=== PATIENT | male | born 1960 | race Caucasian/White ===

== ENCOUNTER 2019-11-16 12:39 | Inpatient (IN) | payer BC, SELFPAY ==
[2019-11-16] VITALS (14 sets, daily range): BP systolic 168–217; BP diastolic 108–160; PULSE 94–110; RESP 16–23; TEMP 36.4–36.6; O2SAT 93–98; BMI 21.8
--- NOTE | ~2019-11-16 | US_ITS ---
EXAMINATION: US renal BI, US retroperitoneal duplex ltd DATE: 11/17/2019 10:55 INDICATION: Renal insufficiency. Hypertension TECHNIQUE: 1. Multiple grayscale and color Doppler images of the kidneys were obtained. 2. Multiple grayscale and pulsed Doppler images of the aorta and renal arteries were obtained. COMPARISON: None. FINDINGS: Kidneys: The right kidney measures 9.2 x 4.4 x 5.4 cm. The left kidney measures 10.5 x 5.0 x 5.6 cm. Bilateral increased renal cortical echogenicity consistent with medical renal disease. There are couple anecho ic cysts in the right kidney measuring 10 mm and 5 mm in maximal diameters. Additional 11 mm anechoic cyst at the lower pole of the left kidney. There is no hydronephrosis in either kidney. No stones i dentified. The bladder is normal. Renal arteries/vascular: The aorta peak systolic velocity is 69 cm/s. The right renal artery peak systolic velocity is 37 cm/s in the proximal segment, 42 cm/s in the mid segment, and 40 cm/s in the distal segment. The left jack al artery peak systolic velocity is 48 cm/s in the proximal segment, 34 cm/s in the mid segment, and 27 cm/s in the distal segment. IMPRESSION: 1. Bilateral increased renal cortical echogenicity consistent with medical renal disease. No hydronep hrosis. 2. No Doppler evidence of renal artery stenosis. Reviewed, dictated and finalized at location A. IMPRESSION: 1. Bilateral increased renal cortical echogenicity consistent with medical rohini l disease. No hydronephrosis. 2. No Doppler evidence of renal artery stenosis.
--- NOTE | ~2019-11-16 | XR_ITS ---
XR chest 2V DATE: 11/16/2019 13:25 INDICATION: Dyspnea TECHNIQUE: PA and lateral views. COMPARISON: None FINDINGS: There is mild right pleural effusion. There is right basilar lower lobe infiltrate and/atel ectasis. The lungs otherwise appear clear. Cardiomegaly. Aortic calcification. Moderate diffuse osteopenia. IMPRESSION: Mild right pleural effusion and right basilar infiltrate and/atelectasis Cardiomegaly, aortic atherosclerosis Reviewed, dictated and finalized at location A. IMPRESSION: Mild right pleural effusion and right basilar infiltrate and/atelec tasis Cardiomegaly, aortic atherosclerosis
--- NOTE | ~2019-11-16 | US_ITS ---
EXAMINATION: US right upper quadrant DATE: 11/17/2019 10:50 INDICATION: Abnormal liver function tests. TECHNIQUE: Multiple grayscale and Doppler ultrasound images of the abdomen were obtained. COMPARISON: None FINDINGS: The visualized portions of the head and body of the pancreas are normal. There is a 1.2 cm hyperechoic mass in the liver. No liver surface nodularity. There is normal flow in main portal vein. The gallbladder is normal size. No gallstones or gallbladder wall thickening. There was no sonograph ic Nguyễn sign. The common duct is normal and measures 4 mm. IMPRESSION: 1. 1.2 cm hyperechoic liver mass. In the absence of chronic liver disease or known malignancy, this f inding is likely a benign mass such as a hemangioma. Reviewed, dictated and finalized at location E. IMPRESSION: 1. 1.2 cm hyperechoic liver mass. In the absence of chronic liver disease or kn own malignancy, this finding is likely a benign mass such as a hemangioma.
--- NOTE | ~2019-11-16 | US_ITS ---
EXAMINATION: US carotid duplex BI DATE: 11/17/2019 10:47 INDICATION: Bilateral carotid bruits TECHNIQUE: Grayscale, color Doppler, and pulsed Doppler images of the cervical carotid arteries were obtained. The degree of vessel stenosis is placed in one of the following categories: normal, <50%, 5 0-69%, >=70% but less than near-occlusion, near-occlusion, or total occlusion. Note that percent sten osis relative to normal distal artery lumen diameter is indirectly measured from velocity measurement s as described by Gerard, et al. Radiology 2003; 229:340-346. COMPARISON: None. FINDINGS: RIGHT: The right common carotid artery (CCA) peak systolic velocity (PSV) is 53 cm/s. The right internal car otid artery (ICA) PSV is 44 cm/s. The right ICA end-diastolic velocity (EDV) is 9 cm/s. The right ICA /CCA PSV ratio is 0.8. Grayscale and color Doppler images yield an estimate of <50% diameter reductio n from plaque in the ICA. The external carotid artery (ECA) PSV is 75 cm/s. There is antegrade flow i n the right vertebral artery. LEFT: The left CCA PSV is 74 cm/s. The left ICA PSV is 55 cm/s. The left ICA EDV is 24 cm/s. The left ICA/C CA PSV ratio is 0.7. Grayscale and color Doppler images yield an estimate of <50% diameter reduction from plaque in the ICA. The ECA PSV is 142 cm/s. There is antegrade flow in the left vertebral artery . IMPRESSION: 1. <50% stenosis in the right internal carotid artery. 2. <50% stenosis in the left internal carotid artery. Reviewed, dictated and finalized at location A.
--- NOTE | 2019-11-16 12:46 | ED.GENADULT ---
HPI - General Adult General Chief complaint: Shortness of Breath/Dyspnea Stated complaint: htn Time Seen by Provider: 11/16/19 12:42 Source: patient Mode of arrival: ambulatory Limitations: no limitations History of Present Illness HPI narrative: Patient is a 59-year-old male with a history of hypertension who presents for evaluation of high blood pressure and shortness of breath. Patient states that he went to a walk-in clinic with [facility] as he has been out of his blood pressure medications over the past year and a half, and was found to have elevated blood pressure readings and was sent to this facility for management of that. Patient currently has no headache, no chest pain. He reports some shortness of breath that has chronic for him over the past several weeks, worsening. He reports dry cough without fever. Patient is a daily 1 to 2 pack/day smoker. He denies leg swelling, calf pain, no pain with breathing. No hemoptysis. No recent sick contacts. Related Data Home Medications Medication Instructions Recorded Confirmed No Home Medications 11/16/19 11/16/19 Allergies Allergy/AdvReac Type Severity Reaction Status Date / Time No Known Allergies Allergy Verified 11/16/19 15:01 Review of Systems Review of Systems: Narrative: CONSTITUTIONAL: Denies fever, chills, or sweats. EYES: Denies visual changes, redness, or discharge. ENT: Denies rhinorrhea, congestion, sore throat, or otalgia. CARDIOVASCULAR: Denies chest pain, palpitations, or edema. RESPIRATORY: Reports dry cough and dyspnea GASTROINTESTINAL: Denies abdominal pain, nausea, vomiting, or diarrhea. GENITOURINARY: Denies dysuria or hematuria. SKIN: Denies rash or itching. MUSCULOSKELETAL: Denies back pain, joint pain, or myalgia. NEUROLOGIC: Denies headache, numbness, or weakness. [facility] Past Medical History Medical History (Updated 11/16/19 @ 14:42 by Lorena Gudino MD) Broken toes COPD (chronic obstructive pulmonary disease) History of broken leg Hypertension Surgical History Surgical History (Updated 11/16/19 @ 12:58 by Lorena Gudino MD) H/O toe surgery Social History Social History (Updated 11/16/19 @ 12:59 by Lorena Gudino MD) Smoking status: Heavy tobacco smoker Alcohol intake: never Substance use: never Gender identity (if verbalized by the patient): Male Exam Narrative: Exam Narrative: GENERAL: Awake, alert, conversant HEAD: Normocephalic, atraumatic. EYES: PERRLA and EOMI. ENT: Nares clear, no rhinorrhea or epistaxis. Mucous membranes moist. NECK: Supple. CHEST: No respiratory distress, faint expiratory wheezing bilaterally, crackles bilaterally, breathing even, no tachypnea, no rhonchi HEART: Tachycardic rate, sinus rhythm ABDOMEN:Non distended, non tender EXTREMITIES: Normal range of motion. No edema. SKIN: Warm, dry, no rash. NEURO:No focal deficits. Alert and oriented x3 Course Vital Signs Vital signs: Vital Signs Temperature 36.4 C L 11/16/19 13:05 Pulse Rate 110 H 11/16/19 13:05 Respiratory Rate 20 11/16/19 13:05 Blood Pressure 206/158 H 11/16/19 13:05 Pulse Oximetry 93 11/16/19 13:05 Temperature 36.4 C L 11/16/19 13:05 Pulse Rate 101 H 11/16/19 15:00 Respiratory Rate 20 11/16/19 15:00 Blood Pressure 199/160 H 11/16/19 15:00 Pulse Oximetry 97 11/16/19 15:00 Medical Decision Making MDM Narrative Medical decision making narrative: Patient presented to the emergency department for evaluation of shortness of breath, elevated blood pressure readings. At the time of initial assessment, ABCs are intact, vital signs notable for sinus tachycardia. Patient with faint wheezing, crackles bilaterally on exam. No lower extremity edema. EKG without acute ischemic changes. Did try a DuoNeb which did have some improvement for the patient. He obviously has some component of COPD given his chronic cigarette/tobacco use. Patient with significantl
--- NOTE | 2019-11-16 12:55 | ECG_ITS ---
Measurements Intervals [place] Rate: 110 P: 64 MT: 127 QRS: -32 QRSD: 114 T: -32 QT: 434 QTc: 588 Interpretive Statements SINUS TACHYCARDIA LEFT ATRIAL ENLARGEMENT LEFT AXIS DEVIATION INTRAVENTRICULAR CONDUCTION DELAY POSSIBLE LEFT VENTRICULAR HYPERTROPHY CANNOT RULE OUT SEPTAL INFARCT, AGE INDETERMINATE BORDERLINE T WAVE ABNORMALITY- INFERIOR LEADS ABNORMAL ECG Electronically Signed On 11-16-2019 13:22:50 CDT by Kemal Hogan D.O.
[2019-11-16] MEDS: ALBUTEROL SULFATE NEB 2.5 MG/0.5 ML INH 5 MG INHALATION (13:08)
[2019-11-16] MEDS: IPRATROPIUM BR 0.02% INH SOLN 0.5 MG/2.5 ML VIAL 1 MG INHALATION (13:10)
[2019-11-16 13:19] LABS: Basophils Absolute Auto 0.1 K/mm3 (0.0-0.1); Basophils Percent Auto 0.4 % (0.2-1.2); Eosinophils Absolute Auto 0.1 K/mm3 (0-0.3); Eosinophils Percent Auto 0.5 % (0-4.4); Hematocrit 43.3 % (42.0-52.0); Hemoglobin 15.1 g/dL (14.0-18.0); Immature Granulocyte Absolute 0.07 K/mm3 (0.00-0.031); Immature Granulocyte Percent A 0.4 % (0-0.5); Lymphocytes Absolute Auto 2.37 K/mm3 (0.9-3.2); Lymphocytes Percent Auto 14.8 % (18.3-44.2); Mean Corpuscular HGB Conc 34.9 g/dl (32-36); Mean Corpuscular Hemoglobin 32.2 pg (26-34); Mean Corpuscular Volume 92.3 fl (80-100); Monocytes Absolute Auto 1.5 K/mm3 (0.1-0.6); Monocytes Percent Auto 9.4 % (2.6-8.5); Neutrophils Percent Auto 74.5 % (45.5-73.1); Platelet Count Result 286 k/mm3 (150-375); Red Blood Count 4.69 M/mm3 (4.6-6.20); Red Cell Distribution Width 14.8 % (11.5-14.5)
[2019-11-16 13:29] LABS: INR 1.3; Prothrombin Time 15.4 Seconds (11.1-14.7)
[2019-11-16 13:30] LABS: Partial Thromboplastin Time 33.1 SECONDS (22.3-36.8)
[2019-11-16 13:32] LABS: Alanine Aminotransferase 124 U/L (4-50); Albumin Level 3.9 g/dL (3.5-5.1); Alkaline Phosphatase 227 U/L (38-126); Aspartate Amino Transferase 117 U/L (17-59); Bilirubin,Total 2.1 mg/dL (0.2-1.3); Blood Urea Nitrogen 31 mg/dL (9-20); Calcium 9.1 mg/dL (8.4-10.2); Carbon Dioxide 20 mmol/L (22-30); Chloride 106 mmol/L (98-107); Estimated CRCL calculation 50 ml/min; Estimated Glomerular Filt Rate 52; Glucose 122 mg/dL (75-110); Sodium 135 mmol/L (137-145)
[2019-11-16 13:47] LABS: NT Pro B Type Natriuretic Pept 17100 PG/ML (5-100); Troponin I 0.059 ng/mL (0.000-0.034)
[2019-11-16] MEDS: FUROSEMIDE INJ 40 MG/4 ML VIAL IV PUSH ×2 (14:04→21:08)
[2019-11-16] MEDS: NITROGLYCERIN SL 0.4 MG TABLET SUBLINGUAL (14:26)
[2019-11-16] MEDS: NITROGLYCERIN/D5W 200 MCG/ML 50 MG/250 ML BTL IV CONT ×2 (14:27→16:40)
[2019-11-16 15:18] LABS: Add Urine Microscopic? YES; Appearance Urine Clear (Clear); Bacteria Urine Trace /hpf; Bilirubin Urine Negative (Negative); Blood Urine Negative (Negative); Color Urine Straw (Yellow); Glucose Urine UA Negative (Negative); Ketones Urine Negative (Negative); Leukocyte Esterase Ur Negative LEU/UL (Negative); Mucus Urine Rare /lpf; Nitrate Urine Negative (Negative); Protein Urine 2+ mg/dL (Negative); RBC Urine 0-2 /hpf (0-2); Urobilinogen Urine Negative mg/dL (<2.0); WBC Urine 0-3 /hpf
[2019-11-16] MEDS: NITROGLYCERIN OINTMENT 1 INCH DOSE TRANSDERM (15:34)
[2019-11-16] MEDS: hydrALAZINE HCL 20 MG/ML VIAL IV PUSH (15:35)
[2019-11-16 17:47] LABS: Troponin I 0.057 ng/mL (0.000-0.034)
--- NOTE | 2019-11-16 18:17 | ADMGEN ---
This patient, Osvaldo Marshall, was admitted to Intensive Care Unit-9. Patient/family oriented to hospital policies and general routines including ID bracelet, bed and alarms, visiting hours, pain management, procedures, bathroom and other care routines, personal items, smoking policy, room service/diet, and visiting hours. Valuables list has been completed. Information on how to activate the Rapid Response Team has been discussed. Patient/Family are encouraged to report perceived risks to care and to ask questions if they do not understand what they are told or what they should do.
--- NOTE | 2019-11-16 20:00 | PM.IMHP ---
H&P: HPI History of Present Illness Chief complaint: High blood pressure and shortness of breath. Narrative: Osvaldo Marshall is a 59-year-old male smoker with untreated hypertension who presented to the emergency department earlier this afternoon for evaluation of high blood pressure and shortness of breath. He is not the best historian and he takes quite some time to answer questions, it appears that he is concentrating to, but the answers any frequently answers my questions with ?I cannot remember.? As such, the following history is somewhat limited. He took antihypertensives for approximately 6 months however he stopped taking them for unclear reasons and has been off of them for maybe a year and a half. He does not recall what medications he was on nor the doctor that prescribed them to him. In any event, over the past 3 weeks or so he reports progressive dyspnea on lesser and lesser exertion, orthopnea, and pedal edema. His shortness of breath has been so bad that he has not been eating well because of it, apparently feeling more short of breath while eating. He has also not worked for the past 2 weeks and has not consumed alcohol in 3 weeks due to such (he did drink heavily previously as below). He apparently went to a walk-in clinic at [facility], where he was found to have significantly elevated blood pressure reading and he was directed to the emergency department. He has since been started on a nitroglycerin drip with improvement. He denies headache, vertigo, visual changes, focal weakness, paresthesias, memory loss, chest pain, pleuritic pain, resting shortness of breath, palpitations, nausea, vomiting, sweats, change in urine output, and hematuria. Review of Systems Review of Systems: Narrative: Twelve systems were reviewed with pertinent positives and negatives as per HPI. He denies fever, chills, and sweats. No recent cold or flu symptoms. He denies travel and sick contacts. He has an occasional smoker's cough which is nonproductive. No history of venous thromboembolism. He denies dizziness and vertigo and has not had any falls. He did have some mild alcohol withdrawal symptoms when he quit drinking 3 weeks ago, but has no history of DTs or seizure. No history of seizure. He denies GERD and history of peptic ulcers. He has occasional dysphagia with breads and meats. He denies concerns for aspiration and choking episodes. Except as documented, all other systems were reviewed and are negative. [facility] Past Medical History Medical History (Updated 11/16/19 @ 23:22 by Abril Allison PA-C) Alcohol abuse Chronic obstructive pulmonary disease History of fracture Including lower extremity and multiple toes. Hypertension Tobacco dependence Surgical History Surgical History (Updated 11/16/19 @ 15:46 by Abril Allison PA-C) History of toe surgery Family History Family History (Updated 11/16/19 @ 23:05 by Abril Allison PA-C) Father Hypertension Father Throat cancer of throat cancer in her early 60s. He was a heavy smoker. Mother Acute myocardial infarction of MA in early 60s. Social History Social History (Updated 11/16/19 @ 23:07 by Abril Allison PA-C) Social History: The patient lives alone in [place]. He is single. He smoked between 1 and 2 packs of cigarettes per day and has since the age of 17. He drinks heavily, several times per week, consuming up to 1/2 of a 5th in addition to 6 beers. No drug use. He has 1 daughter, Andi, and he nominates her to be his surrogate decision maker. He wishes to be a full code. Spiritual care concerns: No Meds Home Medications and Allergies Home Medications Medication Instructions Recorded Confirmed Type amlodipine 5 mg PO DAILY 11/16/19 11/16/19 History Allergies Allergy/AdvReac Type Severity Reaction Status Date / Time No Known Allergies Allergy Verified 11/16/19 15:01
[2019-11-16] MEDS: NICOTINE (*PBKC) 21 MG PATCH 1 PATCH TRANSDERM (21:08)
[2019-11-16 21:34] LABS: Troponin I 0.065 ng/mL (0.000-0.034)
[2019-11-16 23:58] LABS: Ammonia < 9 umol/L (9-30); Blood Urea Nitrogen 30 mg/dL (9-20); Carbon Dioxide 29 mmol/L (22-30); Chloride 101 mmol/L (98-107); Estimated CRCL calculation 48 ml/min; Estimated Glomerular Filt Rate 52; Glucose 113 mg/dL (75-110); Potassium 3.5 mmol/L (3.4-5.0); Sodium 137 mmol/L (137-145)
[2019-11-16 23:59] LABS: Magnesium 1.8 mg/dL (1.6-2.3); Phosphorus 5.1 mg/dL (2.5-4.5)
[2019-11-17] VITALS (16 sets, daily range): BP systolic 121–192; BP diastolic 78–145; PULSE 86–108; RESP 16–23; TEMP 36.2–37.1; O2SAT 94–98
--- NOTE | 2019-11-17 | ECHO_ITS ---
Patient Info Name: Osvaldo Marshall Age: 59 years : 1960 Gender: Male Ht: 69 in Wt: 155 lbs BSA: 1.85 m2 HR: 90 bpm BP: 156 / 113 mmHg Heart Rhythm: Sinus Rhythm Technical Quality: Excellent Exam Date: 11/17/2019 11:37 AM Exam Location: [facility] Patient Status: Inpatient Admit Date: 11/16/2019 Staff Ordering Physician: Lorena Gudino MD Client Hr Manager: Ayo Muñoz RDCS Attending Provider: Yury Parekh MD Referring Physician: Shahab VASQUES; Exam Type: CA echo doppler color flow Study Info Indications I50.9 - Heart failure, unspecified Complete two-dimensional, color flow and Doppler transthoracic echocardiogram is performed. Strain analysis performed. History/Risk Factors Acute CHF w/ uncontrolled HTN; BNP 17.1k, COPD, SOB, cardiomegaly, Murmur III/, elevated trops. Summary 1. Left ventricular chamber dimension is normal. 2. Left ventricular systolic function is normal, estimated at 60-65%. 3. There is severely increased left ventricular wall thickness. 4. Left ventricular septal wall motion is normal. 5. The left ventricular diastolic function is normal. 6. Global longitudinal strain is normal at -17 %. 7. Left atrial chamber dimension is severely enlarged. 8. Partially flail posterior leaflet. 9. There is severe mitral valve regurgitation. 10. There is mild tricuspid valve regurgitation. 11. Mild pulmonary hypertension, estimated pulmonary arterial systolic pressure is 42 mmHg. 12. There is mild pulmonic regurgitation. 13. There is small pericardial effusion. 14. ERO 0.7 cm2. Left Ventricle Left ventricular chamber dimension is normal. Left ventricular systolic function is normal, estimated at 60-65%. There is severely increased left ventricular wall thickness. Left ventricular septal wall motion is normal. The left ventricular diastolic function is normal. Global longitudinal strain is normal at -17 %. Right Ventricle Right ventricular chamber dimension is normal. Right ventricular systolic function is normal. Left Atria Left atrial chamber dimension is severely enlarged. Right Atria Right atrial chamber dimension is normal. Aortic Valve The aortic valve is trileaflet. There is no aortic valve stenosis. There is trace aortic valve regurgitation. There is moderate aortic valve calcification. Pulmonic Valve The pulmonic valve is normal. There is no pulmonic valve stenosis. There is mild pulmonic regurgitation. Mitral Valve The mitral valve has posterior prolapse. There is no mitral valve stenosis. There is severe mitral valve regurgitation. Partially flail posterior leaflet. ERO 0.7 cm2. Tricuspid Valve The tricuspid valve leaflets are normal. There is no significant tricuspid valve stenosis. There is mild tricuspid valve regurgitation. Mild pulmonary hypertension, estimated pulmonary arterial systolic pressure is 42 mmHg. Pericardium/Pleural The pericardium appears normal. There is small pericardial effusion. Inferior Vena Cava Dilated inferior vena cava with >50% collapse upon inspiration consistent with elevated right atrial pressure, 10 mmHg. Aorta The aortic root size at the sinus of Valsalva is normal. The prox ascending aorta size is normal. Left Ventricular Outflow Tract Name Value Normal
[2019-11-17 01:08] LABS: Folic Acid > 20.0 ng/mL (2.76->20); Vitamin B12 > 1000.0 pg/mL (239-931)
[2019-11-17 01:26] LABS: Free T4 Free Thyroxine Reflex 1.41 ng/dL (0.78-2.19)
[2019-11-17] MEDS: THIAMINE HCL 200 MG/2 ML VIAL 100 MG IV PUSH (01:30)
[2019-11-17 01:58] LABS: Hepatitis B Surface Antigen Negative (Negative)
[2019-11-17 02:04] LABS: HAV RESULT Negative (Negative); Hepatitis B Core IgM Result Negative (Negative)
[2019-11-17 02:16] LABS: Hepatitis C Virus Antibody Negative (Negative)
[2019-11-17 04:57] LABS: Basophils Absolute Auto 0.1 K/mm3 (0.0-0.1); Basophils Percent Auto 0.3 % (0.2-1.2); Eosinophils Absolute Auto 0.1 K/mm3 (0-0.3); Eosinophils Percent Auto 0.6 % (0-4.4); Hematocrit 40.9 % (42.0-52.0); Hemoglobin 14.6 g/dL (14.0-18.0); Immature Granulocyte Absolute 0.11 K/mm3 (0.00-0.031); Immature Granulocyte Percent A 0.6 % (0-0.5); Lymphocytes Absolute Auto 2.25 K/mm3 (0.9-3.2); Mean Corpuscular HGB Conc 35.7 g/dl (32-36); Mean Corpuscular Hemoglobin 32.3 pg (26-34); Mean Corpuscular Volume 90.5 fl (80-100); Mean Platelet Volume 9.6 fl (7.4-10.4); Monocytes Absolute Auto 1.7 K/mm3 (0.1-0.6); Monocytes Percent Auto 9.9 % (2.6-8.5); Neutrophils Absolute Auto 13.1 K/mm3 (1.3-6.7); Neutrophils Percent Auto 75.6 % (45.5-73.1); Platelet Count Result 268 k/mm3 (150-375); Red Blood Count 4.52 M/mm3 (4.6-6.20); Red Cell Distribution Width 14.4 % (11.5-14.5); White Blood Count 17.3 K/mm3 (4.5-10.0)
[2019-11-17 05:10] LABS: Alanine Aminotransferase 98 U/L (4-50); Albumin Level 3.6 g/dL (3.5-5.1); Alkaline Phosphatase 187 U/L (38-126); Aspartate Amino Transferase 54 U/L (17-59); Bilirubin,Total 1.8 mg/dL (0.2-1.3); Blood Urea Nitrogen 34 mg/dL (9-20); Calcium 8.8 mg/dL (8.4-10.2); Carbon Dioxide 30 mmol/L (22-30); Chloride 102 mmol/L (98-107); Cholesterol 163 mg/dL (0-200); Estimated CRCL calculation 40 ml/min; Estimated Glomerular Filt Rate 41; Glucose 107 mg/dL (75-110); HDL Direct 53 mg/dL; INR 1.2; Magnesium 1.8 mg/dL (1.6-2.3); Phosphorus 5.2 mg/dL (2.5-4.5); Potassium 3.2 mmol/L (3.4-5.0); Prothrombin Time 14.9 Seconds (11.1-14.7); Sodium 136 mmol/L (137-145); Triglycerides 98 mg/dL (<150)
[2019-11-17 05:11] LABS: Partial Thromboplastin Time 34.3 SECONDS (22.3-36.8)
[2019-11-17 05:21] LABS: LDL Cholesterol Direct 94 mg/dL
[2019-11-17] MEDS: MORPHINE SULFATE 2 MG/ML INJ IV PUSH (05:27)
[2019-11-17] MEDS: POTASSIUM CHLORIDE 20 MEQ TABLET 40 MEQ PO (05:27)
--- NOTE | 2019-11-17 08:07 | WPDCNINT ---
Assessment and Plan Assessment and plan (1) Hypertensive emergency: Code(s): I16.1 - Hypertensive emergency Status: Acute Assessment and Plan: patient was started on nitroglycerin infusion on admission start p.o. Norvasc and metoprolol IV p.r.n. metoprolol and hydralazine try to wean off nitroglycerin infusion (2) Acute exacerbation of CHF (congestive heart failure): Qualifiers: Heart failure type: unspecified Qualified Code(s): I50.9 - Heart failure, unspecified Code(s): I50.9 - Heart failure, unspecified Status: Acute Assessment and Plan: patient is now on IV Lasix echocardiogram is ordered and pending SARS-CoV-2 PCR was done on 10/25 and was negative (3) Murmur, cardiac: Code(s): R01.1 - Cardiac murmur, unspecified Status: Acute Assessment and Plan: echo ordered (4) Elevated troponin: Code(s): R79.89 - Other specified abnormal findings of blood chemistry Status: Acute Assessment and Plan: small elevation in troponin on presentation with no significant rise over the hospital course but he did report episode of chest tightness 1-2 weeks ago which resolved by itself EKG does not show any ST elevation but did show LVH and T-wave abnormalities cardiology consult. further testing as per cardiology echocardiogram pending patient is on aspirin statin not started at this time because of elevated liver enzymes (5) Renal insufficiency: Code(s): N28.9 - Disorder of kidney and ureter, unspecified Status: Acute Assessment and Plan: patient's creatinine is elevated which could be chronic from uncontrolled hypertension monitor and manage electrolytes renal ultrasound and Doppler is ordered and pending (6) Elevated liver function tests: Code(s): R79.89 - Other specified abnormal findings of blood chemistry Status: Acute Assessment and Plan: from alcohol abuse versus congestion from heart failur Llevels are improving. monitor right upper quadrant ultrasound is ordered and pending acute hepatitis screen was negative (7) Tobacco dependence: Code(s): F17.200 - Nicotine dependence, unspecified, uncomplicated Status: Acute Assessment and Plan: encouraged to quit patient has nicotine patch on him at this time which was started on admission. will discontinue if patient reports any chest pain (8) Leukocytosis: Code(s): D72.829 - Elevated white blood cell count, unspecified Status: Acute Assessment and Plan: UA is negative patient is afebrile signs and symptoms not suggestive of pneumonia or any other infection at this moment monitor at this time Additional Plan DVT prophylaxis - Lovenox Nutrition - NPO at this time Code Status - Full Code [employer] Consult Note Consult date: 11/17/19 Time Seen: 07:30 HPI: Osvaldo Marshall is a 59 year old male who presented yesterday to ER with chief complaint of shortness of breath that started approximately 2 weeks ago. Patient reported symptoms 1 week prior to that but told me that they resolve by itself and hence he did not seek any treatment at that time but a week later the symptoms return. He reported shortness of breath mostly on exertion and lying flat, shortness of breath when he woke up in the morning. he was unable to sleep flat on bed and also notice swelling of his legs. he also had dry cough and had 1 episode of chest tightness which resolved by itself. and that time patient thought he had COVID-19 and went to get tested. SARS-CoV-2 PCR was done as an outpatient on 10/25 and was negative. patient is unable to provide any further details about other testing done at that time. As symptoms continued and did not resolve patient reported to ER yesterday. in ED he was found to be hypertensive, elevated creatinine level and pulmonary edema on his chest XR. he was given Lasix and started on nitr
[2019-11-17] MEDS: FUROSEMIDE INJ 40 MG/4 ML VIAL IV PUSH ×2 (08:48→19:54)
[2019-11-17] MEDS: ENOXAPARIN 40 MG/0.4 ML SYRINGE SUB-Q (09:04)
[2019-11-17] MEDS: METOPROLOL TARTRATE 25 MG TABLET PO (09:04)
[2019-11-17] MEDS: AMLODIPINE BESYLATE 5 MG TABLET PO ×2 (09:04→19:52)
[2019-11-17] MEDS: ASPIRIN 81 MG ENTERIC TABLET PO (09:05)
--- NOTE | 2019-11-17 09:44 | PM.CNCAR ---
Assessment and Plan Additional Plan 59-year-old patient with: Longstanding hypertension not treated at all for a number of years patient is significantly short of breath and presented for evaluation. Evidence of left-sided heart failure on admission is minimal if at all. Not clear to me why intravenous nitroglycerin was chosen as the initial drug to treat this. Agree with the hospitalist that beta-tammy and calcium channel tammy therapy should be instituted and IV nitroglycerin weaned. For now I would avoid JUDY-inhibitor or ARB given his renal insufficiency. His physical exam is very concerning for valvular heart disease with his loud holosystolic murmur. This is most consistent with mitral valve regurgitation. In addition to initiating antihypertensive therapy as mentioned above echocardiogram should be done this morning to assess his left ventricular systolic diastolic function and valvular disease. Further recommendations be forthcoming response to treatment and evaluating of the echocardiographic findings Kin Regan MD [facility] History of Present Illness History of Present Illness Consult date/time: Date of service: 11/17/19 09:44 Consult reason: hypertension and shortness of breath Reason For Visit: High blood pressure and shortness of breath. Narrative: This is a 59-year-old man of seeing at the request of the hospitalist for assistance with management of hypertension and dyspnea. The patient is unknown to me prior to this encounter. He says he is known to have hypertension for many years since he was a very young man and he has not been on any medication for this at all for a number of years because of medical noncompliance. The patient can't remember the last time he saw physician for evaluating this. He has been noticing progressively getting more short of breath with modest activity and in the last 4 5 days short of breath with minimal activity as well as some positional dyspnea. He went to an urgent care center yet last evening and apparently was sent to the emergency department because his blood pressure was exceedingly high in the emergency department he was evaluated for reasons that are not entirely clear he was placed on intravenous nitroglycerin and admitted to the ICU. His laboratory data does demonstrate an element of renal insufficiency with a creatinine of 1.7 he states he is not known to have any previous cardiac problems that he can recall. He had some previous surgery on his lower extremity but no other major illnesses or hospitalizations. He has a history of chronic cigarette smoking and a previous history of heavy ethanol consumption which he indicates he has moderated recently. He used to smoke heavily and now smokes about a half a pack per day. The hospitalist's also obtain a history of some illicit use of cocaine. Apparently this was in the past and not recently. No history of intravenous drug use. He is on no medication at all coming into the hospital. His blood pressure is still high in the 180-190 range systolic and diastolic pressures of 100-120. The hospitalists have ordered some metoprolol and amlodipine this morning I do not think he has received any of that at this time. He has no other complaints or concerns. Review of Systems Constitutional: Constitutional: Reports lethargy Eyes: Eyes: Reports no additional eye complaints ENT: Reports system reviewed and no additional complaints, except as documented Cardiovascular: Cardiovascular: Reports as per HPI Respiratory: Respiratory: Reports dyspnea Gastrointestinal: Gastrointestinal: Reports no additional gastrointestinal complaints Musculoskeletal: Musculoskeletal: Reports arthralgias Neurologic: Reports system reviewed and no additional complaints, except as documented Psychiatric: Psychiatric: Reports no additional psychiatric complaints Endocrine: Endocrine: Reports no additional endocrine complaints Hematologic/Lymphatic: Hematol
[2019-11-17] MEDS: THIAMINE HCL 100 MG TABLET PO (10:38)
[2019-11-17] MEDS: METOPROLOL TARTRATE INJ 5 MG/5 ML VIAL IV PUSH ×3 (10:38→23:16)
[2019-11-17] MEDS: FOLIC ACID 1 MG TABLET PO (10:38)
[2019-11-17] MEDS: hydrALAZINE HCL 20 MG/ML VIAL IV PUSH (12:10)
--- NOTE | 2019-11-17 17:46 | P.PNIM_ITS ---
Progress Note: A&P Assessment and Plan (1) Hypertensive urgency: Code(s): I16.0 - Hypertensive urgency Status: Acute Assessment and Plan: * Currently on a nitroglycerin drip with goal to transition to oral medications, amlodipine and metoprolol have been started * No renal artery stenosis seen on Doppler (2) Elevated troponin: Code(s): R79.89 - Other specified abnormal findings of blood chemistry Status: Acute Assessment and Plan: * He is not having any chest pain and likely these are elevated in the setting of uncontrolled hypertension. Troponins are flat and no wall motion abnormality with echo (3) Renal insufficiency: Code(s): N28.9 - Disorder of kidney and ureter, unspecified Status: Acute Assessment and Plan: * Evidence of chronic renal disease on sonogram with no obstruction * Continue to monitor and hold on treatment with Moises or ARB (4) Elevated liver function tests: Code(s): R79.89 - Other specified abnormal findings of blood chemistry Status: Acute Assessment and Plan: * Patient reports being a heavy drinker however he has not consumed alcohol for the past 3 weeks. * Right upper quadrant ultrasound to evaluate the liver revealed small lesion probably hemangioma. But will check alpha fetoprotein * Hepatitis panel negative * May very well have some underlying congestive heart failure due to uncontrolled hypertension, and thus could have passive congestion. * But most likely secondary to ETOH (5) Tobacco dependence: Code(s): F17.200 - Nicotine dependence, unspecified, uncomplicated Status: Acute Assessment and Plan: * Nicotine patches available if needed. (6) Alcohol abuse: Code(s): F10.10 - Alcohol abuse, uncomplicated Status: Acute Assessment and Plan: * He has not had alcohol for 3 weeks time as detailed above. By history but suspect his strength since then * initiated CIWA protocol, however and initiate thiamine and folic acid supplementation. (7) Leukocytosis: Code(s): D72.829 - Elevated white blood cell count, unspecified Status: Acute Assessment and Plan: * He gives no history to suggest underlying infection, and chest x-ray and urinalysis are unremarkable. * Will just continue to monitor for now. (8) Dysphagia: Code(s): R13.10 - Dysphagia, unspecified Status: Acute Assessment and Plan: * Occasionally with breads and meats. * Will likely need EGD as an outpatient. (9) Mitral insufficiency: Code(s): I34.0 - Nonrheumatic mitral (valve) insufficiency Status: Acute Assessment and Plan: Echo today revealed severe mitral insufficiency as per physical exam. Could be contributing to congestive failure as well as passive liver congestion Subjective Date/time seen: 11/17/19 17:46 Interval history: Date of visit 11/16. 59-year-old hypertensive alcoholic admitted with increasing shortness of breath and hypertensive urgency. Initially placed on nitroglycerin drip and given IV Lasix. Feels better this
--- NOTE | 2019-11-17 17:46 | PM.IMPN ---
Progress Note: A&P Assessment and Plan (1) Hypertensive urgency: Code(s): I16.0 - Hypertensive urgency Status: Acute Assessment and Plan: Currently on a nitroglycerin drip with goal to transition to oral medications, amlodipine and metoprolol have been started No renal artery stenosis seen on Doppler (2) Elevated troponin: Code(s): R79.89 - Other specified abnormal findings of blood chemistry Status: Acute Assessment and Plan: He is not having any chest pain and likely these are elevated in the setting of uncontrolled hypertension. Troponins are flat and no wall motion abnormality with echo (3) Renal insufficiency: Code(s): N28.9 - Disorder of kidney and ureter, unspecified Status: Acute Assessment and Plan: Evidence of chronic renal disease on sonogram with no obstruction Continue to monitor and hold on treatment with Moises or ARB (4) Elevated liver function tests: Code(s): R79.89 - Other specified abnormal findings of blood chemistry Status: Acute Assessment and Plan: Patient reports being a heavy drinker however he has not consumed alcohol for the past 3 weeks. Right upper quadrant ultrasound to evaluate the liver revealed small lesion probably hemangioma. But will check alpha fetoprotein Hepatitis panel negative May very well have some underlying congestive heart failure due to uncontrolled hypertension, and thus could have passive congestion. But most likely secondary to ETOH (5) Tobacco dependence: Code(s): F17.200 - Nicotine dependence, unspecified, uncomplicated Status: Acute Assessment and Plan: Nicotine patches available if needed. (6) Alcohol abuse: Code(s): F10.10 - Alcohol abuse, uncomplicated Status: Acute Assessment and Plan: He has not had alcohol for 3 weeks time as detailed above. By history but suspect his strength since then initiated CIWA protocol, however and initiate thiamine and folic acid supplementation. (7) Leukocytosis: Code(s): D72.829 - Elevated white blood cell count, unspecified Status: Acute Assessment and Plan: He gives no history to suggest underlying infection, and chest x-ray and urinalysis are unremarkable. Will just continue to monitor for now. (8) Dysphagia: Code(s): R13.10 - Dysphagia, unspecified Status: Acute Assessment and Plan: Occasionally with breads and meats. Will likely need EGD as an outpatient. (9) Mitral insufficiency: Code(s): I34.0 - Nonrheumatic mitral (valve) insufficiency Status: Acute Assessment and Plan: Echo today revealed severe mitral insufficiency as per physical exam. Could be contributing to congestive failure as well as passive liver congestion Subjective Date/time seen: 11/17/19 17:46 Interval history: Date of visit 11/16. 59-year-old hypertensive alcoholic admitted with increasing shortness of breath and hypertensive urgency. Initially placed on nitroglycerin drip and given IV Lasix. Feels better this a.m. in pressure has slowly fallen and now instituting oral antihypertensive Exam Narrative: Exam Narrative: General: Well-developed male sitting up in bed in no distress. In good spirits. HEENT: . PERRL, . Sclerae anicteric. Neck: Supple. Bilateral bruits verses radiation of murmur. Respiratory: Lung sounds are diminished throughout . . Cardiovascular: Regular rate and rhythm with S1-S2. Occasional ectopy. 3/6 systolic murmur heard
[2019-11-18] VITALS (13 sets, daily range): BP systolic 140–163; BP diastolic 95–116; PULSE 81–110; RESP 13–21; TEMP 36.2–36.8; O2SAT 93–100
[2019-11-18] MEDS: hydrALAZINE HCL 20 MG/ML VIAL IV PUSH ×3 (02:34→22:06)
[2019-11-18] MEDS: METOPROLOL TARTRATE INJ 5 MG/5 ML VIAL IV PUSH (06:14)
[2019-11-18 06:34] LABS: Basophils Percent Auto 0.3 % (0.2-1.2); Eosinophils Absolute Auto 0.2 K/mm3 (0-0.3); Eosinophils Percent Auto 1.7 % (0-4.4); Hematocrit 42.4 % (42.0-52.0); Hemoglobin 14.6 g/dL (14.0-18.0); Immature Granulocyte Absolute 0.07 K/mm3 (0.00-0.031); Immature Granulocyte Percent A 0.5 % (0-0.5); Lymphocytes Absolute Auto 2.38 K/mm3 (0.9-3.2); Lymphocytes Percent Auto 17.2 % (18.3-44.2); Mean Corpuscular HGB Conc 34.4 g/dl (32-36); Mean Corpuscular Hemoglobin 32.1 pg (26-34); Mean Corpuscular Volume 93.2 fl (80-100); Mean Platelet Volume 9.7 fl (7.4-10.4); Monocytes Absolute Auto 1.4 K/mm3 (0.1-0.6); Neutrophils Absolute Auto 9.7 K/mm3 (1.3-6.7); Neutrophils Percent Auto 70.3 % (45.5-73.1); Platelet Count Result 246 k/mm3 (150-375); Red Blood Count 4.55 M/mm3 (4.6-6.20); Red Cell Distribution Width 14.9 % (11.5-14.5); White Blood Count 13.8 K/mm3 (4.5-10.0)
[2019-11-18 06:53] LABS: Alanine Aminotransferase 95 U/L (4-50); Albumin Level 3.5 g/dL (3.5-5.1); Alkaline Phosphatase 153 U/L (38-126); Aspartate Amino Transferase 44 U/L (17-59); Bilirubin Indirect 1.7 mg/dL (0-1.1); Bilirubin,Total 1.5 mg/dL (0.2-1.3); Blood Urea Nitrogen 33 mg/dL (9-20); Calcium 8.6 mg/dL (8.4-10.2); Carbon Dioxide 30 mmol/L (22-30); Chloride 101 mmol/L (98-107); Estimated CRCL calculation 51 ml/min; Estimated Glomerular Filt Rate 56; Glucose 106 mg/dL (75-110); Magnesium 1.9 mg/dL (1.6-2.3); Phosphorus 3.8 mg/dL (2.5-4.5); Potassium 3.2 mmol/L (3.4-5.0); Sodium 136 mmol/L (137-145)
--- NOTE | 2019-11-18 07:30 | WPDINTPN ---
Progress Note: A&P Assessment and Plan (1) Hypertensive emergency: Code(s): I16.1 - Hypertensive emergency Status: Acute Assessment and Plan: improved and patient has been weaned off nitroglycerin infusion that was started on admission patient is on p.o. Norvasc and metoprolol IV p.r.n. metoprolol and hydralazine (2) Acute exacerbation of CHF (congestive heart failure): Qualifiers: Heart failure type: unspecified Qualified Code(s): I50.9 - Heart failure, unspecified Code(s): I50.9 - Heart failure, unspecified Status: Acute Assessment and Plan: diastolic congestive heart failure on echo with severe MR likely explains the pulmonary edema continue IV Lasix SARS-CoV-2 PCR was done on 10/25 and was negative (3) Murmur, cardiac: Code(s): R01.1 - Cardiac murmur, unspecified Status: Acute Assessment and Plan: echocardiogram done and shows severe MR. patient was notified of the results and further management as per Cardiology ECHO Summary 1. Left ventricular chamber dimension is normal. 2. Left ventricular systolic function is normal, estimated at 60-65%. 3. There is severely increased left ventricular wall thickness. 4. Left ventricular septal wall motion is normal. 5. The left ventricular diastolic function is normal. 6. Global longitudinal strain is normal at -17 %. 7. Left atrial chamber dimension is severely enlarged. 8. Partially flail posterior leaflet. 9. There is severe mitral valve regurgitation. 10. There is mild tricuspid valve regurgitation. 11. Mild pulmonary hypertension, estimated pulmonary arterial systolic pressure is 42 mmHg. 12. There is mild pulmonic regurgitation. 13. There is small pericardial effusion. 14. ERO 0.7 cm2 (4) Elevated troponin: Code(s): R79.89 - Other specified abnormal findings of blood chemistry Status: Acute Assessment and Plan: small elevation in troponin on presentation with no significant rise over the hospital course but he did report episode of chest tightness 1-2 weeks ago which resolved by itself EKG does not show any ST elevation but did show LVH and T-wave abnormalities cardiology following further testing as per cardiology echocardiogram review patient is on aspirin statin not started at this time because of elevated liver enzymes (5) Renal insufficiency: Code(s): N28.9 - Disorder of kidney and ureter, unspecified Status: Acute Assessment and Plan: patient's creatinine is elevated which could be chronic from uncontrolled hypertension creatinine is improving at this time monitor and manage electrolytes renal ultrasound and Doppler i shows medical renal disease with no renal artery stenosis (6) Elevated liver function tests: Code(s): R79.89 - Other specified abnormal findings of blood chemistry Status: Acute Assessment and Plan: from alcohol abuse versus congestion from heart failure Levels are improving. monitor right upper quadrant ultrasound is ordered and and reviewed. patient was notified of results of small liver mass which will need further workup in future. further management deferred to Primary Internal Medicine physician acute hepatitis screen was negative (7) Tobacco dependence: Code(s): F17.200 - Nicotine dependence, unspecified, uncomplicated Status: Acute Assessment and Plan: encouraged to quit patient has nicotine patch on him at this time which was started on admission. will discontinue if patient reports any chest pain (8) Leukocytosis: Code(s): D72.829 - Elevated white blood cell count, unspecified Status: Acute Assessment and Plan: UA is negative patient is afebrile signs and symptoms not suggestive of pneumonia or any other infection at this moment WBCs decreasing monitor at this time (9) Hypokalemia: Code(s): E87.6 - Hypo
[2019-11-18] MEDS: FUROSEMIDE INJ 40 MG/4 ML VIAL IV PUSH (08:56)
[2019-11-18] MEDS: ASPIRIN 81 MG ENTERIC TABLET PO (08:57)
[2019-11-18] MEDS: AMLODIPINE BESYLATE 5 MG TABLET PO ×2 (08:57→22:06)
[2019-11-18] MEDS: POTASSIUM CHLORIDE 20 MEQ TABLET 40 MEQ PO ×3 (08:57→19:43)
[2019-11-18] MEDS: FOLIC ACID 1 MG TABLET PO (08:57)
[2019-11-18] MEDS: THIAMINE HCL 100 MG TABLET PO (08:57)
[2019-11-18] MEDS: NICOTINE (*PBKC) 21 MG PATCH 1 PATCH TRANSDERM (08:58)
[2019-11-18] MEDS: ENOXAPARIN 40 MG/0.4 ML SYRINGE SUB-Q (08:58)
--- NOTE | 2019-11-18 11:56 | PM.PNCARD ---
Progress Note: A&P Assessment and Plan (1) Hypertensive emergency: Code(s): I16.1 - Hypertensive emergency Status: Acute Assessment and Plan: he is now off IV nitroglycerin. continue amlodipine, beta-tammy. add hydralazine 10 mg t.i.d. (2) Acute exacerbation of CHF (congestive heart failure): Qualifiers: Heart failure type: unspecified Qualified Code(s): I50.9 - Heart failure, unspecified Code(s): I50.9 - Heart failure, unspecified Status: Acute Assessment and Plan: continue IV Lasix today and monitor renal function (3) Mitral insufficiency: Code(s): I34.0 - Nonrheumatic mitral (valve) insufficiency Status: Acute Assessment and Plan: note pansystolic murmur suggestive of severe mitral regurgitation. order echocardiogram (4) Hypokalemia: Code(s): E87.6 - Hypokalemia Status: Acute Assessment and Plan: replace potassium Subjective Date/time seen: date of service:11/18/19 11:56 [place] chief complaint: shortness of breath today he feels well. Denies chest pain, shortness of breath. Blood pressure is controlled today. Review of Systems Constitutional: Constitutional: Denies chills, Denies fever(s) and Denies poor appetite Eyes: Eyes: Denies eye discharge, Denies loss of vision, Denies eye pain and Denies photophobia ENT: Denies dizziness, Denies epistaxis, Denies nasal congestion and Denies sore throat Cardiovascular: Cardiovascular: Denies chest pain, Denies syncope, Denies pedal edema, Denies leg edema, Denies palpitations, Denies dyspnea, Denies dyspnea on exertion and Denies orthopnea Respiratory: Respiratory: Denies cough, Denies dyspnea, Denies dyspnea on exertion and Denies wheezing Gastrointestinal: Gastrointestinal: Denies abdominal pain, Denies diarrhea, Denies nausea and Denies vomiting Genitourinary: Genitourinary: Denies hematuria, Denies genital lesions and Denies dysuria Musculoskeletal: Musculoskeletal: Denies arthralgias, Denies joint swelling and Denies numbness Integumentary/Breasts: Skin/Breast: Denies pruritus and Denies rash Neurologic: Denies dizziness, Denies syncope, Denies loss of vision and Denies numbness Psychiatric: Psychiatric: Denies anxiety and Denies depression Endocrine: Endocrine: Denies cold intolerance, Denies heat intolerance and Denies palpitations Hematologic/Lymphatic: Hematologic/Lymphatic: Denies easy bleeding and Denies easy bruising Allergic/Immunologic: Allergic/Immunologic: Denies urticaria and Denies wheezing Exam Const: General: cooperative, comfortable, no acute distress, alert and awake Nutritional Appearance: well nourished Orientation/consciousness: patient oriented x3 HENMT: Head: normal to inspection, normocephalic and atraumatic Ears: hearing grossly normal bilaterally General nose exam: Normal external nose present, Normal nares present and no nasal discharge noted Face and sinus: normal facial exam and no erythema Mouth: No drooling and No restricted motion Throat: uvula midline Eyes: General: appearance normal, both eyes and all related structures Alignment and Position: position normal Conjunctivae: conjunctivae normal Sclera: sclerae normal Direct Ophthalmoscopy: No photophobia Neck: Neck: normal visual inspection and no JVD Thyroid: thyroid normal Carotids: no bruits Lymphatic: lymphedema not noted Chest: Chest palpation & inspection: normal inspection of the chest and no tenderness Resp: Effort & Inspection: normal respiratory effort and no nasal flaring Auscultation: clear to auscultation bilaterally, no crackles, no rales and no wheezes Cardio: Jugular venous distension: no JVD Rate: regular rate Rhythm: regular rhythm Heart sounds: S1 normal heart sound present, S2 normal heart sound present, no gallops, Murmur heart sound present ( Pansystolic murmur at the apex) and no rubs GI: Inspection: non-distended GI Palp: No abdomi
--- NOTE | 2019-11-18 13:24 | PC.NURSE ---
This patient, Osvaldo Marshall, was transferred to [facility] on 11/18/19 at 1315. Personal belongings sent with patient. Report given to Monik ORR. Appropriate documentation sent with patient.
[2019-11-18] MEDS: hydrALAZINE 10 MG TABLET PO ×2 (14:26→16:55)
--- NOTE | 2019-11-18 17:48 | PM.IMPN ---
Progress Note: A&P Assessment and Plan (1) Hypertensive urgency: Code(s): I16.0 - Hypertensive urgency Status: Acute Assessment and Plan: Currently off nitroglycerin drip with transitioning to oral medications, amlodipine and metoprolol and hydralazine added for afterload reduction with the mitral insufficiency No renal artery stenosis seen on Doppler (2) Elevated troponin: Code(s): R79.89 - Other specified abnormal findings of blood chemistry Status: Acute Assessment and Plan: He is not having any chest pain and likely these are elevated in the setting of uncontrolled hypertension. Troponins are flat and no wall motion abnormality with echo (3) Renal insufficiency: Code(s): N28.9 - Disorder of kidney and ureter, unspecified Status: Acute Assessment and Plan: Evidence of chronic renal disease on sonogram with no obstruction Continue to monitor and hold on treatment with Moises or ARB Creatinine decreased to 1.3 today, replace potassium (4) Elevated liver function tests: Code(s): R79.89 - Other specified abnormal findings of blood chemistry Status: Acute Assessment and Plan: Patient reports being a heavy drinker however he has not consumed alcohol for the past 3 weeks. Right upper quadrant ultrasound to evaluate the liver revealed small lesion probably hemangioma. But will check alpha fetoprotein Hepatitis panel negative May very well have some underlying congestive heart failure due to uncontrolled hypertension, and thus could have passive congestion. But most likely secondary to ETOH, continue to follow (5) Tobacco dependence: Code(s): F17.200 - Nicotine dependence, unspecified, uncomplicated Status: Acute Assessment and Plan: Nicotine patches available if needed. (6) Alcohol abuse: Code(s): F10.10 - Alcohol abuse, uncomplicated Status: Acute Assessment and Plan: He has not had alcohol for 3 weeks time as detailed above. By history but suspect his strength since then initiated CIWA protocol, however and thiamine and folic acid supplementation. (7) Leukocytosis: Code(s): D72.829 - Elevated white blood cell count, unspecified Status: Acute Assessment and Plan: He gives no history to suggest underlying infection, and chest x-ray and urinalysis are unremarkable. Will just continue to monitor for now. And continues to fall (8) Dysphagia: Code(s): R13.10 - Dysphagia, unspecified Status: Acute Assessment and Plan: Occasionally with breads and meats. Will likely need EGD as an outpatient. (9) Mitral insufficiency: Code(s): I34.0 - Nonrheumatic mitral (valve) insufficiency Status: Acute Assessment and Plan: Echo 11/16 revealed severe mitral insufficiency as per physical exam. Could be contributing to congestive failure as well as passive liver congestion Hydralazine added for afterload reduction and control of blood pressure Subjective Date/time seen: 11/18/19 17:48 Interval history: Date of visit 11/17. 59-year-old hypertensive alcoholic admitted with increasing shortness of breath and hypertensive urgency. Initially placed on nitroglycerin drip and given IV Lasix. Feels better this a.m. in pressure has slowly fallen and now instituting oral antihypertensive. slept better except for apnea link Exam Narrative: Exam Narrative: Blood pressure 140/94 pulse is 86 and regular afebrile General: Well-developed male sitting
--- NOTE | 2019-11-18 17:48 | P.PNIM_ITS ---
Progress Note: A&P Assessment and Plan (1) Hypertensive urgency: Code(s): I16.0 - Hypertensive urgency Status: Acute Assessment and Plan: * Currently off nitroglycerin drip with transitioning to oral medications, amlodipine and metoprolol and hydralazine added for afterload reduction with the mitral insufficiency * No renal artery stenosis seen on Doppler (2) Elevated troponin: Code(s): R79.89 - Other specified abnormal findings of blood chemistry Status: Acute Assessment and Plan: * He is not having any chest pain and likely these are elevated in the setting of uncontrolled hypertension. Troponins are flat and no wall motion abnormality with echo (3) Renal insufficiency: Code(s): N28.9 - Disorder of kidney and ureter, unspecified Status: Acute Assessment and Plan: * Evidence of chronic renal disease on sonogram with no obstruction * Continue to monitor and hold on treatment with Moises or ARB * Creatinine decreased to 1.3 today, replace potassium (4) Elevated liver function tests: Code(s): R79.89 - Other specified abnormal findings of blood chemistry Status: Acute Assessment and Plan: * Patient reports being a heavy drinker however he has not consumed alcohol for the past 3 weeks. * Right upper quadrant ultrasound to evaluate the liver revealed small lesion probably hemangioma. But will check alpha fetoprotein * Hepatitis panel negative * May very well have some underlying congestive heart failure due to uncontrolled hypertension, and thus could have passive congestion. * But most likely secondary to ETOH, continue to follow (5) Tobacco dependence: Code(s): F17.200 - Nicotine dependence, unspecified, uncomplicated Status: Acute Assessment and Plan: * Nicotine patches available if needed. (6) Alcohol abuse: Code(s): F10.10 - Alcohol abuse, uncomplicated Status: Acute Assessment and Plan: * He has not had alcohol for 3 weeks time as detailed above. By history but suspect his strength since then * initiated CIWA protocol, however and thiamine and folic acid supplementation. (7) Leukocytosis: Code(s): D72.829 - Elevated white blood cell count, unspecified Status: Acute Assessment and Plan: * He gives no history to suggest underlying infection, and chest x-ray and urinalysis are unremarkable. * Will just continue to monitor for now. And continues to fall (8) Dysphagia: Code(s): R13.10 - Dysphagia, unspecified Status: Acute Assessment and Plan: * Occasionally with breads and meats. * Will likely need EGD as an outpatient. (9) Mitral insufficiency: Code(s): I34.0 - Nonrheumatic mitral (valve) insufficiency Status: Acute Assessment and Plan: Echo 11/16 revealed severe mitral insufficiency as per physical exam. Could be contributing to congestive failure as well as passive liver congestion Hydralazine added for afterload reduction and control of blood pressure Subjective Date/time seen: 11/18/19 17:48 Interval
[2019-11-18 22:00] LABS: Potassium 4.1 mmol/L (3.4-5.0)
[2019-11-18] MEDS: METOPROLOL TARTRATE 50 MG TAB PO (22:04)
[2019-11-19 02:00] VITALS: BP 138/94; PULSE 79; RESP 16; TEMP 35.9; O2SAT 98
[2019-11-19 05:38] LABS: Hemoglobin 13.7 g/dL (14.0-18.0); Mean Corpuscular HGB Conc 33.4 g/dl (32-36); Mean Corpuscular Hemoglobin 32.2 pg (26-34); Mean Corpuscular Volume 96.5 fl (80-100); Mean Platelet Volume 9.9 fl (7.4-10.4); Platelet Count Result 266 k/mm3 (150-375); Red Blood Count 4.25 M/mm3 (4.6-6.20); Red Cell Distribution Width 15.2 % (11.5-14.5); White Blood Count 13.3 K/mm3 (4.5-10.0)
[2019-11-19 05:53] LABS: Alanine Aminotransferase 72 U/L (4-50); Albumin Level 3.3 g/dL (3.5-5.1); Alkaline Phosphatase 121 U/L (38-126); Aspartate Amino Transferase 28 U/L (17-59); Blood Urea Nitrogen 34 mg/dL (9-20); Calcium 8.5 mg/dL (8.4-10.2); Carbon Dioxide 27 mmol/L (22-30); Chloride 107 mmol/L (98-107); Estimated CRCL calculation 47 ml/min; Estimated Glomerular Filt Rate 52; Glucose 88 mg/dL (75-110); Magnesium 2.1 mg/dL (1.6-2.3); Potassium 4.2 mmol/L (3.4-5.0); Sodium 138 mmol/L (137-145)
[2019-11-19 06:00] VITALS: BP 141/99; PULSE 85; RESP 18; TEMP 36.4; O2SAT 96
--- NOTE | 2019-11-19 08:32 | PM.IMPN ---
Progress Note: A&P Assessment and Plan (1) Hypertensive urgency: Code(s): I16.0 - Hypertensive urgency Status: Acute Assessment and Plan: He presented with hypertensive urgency with initial BP 206/158. He was on nitroglycerin infusion initially which was weaned. He was transitioned to a PO regimen of norvasc and metoprolol. Hydralazine was added 11/17. Renal US was negative for renal artery stenosis. He required IV hydralazine yesterday PM and earlier today. Await further recommendations from cardiology (2) Mitral insufficiency: Qualifiers: Cardiac valve disease etiology: etiology unspecified Qualified Code(s): I34.0 - Nonrheumatic mitral (valve) insufficiency Code(s): I34.0 - Nonrheumatic mitral (valve) insufficiency Status: Acute Assessment and Plan: BNP was [address]. Echo 11/16 revealed severe mitral insufficiency as per physical exam which is likely contributing to congestive failure as well as passive liver congestion. Hydralazine was added 11/16 for afterload reduction and control of blood pressure The patient will need to follow-up with cardiology for further management (3) Renal insufficiency: Code(s): N28.9 - Disorder of kidney and ureter, unspecified Status: Acute Assessment and Plan: Cr was elevated at 1.4, BUN 31, and GFR 52 at admission. He likely has a component of hypertensive nephropathy. Renal US revealed chronic renal disease without obstruction. Cr is 1.4 and BUN 34 today. Continue to monitor and hold on treatment with Moises or ARB Await recommendations from cardiology regarding lasix. He is currently on IV lasix 40mg QD and appears euvolemic (4) Elevated troponin: Code(s): R79.89 - Other specified abnormal findings of blood chemistry Status: Acute Assessment and Plan: Troponin was elevated initially at admission with flat trend. Echo revealed no wall motion abnormalities. Cardiology is on board. He has no complaints of chest pain. His troponiuns were likely elevated in the setting of severe uncontrolled HTN and CHF. Cardiology recommendations are greatly appreciated (5) Elevated liver function tests: Code(s): R79.89 - Other specified abnormal findings of blood chemistry Status: Acute Assessment and Plan: LFTs were elevated at admission with AST 117, ALT 124, and ALP 227. He reports a hx of alcohol dependence. RUQ US revealed a 1.2cm hyperechoic liver mass suggesting hematoma. AFP is pending. Hepatitis panel was negative. His LFT elevation may be due to passive congestion from underlying CHF with severe mitral insufficiency and ETOH use. LFTs continue to improve. AST is 28, ALT 72, and ALP 121. Await AFP Continue to monitor Plan for outpatient follow-up of liver mass (6) Tobacco dependence: Code(s): F17.200 - Nicotine dependence, unspecified, uncomplicated Status: Acute Assessment and Plan: He reported a hx of smoking 1-2 PPD since age 17. He reports he recently decreased his smoking to <0.5PPD in the past 3 weeks since he was not feeling well. He is motivated to quit smoking and would like to continue nicotine patches at discharge. Continue transdermal nicotine patch. Will continue this at discharge. I spent 10 minutes discussing the importance of smoking cessation today. I discussed potential adverse reactions including poor CV outcome. (7) Alcohol abuse: Code(s): F10.10 - Alcohol abuse, uncomplicated Status: Acute Assessment and Plan: He reports a hx of drinking 1/2 of a fifth of hard liquor and 6 beers 5-6x per week. He reports that he has not been drinking int he past 3 weeks since he was not feeling well. [facility] protocol Thiamine and folic acid supplementation I discussed the importance of cutting down/quitting alcohol use with the patient at length (8) Leukocytosis: Qualifiers: Leukocytosis type: uns
[2019-11-19] MEDS: ASPIRIN 81 MG ENTERIC TABLET PO (09:34)
[2019-11-19] MEDS: FOLIC ACID 1 MG TABLET PO (09:34)
[2019-11-19] MEDS: AMLODIPINE BESYLATE 5 MG TABLET PO (09:34)
[2019-11-19 09:35] VITALS: PULSE 96
[2019-11-19] MEDS: NICOTINE (*PBKC) 21 MG PATCH 1 PATCH TRANSDERM (09:35)
[2019-11-19] MEDS: hydrALAZINE 10 MG TABLET PO ×3 (09:35→15:59)
[2019-11-19] MEDS: FUROSEMIDE INJ 40 MG/4 ML VIAL IV PUSH (09:35)
[2019-11-19] MEDS: METOPROLOL TARTRATE 50 MG TAB PO (09:35)
[2019-11-19] MEDS: THIAMINE HCL 100 MG TABLET PO (09:36)
--- NOTE | 2019-11-19 10:36 | PCNFU ---
Nutrition Follow-Up Complete: Inadequate oral intake R/T inability to consume larger portions of foods at one time due to restricted airway as evidence by wt loss of 24lbs goal: PO intake of 75% of meals and supplements to halt further wt loss Patient has met goal. No new goal. Pt current nutrition is Heart Healthy. Nutrition recommendation: Agree Last recorded weight is 66.5 kg. Bowel Motility:+BM reported 11/17 Labs Reviewed:GFR 52,BUN 34,Cr 1.4,Alb 3.3 Meds Noted:Folic Acid,Thiamine,Norvasc,Lasix Additional Notes: Spoke with nursing and patient over the telephone today due to COVID 19 precautions. Patient states to tolerating diet well. Oral intake reported at 100% of trays. Patient prefers the Vanilla Ensure Enlive BID. Diet office aware of flavor preference. No diet questions or concerns. Monitoring: po intake, wt, labs every 7 days
--- NOTE | 2019-11-19 10:48 | PM.PNCARD ---
Progress Note: A&P Assessment and Plan (1) Hypertensive emergency: Code(s): I16.1 - Hypertensive emergency Status: Acute Assessment and Plan: Continue current drug regimen without change. His blood pressures are reasonably controlled. Obviously not ideal but will need up titration as an outpatient. (2) Acute exacerbation of CHF (congestive heart failure): Qualifiers: Heart failure type: unspecified Qualified Code(s): I50.9 - Heart failure, unspecified Code(s): I50.9 - Heart failure, unspecified Status: Acute Assessment and Plan: DC IV Lasix. Start him on furosemide 40 mg p.o. daily (3) Mitral insufficiency: Qualifiers: Cardiac valve disease etiology: etiology unspecified Qualified Code(s): I34.0 - Nonrheumatic mitral (valve) insufficiency Code(s): I34.0 - Nonrheumatic mitral (valve) insufficiency Status: Acute Assessment and Plan: Partially flail posterior mitral leaflet. Will need an outpatient MARCUS and eventual workup for valve repair/replacement (4) Hypokalemia: Code(s): E87.6 - Hypokalemia Status: Acute Assessment and Plan: Normalized Okay for discharge later today or tomorrow morning at the latest given medication changes today Subjective Date/time seen: 11/19/19 10:48 Interval history: Chief complaint: Hypertensive crisis Date of service 11/19/2019: Anxious to go home. Feels good. No chest pain or shortness of breath. Review of Systems Constitutional: Constitutional: Denies chills, Denies fever(s), Reports lethargy and Denies poor appetite Eyes: Eyes: Reports no additional eye complaints, Denies eye discharge, Denies loss of vision, Denies eye pain and Denies photophobia ENT: Reports system reviewed and no additional complaints, except as documented, Denies dizziness, Denies epistaxis, Denies nasal congestion and Denies sore throat Cardiovascular: Cardiovascular: Reports as per HPI, Denies chest pain, Denies syncope, Denies pedal edema, Denies leg edema, Denies palpitations, Denies dyspnea, Denies dyspnea on exertion and Denies orthopnea Respiratory: Respiratory: Denies cough, Denies dyspnea, Denies dyspnea on exertion and Denies wheezing Gastrointestinal: Gastrointestinal: Reports no additional gastrointestinal complaints, Denies abdominal pain, Denies diarrhea, Denies nausea and Denies vomiting Genitourinary: Genitourinary: Denies hematuria, Denies genital lesions and Denies dysuria Musculoskeletal: Musculoskeletal: Denies arthralgias, Denies joint swelling and Denies numbness Integumentary/Breasts: Skin/Breast: Denies pruritus and Denies rash Neurologic: Reports system reviewed and no additional complaints, except as documented, Denies dizziness, Denies syncope, Denies loss of vision and Denies numbness Psychiatric: Psychiatric: Reports no additional psychiatric complaints, Denies anxiety and Denies depression Endocrine: Endocrine: Reports no additional endocrine complaints, Denies cold intolerance, Denies heat intolerance and Denies palpitations Hematologic/Lymphatic: Hematologic/Lymphatic: Reports no additional hematologic/lymphatic complaints, Denies easy bleeding and Denies easy bruising Allergic/Immunologic: Allergic/Immunologic: Reports no additional allergic/immunologic complaints, Denies urticaria and Denies wheezing Exam Const: General: cooperative, comfortable, no acute distress, alert and awake Nutritional Appearance: well nourished Orientation/consciousness: patient oriented x3 Other: Well-developed well-nourished somewhat disheveled white male in no distress appears to be comfortable and offers no complaints currently HENMT: Head: normal to inspection, normocephalic and atraumatic Ears: hearing grossly normal bilaterally General nose exam: Normal external nose present, Normal nares present and no nasal discharge noted Face and sinus: normal facial exam and no erythema Mouth: Yes
[2019-11-19 13:57] VITALS: BP 117/75; PULSE 90; RESP 18; TEMP 36.3; O2SAT 99
--- NOTE | 2019-11-19 15:18 | PM.DS ---
DS: Admitting Diagnosis Admitting Diagnosis Admitting Diagnosis: Hypertensive urgency DS: Discharge Diagnosis Discharge Diagnosis (1) Hypertensive urgency: Code(s): I16.0 - Hypertensive urgency Status: Resolved (2) Mitral insufficiency: Qualifiers: Cardiac valve disease etiology: etiology unspecified Qualified Code(s): I34.0 - Nonrheumatic mitral (valve) insufficiency Code(s): I34.0 - Nonrheumatic mitral (valve) insufficiency Status: Acute (3) Renal insufficiency: Code(s): N28.9 - Disorder of kidney and ureter, unspecified Status: Acute (4) Elevated troponin: Code(s): R79.89 - Other specified abnormal findings of blood chemistry Status: Acute (5) Elevated liver function tests: Code(s): R79.89 - Other specified abnormal findings of blood chemistry Status: Acute (6) Tobacco dependence: Code(s): F17.200 - Nicotine dependence, unspecified, uncomplicated Status: Chronic (7) Alcohol abuse: Code(s): F10.10 - Alcohol abuse, uncomplicated Status: Chronic (8) Leukocytosis: Qualifiers: Leukocytosis type: unspecified Qualified Code(s): D72.829 - Elevated white blood cell count, unspecified Code(s): D72.829 - Elevated white blood cell count, unspecified Status: Acute (9) Dysphagia: Qualifiers: Dysphagia type: unspecified Qualified Code(s): R13.10 - Dysphagia, unspecified Code(s): R13.10 - Dysphagia, unspecified Status: Acute Assessment and Plan: The patient reported occasional dysphagia with breads and meats. He will likely need EGD outpatient. He will need to follow-up with his PCP for further evaluation. (10) Suspected sleep apnea: Code(s): R29.818 - Other symptoms and signs involving the nervous system Status: Acute Assessment and Plan: Apnea link revealed high probability of a pathological breathing disorder. He will need a formal outpatient sleep study for further evaluation and was advised to follow-up with Dr. Lloyd (11) Liver mass: Code(s): R16.0 - Hepatomegaly, not elsewhere classified Status: Acute Assessment and Plan: Plan for outpatient follow-up of the 1.2cm hyperechoic liver mass on RUQ US which may represent a hemangioma Alpha fetoprotein is pending DS: Summary Hospital Course Reason for hospitalization: Hypertensive Urgency Hospital Course: Mr. Marshall is a 59 y.o. male with PMH significant for untreated hypertension who presented to the emergency department 11/16/19 for the evaluation of hypertension, progressive dyspnea, orthopnea, and pedal edema. He presented to a walk-in clinic for the aforementioned complaints and was advised to proceed to the ED due to severe BP elevation. BP was 206/158 at presentation to the ED. Initial workup revealed WBC 16,000, Hb 15.1, Hct 43.3, sodium 135, CO2 20, BUN 31, Cr 1.4, AST 117, ALT 124, ALP 227, total bilirubin 2.1, BNP 14107, troponin elevated initially with flat trend, EKG with sinus tachycardia, prolonged QTc, and borderline T wave abnormality in the inferior leads, and CXR with cardiomegaly and mild right pleural effusion. Cardiology was consulted. He was admitted to the ICU for hypertensive urgency and treated with a nitroglycerin infusion initially which was weaned. He was transitioned to a PO regimen of norvasc and metoprolol. Hydralazine was also added to achieve adequate BP control. Renal US was negative for renal artery stenosis. 3/6 holosystolic murmur was present at the LSB/apex. Echo 11/17/19 revealed severe mitral insufficiency. He was diuresed with IV lasix. LFT elevation was thought to be due to passive congestion from his underlying CHF with severe mitral infufficiency and ETOH use. RUQ US revealed a 1.2cm hyperechoic liver mass suggesting hematoma which he will need to follow-up on outpatient. AFP is pending. Hepatitis panel was negative. LFTs continue
[2019-11-23 17:12] LABS: Alpha Fetoprotein Tumor Marker 4.3 ng/mL (<6.1)
== END 2019-11-19 16:00 | disposition home or self-care (01) | DRG 304 ==
LOC: ANHED 14:23 → ANHICU 23:03 → ANH2MED 11-18 13:50 → ANHICU 11-24 12:57 → ANHIMU 11-24 12:57
PROVIDERS: Family Medicine; Internal Medicine; Physician Assistant; Admitting Provider Internal Medicine; Emergency Provider Emergency Medicine; Visit Provider Internal Medicine
DX: I16.0 Hypertensive urgency (principal); I50.33 Acute on chronic diastolic (congestive) heart failure; I34.0 Nonrheumatic mitral (valve) insufficiency; R79.89 Other specified abnormal findings of blood chemistry; F17.210 Nicotine dependence, cigarettes, uncomplicated; F10.10 Alcohol abuse, uncomplicated; R13.10 Dysphagia, unspecified; D72.829 Elevated white blood cell count, unspecified; G47.30 Sleep apnea, unspecified; E87.6 Hypokalemia; I11.0 Hypertensive heart disease with heart failure; N28.9 Disorder of kidney and ureter, unspecified
CPT/HCPCS: 36415; 71046; 76705; 76775; 80048; 80053; 80061; 80074; 80076; 81001; 82105; 82140; 82248; 82607; 82746; 83735; 83880; 84100; 84132; 84439; 84443; 84480; 84484; 85025; 85027; 85610; 85730; 93005; 93306; 93880; 93976; 94640; 94762; 96365; 96366; 96375; 99285; A9270; J0360; J1650; J1940; J2270; J3411

== ENCOUNTER 2019-12-31 00:19 | Outpatient (CLI) | payer BC, SELFPAY ==
[2020-01-01 00:18] LABS: SARS-CoV-2 RNA PCR Negative
== END 2019-12-31 00:20 | disposition home or self-care (01) ==
LOC: ANHCOVIDDT 00:19
PROVIDERS: PCP Internal Medicine; Visit Provider Specialist
DX: Z01.818 Encounter for other preprocedural examination (principal); Z11.59 Encounter for screening for other viral diseases
CPT/HCPCS: 87635; C9803; U0003

== ENCOUNTER 2020-01-03 05:28 | Day surgery (SDC) | payer BC, MEDICAID, SELFPAY ==
[2019-12-30 16:34] VITALS: BMI 22.1
[2020-01-03] VITALS (10 sets, daily range): BP systolic 120–165; BP diastolic 87–111; PULSE 66–77; RESP 11–18; O2SAT 94–99
--- NOTE | 2020-01-03 | ECHO_ITS ---
Patient Info Name: Osvaldo Marshall Age: 59 years : 1960 Gender: Male Ht: 69 in Wt: 149 lbs BSA: 1.81 m2 HR: 72 bpm BP: 132 / 98 mmHg Heart Rhythm: Sinus Rhythm Exam Date: 01/03/2020 8:41 AM Exam Location: [facility] Patient Status: Outpatient Admit Date: 01/03/2020 Staff Ordering Physician: Kin Regan MD Electrical High Tension Tester: Sylvain Nguyễn RDCS, RT Attending Provider: Kin Regan MD Referring Physician: Shereen CASTELLANOS; Exam Type: CA echo transesophageal Study Info Indications I34.0 - Nonrheumatic mitral (valve) insufficiency Complete two-dimensional, color flow and Doppler transesophageal study is performed. Summary 1. Left ventricular systolic function is normal with an ejection fraction by Biplane Method of Discs of 60 %. 2. Left atrial chamber dimension is moderately enlarged. 3. The mitral valve has posterior prolapse. 4. There is severe mitral valve regurgitation. 5. Posterior MVP with disrupted chordae. Left Ventricle Left ventricular systolic function is normal with an ejection fraction by Biplane Method of Discs of 60 %. There is mild concentric increased left ventricular wall thickness. Right Ventricle Right ventricular chamber dimension is normal. Left Atria Left atrial chamber dimension is moderately enlarged. Right Atria Right atrial chamber dimension is normal. Atrial Septum Intact interatrial septum visualized by agitated saline imaging. Aortic Valve The aortic valve is normal. Pulmonic Valve The pulmonic valve is normal. Mitral Valve The mitral valve has posterior prolapse. There is severe mitral valve regurgitation. Posterior MVP with disrupted chordae. Tricuspid Valve The tricuspid valve leaflets are normal. Pericardium/Pleural The pericardium appears normal. Inferior Vena Cava Not well visualized inferior vena cava with Empty collapse upon inspiration consistent with Empty right atrial pressure, Empty. Aorta The aortic root size at the sinus of Valsalva is normal. Ventricles Name Value Normal LV Fractional Shortening/Ejection Fraction 2D/MM LV EF (BP MOD) 60 % 52-72 Report Signatures
--- NOTE | 2020-01-03 08:37 | WPDMODSED ---
Moderate Sedation Note-Pt Data Patient Data Diagnosis: Severe mitral valve regurgitation. Present Complaint: 59-year-old patient recently hospitalized with congestive heart failure treated medically. He was found to have severe mitral valve regurgitation by physical exam and by transthoracic echo. He appears to have posterior leaflet prolapse. For further evaluation of this a MARCUS was scheduled for this morning Procedure to be performed/Plan: Transesophageal echocardiogram Allergies Allergy/AdvReac Type Severity Reaction Status Date / Time No Known Allergies Allergy Unverified 12/30/19 16:30 Home Medications Medication Instructions Recorded Confirmed Type aspirin 81 mg PO QAM #30 tablet 11/19/19 12/30/19 Rx furosemide [Lasix] 40 mg PO DAILY #30 tablet 11/19/19 12/30/19 Rx hydralazine 10 mg PO TID #90 tablet 11/19/19 12/30/19 Rx metoprolol tartrate [Lopressor] 50 mg PO Q12H #60 tablet 11/19/19 12/30/19 Rx nicotine [Nicoderm CQ] 1 patch TRANSDERMAL QAM 21 Days 11/19/19 12/30/19 Rx #21 each amlodipine [Norvasc] 10 mg PO DAILY 12/30/19 12/30/19 History Sedation/Anesthesia: No previous sedation/anesthesia problems (including family history). [facility] Past Medical History Medical History (Updated 11/23/19 @ 16:46 by Bharati Briseno) Alcohol abuse Chronic obstructive pulmonary disease History of fracture Including lower extremity and multiple toes. Hypertension Tobacco dependence Surgical History Surgical History (Updated 11/23/19 @ 16:46 by Bharati Briseno) History of toe surgery Social History Social History Social History: The patient lives alone in [place]. He is single. He smoked between 1 and 2 packs of cigarettes per day and has since the age of 17. He drinks heavily, several times per week, consuming up to 1/2 of a 5th in addition to 6 beers. No drug use. He has 1 daughter, Andi, and he nominates her to be his surrogate decision maker. He wishes to be a full code. does uses marijuana sometimes used cocaine when he was young in high school Smoking status: Current every day smoker Tobacco type: cigarettes Additional smoking assessment comments: pt states hes been smoking since he was 14 years old Substance use: never Living arrangements: alone Spiritual care concerns: No Mod Sed Physical Exam Physical Exam Pre Procedural Exam: Normal: Appearance, Neck, Throat, Airway, Lungs, Heart Size, Heart Rhythm, Neuro Exam and Extremities and Variation: Heart Rate (Sinus tachycardia with grade 3/6 MR murmur) Hours since solid foods: 12 Hours since liquid intake: 12 Internal Medicine - PN: Obj Da Vital Signs Vital Signs: Vital Signs - 24 hr 01/03/20 07:53 Pulse Rate 71 Respiratory Rate 14 Blood Pressure 138/104 H Pulse Oximetry 99 ASA Classification/Sedation ASA Classification/Sedation ASA Class: II Emergent: No Risks: Risks, benefits and alternatives explained and patient/family accepted plan for sedation. Patient re-evaluated immediately prior to sedation.
--- NOTE | 2020-01-03 08:59 | WPDCARDPROC ---
Cardiac Cath Procedure Note Date of procedure:: 01/03/20 Performing physician:: Kin Regan MD Indication:: Mitral valve regurgitation with mitral valve prolapse Brief clinical history:: 59-year-old man recently admitted with congestive heart failure found to have severe MR apparently due to mitral valve prolapse of the posterior leaflet noted on transthoracic echocardiogram and on physical exam Procedure Procedure performed:: Transesophageal echocardiogram Sedation/Medication given:: Fentanyl 50 mg Versed 6 mg Case start time 8:43 a.m. Case end time 8:57 a.m. Sedation provided by Demarco Padgett RN, trained observer Estimated blood loss:: No blood loss Procedure note:: Patient was brought to the cardiac catheterization lab in the postabsorptive state. Or pharyngeal benzocaine was used for topical anesthesia. He was then sedated using fentanyl and Versed. A total of 50 mg of fentanyl and 6 mg of Versed was used as detailed above. This provided excellent procedural sedation. The esophagus was intubated using the MARCUS probe after a bite block was placed in jaw. Esophageal echocardiographic images were carried out in multiple projections. Agitated saline contrast was also injected. Following this as the probe was withdrawn the descending thoracic aorta and aortic arch were visualized. Findings:: Left atrium is moderately dilated. The anterior mitral valve leaflet looks essentially normal. The posterior leaflet is thin and is disrupted. There was severe prolapse of the P2 segment of the posterior mitral valve leaflet with evidence of flail chordal elements as well. This results in a severe highly eccentric jet of MR directed anteriorly. The left ventricle exhibits mild concentric hypertrophy and contracts well the global ejection fraction appears to be in the vicinity of 65%. The aortic valve is a normal trileaflet structure which is thin and pliable. There is no discernible aortic regurgitation. The ascending aorta arch and descending thoracic aorta are unremarkable. The tricuspid and pulmonic valves look normal. The interatrial septum is intact. Agitated saline contrast demonstrates no evidence of intracardiac shunting. Conclusion:: Posterior mitral valve leaflet prolapse with disrupted chordal elements and highly eccentric jet of severe MR Preserved left ventricular systolic function Normal aortic valve Kin Regan MD [facility]
== END 2020-01-03 10:15 | disposition home or self-care (01) ==
PROVIDERS: PCP Internal Medicine; Visit Provider Specialist
PROC: (CPT 93312; principal; 2020-01-03 08:30)
DX: I34.0 Nonrheumatic mitral (valve) insufficiency (principal); I34.1 Nonrheumatic mitral (valve) prolapse; J44.9 Chronic obstructive pulmonary disease, unspecified; I10 Essential (primary) hypertension; Z79.82 Long term (current) use of aspirin; F17.210 Nicotine dependence, cigarettes, uncomplicated; F10.10 Alcohol abuse, uncomplicated
CPT/HCPCS: 87635; 93312; 93320; 93325; C9803; J2250; J3010; J7040; U0003

== ENCOUNTER 2020-01-17 01:40 | Outpatient (CLI) | payer BC, MEDICAID, SELFPAY ==
[2020-01-17 19:20] LABS: SARS-CoV-2 RNA PCR Negative
== END 2020-01-17 01:41 | disposition home or self-care (01) ==
LOC: ANHCOVIDDT 01:40
PROVIDERS: PCP Internal Medicine; Visit Provider Specialist
DX: Z01.812 Encounter for preprocedural laboratory examination (principal); Z11.59 Encounter for screening for other viral diseases
CPT/HCPCS: 87635; C9803; U0003

== ENCOUNTER 2020-01-19 05:28 | Day surgery (SDC) | payer BC, MEDICAID, SELFPAY ==
[2020-01-18 10:36] VITALS: BMI 21.9
[2020-01-19] VITALS (13 sets, daily range): BP systolic 130–167; BP diastolic 88–107; PULSE 68–79; RESP 12–21; TEMP 36.9; O2SAT 92–98; BMI 22.3
[2020-01-19 07:29] LABS: Basophils Absolute Auto 0.1 K/mm3 (0.0-0.1); Basophils Percent Auto 0.4 % (0.2-1.2); Eosinophils Absolute Auto 0.5 K/mm3 (0-0.3); Eosinophils Percent Auto 3.8 % (0-4.4); Hematocrit 41.6 % (42.0-52.0); Hemoglobin 14.2 g/dL (14.0-18.0); Immature Granulocyte Absolute 0.06 K/mm3 (0.00-0.031); Immature Granulocyte Percent A 0.5 % (0-0.5); Lymphocytes Absolute Auto 2.58 K/mm3 (0.9-3.2); Lymphocytes Percent Auto 21.8 % (18.3-44.2); Mean Corpuscular HGB Conc 34.1 g/dl (32-36); Mean Corpuscular Hemoglobin 30.7 pg (26-34); Mean Corpuscular Volume 89.8 fl (80-100); Mean Platelet Volume 8.9 fl (7.4-10.4); Monocytes Absolute Auto 1.2 K/mm3 (0.1-0.6); Monocytes Percent Auto 9.9 % (2.6-8.5); Neutrophils Absolute Auto 7.5 K/mm3 (1.3-6.7); Neutrophils Percent Auto 63.6 % (45.5-73.1); Platelet Count Result 295 k/mm3 (150-375); Red Blood Count 4.63 M/mm3 (4.6-6.20); White Blood Count 11.8 K/mm3 (4.5-10.0)
[2020-01-19 07:38] LABS: INR 0.9; Prothrombin Time 12.3 Seconds (11.1-14.7)
[2020-01-19 07:43] LABS: Blood Urea Nitrogen 30 mg/dL (9-20); Calcium 9.5 mg/dL (8.4-10.2); Carbon Dioxide 24 mmol/L (22-30); Chloride 107 mmol/L (98-107); Estimated CRCL calculation 56 ml/min; Estimated Glomerular Filt Rate > 60; Glucose 101 mg/dL (75-110); Potassium 4.1 mmol/L (3.4-5.0); Sodium 138 mmol/L (137-145)
--- NOTE | 2020-01-19 08:40 | WPDMODSED ---
Moderate Sedation Note-Pt Data Patient Data Diagnosis: Mitral valve regurgitation Present Complaint: no complaints this morning Procedure to be performed/Plan: right left heart catheterization Allergies Allergy/AdvReac Type Severity Reaction Status Date / Time No Known Allergies Allergy Verified 01/18/20 10:33 Home Medications Medication Instructions Recorded Confirmed Type aspirin 81 mg PO QAM #30 tablet 11/19/19 01/19/20 Rx furosemide [Lasix] 40 mg PO DAILY #30 tablet 11/19/19 01/18/20 Rx hydralazine 10 mg PO TID #90 tablet 11/19/19 01/19/20 Rx metoprolol tartrate [Lopressor] 50 mg PO Q12H #60 tablet 11/19/19 01/19/20 Rx nicotine [Nicoderm CQ] 1 patch TRANSDERMAL QAM 21 Days 11/19/19 01/19/20 Rx #21 each amlodipine [Norvasc] 10 mg PO DAILY 12/30/19 01/19/20 History Current Medications: Active Medications Sodium Chloride (Normal Saline Iv) 500 mls @ 100 mls/hr IV CONT .Q5H HUGH Sedation/Anesthesia: No previous sedation/anesthesia problems (including family history). [facility] Past Medical History Medical History (Updated 11/23/19 @ 16:46 by Bharati Briseno) Alcohol abuse Chronic obstructive pulmonary disease History of fracture Including lower extremity and multiple toes. Hypertension Tobacco dependence Surgical History Surgical History (Updated 11/23/19 @ 16:46 by Bharati Briseno) History of toe surgery Social History Social History Social History: The patient lives alone in [place]. He is single. He smoked between 1 and 2 packs of cigarettes per day and has since the age of 17. He drinks heavily, several times per week, consuming up to 1/2 of a 5th in addition to 6 beers. No drug use. He has 1 daughter, Andi, and he nominates her to be his surrogate decision maker. He wishes to be a full code. does uses marijuana sometimes used cocaine when he was young in high school Smoking packs per day: 0.5 Smoking cigarettes per day: 10.0 Years smoked: 45 Smoking pack-years: 22.50 Smoking status: Current every day smoker Tobacco type: cigarettes Second hand tobacco smoke exposure: Yes Additional smoking assessment comments: pt states hes been smoking since he was 14 years old Substance use: never Living arrangements: alone Gender identity (if verbalized by the patient): Male Spiritual care concerns: No Mod Sed Physical Exam Physical Exam Pre Procedural Exam: Normal: Appearance, Airway, Lungs, Heart Size, Heart Rate ( grade 3 holosystolic murmur of mitral regurgitation audible), Heart Rhythm, Neuro Exam and Extremities Hours since solid foods: 12 Hours since liquid intake: 12 Internal Medicine - PN: Obj Da Vital Signs Vital Signs: Vital Signs - 24 hr 01/19/20 07:44 Temperature 36.9 C Pulse Rate 74 Respiratory Rate 14 Blood Pressure 167/102 H Pulse Oximetry 97 Meds/Results Medications: Active Medications Generic Name Dose Route Start Last Admin Trade Name Freq PRN Reason Stop Dose Admin Sodium Chloride 500 mls @ 100 mls/hr 01/19/20 06:15 Normal Saline Iv IV CONT .Q5H HUGH Labs CBC & Chem 7: 01/19/20 07:23 01/19/20 07:23 Labs: Laboratory Results - last 24 hr 01/19/20 01/19/20 01/19/20 07:23 07:23 07:23 WBC 11.8 H RBC 4.63 Hgb 14.2 Hct 41.6 L MCV 89.8 MCH 30.7 MCHC 34.1 RDW 14.0 Plt Count 295 MPV 8.9 Immature Gran % (Auto) 0.5 Neut % (Auto) 63.6 Lymph % (Auto) 21.8 [place] % (Auto) 9.9 H Eos % (Auto) 3.8 Baso % (Auto) 0.4 Lymph # (Auto) 2.58 [place] # (Auto) 1.2 H Eos # (Auto) 0.5 H Baso # (Auto) 0.1 Abs Immat Gran (auto) 0.06 H Absolute Neuts (auto) 7.5 H Absolute Nucleated RBC 0.0 Nucleated RBC % 0.0 PT 12.3 INR 0.9 Sodium 138 Potassium 4.1 Chloride 107 Carbon Dioxide 24 BUN 30 H Creatinine 1.20 Estim Creat Clear Calc 56 Estimated GFR > 60 Glucose 101 Calci
--- NOTE | 2020-01-19 09:34 | WPDCARDPROC ---
Cardiac Cath Procedure Note Date of procedure:: 01/19/20 Performing physician:: Kin Regan MD Indication:: Mitral valve regurgitation Brief clinical history:: 59-year-old patient with history of recent admission with congestive heart failure which was found to be due to mitral valve regurgitation. Echocardiogram and transesophageal echocardiogram appear to demonstrate posterior mitral valve leaflet prolapse with some disrupted chordal elements. He has been stabilized with medical treatment and is now being evaluated with right and left heart catheterization in anticipation of cardiothoracic surgery consultation Procedure Procedure performed:: right and left heart catheterization Sedation/Medication given:: fentanyl 50 mg Versed 2 mg case start time 8:51 a.m. case end time 9:31 a.m. sedation provided by Bao Miranda RN, trained observer Access site:: right femoral artery and vein Estimated blood loss:: 15-20 cc Procedure note:: patient was brought to the cardiac the postabsorptive state the right femoral triangle was prepared and draped in usual fashion. Anesthesia was provided with 20 cc of lidocaine injected locally. Using modified Seldinger technique 5 sheath was placed into the femoral artery and a 7 Scottish sheath into the femoral vein. Using a balloon tipped S shaped Schuyler-Ruby catheter right heart catheterization was carried out and thermodilution cardiac outputs were measured. Following this a Schuyler-Ruby catheter was removed. Left heart catheterization was then carried out. I used a 5 Scottish angled pigtail catheter to perform left-sided hemodynamics and inject the left ventriculogram in the are AO projection. The coronary arteries were injected selectively using standard 5 Scottish FL4 and JR4 diagnostic catheters. Following review of the cineangiograms a angiogram was done in the femoral artery through the sheath after which it was determined the sheath will be removed with direct manual compression. Was taken to the holding area for sheath removal there were no signs of any procedural complications and no evidence of a groin hematoma upon leaving the industrial laborer. Findings:: Hemodynamics: right atrium 4 mm Hg, right ventricle 52/0 end-diastolic 3, pulmonary artery 52/18, pulmonary capillary wedge pressure 14 V-wave to 33. Central aorta 142/86, left ventricle 140/4 end-diastolic pressure 13. thermodilution cardiac output is 5.13 liters/minute giving an index of 2.89. Left ventricle: The left ventricle is mildly enlarged. All segments contract well global ejection fraction appears to be 60% by visual estimation. No are no regional wall motion abnormalities. Angiographically there is severe mitral regurgitation and a significantly dilated left atrium. Coronary arteries: The left main coronary is nicely patent. The LAD is a large caliber artery extending down to around the apex. The LAD its diagonal and septal branches are angiographically free of disease. The circumflex is large caliber and codominant. There is minimal ostial narrowing of the circumflex angiographically this appears to be no more than 30-40%. The remainder of the circumflex appears to be normal. The right coronary is small and codominant and free of significant disease Conclusion:: 1. no significant coronary artery lesions 2. mild left ventricular enlargement with good systolic contractility 3. severe mitral valve regurgitation with posterior leaflet MVP noted on echo and esophageal echo 4. secondary pulmonary hypertension and significant V-wave on wedge tracing due to MR Kin Regan MD [facility]
--- NOTE | 2020-01-19 16:04 | SUR.PHASEII ---
1545-pt given D/C orders and instructions. Questions answered and verbalized understanding. AOx4. Groin soft and non-tender, no evidence of bleeding or hematoma noted. Strong right pedal pulse noted. Taken via wheelchair to waiting vehicle. No distress noted or verbalized at time of departure.
== END 2020-01-19 15:45 | disposition home or self-care (01) ==
PROVIDERS: PCP Internal Medicine; Visit Provider Specialist
PROC: 4A023N8 Measurement of Cardiac Sampling and Pressure, Bilateral, Percutaneous Approach (ICD-10-PCS; CPT 93453; principal; 2020-01-19 08:30)
DX: Z01.810 Encounter for preprocedural cardiovascular examination (principal); I34.0 Nonrheumatic mitral (valve) insufficiency; I27.20 Pulmonary hypertension, unspecified; J44.9 Chronic obstructive pulmonary disease, unspecified; I10 Essential (primary) hypertension; Z79.82 Long term (current) use of aspirin; F17.210 Nicotine dependence, cigarettes, uncomplicated
CPT/HCPCS: 36415; 80048; 85025; 85610; 87635; 93460; C1769; C1887; C1894; C9803; J1644; J2250; J3010; U0003

== ENCOUNTER 2020-02-24 12:12 | Outpatient (CLI) | payer BC, SELFPAY ==
--- NOTE | ~2020-02-24 | CT_ITS ---
EXAMINATION:CT lung screening DATE: 02/24/2020 12:27 INDICATION: Personal history of tobacco dependence. Current smoker with 40 pack year history. TECHNIQUE: Computed tomography (CT) of the chest was performed without intravenous contrast. Automate d exposure control and iterative reconstruction technique were employed. The dose-length product (DLP ) was 118.77 mGy-cm. COMPARISON: None. FINDINGS: There is moderate emphysema. There is mild atelectasis in the inferior lungs. Calcified breonna ateral lung nodules are consistent with old granulomatous disease. There is mild scarring at left sinan g apex. No pleural effusion. The heart size is normal. There are coronary artery calcifications. No p ericardial effusion. There is ectasia of ascending aorta measuring 4.2 cm. There is mild mediastinal lymphadenopathy, likely reactive. There is mild thoracic spondylosis. IMPRESSION: 1. Lung-RADS category 2: Benign appearance or behavior. Continue annual screening with noncontrast lo w-dose chest CT in 12 months. Reviewed, dictated and finalized at location B. IMPRESSION: 1. Lung-RADS category 2: Benign appearance or behavior. Continue annual screeni ng with noncontrast low-dose chest CT in 12 months.
== END 2020-02-24 12:13 | disposition home or self-care (01) ==
PROVIDERS: PCP Internal Medicine
DX: Z12.2 Encounter for screening for malignant neoplasm of respiratory organs (principal); Z87.891 Personal history of nicotine dependence
CPT/HCPCS: G0297

== ENCOUNTER 2022-07-02 18:22 | Inpatient (IN) | payer MEDICARE, MEDICAID, SELFPAY ==
--- NOTE | ~2022-07-02 | US_ITS ---
EXAMINATION: US abdomen limited DATE: 07/08/2022 16:17 INDICATION: Ascites with reaccumulation of fluid TECHNIQUE: Multiple grayscale and Doppler ultrasound images of limited portions of the abdomen were o btained. COMPARISON: None available. FINDINGS: 3 quadrant of the abdomen were scanned to evaluate for abdominal fluid. Only trace ascites was demonstrated. Left upper quadrant obscured by bandage material. IMPRESSION: Trace abdominal ascites. Reviewed, dictated and finalized at location K. LAR ALARM ASSEMBLER IMPRESSION: Trace abdominal ascites.
--- NOTE | ~2022-07-02 | US_ITS ---
Renal-Bladder ultrasound Clinical History: Acute kidney injury Technique: Real-time sonographic imaging of the kidneys and urinary bladder was performed. Findings: The right kidney measures 10.4 cm in length and the left kidney measures 10.8 cm. There is no hydronephrosis or renal calculus identified. Renal cortical echogenicity is within normal limits. No solid renal mass lesion is identified. The urinary bladder is collapsed around a Luna catheter. Small amount of ascites noted. Impression: Unremarkable ultrasound of the kidneys. Collapsed urinary bladder limits evaluation. Small amount of ascites. Reviewed, dictated and finalized at location M. SECURITY PROJECT MANAGER Impression: Unremarkable ultrasound of the kidneys. Collapsed urinary bladder limits evaluation. Small amount of ascites.
--- NOTE | ~2022-07-02 | XR_ITS ---
Portable chest x-ray Comparison: 11/16/2019 Clinical History: Shortness of breath Findings: Small left pleural effusion present with probable left basilar atelectasis. Right lung is essentially clear. Cardiomediastinal silhouette is stable, status post interval median sternotomy. B ones and soft tissues are unremarkable. Impression: Small left pleural effusion with probable left basilar atelectasis. Reviewed, dictated and finalized at location . DOCTOR Impression: Small left pleural effusion with probable left basilar atelectasis.
--- NOTE | ~2022-07-02 | CT_ITS ---
EXAMINATION: CT abdomen pelvis wo con DATE: 07/02/2022 21:21 INDICATION: abd distension TECHNIQUE: Computed tomography (CT) of the abdomen and pelvis was performed without intravenous contr ast. Automated exposure control and iterative reconstruction technique were employed. The dose-length product was 785.52 mGy-cm. COMPARISON: None. FINDINGS: Lower thorax: Cardiomegaly. Mitral valve replacement. Dependent atelectasis. Small bilateral pleural effusions. Liver: Nodular appearing border Biliary/Gallbladder: Gallbladder is normal. No bile duct dilation. Pancreas: No mass or duct dilation. Spleen: Normal. Adrenals:No mass. Kidneys: No suspicious mass, stone, or hydronephrosis. Right midpole simple cyst. Moderate bilateral perinephric stranding. GI tract: No small or large bowel dilation. Appendix not visualized Mesentery/Peritoneum: Large volume ascites. No mass or free air. Retroperitoneum: No mass. Atherosclerotic abdominal aortic and/or arterial calcifications. 4.2 cm fus iform infrarenal abdominal aortic aneurysm. Pelvis: Pelvic organs are within normal limits. Soft Tissues: Diffuse body wall edema. Small fat-containing left inguinal hernia. Scrotal edema. Bones: No acute osseous finding. IMPRESSION: Cardiomegaly. Small bilateral pleural effusions. Nodular liver border as can be seen with cirrhosis. 4.2 cm infrarenal abdominal aortic aneurysm. Large volume ascites. Reviewed, dictated and finalized at location K. SAW FILER
--- NOTE | ~2022-07-02 | US_ITS ---
EXAMINATION: US paracentesis abd w/image DATE: 07/03/2022 15:52 INDICATION: Ascites. TECHNIQUE: The procedure and its risks, benefits, and alternatives were discussed with the patient. P otential risks discussed included bleeding and infection. The skin was prepped and draped in sterile fashion. 1% lidocaine was used for local anesthesia. Under ultrasound guidance, a 5 Fr catheter with trochar was advanced into the ascites in the left lower quadrant. Fluid was aspirated. The catheter w as removed, and a dressing was applied. There were no immediate complications. FINDINGS: Ultrasound images demonstrate ascites and the catheter within the fluid. IMPRESSION: 1. Successful ultrasound-guided paracentesis yielding 3200 mL of opaque, mustard colored fluid. Reviewed, dictated and finalized at location A. ER TANK TENDER HELPER IMPRESSION: 1. Successful ultrasound-guided paracentesis yielding 3200 mL of opaque, musta rd colored fluid.
[2022-07-02 18:28] VITALS: BP 179/126; PULSE 117; RESP 18; TEMP 36.3; O2SAT 100
[2022-07-02 19:31] VITALS: BP 179/133; PULSE 113; RESP 20; O2SAT 96
[2022-07-02 19:37] LABS: Basophils Absolute Auto 0.1 K/mm3 (0.0-0.1); Basophils Percent Auto 0.4 % (0.2-1.2); Eosinophils Percent Auto 0.1 % (0-4.4); Hematocrit 36.8 % (42.0-52.0); Hemoglobin 11.1 g/dL (14.0-18.0); Immature Granulocyte Absolute 0.07 K/mm3 (0.00-0.031); Immature Granulocyte Percent A 0.5 % (0-0.5); Lymphocytes Absolute Auto 0.85 K/mm3 (0.9-3.2); Lymphocytes Percent Auto 5.7 % (18.3-44.2); Mean Corpuscular HGB Conc 30.2 g/dl (32-36); Mean Corpuscular Hemoglobin 26.7 pg (26-34); Mean Corpuscular Volume 88.7 fl (80-100); Mean Platelet Volume 10.9 fl (7.4-10.4); Monocytes Absolute Auto 1.4 K/mm3 (0.1-0.6); Monocytes Percent Auto 9.6 % (2.6-8.5); Neutrophils Absolute Auto 12.6 K/mm3 (1.3-6.7); Neutrophils Percent Auto 83.7 % (45.5-73.1); Platelet Count Result 430 k/mm3 (150-375); Red Blood Count 4.15 M/mm3 (4.6-6.20); Red Cell Distribution Width 21.8 % (11.5-14.5)
[2022-07-02 19:46] LABS: Alanine Aminotransferase 29 U/L (6-50); Albumin Level 3.9 g/dL (3.5-5.1); Alkaline Phosphatase 129 U/L (38-126); Anion Gap 10 mmol/L (8-16); Aspartate Amino Transferase 35 U/L (17-59); Bilirubin,Total 3.4 mg/dL (0.2-1.3); Blood Urea Nitrogen 38 mg/dL (9-20); Calcium 8.8 mg/dL (8.4-10.2); Carbon Dioxide 18 mmol/L (22-30); Chloride 103 mmol/L (98-107); Estimated CRCL calculation 31 ml/min; Estimated Glomerular Filt Rate 30; Glucose 105 mg/dL (65-110); Lipase 36 U/L (23-300); Potassium 5.4 mmol/L (3.4-5.0); Sodium 131 mmol/L (137-145)
[2022-07-02 22:02] VITALS: BP 179/126; PULSE 114; RESP 20; O2SAT 100
[2022-07-03] VITALS (8 sets, daily range): BP systolic 118–189; BP diastolic 76–126; PULSE 71–115; RESP 18–20; TEMP 35.9–36.5; O2SAT 98–100; BMI 27.6
[2022-07-03] LABS: Add Urine Microscopic? YES; Appearance Urine Clear (Clear); Bilirubin Urine 2+ (Negative); Blood Urine Trace-Intact (Negative); Glucose Urine UA Negative (Negative); Ketones Urine Trace mg/dL (Negative); Leukocyte Esterase Ur Negative LEU/UL (Negative); Nitrate Urine Negative (Negative); Protein Urine 2+ mg/dL (Negative); Specific Grav Ur >= 1.030 (1.001-1.035); Urobilinogen Urine 0.2 mg/dL (<2.0); pH Urine 5.5 (5.0-9.0)
--- NOTE | 2022-07-03 | ECG_ITS ---
Measurements Intervals [place] Rate: 117 P: 87 WV: 244 QRS: 42 QRSD: 115 T: -26 QT: 345 QTc: 482 Interpretive Statements SINUS TACHYCARDIA WITH FIRST DEGREE AV BLOCK LEFT ATRIAL ENLARGEMENT INTRAVENTRICULAR CONDUCTION DELAY DELAYED PRECORDIAL R/S TRANSITION VOLTAGE CRITERIA FOR LVH ST-T WAVE ABNORMALITY IN INF/LAT LEADS- CONSIDER ISCHEMIA BASELINE ARTIFACT- I, III, AVL ABNORMAL ECG NO PREVIOUS ECG AVAILABLE FOR COMPARISON Electronically Signed On 07-03-2022 6:57:57 HELP DESK CONSULTANT by Kemal Hogan D.O.
[2022-07-03 00:03] LABS: Color Urine Light Brown (Yellow)
--- NOTE | 2022-07-03 00:06 | ED.GENADULT ---
HPI - General Adult General Chief complaint: Abdominal Pain Stated complaint: abd bloating Time Seen by Provider: 07/02/22 22:33 Source: patient Mode of arrival: ambulatory Limitations: no limitations History of Present Illness HPI narrative: Patient is a 62-year-old male who presents to the ED with c/o abdominal pain and bloating. Patient reports having progressive bloating in his abdomen over the last 3 to 4 weeks. He also reports having intermittent pain in the lower part of his abdomen. He has not tried anything for pain. He states he decided to come tonight as he has had issues taking care of himself d/t the swelling. He also reports nausea, diarrhea, generalized weakness, shortness of breath, BLE swelling, and decreased urine output. He states he had not urinated much, if at all, over the last 2-3 days. He states he just does not feel the need to urinate. Denies rectal bleeding, fevers, vomiting, chest pain. Patient reports he was a heavy drinker up until about 1 month ago. He drank every other day. Related Data Home Medications Medication Instructions Recorded Confirmed amlodipine 5 mg tablet (Norvasc) 10 mg PO DAILY 12/30/19 07/03/22 hydralazine 10 mg tablet 50 mg PO TID 07/03/22 07/03/22 Allergies Allergy/AdvReac Type Severity Reaction Status Date / Time No Known Allergies Allergy Verified 07/03/22 03:26 Review of Systems Review of Systems: CONSTITUTIONAL: Denies fever, chills, or sweats. ENT: Denies rhinorrhea, congestion, sore throat. CARDIOVASCULAR: Reports BLE edema. Denies chest pain. RESPIRATORY: Reports dyspnea. GASTROINTESTINAL: See HPI. GENITOURINARY: See HPI. All systems reviewed & are unremarkable except as noted in HPI and below PMFSH Past Medical History Medical History Alcohol abuse Chronic obstructive pulmonary disease History of fracture Including lower extremity and multiple toes. Hypertension Tobacco dependence Surgical History Surgical History History of toe surgery Family History Family History (Updated 07/03/22 @ 03:39 by Pablo Jones RN) Father Hypertension Mother Hypertension Social History Social History (Updated 07/03/22 @ 02:48 by Beba Valencia PA-C) Social History: The patient lives alone in [place]. He is single. He smoked between 1 and 2 packs of cigarettes per day and has since the age of 17. He drinks heavily, several times per week, consuming up to 1/2 of a 5th in addition to 6 beers. No drug use. He has 1 daughter, Andi, and he nominates her to be his surrogate decision maker. He wishes to be a full code. does uses marijuana sometimes used cocaine when he was young in high school Smoking packs per day: 1.5 Smoking cigarettes per day: 30.0 Years smoked: 48 Smoking pack-years: 72.00 Smoking status: Former smoker Tobacco type: cigarettes Second hand tobacco smoke exposure: Yes Additional smoking assessment comments: pt states hes been smoking since he was 14 years old Alcohol intake: former Drinks per week: 20 Substance use: current Substance use type: marijuana Lack of Transportation: No Lack of Food: Never True Current Housing: I Have Housing Concerned About Future Housing: No Difficulty Paying Gas/Electric Bills: No Difficulty Paying for Meds: No Currently Unemployed: No Education: Trade/Vocational Certificate Difficulty w/ Childcare or Family Care: No Gender identity (if verbalized by the patient): Male Spiritual care concerns: No Exam Narrative: GENERAL: Chronically ill appearing, well-nourished, non-toxic, in no acute distress. HEAD: Normocephalic, atraumatic. EYES: PERRLA/EOMI, mild scleral icterus. NECK: Supple. No adenopathy, no masses. RESPIRATORY: Airway patent, respirations nonlabored. Decreased lung sounds in bases bilaterally. No distre
[2022-07-03 00:08] LABS: Lactic Acid Reflex 2.1 mmol/L (0.7-2.0)
[2022-07-03 00:10] LABS: Bacteria Urine Trace /hpf; Mucus Urine Rare /lpf; Squamous Epithelial Cell Urine Rare /hpf (Few); WBC Urine 0-3 /hpf
[2022-07-03 00:16] LABS: Influenza A QL RT-PCR Negative (Negative); Influenza B QL RT-PCR Negative (Negative); SARS-CoV-2 RNA PCR Negative
[2022-07-03] MEDS: SODIUM CHLORIDE 0.9% IV 1,000 ML 999 ML IV CONT (00:35)
[2022-07-03 01:35] LABS: Alanine Aminotransferase 30 U/L (6-50); Albumin Level 3.8 g/dL (3.5-5.1); Alkaline Phosphatase 134 U/L (38-126); Anion Gap 10 mmol/L (8-16); Aspartate Amino Transferase 32 U/L (17-59); Bilirubin,Total 3.5 mg/dL (0.2-1.3); Blood Urea Nitrogen 40 mg/dL (9-20); Calcium 8.8 mg/dL (8.4-10.2); Carbon Dioxide 19 mmol/L (22-30); Chloride 103 mmol/L (98-107); Estimated CRCL calculation 30 ml/min; Estimated Glomerular Filt Rate 29; Glucose 104 mg/dL (65-110); Potassium 5.1 mmol/L (3.4-5.0); Sodium 132 mmol/L (137-145)
[2022-07-03 01:45] LABS: NT Pro B Type Natriuretic Pept > 35000 pg/mL (5-100)
[2022-07-03 02:46] LABS: Hepatitis B Surface Antigen Negative (Negative)
[2022-07-03 02:51] LABS: HAV RESULT Negative (Negative); Hepatitis B Core IgM Result Negative (Negative)
[2022-07-03 02:57] LABS: Reflex Lactic Acid Yes or No Add Lactic
[2022-07-03 03:03] LABS: Hepatitis C Virus Antibody Negative (Negative)
[2022-07-03] MEDS: hydrALAZINE HCL 20 MG/ML VIAL 10 MG IV PUSH (03:20)
--- NOTE | 2022-07-03 03:20 | ADMGEN ---
This patient, Osvaldo Marshall, was admitted to Medical Room 244-. Patient/family oriented to hospital policies and general routines including ID bracelet, bed and alarms, visiting hours, pain management, procedures, bathroom and other care routines, personal items, smoking policy, room service/diet, and visiting hours. Information on how to activate the Rapid Response Team has been discussed. Patient/Family are encouraged to report perceived risks to care and to ask questions if they do not understand what they are told or what they should do.
[2022-07-03 03:31] LABS: Lactic Acid 2.2 mmol/L (0.7-2.0)
[2022-07-03 03:40] LABS: INR 1.5; Prothrombin Time 17.7 Seconds (11.1-14.7)
[2022-07-03 03:41] LABS: Partial Thromboplastin Time 35.4 SECONDS (22.3-36.8)
[2022-07-03] MEDS: ALBUMIN HUMAN 25% 25 GM/100 ML 200 ML IVPB ×3 (05:01→22:11)
[2022-07-03] MEDS: amLODIPine BESYLATE 5 MG TABLET 10 MG PO (06:54)
[2022-07-03] MEDS: METOPROLOL TARTRATE 50 MG TAB PO ×2 (06:55→20:41)
[2022-07-03] MEDS: ASPIRIN 81 MG ENTERIC TABLET PO (06:55)
[2022-07-03] MEDS: hydrALAZINE HCL 50 MG TABLET PO ×3 (06:55→19:55)
[2022-07-03 09:09] LABS: Basophils Absolute Auto 0.1 K/mm3 (0.0-0.1); Basophils Percent Auto 0.3 % (0.2-1.2); Eosinophils Percent Auto 0.1 % (0-4.4); Hematocrit 34.5 % (42.0-52.0); Hemoglobin 10.2 g/dL (14.0-18.0); Immature Granulocyte Absolute 0.11 K/mm3 (0.00-0.031); Immature Granulocyte Percent A 0.7 % (0-0.5); Lymphocytes Absolute Auto 1.07 K/mm3 (0.9-3.2); Lymphocytes Percent Auto 6.5 % (18.3-44.2); Mean Corpuscular HGB Conc 29.6 g/dl (32-36); Mean Corpuscular Hemoglobin 26.4 pg (26-34); Mean Corpuscular Volume 89.4 fl (80-100); Mean Platelet Volume 11.2 fl (7.4-10.4); Monocytes Absolute Auto 1.7 K/mm3 (0.1-0.6); Monocytes Percent Auto 10.3 % (2.6-8.5); Neutrophils Absolute Auto 13.5 K/mm3 (1.3-6.7); Neutrophils Percent Auto 82.1 % (45.5-73.1); Platelet Count Result 398 k/mm3 (150-375); Red Blood Count 3.86 M/mm3 (4.6-6.20); Red Cell Distribution Width 21.9 % (11.5-14.5); White Blood Count 16.4 K/mm3 (4.5-10.0)
[2022-07-03 10:08] LABS: Platelet Estimate Increased (Adequate)
[2022-07-03 10:09] LABS: Anisocytosis 1+ (NORMAL); Burr Cells 1+ (NORMAL); Poikilocytosis 2+ (NORMAL); Schistocytes None Seen (NORMAL)
--- NOTE | 2022-07-03 13:23 | PM.IMHP ---
H&P: HPI History of Present Illness Date/Time: 07/03/22 13:23 Chief Complaint: Abdominal distension Narrative: Date of service: 07/03/2022 Osvaldo Marshall is a 62-year-old male with a history of alcohol abuse, tobacco dependence, hypertension, COPD, and CAD who presented to the emergency department on 07/03/2022 with complaints of abdominal pain and bloating. The patient is an extremely poor historian and is very difficult to obtain HPI. He does me that for 1 month he has had decreased appetite, trouble breathing, and difficulty urinating. He is unsure if it has gotten better or worse and reports no change which prompted him to seek emergency care today. He did not mention any concerns of abdominal pain or bloating to me until I specifically brought them up at which time he indicated he has had bloating for 2.5 weeks. He denied shortness of breath, chest pain, cough, dizziness palpitations, syncope. He reports urine has been dark and cloudy with occasional dysuria though cannot provided timeline of these symptoms. The patient stated that he was very frustrated by my questions, S already to told somebody all of this and did not feel the need to repeat himself. The patient states he lives alone and is independent in his activities. He has not seen a primary care provider in 20 years admits to noncompliance with his medication regimen. He did report history of alcohol use, however became very agitated when discussing this. He states that he quit drinking 1 month ago when he started to feel sick because he ?lost the taste for it.? He states that prior to quitting 1 month ago he was drinking once every 2-3 days. Had difficulty quantifying the amount of alcohol intake, stating ?more than the next esthela.? When pressed for a more concrete amount, he reported drinking 7 beers every 2-3 days. He denies any history of alcohol withdrawal symptoms. Patient refused to answer any further questions following this discussion and again became quite aggressive therefore the interview was concluded. On presentation to the ED, patient was hypertensive, tachycardic, white blood cell count 15.0, hemoglobin 11.1, platelets 430, potassium 5.4, creatinine 2.2, lactic 2.1, urine light brown with no evidence of infection, CT of the abdomen/pelvis showed cardiomegaly with small bilateral pleural effusions and nodular liver border concerning for cirrhosis with large volume ascites and 4.2 cm infrarenal abdominal aortic aneurysm. The patient is being admitted to the hospitalist service and will be seen in consultation by Gastroenterology. Review of Systems Review of Systems: All systems reviewed & are unremarkable except as noted in HPI and below PMFSH Past Medical History Medical History (Updated 07/03/22 @ 13:57 by Whitney Hunt PA-C) Alcohol abuse CAD (coronary artery disease) Chronic obstructive pulmonary disease History of fracture Including lower extremity and multiple toes. Hypertension Tobacco dependence Surgical History Surgical History (Updated 07/03/22 @ 13:33 by Whitney Hunt PA-C) History of coronary artery bypass graft History of toe surgery Family History Family History Father Hypertension Mother Hypertension Social History Social History (Updated 07/03/22 @ 13:40 by Whitney Hunt PA-C) Social History: The patient lives alone in [place]. He is single. Reports he is disabled, though unsure of any chronic conditions resulting in disability. He has 1 daughter, Andi, and he nominates her to be his surrogate decision maker. He wishes to be a full code.l Smoking packs per day: 1.5 Smoking cigarettes per day: 30.0 Years smoked: 48 Smoking pack-years: 72.00 Smoking status: Former smoker Tobacco type: cigarettes Second hand tobacco smoke exposure: Yes Alcohol intake: former Drinks per week: 20 Last use: Patient denies any illicit drug use inclu
--- NOTE | 2022-07-03 14:41 | P.CONNP_ITS ---
Assessment and Plan Assessment and plan (1) BRANT (acute kidney injury): Code(s): N17.9 - Acute kidney failure, unspecified Status: Acute Assessment and Plan: * etiology?? * I suppose there could be an element of kidney disease progression * check renal ultrasound * check urine electrolytes and urine eosinophils * given the significant change in renal function (albeit over 3 years), will proceed with serological testing * given issues with liver cirrhosis, another possible concern would be hepatorenal syndrome * hold IVFs until paracentesis * follow I/Os * follow repeat labs (2) Stage 3a chronic kidney disease: Code(s): N18.31 - Chronic kidney disease, stage 3a Status: Chronic Assessment and Plan: * baseline creatinine runs ~ 1.2 - 1.4mg/dl (although last testing done was October 2019) * presumably due to hypertension and vascular disease (3) Cirrhosis: Qualifiers: Ascites presence: with ascites Hepatic cirrhosis type: unspecified he patic cirrhosis Qualified Code(s): K74.60 - Unspecified cirrhosis of liver; R18.8 - Other ascites Code(s): K74.60 - Unspecified cirrhosis of liver Status: Acute Assessment and Plan: * as noted by admission imaging * GI consultation * diagnostic/therapeutic paracentesis today * follow LFTs (4) Normocytic anemia: Code(s): D64.9 - Anemia, unspecified Status: Acute Assessment and Plan: * suspect related to liver disease and mild CKD * H/H relatively stable * follow trend (5) Hypertension: Code(s): I10 - Essential (primary) hypertension Status: Acute Assessment and Plan: * doing better with home medications * follow trend of hemodynamics (6) Alcohol abuse: Code(s): F10.10 - Alcohol abuse, uncomplicated Status: Chronic Assessment and Plan: * reportedly quit drinking ~ 1 month ago * denies any history of withdrawal * on thiamine and folate * [facility] protocol for now Will continue to follow. History of Present Illness Reason for Consult Consult date: 07/03/22 Reason for consult: acute renal failure (on chronic kidney disease) Chief Complaint Chief complaint: Cirrhosis w/large volume Ascites,Hyperbilirubinemi History of Present Illness Narrative: Most of the information I have obtained is from U electronic medical record as well as discussion with the physician/nurses involved with the patient's care as the patient is an extremely poor historian. The patient is a 62-year-old male with a past medical history as outlined below who presented to [facility] Emergency room with complaints of abdominal plain. Reportedly, the patient has had a multitude of complaints over last month which include poor appetite, difficulty breathing, difficulty urinating, abdominal pain, as well as abdominal bloating. Furthermore, it is difficult to say if the symptoms have been getting worse or have been just present for the last month but apparently for what ever reason, he presented to the ER for further assessment of these issues/complaints. He has not seen a physician almost 20 years as an has not been taking any medications for his chronic medical issues as noted below. Workup and evaluation the emergency room demonstrated a CBC with an elevated white blood cell count, anemia, and preserved platelet count. His chemistry was significant for a creatinine of 2.2 in association with a potassium of 5.4 and a mild lactic acidosis of 2.1. His urinalysis did not demonstrate any evidence of acut
--- NOTE | 2022-07-03 14:41 | PM.CNNEP ---
Assessment and Plan Assessment and plan (1) BRANT (acute kidney injury): Code(s): N17.9 - Acute kidney failure, unspecified Status: Acute Assessment and Plan: etiology?? I suppose there could be an element of kidney disease progression check renal ultrasound check urine electrolytes and urine eosinophils given the significant change in renal function (albeit over 3 years), will proceed with serological testing given issues with liver cirrhosis, another possible concern would be hepatorenal syndrome hold IVFs until paracentesis follow I/Os follow repeat labs (2) Stage 3a chronic kidney disease: Code(s): N18.31 - Chronic kidney disease, stage 3a Status: Chronic Assessment and Plan: baseline creatinine runs ~ 1.2 - 1.4mg/dl (although last testing done was October 2019) presumably due to hypertension and vascular disease (3) Cirrhosis: Qualifiers: Ascites presence: with ascites Hepatic cirrhosis type: unspecified hepatic cirrhosis Qualified Code(s): K74.60 - Unspecified cirrhosis of liver; R18.8 - Other ascites Code(s): K74.60 - Unspecified cirrhosis of liver Status: Acute Assessment and Plan: as noted by admission imaging GI consultation diagnostic/therapeutic paracentesis today follow LFTs (4) Normocytic anemia: Code(s): D64.9 - Anemia, unspecified Status: Acute Assessment and Plan: suspect related to liver disease and mild CKD H/H relatively stable follow trend (5) Hypertension: Code(s): I10 - Essential (primary) hypertension Status: Acute Assessment and Plan: doing better with home medications follow trend of hemodynamics (6) Alcohol abuse: Code(s): F10.10 - Alcohol abuse, uncomplicated Status: Chronic Assessment and Plan: reportedly quit drinking ~ 1 month ago denies any history of withdrawal on thiamine and folate [facility] protocol for now Will continue to follow. History of Present Illness Reason for Consult Consult date: 07/03/22 Reason for consult: acute renal failure (on chronic kidney disease) Chief Complaint Chief complaint: Cirrhosis w/large volume Ascites,Hyperbilirubinemi History of Present Illness Narrative: Most of the information I have obtained is from U electronic medical record as well as discussion with the physician/nurses involved with the patient's care as the patient is an extremely poor historian. The patient is a 62-year-old male with a past medical history as outlined below who presented to [facility] Emergency room with complaints of abdominal plain. Reportedly, the patient has had a multitude of complaints over last month which include poor appetite, difficulty breathing, difficulty urinating, abdominal pain, as well as abdominal bloating. Furthermore, it is difficult to say if the symptoms have been getting worse or have been just present for the last month but apparently for what ever reason, he presented to the ER for further assessment of these issues/complaints. He has not seen a physician almost 20 years as an has not been taking any medications for his chronic medical issues as noted below. Workup and evaluation the emergency room demonstrated a CBC with an elevated white blood cell count, anemia, and preserved platelet count. His chemistry was significant for a creatinine of 2.2 in association with a potassium of 5.4 and a mild lactic acidosis of 2.1. His urinalysis did not demonstrate any evidence of acute infection but given his abdominal complaints and mild distension, a CT scan of the abdomen pelvis was done which demonstrated cardiomegaly, small bilateral pleural effusions, nodule liver border concerning for cirrhosis, large volume of ascites, and a 4.2 infrarenal abdominal aortic aneurysm. Given these constellation of findings both by lab and imaging studies as well as his symptoms on presentation, he was admitte
[2022-07-03 15:59] LABS: Albumin Level 3.9 g/dL (3.5-5.1)
[2022-07-03 16:27] LABS: Procalcitonin 0.4 ng/mL
--- NOTE | 2022-07-03 16:31 | WPDGICN ---
Assessment and Plan Assessment and plan (1) Cirrhosis: Qualifiers: Ascites presence: with ascites Hepatic cirrhosis type: unspecified hepatic cirrhosis Qualified Code(s): K74.60 - Unspecified cirrhosis of liver; R18.8 - Other ascites Code(s): K74.60 - Unspecified cirrhosis of liver Status: Acute Assessment and Plan: he had never before been told that he had cirrhosis. His CT scan however shows: Cardiomegaly. Small bilateral pleural effusions. Nodular liver border as can be seen with cirrhosis. 4.2 cm infrarenal abdominal aortic aneurysm. Large volume ascites. (2) Hyperbilirubinemia: Code(s): E80.6 - Other disorders of bilirubin metabolism Status: Acute Assessment and Plan: 3.4 yesterday and 3.5 today. Transaminases however are normal except a slight elevation of alkaline phosphatase. (3) Alcohol abuse: Code(s): F10.10 - Alcohol abuse, uncomplicated Status: Chronic Assessment and Plan: He admits to drinking Reginald Villalba regularly but says he stopped 3 weeks ago when it suddenly tasted very bad. He states he is DONE (4) Ascites: Code(s): R18.8 - Other ascites Status: Acute Assessment and Plan: he feels much better since the paracentesis with removal of greater than 3000 cc of fluid Plan I discussed liver disease with him. I told that although he has cirrhosis that his odds of survival are improved by stopping alcohol completely. Told that with continued drinking the statistics show he has about a 50% 5 year survival. GI Consult Note Consult date/time: 07/03/22 16:31 HPI: Osvaldo Marshall is a 62 year old male who is admitted to the emergency room with complaints of abdominal pain and swelling. He states his belly began swelling about a month ago. He states that he was never told that he had liver disease in the past in fact he is not under any physicians care but he admits to drinking heavily. He mainly drinks Reginald Villalba. He has she stopped 3 weeks ago he states because all the sudden it did not taste right way drink it and made his belly uncomfortable. He has never been told that he had liver disease. He does not recall ever having had jaundice or hepatitis. He states that he has been feeling a little weaker lately and 2 beats that to the significant abdominal distention. He has just come back recently from Radiology where he had a paracentesis with removal of 3200 cc of fluid. He states that he is feeling much better after that. Review of Systems Review of Systems: All systems reviewed & are unremarkable except as noted in HPI and below PMFSH Past Medical History Medical History Alcohol abuse CAD (coronary artery disease) Chronic obstructive pulmonary disease History of fracture Including lower extremity and multiple toes. Hypertension Tobacco dependence Surgical History Surgical History History of coronary artery bypass graft History of toe surgery Family History Family History Father Hypertension Mother Hypertension Social History Social History Social History: The patient lives alone in [place]. He is single. Reports he is disabled, though unsure of any chronic conditions resulting in disability. He has 1 daughter, Andi, and he nominates her to be his surrogate decision maker. He wishes to be a full code.l Smoking packs per day: 1.5 Smoking cigarettes per day: 30.0 Years smoked: 48 Smoking pack-years: 72.00 Smoking status: Former smoker Tobacco type: cigarettes Second hand tobacco smoke exposure: Yes Alcohol intake: former Drinks per week: 20 Last use: Patient denies any illicit drug use including IV drugs Lack of Transportation: No Lack of Food: Never True
[2022-07-03 16:37] LABS: Add Urine Microscopic? YES; Appearance Urine Slightly Cloudy (Clear); Bilirubin Urine 1+ (Negative); Blood Urine 3+ (Negative); Color Urine Yellow (Yellow); Glucose Urine UA Negative (Negative); Ketones Urine Negative (Negative); Leukocyte Esterase Ur 1+ LEU/UL (NEGATIVE); Nitrate Urine Negative (Negative); Protein Urine 1+ mg/dL (Negative); Specific Grav Ur 1.025 (1.001-1.035); pH Urine 5.5 (5.0-9.0)
[2022-07-03 16:56] LABS: Bacteria Urine Trace /hpf; Calcium Oxalate Crystals Urine Present /hpf; Mucus Urine Rare /lpf; RBC Urine 51-75 /hpf (0-2); Squamous Epithelial Cell Urine Rare /hpf (Few); WBC Urine 51-75 /hpf (0-3)
[2022-07-03 17:14] LABS: Total Protein Urine Random 60 mg/dL; Urea Random Urine 968 MG/DL
[2022-07-03 17:16] LABS: Creatinine Urine 151.7 mg/dL
[2022-07-03 17:29] LABS: Sodium Urine Random < 5 meq/L
[2022-07-03 22:20] LABS: Source Peritoneal Fluid Peritoneal Fluid
[2022-07-03 22:21] LABS: Appearance Peritoneal Fluid Cloudy (Clear); Color Peritoneal Fluid Yellow (Colorless); Lymphocytes Peritoneal Fluid 57 %; Macrophages Peritoneal Fluid 13 %; Mesothelial Cells Peritoneal Fluid 3 %; Neutrophils Peritoneal Fluid 27 % (0-25); Nucleated Cells Peritoneal Flu 147 /uL (0-500); RBC Peritoneal Fluid 2348 /uL (0-100000)
[2022-07-03 22:29] LABS: Eosinophil Urine None Seen % (None Seen)
[2022-07-04] VITALS (7 sets, daily range): BP systolic 103–136; BP diastolic 70–80; PULSE 72–92; RESP 16–20; TEMP 36.3–36.8; O2SAT 97–98
[2022-07-04] MEDS: ALBUMIN HUMAN 25% 25 GM/100 ML 200 ML IVPB (05:28)
[2022-07-04 05:51] LABS: Basophils Percent Auto 0.2 % (0.2-1.2); Eosinophils Absolute Auto 0.1 K/mm3 (0-0.3); Hematocrit 33.4 % (42.0-52.0); Hemoglobin 10.1 g/dL (14.0-18.0); Immature Granulocyte Percent A 0.8 % (0-0.5); Lymphocytes Absolute Auto 1.07 K/mm3 (0.9-3.2); Lymphocytes Percent Auto 8.1 % (18.3-44.2); Mean Corpuscular HGB Conc 30.2 g/dl (32-36); Mean Corpuscular Hemoglobin 26.9 pg (26-34); Mean Corpuscular Volume 88.8 fl (80-100); Monocytes Absolute Auto 1.4 K/mm3 (0.1-0.6); Monocytes Percent Auto 10.8 % (2.6-8.5); Neutrophils Absolute Auto 10.5 K/mm3 (1.3-6.7); Neutrophils Percent Auto 79.1 % (45.5-73.1); Platelet Count Result 297 k/mm3 (150-375); Red Blood Count 3.76 M/mm3 (4.6-6.20); Red Cell Distribution Width 21.7 % (11.5-14.5); White Blood Count 13.3 K/mm3 (4.5-10.0)
[2022-07-04 06:00] LABS: Anion Gap 8 mmol/L (8-16); Blood Urea Nitrogen 44 mg/dL (9-20); Calcium 8.4 mg/dL (8.4-10.2); Carbon Dioxide 24 mmol/L (22-30); Chloride 106 mmol/L (98-107); Estimated CRCL calculation 31 ml/min; Estimated Glomerular Filt Rate 30; Glucose 90 mg/dL (65-110); Potassium 4.2 mmol/L (3.4-5.0); Sodium 138 mmol/L (137-145)
[2022-07-04 06:01] LABS: Alanine Aminotransferase 21 U/L (6-50); Albumin Level 4.2 g/dL (3.5-5.1); Alkaline Phosphatase 86 U/L (38-126); Aspartate Amino Transferase 20 U/L (17-59); Creatine Kinase 32 U/L (55-170)
[2022-07-04 06:01] LABS: Lactic Acid Reflex 1.8 mmol/L (0.7-2.0)
[2022-07-04 06:09] LABS: Complement C3 64 mg/dL (88-165)
[2022-07-04] MEDS: METOPROLOL TARTRATE 50 MG TAB PO ×2 (08:25→20:52)
[2022-07-04] MEDS: THIAMINE HCL 100 MG TABLET PO (08:26)
[2022-07-04] MEDS: amLODIPine BESYLATE 5 MG TABLET 10 MG PO (08:26)
[2022-07-04] MEDS: FOLIC ACID 1 MG TABLET PO (08:26)
[2022-07-04] MEDS: ASPIRIN 81 MG ENTERIC TABLET PO (08:26)
[2022-07-04] MEDS: hydrALAZINE HCL 50 MG TABLET PO ×3 (08:26→16:14)
--- NOTE | 2022-07-04 12:45 | P.PNNP_ITS ---
Progress Note: A&P Assessment and Plan (1) BRANT (acute kidney injury): Code(s): N17.9 - Acute kidney failure, unspecified Status: Acute Assessment and Plan: * etiology?? * I suppose there could be an element of kidney disease progression * evaluation to date: * renal ultrasound pending * urine electrolytes prerenal * urine eosinophils negative * CPK on the low side * serological testing pending (although complements are low - from liver disease?) * given issues with liver cirrhosis, another possible concern would be hepatorenal syndrome * may need to consider trial of IVFs (but I worry this may exacerbate his ascites) * follow I/Os * follow repeat labs (2) Stage 3a chronic kidney disease: Code(s): N18.31 - Chronic kidney disease, stage 3a Status: Chronic Assessment and Plan: * baseline creatinine runs ~ 1.2 - 1.4mg/dl (although last testing done was October 2019) * presumably due to hypertension and vascular disease (3) Cirrhosis: Qualifiers: Ascites presence: with ascites Hepatic cirrhosis type: unspecified hepatic cirrhosis Qualified Code(s): K74.60 - Unspecified cirrhosis of liver; R18.8 - Other ascites Code(s): K74.60 - Unspecified cirrhosis of liver Status: Acute Assessment and Plan: * as noted by admission imaging * GI following with recommendations noted * s/p diagnostic/therapeutic paracentesis (on 07/03/22) * follow LFTs (4) Normocytic anemia: Code(s): D64.9 - Anemia, unspecified Status: Acute Assessment and Plan: * suspect related to liver disease and mild CKD * H/H relatively stable * follow trend (5) Hypertension: Code(s): I10 - Essential (primary) hypertension Status: Acute Assessment and Plan: * doing better with home medications * given #1 and liver issues - would avoid overcontrol * follow trend of hemodynamics (6) Alcohol abuse: Code(s): F10.10 - Alcohol abuse, uncomplicated Status: Chronic Assessment and Plan: * reportedly quit drinking ~ 1 month ago * denies any history of withdrawal * on thiamine and folate * off CIWA protocol Will continue to follow. Subjective Date/time seen: 07/04/22 12:45 Renal function remains unchanged as noted by AM labs; tolerated paracentesis yesterday without any issue or problems and reports improvement in abdominal distension but still as bloating still. No apparent distress noted. Exam Narrative: General: chronically ill appearing male in NAD Heart: normal S1 and S2; no rub Lungs: clear to auscultation Abdomen: soft, mild distension, positive bowel sounds Extremities: no cyanosis or clubbing; 2+ pedal edema Skin: warm and dry Objective Data Vital Signs Vital Signs: Vital Signs Temp Pulse Resp BP Pulse Ox O2 Del Method 07/04/22 12:30 103/70 07/04/22 08:28 Room Air 07/04/22 08:25 76 07/04/22 06:00 97.4 F L 72 20 123/77 98 07/03/22 22:10 97.1 F L 82 20 123/79 98 07/03/22 20:41 72 Intake/Output Intake/Output: Intake & Output 07/01/22 07/02/22 07/03/22 07/04/22 23:59 23:59 23:59 23:59 Intake Total 1920 1080 Output Total 3675 400 Balance -17
--- NOTE | 2022-07-04 12:45 | PM.PNNEP ---
Progress Note: A&P Assessment and Plan (1) BRANT (acute kidney injury): Code(s): N17.9 - Acute kidney failure, unspecified Status: Acute Assessment and Plan: etiology?? I suppose there could be an element of kidney disease progression evaluation to date: renal ultrasound pending urine electrolytes prerenal urine eosinophils negative CPK on the low side serological testing pending (although complements are low - from liver disease?) given issues with liver cirrhosis, another possible concern would be hepatorenal syndrome may need to consider trial of IVFs (but I worry this may exacerbate his ascites) follow I/Os follow repeat labs (2) Stage 3a chronic kidney disease: Code(s): N18.31 - Chronic kidney disease, stage 3a Status: Chronic Assessment and Plan: baseline creatinine runs ~ 1.2 - 1.4mg/dl (although last testing done was October 2019) presumably due to hypertension and vascular disease (3) Cirrhosis: Qualifiers: Ascites presence: with ascites Hepatic cirrhosis type: unspecified hepatic cirrhosis Qualified Code(s): K74.60 - Unspecified cirrhosis of liver; R18.8 - Other ascites Code(s): K74.60 - Unspecified cirrhosis of liver Status: Acute Assessment and Plan: as noted by admission imaging GI following with recommendations noted s/p diagnostic/therapeutic paracentesis (on 07/03/22) follow LFTs (4) Normocytic anemia: Code(s): D64.9 - Anemia, unspecified Status: Acute Assessment and Plan: suspect related to liver disease and mild CKD H/H relatively stable follow trend (5) Hypertension: Code(s): I10 - Essential (primary) hypertension Status: Acute Assessment and Plan: doing better with home medications given #1 and liver issues - would avoid overcontrol follow trend of hemodynamics (6) Alcohol abuse: Code(s): F10.10 - Alcohol abuse, uncomplicated Status: Chronic Assessment and Plan: reportedly quit drinking ~ 1 month ago denies any history of withdrawal on thiamine and folate off CIWA protocol Will continue to follow. Subjective Date/time seen: 07/04/22 12:45 Renal function remains unchanged as noted by AM labs; tolerated paracentesis yesterday without any issue or problems and reports improvement in abdominal distension but still as bloating still. No apparent distress noted. Exam Narrative: General: chronically ill appearing male in NAD Heart: normal S1 and S2; no rub Lungs: clear to auscultation Abdomen: soft, mild distension, positive bowel sounds Extremities: no cyanosis or clubbing; 2+ pedal edema Skin: warm and dry Objective Data Vital Signs Vital Signs: Vital Signs Temp Pulse Resp BP Pulse Ox O2 Del Method 07/04/22 12:30 103/70 07/04/22 08:28 Room Air 07/04/22 08:25 76 07/04/22 06:00 97.4 F L 72 20 123/77 98 07/03/22 22:10 97.1 F L 82 20 123/79 98 07/03/22 20:41 72 Intake/Output Intake/Output: Intake & Output 07/01/22 07/02/22 07/03/22 07/04/22 23:59 23:59 23:59 23:59 Intake Total 1920 1080 Output Total 3675 400 Balance -1755 680 Meds/Results Medications: Active Medications Generic Name Dose Route Start Last Admin Trade Name Freq PRN Reason Stop Dose Admin Amlodipine Besylate 10 mg 07/03/22 09:00 07/04/22 08:26 Amlodipine Besylate 5 Mg Tablet PO 10 mg DAILY HUGH Administration Aspirin 81 mg 07/03/22 09:00 07/04/22 08:26 Aspirin 81 Mg Enteric Tablet PO 81 mg QAM [facility] Administration Folic Acid 1 mg 07/04/22 09:00 07/04/22 08:26 Folic Acid 1 Mg Tablet PO 1 mg DAILY HUGH Administration Hydralazine HCl 50 mg 07/03/22 09:00 07/04/22 12:36 Hydralazine Hcl 50 Mg Tablet PO 50 mg TID HUGH Administration Metoprolol Tartrate 50 mg 07/03/22 09:00 07/04/22 08:25 Metoprolol Tartrate 50 Mg Tab PO
--- NOTE | 2022-07-04 16:37 | PM.IMPN ---
Progress Note: A&P Assessment and Plan (1) Cirrhosis: Qualifiers: Ascites presence: with ascites Hepatic cirrhosis type: unspecified hepatic cirrhosis Qualified Code(s): K74.60 - Unspecified cirrhosis of liver; R18.8 - Other ascites Code(s): K74.60 - Unspecified cirrhosis of liver Status: Acute Assessment and Plan: CT of the abdomen/pelvis showed nodular liver border concerning for cirrhosis with large volume ascites. Appreciate GI consultation. underwent paracentesis yesterday which yielded 3200 mL opaque, mustard like fluid. Neutrophil count mildly elevated, additional studies pending. Preliminary Gram stain with no organisms seen. blood cultures no growth to date. Hepatitis panel negative. Appreciate GI recommendations regarding medication regimen (2) Acute renal failure with oliguria: Code(s): N17.9 - Acute kidney failure, unspecified; R34 - Anuria and oliguria Status: Acute Assessment and Plan: Creatinine elevated up to 2.3. Baseline 1.2-1.4. Patient reported oliguria prior to presentation. Continue Luna catheter to monitor urine output. no change in renal function today. Appreciate Nephrology recommendations. Concern for hepatorenal syndrome in the setting of new onset cirrhosis. Will obtain renal ultrasound (3) Leukocytosis: Qualifiers: Leukocytosis type: unspecified Qualified Code(s): D72.829 - Elevated white blood cell count, unspecified Code(s): D72.829 - Elevated white blood cell count, unspecified Status: Acute Assessment and Plan: improved. WBC up to 16.4, etiology unclear. no signs/ symptoms of underlying infection. Procalcitonin 0.4. WBC with downward trend to 13.3 today. Continue to monitor CBC with differential (4) Lactic acidosis: Code(s): E87.20 - Acidosis, unspecified Status: Acute Assessment and Plan: Resolved. Possibly due to cirrhosis and alcohol abuse. (5) Normocytic anemia: Code(s): D64.9 - Anemia, unspecified Status: Acute Assessment and Plan: H&H remaining stable. No evidence of active bleeding. Continue to monitor (6) Hypertension: Code(s): I10 - Essential (primary) hypertension Status: Acute Assessment and Plan: Blood pressure markedly elevated on presentation improved with resuming the patient's home p.o. antihypertensive. Patient reports noncompliance to medications. Continue home p.o. antihypertensives (7) Alcohol abuse: Code(s): F10.10 - Alcohol abuse, uncomplicated Status: Chronic Assessment and Plan: Patient reports drinking 7 beers every 2-3 days, however suspect significantly higher intake than reported. Patient reports he quit drinking 1 month ago when he ?lost the taste for it.? CIWA scores 0 for 24 hours, therefore will discontinue CIWA protocol. Continue thiamine and folic acid (8) AAA (abdominal aortic aneurysm): Code(s): I71.40 - Abdominal aortic aneurysm, without rupture, unspecified Status: Acute Assessment and Plan: CT of abdomen/pelvis showed 4.2 cm infrarenal abdominal aortic aneurysm. Will need outpatient follow-up for annual ultrasound. Subjective Date/time seen: 07/04/22 16:37 Interval history: Date of service: 07/04/2022 Osvaldo Marshall is a 62-year-old male with a history of alcohol abuse, tobacco dependence, hypertension, COPD, and CAD who is seen in follow-up for new onset cirrhosis with ascites. Patient reports significant improvement in his abdominal pressure following paracentesis yesterday. He continues to endorse bloating of his abdomen. Complains of swelling in his bilateral lower extremities. Denies shortness of breath or cough. Denies nausea, vomiting, fever, or chills. He is tolerating his diet but does endorse early satiety secondary to abdominal bloating. Review of Systems Review of Systems: All systems reviewed & are
[2022-07-05] VITALS (10 sets, daily range): BP systolic 85–132; BP diastolic 46–90; PULSE 67–87; RESP 16–25; TEMP 36.6–37.1; O2SAT 91–100
[2022-07-05 05:51] LABS: Basophils Percent Auto 0.2 % (0.2-1.2); Eosinophils Absolute Auto 0.2 K/mm3 (0-0.3); Eosinophils Percent Auto 1.4 % (0-4.4); Hematocrit 29.7 % (42.0-52.0); Hemoglobin 8.9 g/dL (14.0-18.0); Immature Granulocyte Absolute 0.07 K/mm3 (0.00-0.031); Immature Granulocyte Percent A 0.6 % (0-0.5); Lymphocytes Absolute Auto 0.95 K/mm3 (0.9-3.2); Lymphocytes Percent Auto 7.8 % (18.3-44.2); Mean Corpuscular Hemoglobin 26.3 pg (26-34); Mean Corpuscular Volume 87.6 fl (80-100); Mean Platelet Volume 9.2 fl (7.4-10.4); Monocytes Absolute Auto 1.5 K/mm3 (0.1-0.6); Monocytes Percent Auto 12.4 % (2.6-8.5); Neutrophils Absolute Auto 9.5 K/mm3 (1.3-6.7); Neutrophils Percent Auto 77.6 % (45.5-73.1); Platelet Count Result 269 k/mm3 (150-375); Red Blood Count 3.39 M/mm3 (4.6-6.20); Red Cell Distribution Width 21.6 % (11.5-14.5); White Blood Count 12.2 K/mm3 (4.5-10.0)
[2022-07-05 06:11] LABS: Alanine Aminotransferase 19 U/L (6-50); Albumin Level 3.4 g/dL (3.5-5.1); Alkaline Phosphatase 74 U/L (38-126); Anion Gap 7 mmol/L (8-16); Aspartate Amino Transferase 19 U/L (17-59); Bilirubin,Total 1.5 mg/dL (0.2-1.3); Blood Urea Nitrogen 44 mg/dL (9-20); Calcium 7.8 mg/dL (8.4-10.2); Carbon Dioxide 23 mmol/L (22-30); Chloride 108 mmol/L (98-107); Estimated CRCL calculation 34 ml/min; Estimated Glomerular Filt Rate 34; Glucose 85 mg/dL (65-110); Potassium 3.8 mmol/L (3.4-5.0); Sodium 138 mmol/L (137-145)
--- NOTE | 2022-07-05 06:49 | WPDGIPROGNO ---
Progress Note: A&P Assessment and Plan (1) Cirrhosis: Qualifiers: Ascites presence: with ascites Hepatic cirrhosis type: unspecified hepatic cirrhosis Qualified Code(s): K74.60 - Unspecified cirrhosis of liver; R18.8 - Other ascites Code(s): K74.60 - Unspecified cirrhosis of liver Status: Acute Assessment and Plan: he had never before been told that he had cirrhosis. His CT scan however shows: Cardiomegaly. Small bilateral pleural effusions. Nodular liver border as can be seen with cirrhosis. 4.2 cm infrarenal abdominal aortic aneurysm. Large volume ascites. (2) Hyperbilirubinemia: Code(s): E80.6 - Other disorders of bilirubin metabolism Status: Acute Assessment and Plan: 3.4 yesterday and 3.5 today. Transaminases however are normal except a slight elevation of alkaline phosphatase. 07/05/2022 bilirubin is down to 1.5 today which is encouraging. (3) Alcohol abuse: Code(s): F10.10 - Alcohol abuse, uncomplicated Status: Chronic Assessment and Plan: He admits to drinking Reginald Villalba regularly but says he stopped 3 weeks ago when it suddenly tasted very bad. He states he is DONE (4) Ascites: Code(s): R18.8 - Other ascites Status: Acute Assessment and Plan: he feels much better since the paracentesis with removal of greater than 3000 cc of fluid (5) Acute renal failure with oliguria: Code(s): N17.9 - Acute kidney failure, unspecified; R34 - Anuria and oliguria Status: Acute Assessment and Plan: creatinine remains at 2.2. Bilirubin also unchanged. (6) Normocytic anemia: Code(s): D64.9 - Anemia, unspecified Status: Acute Assessment and Plan: Hemoglobin is 8.9 today but there is no evidence of gastrointestinal bleeding. I will schedule him for an EGD to rule out varices and determine whether he needs a nonselective beta tammy for his portal hypertension. Plan I discussed liver disease with him. I told that although he has cirrhosis that his odds of survival are improved by stopping alcohol completely. Told that with continued drinking the statistics show he has about a 50% 5 year survival. He states he is determined to stay away from alcohol because he does not want to . I told that he we will have him referred to a food and nutrition supervisor after discharge. Subjective Date/time seen: 07/05/22 06:49 he feels good today. He is not having any abdominal pain. He expressed concern about whether he will make it . Explain that he does have advanced liver disease. I told that he ought to be referred to a food and nutrition supervisor for further care. I told that at this point it appears that his ascites was not infected although cultures are still pending. I think that actually he could be discharged unless of course we need to further investigate his renal status. His creatinine has not changed Review of Systems Review of Systems: All systems reviewed & are unremarkable except as noted in HPI and below Exam Const: General: alert Orientation/consciousness: patient oriented x3 Resp: Auscultation: clear to auscultation bilaterally Cardio: Rhythm: regular rhythm GI: Inspection: distended GI Palp: Yes Soft to palpation, No Guarding due to palpation present (GI), Yes Hepatomegaly present ( Liver several cm below costal margin) and Yes Ascites present Auscultation: normal bowel sounds Skin: General skin exam: normal color, no jaundice and no purpura Neuro: General: patient oriented x3 Objective Data Vital Signs Vital Signs: Vital Signs - 24 hr 07/04/22 08:25 07/04/22 08:28 07/04/22 12:30 Temperature Pulse Rate 76 Respiratory Rate Blood Pressure 103/70 Pulse Oximetry Oxygen Delivery Room Air 07/04/22 14:00 07/04/22 15:11 07/04/22 16:13 Temperature 36.6 C Pulse Rate 73 Respiratory Rate 18 Blood Pressure 107/76 118/74 Pulse Oximetry 97 Oxygen Delivery Room Air
[2022-07-05] MEDS: amLODIPine BESYLATE 5 MG TABLET 10 MG PO (08:49)
[2022-07-05] MEDS: hydrALAZINE HCL 50 MG TABLET PO ×2 (08:49→16:20)
[2022-07-05] MEDS: FOLIC ACID 1 MG TABLET PO (08:49)
[2022-07-05] MEDS: THIAMINE HCL 100 MG TABLET PO (08:49)
[2022-07-05] MEDS: METOPROLOL TARTRATE 50 MG TAB PO ×2 (08:49→20:45)
[2022-07-05] MEDS: SODIUM CHLORIDE 0.9% IV 1,000 ML 75 ML IV CONT (08:56)
--- NOTE | 2022-07-05 10:33 | PC.NURSE ---
Patient to GI lab per stretcher at 1033 07/05/22.
[2022-07-05] MEDS: LACTATED RINGERS 1,000 ML 150 ML IV CONT (10:50)
--- NOTE | 2022-07-05 11:08 | WPDANESEPPF ---
Anes - Initial Pre Proc Eval Procedure: Operation Date: 07/05/22 14:45 Proposed Procedures p Esophagogastroduodenoscopy - Etienne Lopez MD Date/Time: 07/05/22 11:08 Surgeon: Whitney Hunt PA-C Pre Op Diagnosis: Cirrhosis w/large volume Ascites,Hyperbilirubinemi Patient Data Age: 62 Gender: M Height: 1.75 m Weight: 87.9 kg Last Vital Signs Temp 97.8 F 07/05/22 10:52 Pulse 75 07/05/22 10:52 Resp 17 07/05/22 10:52 BP 131/90 07/05/22 10:52 Pulse Ox 95 07/05/22 10:52 O2 Del Method Room Air 07/05/22 10:52 Allergies Allergy/AdvReac Type Severity Reaction Status Date / Time No Known Allergies Allergy Verified 07/05/22 10:47 Home Medications Medication Instructions Recorded Confirmed Type aspirin 81 mg tablet,delayed 81 mg PO QAM #30 tabs 11/19/19 07/03/22 Rx release metoprolol tartrate 50 mg tablet 50 mg PO Q12H #60 tabs 11/19/19 07/03/22 Rx (Lopressor) amlodipine 5 mg tablet (Norvasc) 10 mg PO DAILY 12/30/19 07/03/22 History hydralazine 10 mg tablet 50 mg PO TID 07/03/22 07/03/22 History Laboratory Tests 07/05/22 07/05/22 05:23 05:23 WBC 12.2 K/mm3 H K/mm3 (4.5-10.0) RBC 3.39 M/mm3 L M/mm3 (4.6-6.20) Hgb 8.9 g/dL L g/dL (14.0-18.0) Hct 29.7 % L % (42.0-52.0) MCV 87.6 fl fl (80-100) MCH 26.3 pg pg (26-34) MCHC 30.0 g/dl L g/dl (32-36) RDW 21.6 % H % (11.5-14.5) Plt Count 269 k/mm3 k/mm3 (150-375) MPV 9.2 fl fl (7.4-10.4) Immature Gran % (Auto) 0.6 % H % (0-0.5) Neut % (Auto) 77.6 % H % (45.5-73.1) Lymph % (Auto) 7.8 % L % (18.3-44.2) Dewitt % (Auto) 12.4 % H % (2.6-8.5) Eos % (Auto) 1.4 % % (0-4.4) Baso % (Auto) 0.2 % % (0.2-1.2) Lymph # (Auto) 0.95 K/mm3 K/mm3 (0.9-3.2) Dewitt # (Auto) 1.5 K/mm3 H K/mm3 (0.1-0.6) Eos # (Auto) 0.2 K/mm3 K/mm3 (0-0.3) Baso # (Auto) 0.0 K/mm3 K/mm3 (0.0-0.1) Abs Immat Gran (auto) 0.07 K/mm3 H K/mm3 (0.00-0.031) Absolute Neuts (auto) 9.5 K/mm3 H K/mm3 (1.3-6.7) Absolute Nucleated RBC 0.0 K/mm3 K/mm3 (0.0-0.012) Nucleated RBC % 0.0 % % (0.0-0.2) Sodium 138 mmol/L mmol/L (137-145) Potassium 3.8 mmol/L mmol/L (3.4-5.0) Chloride 108 mmol/L H mmol/L (98-107) Carbon Dioxide 23 mmol/L mmol/L (22-30) Anion Gap 7 mmol/L L mmol/L (8-16) BUN 44 mg/dL H mg/dL (9-20) Creatinine 2.00 mg/dL H mg/dL (0.7-1.3) Estim Creat Clear Calc 34 ml/min ml/min Estimated GFR 34 L (59 - ) Glucose 85 mg/dL mg/dL (65-110) Calcium 7.8 mg/dL L mg/dL (8.4-10.2) Total Bilirubin 1.5 mg/dL H mg/dL (0.2-1.3) Direct Bilirubin 0.0 mg/dL mg/dL (0-0.3) AST 19 U/L U/L (17-59) ALT 19 U/L U/L (6-50) Alkaline Phosphatase 74 U/L U/L (38-126) Total Protein 5.0 g/dL L g/dL (6.3-8.2) Albumin 3.4 g/dL L g/dL (3.5-5.1) Patient hx anesthesia problems: none Family hx anesthesia problems: none Results Review: All pre-operative results and documents have been reviewed as part of the pre-operative evaluation. [facility] Past Medical History Medical History Alcohol abuse CAD (coronary artery disease) Chronic obstructive pulmonary disease History of fracture Including lower extremity and multiple toes. Hypertension Tobacco dependence Surgical History Surgical History History of coronary artery bypass graft History of toe surgery Family History Family History Father Hypertension Mother Hypertension Social History Social History Social History: The patient lives alone in [place]. He is
[2022-07-05] MEDS: BENZOCAINE (*SP) 60 ML SPRAY CAN (HURRICAINE) 1 SPRAY MUCOUS MEM (11:39)
--- NOTE | 2022-07-05 12:20 | SUR.PHASEII ---
1154: DR YOUNG AT BEDSIDE, AWARE OF VITAL SIGNS, NO NEW ORDERS. 1220: DR YOUNG UPDATED ON PT'S VITAL SIGNS, 92/62, 69, 95% ON 4L/NC, 24, DR YOUNG SPEAKING WITH PT, PT AWAKE AND ALERT, PT ALSO SPEAKING WITH DR ARROYO.
[2022-07-05] MEDS: ASPIRIN 81 MG ENTERIC TABLET PO (12:44)
--- NOTE | 2022-07-05 13:47 | P.PNNP_ITS ---
Progress Note: A&P Assessment and Plan (1) BRANT (acute kidney injury): Code(s): N17.9 - Acute kidney failure, unspecified Status: Acute Assessment and Plan: * etiology?? * I suppose there could be an element of kidney disease progression * evaluation to date: * renal ultrasound unremarkable * urine electrolytes prerenal * urine eosinophils negative * CPK on the low side * serological testing pending (although complements are low - from liver disease?) * given issues with liver cirrhosis, another possible concern would be hepatorenal syndrome * however, I would have expected his kidney disease to progressive deteriorate if this was the case * trial of IVFs today * follow I/Os * follow repeat labs (2) Stage 3a chronic kidney disease: Code(s): N18.31 - Chronic kidney disease, stage 3a Status: Chronic Assessment and Plan: * baseline creatinine runs ~ 1.2 - 1.4mg/dl (although last testing done was October 2019) * presumably due to hypertension and vascular disease (3) Cirrhosis: Qualifiers: Ascites presence: with ascites Hepatic cirrhosis type: unspecified hepatic cirrhosis Qualified Code(s): K74.60 - Unspecified cirrhosis of liver; R18.8 - Other ascites Code(s): K74.60 - Unspecified cirrhosis of liver Status: Acute Assessment and Plan: * as noted by admission imaging * GI following with recommendations noted * s/p diagnostic/therapeutic paracentesis (on 07/03/22) * ascites culture negative to date * EGD with no varices but did reveal gastritis and duodenal ulcer (but no active bleeding) * follow LFTs (4) Normocytic anemia: Code(s): D64.9 - Anemia, unspecified Status: Acute Assessment and Plan: * suspect related to liver disease and mild CKD * EGD results noted but no active bleeding * H/H holding relatively stable * follow trend (5) Hypertension: Code(s): I10 - Essential (primary) hypertension Status: Acute Assessment and Plan: * doing better with home medications * given #1 and liver issues - would avoid overcontrol * follow trend of hemodynamics (6) Gastritis: Code(s): K29.70 - Gastritis, unspecified, without bleeding Status: Acute Assessment and Plan: * as noted by EGD * on PPI (7) Alcohol abuse: Code(s): F10.10 - Alcohol abuse, uncomplicated Status: Chronic Assessment and Plan: * reportedly quit drinking ~ 1 month ago * denies any history of withdrawal * on thiamine and folate * off CIWA protocol Will continue to follow. Subjective Date/time seen: 07/05/22 13:47 Still with no significant change in renal function (relatively stable and not any worse); s/p EGD earlier today with findings noted; no apparent distress on my visit; abdominal pain and bloating seems better in general. Exam Narrative: General: chronically ill appearing male in NAD Heart: normal S1 and S2; no rub Lungs: clear to auscultation Abdomen: soft, mild distension, positive bowel sounds Extremities: no cyanosis or clubbing; 2+ pedal edema Skin: warm and intact Objective Data Vital Signs Vital Signs: Vital Signs Temp Pulse Resp BP Pulse Ox O2 Del Method O2 Flow Rate 07/05/22 12:14 68 24 H 93/62 L 92 Nasal Cannula 4 07/05/22 12:04 67 25 H 85/59 L
--- NOTE | 2022-07-05 13:47 | PM.PNNEP ---
Progress Note: A&P Assessment and Plan (1) BRANT (acute kidney injury): Code(s): N17.9 - Acute kidney failure, unspecified Status: Acute Assessment and Plan: etiology?? I suppose there could be an element of kidney disease progression evaluation to date: renal ultrasound unremarkable urine electrolytes prerenal urine eosinophils negative CPK on the low side serological testing pending (although complements are low - from liver disease?) given issues with liver cirrhosis, another possible concern would be hepatorenal syndrome however, I would have expected his kidney disease to progressive deteriorate if this was the case trial of IVFs today follow I/Os follow repeat labs (2) Stage 3a chronic kidney disease: Code(s): N18.31 - Chronic kidney disease, stage 3a Status: Chronic Assessment and Plan: baseline creatinine runs ~ 1.2 - 1.4mg/dl (although last testing done was October 2019) presumably due to hypertension and vascular disease (3) Cirrhosis: Qualifiers: Ascites presence: with ascites Hepatic cirrhosis type: unspecified hepatic cirrhosis Qualified Code(s): K74.60 - Unspecified cirrhosis of liver; R18.8 - Other ascites Code(s): K74.60 - Unspecified cirrhosis of liver Status: Acute Assessment and Plan: as noted by admission imaging GI following with recommendations noted s/p diagnostic/therapeutic paracentesis (on 07/03/22) ascites culture negative to date EGD with no varices but did reveal gastritis and duodenal ulcer (but no active bleeding) follow LFTs (4) Normocytic anemia: Code(s): D64.9 - Anemia, unspecified Status: Acute Assessment and Plan: suspect related to liver disease and mild CKD EGD results noted but no active bleeding H/H holding relatively stable follow trend (5) Hypertension: Code(s): I10 - Essential (primary) hypertension Status: Acute Assessment and Plan: doing better with home medications given #1 and liver issues - would avoid overcontrol follow trend of hemodynamics (6) Gastritis: Code(s): K29.70 - Gastritis, unspecified, without bleeding Status: Acute Assessment and Plan: as noted by EGD on PPI (7) Alcohol abuse: Code(s): F10.10 - Alcohol abuse, uncomplicated Status: Chronic Assessment and Plan: reportedly quit drinking ~ 1 month ago denies any history of withdrawal on thiamine and folate off CIWA protocol Will continue to follow. Subjective Date/time seen: 07/05/22 13:47 Still with no significant change in renal function (relatively stable and not any worse); s/p EGD earlier today with findings noted; no apparent distress on my visit; abdominal pain and bloating seems better in general. Exam Narrative: General: chronically ill appearing male in NAD Heart: normal S1 and S2; no rub Lungs: clear to auscultation Abdomen: soft, mild distension, positive bowel sounds Extremities: no cyanosis or clubbing; 2+ pedal edema Skin: warm and intact Objective Data Vital Signs Vital Signs: Vital Signs Temp Pulse Resp BP Pulse Ox O2 Del Method O2 Flow Rate 07/05/22 12:14 68 24 H 93/62 L 92 Nasal Cannula 4 07/05/22 12:04 67 25 H 85/59 L 91 Nasal Cannula 4 07/05/22 11:54 69 24 H 91/46 L 95 Nasal Cannula 4 07/05/22 08:19 Room Air 07/05/22 10:52 97.8 F 75 17 131/90 95 Room Air 07/05/22 08:49 82 07/05/22 05:13 98.7 F 73 16 122/80 100 07/04/22 22:42 98.2 F 92 16 136/80 98 07/04/22 20:52 76 07/04/22 16:13 118/74 Intake/Output Intake/Output: Intake & Output 07/02/22 07/03/22 07/04/22 07/05/22 23:59 23:59 23:59 23:59 Intake Total 1920 1670 950 Output Total 3675 650 500 Balance -1755 1020 450 Meds/Results Medications: Active Medications Generic Name Dose Route Start Last Admin
[2022-07-05] MEDS: PANTOPRAZOLE 40 MG TABLET PO ×2 (14:06→20:45)
[2022-07-05] MEDS: BENZOCAINE/MENTHOL (*BKC) 18 EA LOZENGE 1 LOZENGE PO ×2 (14:41→16:18)
--- NOTE | 2022-07-05 17:32 | PM.IMPN ---
Progress Note: A&P Assessment and Plan (1) Cirrhosis: Qualifiers: Ascites presence: with ascites Hepatic cirrhosis type: unspecified hepatic cirrhosis Qualified Code(s): K74.60 - Unspecified cirrhosis of liver; R18.8 - Other ascites Code(s): K74.60 - Unspecified cirrhosis of liver Status: Acute Assessment and Plan: CT of the abdomen/pelvis showed nodular liver border concerning for cirrhosis with large volume ascites. Appreciate GI consultation. underwent paracentesis on 07/03 which yielded 3200 mL opaque, mustard like fluid. Neutrophil count mildly elevated, additional studies pending. Preliminary Gram stain with no organisms seen and peritoneal fluid cultures negative today. blood cultures no growth to date. Hepatitis panel negative. patient will be referred to hepatology as an outpatient. Underwent EGD today for assessment of varices, none visualized (2) Ascites: Code(s): R18.8 - Other ascites Status: Acute Assessment and Plan: see plan above (3) Acute renal failure with oliguria: Code(s): N17.9 - Acute kidney failure, unspecified; R34 - Anuria and oliguria Status: Acute Assessment and Plan: Creatinine elevated up to 2.3. Baseline 1.2-1.4. Patient reported oliguria prior to presentation. Continue Luna catheter to monitor urine output. no significant change in renal function today. Appreciate Nephrology recommendations. Concern for hepatorenal syndrome in the setting of new onset cirrhosis vs ATN. Renal ultrasound unremarkable. Will trial IV fluids and repeat BMP tomorrow (4) Leukocytosis: Qualifiers: Leukocytosis type: unspecified Qualified Code(s): D72.829 - Elevated white blood cell count, unspecified Code(s): D72.829 - Elevated white blood cell count, unspecified Status: Acute Assessment and Plan: improved. WBC up to 16.4, etiology unclear. no signs/ symptoms of underlying infection. Procalcitonin 0.4. WBC with downward trend to 12.2today. Continue to monitor CBC with differential (5) Lactic acidosis: Code(s): E87.20 - Acidosis, unspecified Status: Resolved Assessment and Plan: Resolved. Possibly due to cirrhosis and alcohol abuse. (6) Normocytic anemia: Code(s): D64.9 - Anemia, unspecified Status: Acute Assessment and Plan: slight decline in hemoglobin to 8.9 today.. No evidence of active bleeding. EGD with no varices, did reveal gastritis and duodenal ulcer however no active bleeding. Continue to monitor (7) Gastritis: Code(s): K29.70 - Gastritis, unspecified, without bleeding Status: Acute Assessment and Plan: noted on EGD today. Begin pantoprazole 40 mg b.i.d.. Appreciate GI recommendations (8) Hypertension: Code(s): I10 - Essential (primary) hypertension Status: Acute Assessment and Plan: Blood pressure markedly elevated on presentation improved with resuming the patient's home p.o. antihypertensive. Patient reports noncompliance to medications. Continue home p.o. antihypertensives (9) Alcohol abuse: Code(s): F10.10 - Alcohol abuse, uncomplicated Status: Chronic Assessment and Plan: Patient reports drinking 7 beers every 2-3 days, however suspect significantly higher intake than reported. Patient reports he quit drinking 1 month ago when he ?lost the taste for it.? CIWA scores 0 for 24 hours, therefore CIWA protocol discontinued on 07/04. Continue thiamine and folic acid (10) AAA (abdominal aortic aneurysm): Code(s): I71.40 - Abdominal aortic aneurysm, without rupture, unspecified Status: Acute Assessment and Plan: CT of abdomen/pelvis showed 4.2 cm infrarenal abdominal aortic aneurysm. Will need outpatient follow-up for annual ultrasound. Subjective Date/time seen: 07/05/22 17:32 Interval history: Date of service: 07/04/2022
[2022-07-06] MEDS: SODIUM CHLORIDE 0.9% IV 1,000 ML 75 ML IV CONT ×2 (03:26→19:35)
[2022-07-06 05:52] VITALS: BP 116/70; PULSE 77; RESP 16; TEMP 37.1; O2SAT 98
[2022-07-06 09:37] LABS: Alanine Aminotransferase 19 U/L (6-50); Albumin Level 3.3 g/dL (3.5-5.1); Alkaline Phosphatase 77 U/L (38-126); Anion Gap 4 mmol/L (8-16); Aspartate Amino Transferase 20 U/L (17-59); Bilirubin,Total 1.5 mg/dL (0.2-1.3); Blood Urea Nitrogen 36 mg/dL (9-20); Calcium 7.5 mg/dL (8.4-10.2); Carbon Dioxide 23 mmol/L (22-30); Chloride 110 mmol/L (98-107); Estimated CRCL calculation 40 ml/min; Estimated Glomerular Filt Rate 41; Glucose 115 mg/dL (65-110); Sodium 137 mmol/L (137-145)
[2022-07-06 09:43] VITALS: PULSE 72
[2022-07-06] MEDS: METOPROLOL TARTRATE 50 MG TAB PO ×2 (09:43→19:35)
[2022-07-06] MEDS: THIAMINE HCL 100 MG TABLET PO (09:43)
[2022-07-06] MEDS: hydrALAZINE HCL 50 MG TABLET PO ×3 (09:43→17:27)
[2022-07-06] MEDS: FOLIC ACID 1 MG TABLET PO (09:44)
[2022-07-06] MEDS: ASPIRIN 81 MG ENTERIC TABLET PO (09:44)
[2022-07-06] MEDS: amLODIPine BESYLATE 5 MG TABLET 10 MG PO (09:44)
[2022-07-06] MEDS: PANTOPRAZOLE 40 MG TABLET PO ×2 (09:44→19:36)
--- NOTE | 2022-07-06 10:22 | WPDGIPROGNO ---
Progress Note: A&P Assessment and Plan (1) Cirrhosis: Qualifiers: Ascites presence: with ascites Hepatic cirrhosis type: unspecified hepatic cirrhosis Qualified Code(s): K74.60 - Unspecified cirrhosis of liver; R18.8 - Other ascites Code(s): K74.60 - Unspecified cirrhosis of liver Status: Acute Assessment and Plan: he had never before been told that he had cirrhosis. His CT scan however shows: Cardiomegaly. Small bilateral pleural effusions. Nodular liver border as can be seen with cirrhosis. 4.2 cm infrarenal abdominal aortic aneurysm. Large volume ascites. (2) Hyperbilirubinemia: Code(s): E80.6 - Other disorders of bilirubin metabolism Status: Acute Assessment and Plan: 3.4 yesterday and 3.5 today. Transaminases however are normal except a slight elevation of alkaline phosphatase. 07/05/2022 bilirubin is down to 1.5 today which is encouraging. (3) Alcohol abuse: Code(s): F10.10 - Alcohol abuse, uncomplicated Status: Chronic Assessment and Plan: He admits to drinking Reginald Villalba regularly but says he stopped 3 weeks ago when it suddenly tasted very bad. He states he is DONE (4) Ascites: Code(s): R18.8 - Other ascites Status: Acute Assessment and Plan: he feels much better since the paracentesis with removal of greater than 3000 cc of fluid On exam he does have some ascites but is not tense and is not tender. (5) Acute renal failure with oliguria: Code(s): N17.9 - Acute kidney failure, unspecified; R34 - Anuria and oliguria Status: Acute Assessment and Plan: After staying at 2.2 for several days, the creatinine has come down to 1.7 which is encouraging. (6) Normocytic anemia: Code(s): D64.9 - Anemia, unspecified Status: Acute Assessment and Plan: Hemoglobin is 8.9 today but there is no evidence of gastrointestinal bleeding. I will schedule him for an EGD to rule out varices and determine whether he needs a nonselective beta tammy for his portal hypertension. Plan I discussed liver disease with him. I told that although he has cirrhosis that his odds of survival are improved by stopping alcohol completely. Told that with continued drinking the statistics show he has about a 50% 5 year survival. He states he is determined to stay away from alcohol because he does not want to . I told that he we will have him referred to a air and water tester after discharge. from my perspective he can be discharged. I will have him follow-up with me in the office and I will have him repeat EGD in 8 weeks to confirm healing of his ulcer. Will also arrange for him to be set up with hepatology at [facility]. Subjective Date/time seen: 07/06/22 10:22 He is sitting up in a chair. We discussed the findings of his EGD yesterday. He states that afterwards he had a sore throat. I recall that he needed suction by Anesthesia for oropharyngeal phlegm. I explained him that he had gastritis but also a deep duodenal ulcer and duodenitis. He stated that when he had been drinking over the last couple months he would notice sometimes a great deal of burning in the upper abdomen when he would drink his Reginald Villalba. I told that H pylori was negative. I explained we will have him come back for repeat EGD in 2 months to ensure follow-up but fortunately he did not have any esophageal varices which was our main concern Exam Const: General: alert Orientation/consciousness: patient oriented x3 Resp: Auscultation: clear to auscultation bilaterally Cardio: Rhythm: regular rhythm GI: Inspection: distended Auscultation: normal bowel sounds Skin: General skin exam: normal color, no jaundice and no purpura Neuro: General: patient oriented x3 Objective Data Vital Signs Vital Signs: Vital Signs - 24 hr 07/05/22 10:52 07/05/22 11:54 07/05/22 12:04 Temperature 36.6 C Pulse Rate 75 69 67 Respira
--- NOTE | 2022-07-06 12:40 | PCPTNOTE ---
Patient refused therapy at this time. Patient was educated on the benefits of therapy however continued to decline. Patient reports he just wants to eat his food in bed.
--- NOTE | 2022-07-06 13:45 | P.PNNP_ITS ---
Progress Note: A&P Assessment and Plan (1) BRANT (acute kidney injury): Code(s): N17.9 - Acute kidney failure, unspecified Status: Acute Assessment and Plan: * improvement noted * etiology?? * I suppose there could be an element of kidney disease progression * evaluation to date: * renal ultrasound unremarkable * urine electrolytes prerenal * urine eosinophils negative * CPK on the low side * serological testing pending (although complements are low - from liver disease?) * given issues with liver cirrhosis, another possible concern would be hepatorenal syndrome * however, I would have expected his kidney disease to progressive deteriorate if this was the case * follow I/Os * follow repeat labs (2) Stage 3a chronic kidney disease: Code(s): N18.31 - Chronic kidney disease, stage 3a Status: Chronic Assessment and Plan: * baseline creatinine runs ~ 1.2 - 1.4mg/dl (although last testing done was October 2019) * presumably due to hypertension and vascular disease (3) Cirrhosis: Qualifiers: Ascites presence: with ascites Hepatic cirrhosis type: unspecified hepatic cirrhosis Qualified Code(s): K74.60 - Unspecified cirrhosis of liver; R18.8 - Other ascites Code(s): K74.60 - Unspecified cirrhosis of liver Status: Acute Assessment and Plan: * as noted by admission imaging * GI following with recommendations noted * s/p diagnostic/therapeutic paracentesis (on 07/03/22) * ascites culture negative to date * EGD with no varices but did reveal gastritis and duodenal ulcer (but no active bleeding) * follow LFTs (4) Normocytic anemia: Code(s): D64.9 - Anemia, unspecified Status: Acute Assessment and Plan: * suspect related to liver disease and mild CKD * EGD results noted but no active bleeding * H/H holding relatively stable * follow trend (5) Hypertension: Code(s): I10 - Essential (primary) hypertension Status: Acute Assessment and Plan: * doing better with home medications * given #1 and liver issues - would avoid overcontrol * follow trend of hemodynamics (6) Gastritis: Code(s): K29.70 - Gastritis, unspecified, without bleeding Status: Acute Assessment and Plan: * as noted by EGD * on PPI (7) Alcohol abuse: Code(s): F10.10 - Alcohol abuse, uncomplicated Status: Chronic Assessment and Plan: * reportedly quit drinking ~ 1 month ago * denies any history of withdrawal * on thiamine and folate * off CIWA protocol Will continue to follow. Subjective Date/time seen: 07/06/22 13:45 Some improvement in renal function/creatinine with trial augustus IVFs in the last 24 hours; overall, he states he is feeling significantly better -- no significant abdominal discomfort/bloating and seems to think his foot sweling/edema is better following better ambulation and walking around. Exam Narrative: General: chronically ill appearing male in NAD Heart: normal S1 and S2; no rub Lungs: clear to auscultation Abdomen: soft, mild distension, positive bowel sounds Extremities: no cyanosis or clubbing; 1+ pedal edema Skin: no rast Objective Data Vital Signs Vital Signs: Vital Signs Temp Pulse Resp BP Pulse Ox O2 Del Method 07/06/22 13:39 97.6 F 75 16 127/87 99
--- NOTE | 2022-07-06 13:45 | PM.PNNEP ---
Progress Note: A&P Assessment and Plan (1) BRANT (acute kidney injury): Code(s): N17.9 - Acute kidney failure, unspecified Status: Acute Assessment and Plan: improvement noted etiology?? I suppose there could be an element of kidney disease progression evaluation to date: renal ultrasound unremarkable urine electrolytes prerenal urine eosinophils negative CPK on the low side serological testing pending (although complements are low - from liver disease?) given issues with liver cirrhosis, another possible concern would be hepatorenal syndrome however, I would have expected his kidney disease to progressive deteriorate if this was the case follow I/Os follow repeat labs (2) Stage 3a chronic kidney disease: Code(s): N18.31 - Chronic kidney disease, stage 3a Status: Chronic Assessment and Plan: baseline creatinine runs ~ 1.2 - 1.4mg/dl (although last testing done was October 2019) presumably due to hypertension and vascular disease (3) Cirrhosis: Qualifiers: Ascites presence: with ascites Hepatic cirrhosis type: unspecified hepatic cirrhosis Qualified Code(s): K74.60 - Unspecified cirrhosis of liver; R18.8 - Other ascites Code(s): K74.60 - Unspecified cirrhosis of liver Status: Acute Assessment and Plan: as noted by admission imaging GI following with recommendations noted s/p diagnostic/therapeutic paracentesis (on 07/03/22) ascites culture negative to date EGD with no varices but did reveal gastritis and duodenal ulcer (but no active bleeding) follow LFTs (4) Normocytic anemia: Code(s): D64.9 - Anemia, unspecified Status: Acute Assessment and Plan: suspect related to liver disease and mild CKD EGD results noted but no active bleeding H/H holding relatively stable follow trend (5) Hypertension: Code(s): I10 - Essential (primary) hypertension Status: Acute Assessment and Plan: doing better with home medications given #1 and liver issues - would avoid overcontrol follow trend of hemodynamics (6) Gastritis: Code(s): K29.70 - Gastritis, unspecified, without bleeding Status: Acute Assessment and Plan: as noted by EGD on PPI (7) Alcohol abuse: Code(s): F10.10 - Alcohol abuse, uncomplicated Status: Chronic Assessment and Plan: reportedly quit drinking ~ 1 month ago denies any history of withdrawal on thiamine and folate off CIWA protocol Will continue to follow. Subjective Date/time seen: 07/06/22 13:45 Some improvement in renal function/creatinine with trial augustus IVFs in the last 24 hours; overall, he states he is feeling significantly better -- no significant abdominal discomfort/bloating and seems to think his foot sweling/edema is better following better ambulation and walking around. Exam Narrative: General: chronically ill appearing male in NAD Heart: normal S1 and S2; no rub Lungs: clear to auscultation Abdomen: soft, mild distension, positive bowel sounds Extremities: no cyanosis or clubbing; 1+ pedal edema Skin: no rast Objective Data Vital Signs Vital Signs: Vital Signs Temp Pulse Resp BP Pulse Ox O2 Del Method 07/06/22 13:39 97.6 F 75 16 127/87 99 07/06/22 09:46 Room Air 07/06/22 09:43 72 07/06/22 05:52 98.8 F 77 16 116/70 98 07/05/22 20:00 Room Air 07/05/22 20:51 98.5 F 87 16 117/83 97 07/05/22 20:45 80 Intake/Output Intake/Output: Intake & Output 07/03/22 07/04/22 07/05/22 07/06/22 23:59 23:59 23:59 23:59 Intake Total 1920 1670 1730 2300 Output Total 3675 650 950 500 Balance -1755 9427 452 0090 Meds/Results Medications: Active Medications Generic Name Dose Route Start Last Admin Trade Name Freq PRN Reason Stop Dose Admin Amlodipine Besylate 10 mg 07/03/22 09:00 07/06/22 09:44 Amlodipine Besylate 5 Mg
[2022-07-06 13:59] VITALS: BP 127/87; PULSE 75; RESP 16; TEMP 36.4; O2SAT 99
--- NOTE | 2022-07-06 15:42 | PM.IMPN ---
Progress Note: A&P Assessment and Plan (1) Cirrhosis: Qualifiers: Ascites presence: with ascites Hepatic cirrhosis type: unspecified hepatic cirrhosis Qualified Code(s): K74.60 - Unspecified cirrhosis of liver; R18.8 - Other ascites Code(s): K74.60 - Unspecified cirrhosis of liver Status: Acute Assessment and Plan: CT of the abdomen/pelvis showed nodular liver border concerning for cirrhosis with large volume ascites. Appreciate GI consultation. underwent paracentesis on 07/03 which yielded 3200 mL opaque, mustard like fluid. Neutrophil count mildly elevated, additional studies pending. Preliminary Gram stain with no organisms seen and peritoneal fluid cultures negative to date. blood cultures no growth to date. Hepatitis panel negative. patient will be referred to hepatology as an outpatient. Underwent EGD 07/05 for assessment of varices, none visualized (2) Ascites: Code(s): R18.8 - Other ascites Status: Acute Assessment and Plan: see plan above (3) Acute renal failure with oliguria: Code(s): N17.9 - Acute kidney failure, unspecified; R34 - Anuria and oliguria Status: Acute Assessment and Plan: Creatinine elevated up to 2.3. Baseline 1.2-1.4. Patient reported oliguria prior to presentation. Continue Luna catheter to monitor urine output. Slight improvement in creatinine at 1.7 today following trial of IV fluids. Appreciate Nephrology recommendations. Concern for hepatorenal syndrome in the setting of new onset cirrhosis vs ATN. Renal ultrasound unremarkable. Monitor BMP (4) Leukocytosis: Qualifiers: Leukocytosis type: unspecified Qualified Code(s): D72.829 - Elevated white blood cell count, unspecified Code(s): D72.829 - Elevated white blood cell count, unspecified Status: Acute Assessment and Plan: improved. WBC up to 16.4, etiology unclear. no signs/ symptoms of underlying infection. Procalcitonin 0.4. WBC with downward trend. Continue to monitor CBC with differential (5) Lactic acidosis: Code(s): E87.20 - Acidosis, unspecified Status: Resolved Assessment and Plan: Resolved. Possibly due to cirrhosis and alcohol abuse. (6) Normocytic anemia: Code(s): D64.9 - Anemia, unspecified Status: Acute Assessment and Plan: No evidence of active bleeding. EGD with no varices, did reveal gastritis and duodenal ulcer however no active bleeding. Continue to monitor. H&H stable and pt is hemodynamically stable. (7) Gastritis: Code(s): K29.70 - Gastritis, unspecified, without bleeding Status: Acute Assessment and Plan: Gastritis, duodenitis, and duodenal ulcer noted on EGD performed on 07/05. Continue pantoprazole 40 mg b.i.d.. Appreciate GI recommendations. Will need repeat EGD in 8 weeks to assess for healing of duodenal ulcer (8) Hypertension: Code(s): I10 - Essential (primary) hypertension Status: Acute Assessment and Plan: Blood pressure markedly elevated on presentation improved with resuming the patient's home p.o. antihypertensive. Patient reports noncompliance to medications. Continue home p.o. antihypertensives (9) Alcohol abuse: Code(s): F10.10 - Alcohol abuse, uncomplicated Status: Chronic Assessment and Plan: Patient reports drinking 7 beers every 2-3 days, however suspect significantly higher intake than reported. Patient reports he quit drinking 1 month ago when he ?lost the taste for it.? CIWA scores 0 for 24 hours, therefore CIWA protocol discontinued on 07/04. Continue thiamine and folic acid (10) AAA (abdominal aortic aneurysm): Code(s): I71.40 - Abdominal aortic aneurysm, without rupture, unspecified Status: Acute Assessment and Plan: CT of abdomen/pelvis showed 4.2 cm infrarenal abdominal aortic aneurysm. Will need outpatient follow-up for annual ultrasound
[2022-07-06 19:32] VITALS: BP 135/78; PULSE 81; RESP 18; TEMP 36.3; O2SAT 98
[2022-07-06 19:35] VITALS: PULSE 82
[2022-07-07 04:03] VITALS: BP 136/74; PULSE 74; RESP 18; TEMP 36.9; O2SAT 100
[2022-07-07 05:33] LABS: Basophils Percent Auto 0.3 % (0.2-1.2); Eosinophils Absolute Auto 0.3 K/mm3 (0-0.3); Eosinophils Percent Auto 2.2 % (0-4.4); Hematocrit 31.8 % (42.0-52.0); Hemoglobin 9.3 g/dL (14.0-18.0); Immature Granulocyte Absolute 0.08 K/mm3 (0.00-0.031); Immature Granulocyte Percent A 0.5 % (0-0.5); Lymphocytes Absolute Auto 1.02 K/mm3 (0.9-3.2); Lymphocytes Percent Auto 6.9 % (18.3-44.2); Mean Corpuscular HGB Conc 29.2 g/dl (32-36); Mean Corpuscular Hemoglobin 26.2 pg (26-34); Mean Corpuscular Volume 89.6 fl (80-100); Mean Platelet Volume 8.7 fl (7.4-10.4); Monocytes Absolute Auto 1.9 K/mm3 (0.1-0.6); Monocytes Percent Auto 12.7 % (2.6-8.5); Neutrophils Absolute Auto 11.4 K/mm3 (1.3-6.7); Neutrophils Percent Auto 77.4 % (45.5-73.1); Platelet Count Result 252 k/mm3 (150-375); Red Blood Count 3.55 M/mm3 (4.6-6.20); Red Cell Distribution Width 21.3 % (11.5-14.5); White Blood Count 14.7 K/mm3 (4.5-10.0)
[2022-07-07 05:48] LABS: Alanine Aminotransferase 22 U/L (6-50); Albumin Level 3.5 g/dL (3.5-5.1); Alkaline Phosphatase 88 U/L (38-126); Anion Gap 6 mmol/L (8-16); Aspartate Amino Transferase 23 U/L (17-59); Bilirubin,Total 1.2 mg/dL (0.2-1.3); Blood Urea Nitrogen 33 mg/dL (9-20); Calcium 7.5 mg/dL (8.4-10.2); Carbon Dioxide 24 mmol/L (22-30); Chloride 108 mmol/L (98-107); Estimated CRCL calculation 48 ml/min; Estimated Glomerular Filt Rate 44; Glucose 84 mg/dL (65-110); Potassium 3.8 mmol/L (3.4-5.0); Sodium 138 mmol/L (137-145)
[2022-07-07 06:39] LABS: Anisocytosis 1+ (NORMAL); Platelet Estimate Adequate (Adequate); Schistocytes 1+ (NORMAL)
[2022-07-07 06:40] LABS: Acanthocytes 1+ (NORMAL)
[2022-07-07 07:49] LABS: Albumin 4.2 g/dL (3.8-4.8); Alpha 1 Globulin 0.4 g/dL (0.2-0.3); Alpha 2 Globulin 0.4 g/dL (0.5-0.9); Beta 1 Globulin 0.2 g/dL (0.4-0.6); Gamma Globulin 0.5 g/dL (0.8-1.7); Protein, Total 5.9 g/dL (6.1-8.1)
--- NOTE | 2022-07-07 09:49 | P.PNNP_ITS ---
Progress Note: A&P Assessment and Plan (1) BRANT (acute kidney injury): Code(s): N17.9 - Acute kidney failure, unspecified Status: Acute Assessment and Plan: * improvement noted * etiology?? * I suppose there could be an element of kidney disease progression * evaluation to date: * renal ultrasound unremarkable * urine electrolytes prerenal * urine eosinophils negative * CPK on the low side * serological testing pending (although complements are low - likely from liver disease) * hepatorenal syndrome is a possibility but seems less likely now * follow I/Os * follow repeat labs (2) Stage 3a chronic kidney disease: Code(s): N18.31 - Chronic kidney disease, stage 3a Status: Chronic Assessment and Plan: * baseline creatinine runs ~ 1.2 - 1.4mg/dl (although last testing done was October 2019) * presumably due to hypertension and vascular disease (3) Cirrhosis: Qualifiers: Ascites presence: with ascites Hepatic cirrhosis type: unspecified hepatic cirrhosis Qualified Code(s): K74.60 - Unspecified cirrhosis of liver; R18.8 - Other ascites Code(s): K74.60 - Unspecified cirrhosis of liver Status: Acute Assessment and Plan: * as noted by admission imaging * GI following with recommendations noted * s/p diagnostic/therapeutic paracentesis (on 07/03/22) * ascites culture negative to date * EGD with no varices but did reveal gastritis and duodenal ulcer (but no active bleeding) * follow LFTs (4) Normocytic anemia: Code(s): D64.9 - Anemia, unspecified Status: Acute Assessment and Plan: * suspect related to liver disease and mild CKD * EGD results noted but no active bleeding * H/H holding relatively stable * follow trend (5) Hypertension: Code(s): I10 - Essential (primary) hypertension Status: Acute Assessment and Plan: * doing better with home medications * given #1 and liver issues - would avoid overcontrol * follow trend of hemodynamics (6) Gastritis: Code(s): K29.70 - Gastritis, unspecified, without bleeding Status: Acute Assessment and Plan: * as noted by EGD * on PPI (7) Alcohol abuse: Code(s): F10.10 - Alcohol abuse, uncomplicated Status: Chronic Assessment and Plan: * reportedly quit drinking ~ 1 month ago * denies any history of withdrawal * on thiamine and folate * off CIWA protocol Will continue to follow. Subjective Date/time seen: 07/07/22 09:49 Continues to make slow and steady improvement; renal function improving with gentle IVF hydration; able to eat and drink reasonably well; has been ambulatory as well; abdominal pain/bloating appear to have resolved following paracentesis; no other issues/events overnight or earlier this AM. Exam Narrative: General: chronically ill appearing male in NAD Heart: normal S1 and S2; no rub Lungs: clear to auscultation Abdomen: soft, mild distension, positive bowel sounds Extremities: no cyanosis or clubbing; 1+ pedal edema Skin: no nodules Objective Data Vital Signs Vital Signs: Vital Signs Temp Pulse Resp BP Pulse Ox O2 Del Method 07/07/22 04:03 98.4 F 74 18 136/74 100 07/06/22 20:00 Room Air 07/06/22 19:35 82 07/06/22 19:32 97.4 F L 81 18 135/78 98
--- NOTE | 2022-07-07 09:49 | PM.PNNEP ---
Progress Note: A&P Assessment and Plan (1) BRANT (acute kidney injury): Code(s): N17.9 - Acute kidney failure, unspecified Status: Acute Assessment and Plan: improvement noted etiology?? I suppose there could be an element of kidney disease progression evaluation to date: renal ultrasound unremarkable urine electrolytes prerenal urine eosinophils negative CPK on the low side serological testing pending (although complements are low - likely from liver disease) hepatorenal syndrome is a possibility but seems less likely now follow I/Os follow repeat labs (2) Stage 3a chronic kidney disease: Code(s): N18.31 - Chronic kidney disease, stage 3a Status: Chronic Assessment and Plan: baseline creatinine runs ~ 1.2 - 1.4mg/dl (although last testing done was October 2019) presumably due to hypertension and vascular disease (3) Cirrhosis: Qualifiers: Ascites presence: with ascites Hepatic cirrhosis type: unspecified hepatic cirrhosis Qualified Code(s): K74.60 - Unspecified cirrhosis of liver; R18.8 - Other ascites Code(s): K74.60 - Unspecified cirrhosis of liver Status: Acute Assessment and Plan: as noted by admission imaging GI following with recommendations noted s/p diagnostic/therapeutic paracentesis (on 07/03/22) ascites culture negative to date EGD with no varices but did reveal gastritis and duodenal ulcer (but no active bleeding) follow LFTs (4) Normocytic anemia: Code(s): D64.9 - Anemia, unspecified Status: Acute Assessment and Plan: suspect related to liver disease and mild CKD EGD results noted but no active bleeding H/H holding relatively stable follow trend (5) Hypertension: Code(s): I10 - Essential (primary) hypertension Status: Acute Assessment and Plan: doing better with home medications given #1 and liver issues - would avoid overcontrol follow trend of hemodynamics (6) Gastritis: Code(s): K29.70 - Gastritis, unspecified, without bleeding Status: Acute Assessment and Plan: as noted by EGD on PPI (7) Alcohol abuse: Code(s): F10.10 - Alcohol abuse, uncomplicated Status: Chronic Assessment and Plan: reportedly quit drinking ~ 1 month ago denies any history of withdrawal on thiamine and folate off CIWA protocol Will continue to follow. Subjective Date/time seen: 07/07/22 09:49 Continues to make slow and steady improvement; renal function improving with gentle IVF hydration; able to eat and drink reasonably well; has been ambulatory as well; abdominal pain/bloating appear to have resolved following paracentesis; no other issues/events overnight or earlier this AM. Exam Narrative: General: chronically ill appearing male in NAD Heart: normal S1 and S2; no rub Lungs: clear to auscultation Abdomen: soft, mild distension, positive bowel sounds Extremities: no cyanosis or clubbing; 1+ pedal edema Skin: no nodules Objective Data Vital Signs Vital Signs: Vital Signs Temp Pulse Resp BP Pulse Ox O2 Del Method 07/07/22 04:03 98.4 F 74 18 136/74 100 07/06/22 20:00 Room Air 07/06/22 19:35 82 07/06/22 19:32 97.4 F L 81 18 135/78 98 07/06/22 13:59 97.6 F 75 16 127/87 99 Intake/Output Intake/Output: Intake & Output 07/04/22 07/05/22 07/06/22 07/07/22 23:59 23:59 23:59 23:59 Intake Total 1670 1730 3540 1740 Output Total 650 950 500 550 Balance 8673 417 9461 1190 Meds/Results Medications: Active Medications Generic Name Dose Route Start Last Admin Trade Name Freq PRN Reason Stop Dose Admin Amlodipine Besylate 10 mg 07/03/22 09:00 07/06/22 09:44 Amlodipine Besylate 5 Mg Tablet PO 10 mg DAILY HUGH Administration Aspirin 81 mg 07/03/22 09:00 07/06/22 09:44 Aspirin 81 Mg Enteric Tablet PO 81 mg QAM HUGH Administration Be
[2022-07-07] MEDS: CALCIUM CARBONATE (OSCAL) 500 MG TABLET PO ×2 (09:55→18:02)
[2022-07-07] MEDS: amLODIPine BESYLATE 5 MG TABLET 10 MG PO (09:55)
[2022-07-07] MEDS: ASPIRIN 81 MG ENTERIC TABLET PO (09:55)
[2022-07-07 09:56] VITALS: PULSE 87
[2022-07-07] MEDS: THIAMINE HCL 100 MG TABLET PO (09:56)
[2022-07-07] MEDS: PANTOPRAZOLE 40 MG TABLET PO ×2 (09:56→21:21)
[2022-07-07] MEDS: FOLIC ACID 1 MG TABLET PO (09:56)
[2022-07-07] MEDS: METOPROLOL TARTRATE 50 MG TAB PO ×2 (09:56→21:21)
[2022-07-07] MEDS: hydrALAZINE HCL 50 MG TABLET PO ×3 (09:56→18:02)
--- NOTE | 2022-07-07 13:45 | PM.IMPN ---
Progress Note: A&P Assessment and Plan (1) Cirrhosis: Qualifiers: Ascites presence: with ascites Hepatic cirrhosis type: unspecified hepatic cirrhosis Qualified Code(s): K74.60 - Unspecified cirrhosis of liver; R18.8 - Other ascites Code(s): K74.60 - Unspecified cirrhosis of liver Status: Acute Assessment and Plan: CT of the abdomen/pelvis showed nodular liver border concerning for cirrhosis with large volume ascites. Appreciate GI consultation. underwent paracentesis on 07/03 which yielded 3200 mL opaque, mustard like fluid. Neutrophil count mildly elevated, additional studies pending. Preliminary Gram stain with no organisms seen and peritoneal fluid cultures negative to date. blood cultures no growth to date. Hepatitis panel negative. patient will be referred to hepatology as an outpatient. Underwent EGD 07/05 for assessment of varices, none visualized (2) Ascites: Code(s): R18.8 - Other ascites Status: Acute Assessment and Plan: see plan above (3) Acute renal failure with oliguria: Code(s): N17.9 - Acute kidney failure, unspecified; R34 - Anuria and oliguria Status: Acute Assessment and Plan: Creatinine elevated up to 2.3. Baseline 1.2-1.4. Patient reported oliguria prior to presentation. Slight improvement in creatinine at 1.6 today following trial of IV fluids. Appreciate Nephrology recommendations. Concern for hepatorenal syndrome in the setting of new onset cirrhosis vs ATN. Renal ultrasound unremarkable. Monitor BMP. Urine output is adequate. Remove Luna catheter today and proceed with voiding trial (4) Leukocytosis: Qualifiers: Leukocytosis type: unspecified Qualified Code(s): D72.829 - Elevated white blood cell count, unspecified Code(s): D72.829 - Elevated white blood cell count, unspecified Status: Acute Assessment and Plan: Mildly elevated. Etiology unclear, however no signs/symptoms to indicate underlying infection. Procalcitonin 0.4. UA without concerns for infection. Workup of ascites fluid negative thus far. WBC was trending down, however with slight increased to 14.7 today. Continue to monitor (5) Lactic acidosis: Code(s): E87.20 - Acidosis, unspecified Status: Resolved Assessment and Plan: Resolved. Possibly due to cirrhosis and alcohol abuse. (6) Normocytic anemia: Code(s): D64.9 - Anemia, unspecified Status: Acute Assessment and Plan: No evidence of active bleeding. EGD with no varices, did reveal gastritis and duodenal ulcer however no active bleeding. Continue to monitor. H&H remaining stable. Hemoglobin 9.3 today (7) Gastritis: Code(s): K29.70 - Gastritis, unspecified, without bleeding Status: Acute Assessment and Plan: Gastritis, duodenitis, and duodenal ulcer noted on EGD performed on 07/05. Continue pantoprazole 40 mg b.i.d.. Appreciate GI recommendations. Will need repeat EGD in 8 weeks to assess for healing of duodenal ulcer (8) Hypertension: Code(s): I10 - Essential (primary) hypertension Status: Acute Assessment and Plan: Blood pressure markedly elevated on presentation improved with resuming the patient's home p.o. antihypertensive. Patient reports noncompliance to medications. Continue home p.o. antihypertensives (9) Alcohol abuse: Code(s): F10.10 - Alcohol abuse, uncomplicated Status: Chronic Assessment and Plan: Patient reports drinking 7 beers every 2-3 days, however suspect significantly higher intake than reported. Patient reports he quit drinking 1 month ago when he ?lost the taste for it.? CIWA scores 0 for 24 hours, therefore CIWA protocol discontinued on 07/04. Continue thiamine and folic acid. Patient is motivated to continue to abstain from alcohol (10) AAA (abdominal aortic aneurysm): Code(s): I71.40 - Abdominal aortic aneurysm, wit
[2022-07-07 14:00] VITALS: BP 122/81; PULSE 78; RESP 18; TEMP 36.4; O2SAT 98
[2022-07-07] MEDS: BENZOCAINE/MENTHOL (*BKC) 18 EA LOZENGE 1 LOZENGE PO (14:34)
[2022-07-07 15:01] LABS: Kappa\\Lambda Light Chains 1.31 (0.26-1.65); Lambda Light Chain 35.7 mg/L (5.7-26.3)
[2022-07-07 20:45] LABS: Anti Glomerular Basement Memb <1.0 AI (<1.0)
[2022-07-07 20:57] VITALS: BP 155/83; PULSE 81; RESP 20; TEMP 36.9; O2SAT 99
[2022-07-07 21:21] VITALS: PULSE 80
[2022-07-08 05:46] LABS: Basophils Percent Auto 0.3 % (0.2-1.2); Eosinophils Absolute Auto 0.2 K/mm3 (0-0.3); Eosinophils Percent Auto 1.9 % (0-4.4); Hematocrit 29.8 % (42.0-52.0); Hemoglobin 8.6 g/dL (14.0-18.0); Immature Granulocyte Absolute 0.07 K/mm3 (0.00-0.031); Immature Granulocyte Percent A 0.6 % (0-0.5); Lymphocytes Absolute Auto 0.75 K/mm3 (0.9-3.2); Lymphocytes Percent Auto 6.4 % (18.3-44.2); Mean Corpuscular HGB Conc 28.9 g/dl (32-36); Mean Corpuscular Hemoglobin 26.5 pg (26-34); Mean Platelet Volume 9.8 fl (7.4-10.4); Monocytes Absolute Auto 1.4 K/mm3 (0.1-0.6); Monocytes Percent Auto 12.1 % (2.6-8.5); Neutrophils Absolute Auto 9.2 K/mm3 (1.3-6.7); Neutrophils Percent Auto 78.7 % (45.5-73.1); Platelet Count Result 262 k/mm3 (150-375); Red Blood Count 3.24 M/mm3 (4.6-6.20); Red Cell Distribution Width 20.8 % (11.5-14.5); White Blood Count 11.7 K/mm3 (4.5-10.0)
[2022-07-08 05:58] LABS: Alanine Aminotransferase 22 U/L (6-50); Albumin Level 3.3 g/dL (3.5-5.1); Alkaline Phosphatase 88 U/L (38-126); Anion Gap 4 mmol/L (8-16); Aspartate Amino Transferase 23 U/L (17-59); Bilirubin,Total 1.3 mg/dL (0.2-1.3); Blood Urea Nitrogen 27 mg/dL (9-20); Calcium 7.7 mg/dL (8.4-10.2); Carbon Dioxide 25 mmol/L (22-30); Chloride 110 mmol/L (98-107); Estimated CRCL calculation 52 ml/min; Estimated Glomerular Filt Rate 47; Glucose 123 mg/dL (65-110); Potassium 3.4 mmol/L (3.4-5.0); Sodium 139 mmol/L (137-145)
[2022-07-08 06:00] VITALS: BP 160/89; PULSE 83; RESP 20; TEMP 36.8; O2SAT 100
[2022-07-08 06:23] LABS: Platelet Estimate Adequate (Adequate); Poikilocytosis 1+ (NORMAL)
[2022-07-08 06:24] LABS: Anisocytosis 2+ (NORMAL); Schistocytes 2+ (NORMAL)
[2022-07-08] MEDS: amLODIPine BESYLATE 5 MG TABLET 10 MG PO (08:05)
[2022-07-08] MEDS: CALCIUM CARBONATE (OSCAL) 500 MG TABLET PO ×2 (08:05→17:53)
[2022-07-08] MEDS: FOLIC ACID 1 MG TABLET PO (08:05)
[2022-07-08] MEDS: ASPIRIN 81 MG ENTERIC TABLET PO (08:05)
[2022-07-08] MEDS: hydrALAZINE HCL 50 MG TABLET PO ×3 (08:05→17:53)
[2022-07-08] MEDS: METOPROLOL TARTRATE 50 MG TAB PO ×2 (08:05→20:18)
[2022-07-08] MEDS: PANTOPRAZOLE 40 MG TABLET PO ×2 (08:06→20:18)
[2022-07-08] MEDS: THIAMINE HCL 100 MG TABLET PO (08:06)
--- NOTE | 2022-07-08 10:28 | P.PNNP_ITS ---
Progress Note: A&P Assessment and Plan (1) BRANT (acute kidney injury): Code(s): N17.9 - Acute kidney failure, unspecified Status: Acute Assessment and Plan: * improvement noted * etiology?? * I suppose there could be an element of kidney disease progression * however, improvement with IVFs would suggest more of a prerenal component * evaluation to date: * renal ultrasound unremarkable * urine electrolytes prerenal * urine eosinophils negative * CPK on the low side * serological testing pending (although complements are low - likely from liver disease) * follow I/Os * follow repeat labs (2) Stage 3a chronic kidney disease: Code(s): N18.31 - Chronic kidney disease, stage 3a Status: Chronic Assessment and Plan: * baseline creatinine runs ~ 1.2 - 1.4mg/dl (although last testing done was October 2019) * presumably due to hypertension and vascular disease (3) Cirrhosis: Qualifiers: Ascites presence: with ascites Hepatic cirrhosis type: unspecified hepatic cirrhosis Qualified Code(s): K74.60 - Unspecified cirrhosis of liver; R18.8 - Other ascites Code(s): K74.60 - Unspecified cirrhosis of liver Status: Acute Assessment and Plan: * as noted by admission imaging * GI following with recommendations noted * s/p diagnostic/therapeutic paracentesis (on 07/03/22) * ascites culture negative to date * EGD with no varices but did reveal gastritis and duodenal ulcer (but no active bleeding) * follow LFTs (4) Normocytic anemia: Code(s): D64.9 - Anemia, unspecified Status: Acute Assessment and Plan: * suspect related to liver disease and mild CKD * EGD results noted but no active bleeding * H/H holding relatively stable * follow trend (5) Hypertension: Code(s): I10 - Essential (primary) hypertension Status: Acute Assessment and Plan: * doing better with home medications * given #1 and liver issues - would avoid overcontrol * follow trend of hemodynamics (6) Gastritis: Code(s): K29.70 - Gastritis, unspecified, without bleeding Status: Acute Assessment and Plan: * as noted by EGD * on PPI (7) Alcohol abuse: Code(s): F10.10 - Alcohol abuse, uncomplicated Status: Chronic Assessment and Plan: * reportedly quit drinking ~ 1 month ago * denies any history of withdrawal * on thiamine and folate * off CIWA protocol Will continue to follow. Subjective Date/time seen: 07/08/22 10:28 Slow and steady improvement in renal function noted with ongoing therapy; no apparent distress voiced at this time; no events overnight or earlier this AM; swelling in LEs/feet unchanged; some reported drainage from previous site of paracentesis noted. Exam Narrative: General: chronically ill appearing male in NAD Heart: normal S1 and S2; no rub Lungs: clear to auscultation Abdomen: soft, mild distension, positive bowel sounds Extremities: no cyanosis or clubbing; 1+ pedal edema Skin: warm and intact Objective Data Vital Signs Vital Signs: Vital Signs Temp Pulse Resp BP Pulse Ox O2 Del Method 07/08/22 06:00 98.3 F 83 20 160/89 H 100 07/07/22 20:00 Room Air 07/07/22 21:21 80 07/07/22 20:57 98.4 F 81 20 155/83 H 99 07/07/22 14:00 97
--- NOTE | 2022-07-08 10:28 | PM.PNNEP ---
Progress Note: A&P Assessment and Plan (1) BRANT (acute kidney injury): Code(s): N17.9 - Acute kidney failure, unspecified Status: Acute Assessment and Plan: improvement noted etiology?? I suppose there could be an element of kidney disease progression however, improvement with IVFs would suggest more of a prerenal component evaluation to date: renal ultrasound unremarkable urine electrolytes prerenal urine eosinophils negative CPK on the low side serological testing pending (although complements are low - likely from liver disease) follow I/Os follow repeat labs (2) Stage 3a chronic kidney disease: Code(s): N18.31 - Chronic kidney disease, stage 3a Status: Chronic Assessment and Plan: baseline creatinine runs ~ 1.2 - 1.4mg/dl (although last testing done was October 2019) presumably due to hypertension and vascular disease (3) Cirrhosis: Qualifiers: Ascites presence: with ascites Hepatic cirrhosis type: unspecified hepatic cirrhosis Qualified Code(s): K74.60 - Unspecified cirrhosis of liver; R18.8 - Other ascites Code(s): K74.60 - Unspecified cirrhosis of liver Status: Acute Assessment and Plan: as noted by admission imaging GI following with recommendations noted s/p diagnostic/therapeutic paracentesis (on 07/03/22) ascites culture negative to date EGD with no varices but did reveal gastritis and duodenal ulcer (but no active bleeding) follow LFTs (4) Normocytic anemia: Code(s): D64.9 - Anemia, unspecified Status: Acute Assessment and Plan: suspect related to liver disease and mild CKD EGD results noted but no active bleeding H/H holding relatively stable follow trend (5) Hypertension: Code(s): I10 - Essential (primary) hypertension Status: Acute Assessment and Plan: doing better with home medications given #1 and liver issues - would avoid overcontrol follow trend of hemodynamics (6) Gastritis: Code(s): K29.70 - Gastritis, unspecified, without bleeding Status: Acute Assessment and Plan: as noted by EGD on PPI (7) Alcohol abuse: Code(s): F10.10 - Alcohol abuse, uncomplicated Status: Chronic Assessment and Plan: reportedly quit drinking ~ 1 month ago denies any history of withdrawal on thiamine and folate off CIWA protocol Will continue to follow. Subjective Date/time seen: 07/08/22 10:28 Slow and steady improvement in renal function noted with ongoing therapy; no apparent distress voiced at this time; no events overnight or earlier this AM; swelling in LEs/feet unchanged; some reported drainage from previous site of paracentesis noted. Exam Narrative: General: chronically ill appearing male in NAD Heart: normal S1 and S2; no rub Lungs: clear to auscultation Abdomen: soft, mild distension, positive bowel sounds Extremities: no cyanosis or clubbing; 1+ pedal edema Skin: warm and intact Objective Data Vital Signs Vital Signs: Vital Signs Temp Pulse Resp BP Pulse Ox O2 Del Method 07/08/22 06:00 98.3 F 83 20 160/89 H 100 07/07/22 20:00 Room Air 07/07/22 21:21 80 07/07/22 20:57 98.4 F 81 20 155/83 H 99 07/07/22 14:00 97.5 F L 78 18 122/81 98 Intake/Output Intake/Output: Intake & Output 07/05/22 07/06/22 07/07/22 07/08/22 23:59 23:59 23:59 23:59 Intake Total 1730 3540 3000 940 Output Total 607 403 4403 600 Balance 780 3040 1975 340 Meds/Results Medications: Active Medications Generic Name Dose Route Start Last Admin Trade Name Freq PRN Reason Stop Dose Admin Amlodipine Besylate 10 mg 07/03/22 09:00 07/08/22 08:05 Amlodipine Besylate 5 Mg Tablet PO 10 mg DAILY HUGH Administration Aspirin 81 mg 07/03/22 09:00 07/08/22 08:05 Aspirin 81 Mg Enteric Tablet PO 81 mg QAM HUGH Administration Benzocaine 1 lozenge
--- NOTE | 2022-07-08 14:12 | WPDGIPROGNO ---
Progress Note: A&P Assessment and Plan (1) Cirrhosis: Qualifiers: Ascites presence: with ascites Hepatic cirrhosis type: unspecified hepatic cirrhosis Qualified Code(s): K74.60 - Unspecified cirrhosis of liver; R18.8 - Other ascites Code(s): K74.60 - Unspecified cirrhosis of liver Status: Acute Assessment and Plan: he had never before been told that he had cirrhosis. His CT scan however shows: Cardiomegaly. Small bilateral pleural effusions. Nodular liver border as can be seen with cirrhosis. 4.2 cm infrarenal abdominal aortic aneurysm. Large volume ascites. (2) Hyperbilirubinemia: Code(s): E80.6 - Other disorders of bilirubin metabolism Status: Acute Assessment and Plan: 3.4 yesterday and 3.5 today. Transaminases however are normal except a slight elevation of alkaline phosphatase. 07/05/2022 bilirubin is down to 1.5 today which is encouraging. (3) Alcohol abuse: Code(s): F10.10 - Alcohol abuse, uncomplicated Status: Chronic Assessment and Plan: He admits to drinking Reginald Villalba regularly but says he stopped 3 weeks ago when it suddenly tasted very bad. He states he is DONE (4) Ascites: Code(s): R18.8 - Other ascites Status: Acute Assessment and Plan: he felt much better since the paracentesis with removal of greater than 3000 cc of fluid few days ago. Now he has more distension. He did not complain about pain still I palpated his abdomen. He has had some leakage from his prior paracentesis site. Given the fact that his weight has increased by 5 kg, and he was given quite a bit of intravenous fluid to help with his renal problems, I suspect that he has a significant amount of ascites. Draining it should help reduce the pressure and help the puncture site close. If not we would need to consult surgery. (5) Acute renal failure with oliguria: Code(s): N17.9 - Acute kidney failure, unspecified; R34 - Anuria and oliguria Status: Acute Assessment and Plan: After staying at 2.2 for several days, the creatinine has come down to 1.7 which is encouraging. His renal status has improved with rehydration. Ultrasound was negative. Urinalysis was consistent with a prerenal process (6) Normocytic anemia: Code(s): D64.9 - Anemia, unspecified Status: Acute Assessment and Plan: Hemoglobin is 8.9 today but there is no evidence of gastrointestinal bleeding. I will schedule him for an EGD to rule out varices and determine whether he needs a nonselective beta tammy for his portal hypertension. (7) Encephalopathy: Code(s): G93.40 - Encephalopathy, unspecified Status: Acute Assessment and Plan: he has exhibited some mental confusion since admission but today seems even more lack of focus in orientation. For instance he did not know what they it was at when I talked to him about going down to the x-ray department he seemed to have forgotten that he was in the hospital. I will check an ammonia level Plan I discussed liver disease with him. I told that although he has cirrhosis that his odds of survival are improved by stopping alcohol completely. Told that with continued drinking the statistics show he has about a 50% 5 year survival. He states he is determined to stay away from alcohol because he does not want to . I told that he we will have him referred to a callisthenics instructor after discharge. from my perspective he can be discharged. I will have him follow-up with me in the office and I will have him repeat EGD in 8 weeks to confirm healing of his ulcer. Will also arrange for him to be set up with hepatology at [facility]. Subjective Date/time seen: 07/08/22 14:12 apparently he has had a very wet dressing on his abdomen from his paracentesis site. he believes that this has been going on for couple of days. The staff has noticed the dressing being wet with clear fl
[2022-07-08 14:39] VITALS: BP 124/74; PULSE 77; RESP 16; TEMP 36.2; O2SAT 98
[2022-07-08 14:43] LABS: Ammonia 15 umol/L (9-30)
--- NOTE | 2022-07-08 15:42 | PM.IMPN ---
Progress Note: A&P Assessment and Plan (1) Cirrhosis: Qualifiers: Ascites presence: with ascites Hepatic cirrhosis type: unspecified hepatic cirrhosis Qualified Code(s): K74.60 - Unspecified cirrhosis of liver; R18.8 - Other ascites Code(s): K74.60 - Unspecified cirrhosis of liver Status: Acute Assessment and Plan: CT of the abdomen/pelvis showed nodular liver border concerning for cirrhosis with large volume ascites. Appreciate GI consultation. underwent paracentesis on 07/03 which yielded 3200 mL opaque, mustard like fluid. Neutrophil count mildly elevated, additional studies pending. Preliminary Gram stain with no organisms seen and peritoneal fluid cultures negative to date. blood cultures no growth to date. Hepatitis panel negative. patient will be referred to hepatology as an outpatient. Underwent EGD 07/05 for assessment of varices, none visualized (2) Ascites: Code(s): R18.8 - Other ascites Status: Acute Assessment and Plan: As above. Patient with leakage of serous fluid from site of paracentesis. Noted significant weight gain since paracentesis. Will proceed with therapeutic paracentesis today. Discussed case with Dr. Lopez. consider initiating Lasix spironolactone, will await to see output from paracentesis (3) Acute renal failure with oliguria: Code(s): N17.9 - Acute kidney failure, unspecified; R34 - Anuria and oliguria Status: Acute Assessment and Plan: Creatinine elevated up to 2.3. Baseline 1.2-1.4. Patient reported oliguria prior to presentation. Appreciate Nephrology recommendations. Concern for hepatorenal syndrome in the setting of new onset cirrhosis vs ATN. Renal ultrasound unremarkable. Monitor BMP. Urine output is adequate. creatinine has improved. 1.5 today. (4) Leukocytosis: Qualifiers: Leukocytosis type: unspecified Qualified Code(s): D72.829 - Elevated white blood cell count, unspecified Code(s): D72.829 - Elevated white blood cell count, unspecified Status: Acute Assessment and Plan: Mildly elevated. Etiology unclear, however no signs/symptoms to indicate underlying infection. Procalcitonin 0.4. UA without concerns for infection. Workup of ascites fluid negative thus far. WBC Improving, 11.7 today Continue to monitor (5) Lactic acidosis: Code(s): E87.20 - Acidosis, unspecified Status: Resolved Assessment and Plan: Resolved. Possibly due to cirrhosis and alcohol abuse. (6) Normocytic anemia: Code(s): D64.9 - Anemia, unspecified Status: Acute Assessment and Plan: No evidence of active bleeding. EGD with no varices, did reveal gastritis and duodenal ulcer however no active bleeding. Continue to monitor. H&H remaining stable. Hemoglobin 8.6 today (7) Gastritis: Code(s): K29.70 - Gastritis, unspecified, without bleeding Status: Acute Assessment and Plan: Gastritis, duodenitis, and duodenal ulcer noted on EGD performed on 07/05. Continue pantoprazole 40 mg b.i.d. Appreciate GI recommendations. Will need repeat EGD in 8 weeks to assess for healing of duodenal ulcer (8) Hypertension: Code(s): I10 - Essential (primary) hypertension Status: Acute Assessment and Plan: Blood pressure markedly elevated on presentation improved with resuming the patient's home p.o. antihypertensives. Patient reports noncompliance to medications. Continue home p.o. antihypertensives (9) Alcohol abuse: Code(s): F10.10 - Alcohol abuse, uncomplicated Status: Chronic Assessment and Plan: Patient reports drinking 7 beers every 2-3 days, however suspect significantly higher intake than reported. Patient reports he quit drinking 1 month ago when he ?lost the taste for it.? CIWA scores 0 for 24 hours, therefore CIWA protocol discontinued on 07/04. Continue thiamine and folic acid. Patient is motivated t
[2022-07-08 20:00] VITALS: PULSE 72; RESP 16; O2SAT 99
[2022-07-08 20:13] LABS: Glucose Peritoneal Fluid 112 mg/dL; LDH Peritoneal Fluid 325 U/L (<63); Total Protein Peritoneal Fluid 3.6 g/dL
[2022-07-08 20:15] VITALS: BP 149/86; PULSE 87; RESP 16; TEMP 37.3; O2SAT 99
[2022-07-08 20:18] VITALS: PULSE 72
[2022-07-09 04:31] VITALS: BP 144/82; PULSE 82; RESP 16; TEMP 36.7; O2SAT 98
[2022-07-09 06:12] LABS: Hematocrit 28.5 % (42.0-52.0); Hemoglobin 8.3 g/dL (14.0-18.0); Mean Corpuscular HGB Conc 29.1 g/dl (32-36); Mean Corpuscular Hemoglobin 25.5 pg (26-34); Mean Corpuscular Volume 87.7 fl (80-100); Mean Platelet Volume 9.1 fl (7.4-10.4); Platelet Count Result 266 k/mm3 (150-375); Red Blood Count 3.25 M/mm3 (4.6-6.20); Red Cell Distribution Width 21.2 % (11.5-14.5); White Blood Count 10.5 K/mm3 (4.5-10.0)
[2022-07-09 06:26] LABS: Alanine Aminotransferase 23 U/L (6-50); Albumin Level 3.3 g/dL (3.5-5.1); Alkaline Phosphatase 95 U/L (38-126); Anion Gap 6 mmol/L (8-16); Aspartate Amino Transferase 23 U/L (17-59); Bilirubin,Total 1.2 mg/dL (0.2-1.3); Blood Urea Nitrogen 23 mg/dL (9-20); Calcium 7.8 mg/dL (8.4-10.2); Carbon Dioxide 23 mmol/L (22-30); Chloride 109 mmol/L (98-107); Estimated CRCL calculation 55 ml/min; Estimated Glomerular Filt Rate 51; Glucose 141 mg/dL (65-110); Potassium 3.4 mmol/L (3.4-5.0); Sodium 138 mmol/L (137-145)
[2022-07-09] MEDS: SPIRONOLACTONE 25 MG TABLET PO (08:06)
[2022-07-09] MEDS: CALCIUM CARBONATE (OSCAL) 500 MG TABLET PO (08:06)
[2022-07-09] MEDS: amLODIPine BESYLATE 5 MG TABLET 10 MG PO (08:06)
[2022-07-09] MEDS: THIAMINE HCL 100 MG TABLET PO (08:06)
[2022-07-09] MEDS: hydrALAZINE HCL 50 MG TABLET PO ×2 (08:06→12:29)
[2022-07-09] MEDS: ASPIRIN 81 MG ENTERIC TABLET PO (08:07)
[2022-07-09] MEDS: METOPROLOL TARTRATE 50 MG TAB PO (08:07)
[2022-07-09] MEDS: PANTOPRAZOLE 40 MG TABLET PO (08:07)
[2022-07-09] MEDS: FOLIC ACID 1 MG TABLET PO (08:07)
--- NOTE | 2022-07-09 09:54 | WPDGIPROGNO ---
Progress Note: A&P Assessment and Plan (1) Cirrhosis: Qualifiers: Ascites presence: with ascites Hepatic cirrhosis type: unspecified hepatic cirrhosis Qualified Code(s): K74.60 - Unspecified cirrhosis of liver; R18.8 - Other ascites Code(s): K74.60 - Unspecified cirrhosis of liver Status: Acute Assessment and Plan: he had never before been told that he had cirrhosis. His CT scan however shows: Cardiomegaly. Small bilateral pleural effusions. Nodular liver border as can be seen with cirrhosis. 4.2 cm infrarenal abdominal aortic aneurysm. Large volume ascites. 07/09/2022 given the fact that he has advanced cirrhosis with portal hypertension, we will try to get him established with hepatology center. (2) Hyperbilirubinemia: Code(s): E80.6 - Other disorders of bilirubin metabolism Status: Acute Assessment and Plan: 3.4 yesterday and 3.5 today. Transaminases however are normal except a slight elevation of alkaline phosphatase. 07/05/2022 bilirubin is down to 1.5 today which is encouraging. (3) Alcohol abuse: Code(s): F10.10 - Alcohol abuse, uncomplicated Status: Chronic Assessment and Plan: He admits to drinking Reginald Villalba regularly but says he stopped 3 weeks ago when it suddenly tasted very bad. He states he is DONE (4) Ascites: Code(s): R18.8 - Other ascites Status: Acute Assessment and Plan: he felt much better since the paracentesis with removal of greater than 3000 cc of fluid few days ago. Now he has more distension. He did not complain about pain still I palpated his abdomen. He has had some leakage from his prior paracentesis site. Given the fact that his weight has increased by 5 kg, and he was given quite a bit of intravenous fluid to help with his renal problems, I suspect that he has a significant amount of ascites. Draining it should help reduce the pressure and help the puncture site close. If not we would need to consult surgery. 07/09/2022 because of drainage from his previous paracentesis site we decide to the the see we could draw off more fluid reduce tension in his abdomen. Ultrasound done yesterday showed very little ascitic fluid, certainly not enough to safely tap. I discussed his case with Whitney Hunt, and we are going to start him on spironolactone 50 mg per day. If ascites recurs, he may need a larger dose and we may need to add a loop diuretic to that. He will follow-up with me in the office (5) Acute renal failure with oliguria: Code(s): N17.9 - Acute kidney failure, unspecified; R34 - Anuria and oliguria Status: Acute Assessment and Plan: After staying at 2.2 for several days, the creatinine has come down to 1.7 which is encouraging. His renal status has improved with rehydration. Ultrasound was negative. Urinalysis was consistent with a prerenal process 07/09/2022 creatinine is down to 1.4 which appears to be his baseline. (6) Normocytic anemia: Code(s): D64.9 - Anemia, unspecified Status: Acute Assessment and Plan: Hemoglobin is 8.9 today but there is no evidence of gastrointestinal bleeding. I will schedule him for an EGD to rule out varices and determine whether he needs a nonselective beta tammy for his portal hypertension. 07/09/2022 at this point is not appear that he will need a beta-tammy as he did not have any significant varices on endoscopy. (7) Encephalopathy: Code(s): G93.40 - Encephalopathy, unspecified Status: Acute Assessment and Plan: he has exhibited some mental confusion since admission but today seems even more lack of focus in orientation. For instance he did not know what they it was at when I talked to him about going down to the x-ray department he seemed to have forgotten that he was in the hospital. I will check an ammonia level Plan I discussed liver disease with him. I told that although he has cirrhosis th
--- NOTE | 2022-07-09 09:55 | P.PNNP_ITS ---
Progress Note: A&P Assessment and Plan (1) BRANT (acute kidney injury): Code(s): N17.9 - Acute kidney failure, unspecified Status: Acute Assessment and Plan: * improvement noted (if not back to baseline) * etiology?? * I suppose there could be an element of kidney disease progression * however, improvement with IVFs would suggest more of a prerenal component * evaluation to date: * renal ultrasound unremarkable * urine electrolytes prerenal * urine eosinophils negative * CPK on the low side * serological testing pending (although complements are low - likely from liver disease) * follow I/Os * follow repeat labs (2) Stage 3a chronic kidney disease: Code(s): N18.31 - Chronic kidney disease, stage 3a Status: Chronic Assessment and Plan: * baseline creatinine runs ~ 1.2 - 1.4mg/dl (although last testing done was October 2019) * presumably due to hypertension and vascular disease (3) Cirrhosis: Qualifiers: Ascites presence: with ascites Hepatic cirrhosis type: unspecified hepatic cirrhosis Qualified Code(s): K74.60 - Unspecified cirrhosis of liver; R18.8 - Other ascites Code(s): K74.60 - Unspecified cirrhosis of liver Status: Acute Assessment and Plan: * as noted by admission imaging * GI following with recommendations noted * s/p diagnostic/therapeutic paracentesis (on 07/03/22) * ascites culture negative to date * EGD with no varices but did reveal gastritis and duodenal ulcer (but no active bleeding) * follow LFTs (4) Normocytic anemia: Code(s): D64.9 - Anemia, unspecified Status: Acute Assessment and Plan: * suspect related to liver disease and mild CKD * EGD results noted but no active bleeding * H/H holding relatively stable * follow trend (5) Hypertension: Code(s): I10 - Essential (primary) hypertension Status: Acute Assessment and Plan: * doing better with home medications * given #1 and liver issues - would avoid overcontrol * follow trend of hemodynamics (6) Gastritis: Code(s): K29.70 - Gastritis, unspecified, without bleeding Status: Acute Assessment and Plan: * as noted by EGD * on PPI (7) Alcohol abuse: Code(s): F10.10 - Alcohol abuse, uncomplicated Status: Chronic Assessment and Plan: * reportedly quit drinking ~ 1 month ago * denies any history of withdrawal * on thiamine and folate * off CIWA protocol Will continue to follow - not opposed to discharge from renal perspective if otherwise medically stable. Subjective Date/time seen: 07/09/22 09:55 No reported issues or problems voiced at this time; no apparent distress noted; no other acute complaints to report; otherwise, feels reasonably well; no events overnight or earlier this morning. Exam Narrative: General: chronically ill appearing male in NAD Heart: normal S1 and S2; no rub Lungs: clear to auscultation Abdomen: soft, mild distension, positive bowel sounds Extremities: no cyanosis or clubbing; 1+ pedal edema Skin: no rash Objective Data Vital Signs Vital Signs: Vital Signs Temp Pulse Resp BP Pulse Ox O2 Del Method 07/09/22 04:31 98.1 F 82 16 144/82 H 98 07/08/22 20:00 72 16 99 Room Air 07/08/22 20:18 72 07/08/22 20:15 99.2 F 87 1
--- NOTE | 2022-07-09 09:55 | PM.PNNEP ---
Progress Note: A&P Assessment and Plan (1) BRANT (acute kidney injury): Code(s): N17.9 - Acute kidney failure, unspecified Status: Acute Assessment and Plan: improvement noted (if not back to baseline) etiology?? I suppose there could be an element of kidney disease progression however, improvement with IVFs would suggest more of a prerenal component evaluation to date: renal ultrasound unremarkable urine electrolytes prerenal urine eosinophils negative CPK on the low side serological testing pending (although complements are low - likely from liver disease) follow I/Os follow repeat labs (2) Stage 3a chronic kidney disease: Code(s): N18.31 - Chronic kidney disease, stage 3a Status: Chronic Assessment and Plan: baseline creatinine runs ~ 1.2 - 1.4mg/dl (although last testing done was October 2019) presumably due to hypertension and vascular disease (3) Cirrhosis: Qualifiers: Ascites presence: with ascites Hepatic cirrhosis type: unspecified hepatic cirrhosis Qualified Code(s): K74.60 - Unspecified cirrhosis of liver; R18.8 - Other ascites Code(s): K74.60 - Unspecified cirrhosis of liver Status: Acute Assessment and Plan: as noted by admission imaging GI following with recommendations noted s/p diagnostic/therapeutic paracentesis (on 07/03/22) ascites culture negative to date EGD with no varices but did reveal gastritis and duodenal ulcer (but no active bleeding) follow LFTs (4) Normocytic anemia: Code(s): D64.9 - Anemia, unspecified Status: Acute Assessment and Plan: suspect related to liver disease and mild CKD EGD results noted but no active bleeding H/H holding relatively stable follow trend (5) Hypertension: Code(s): I10 - Essential (primary) hypertension Status: Acute Assessment and Plan: doing better with home medications given #1 and liver issues - would avoid overcontrol follow trend of hemodynamics (6) Gastritis: Code(s): K29.70 - Gastritis, unspecified, without bleeding Status: Acute Assessment and Plan: as noted by EGD on PPI (7) Alcohol abuse: Code(s): F10.10 - Alcohol abuse, uncomplicated Status: Chronic Assessment and Plan: reportedly quit drinking ~ 1 month ago denies any history of withdrawal on thiamine and folate off CIWA protocol Will continue to follow - not opposed to discharge from renal perspective if otherwise medically stable. Subjective Date/time seen: 07/09/22 09:55 No reported issues or problems voiced at this time; no apparent distress noted; no other acute complaints to report; otherwise, feels reasonably well; no events overnight or earlier this morning. Exam Narrative: General: chronically ill appearing male in NAD Heart: normal S1 and S2; no rub Lungs: clear to auscultation Abdomen: soft, mild distension, positive bowel sounds Extremities: no cyanosis or clubbing; 1+ pedal edema Skin: no rash Objective Data Vital Signs Vital Signs: Vital Signs Temp Pulse Resp BP Pulse Ox O2 Del Method 07/09/22 04:31 98.1 F 82 16 144/82 H 98 07/08/22 20:00 72 16 99 Room Air 07/08/22 20:18 72 07/08/22 20:15 99.2 F 87 16 149/86 H 99 07/08/22 14:39 97.1 F L 77 16 124/74 98 Intake/Output Intake/Output: Intake & Output 07/06/22 07/07/22 07/08/22 07/09/22 23:59 23:59 23:59 23:59 Intake Total 3540 3000 1870 640 Output Total 500 1025 1150 700 Balance 3040 1975 720 -60 Meds/Results Medications: Active Medications Generic Name Dose Route Start Last Admin Trade Name Freq PRN Reason Stop Dose Admin Amlodipine Besylate 10 mg 07/03/22 09:00 07/09/22 08:06 Amlodipine Besylate 5 Mg Tablet PO 10 mg DAILY HUGH Administration Aspirin 81 mg 07/03/22 09:00 07/09/22 08:07 Aspirin 81 Mg Enteric Tablet PO 81 mg Q
--- NOTE | 2022-07-09 10:01 | PCOTNOTE ---
Attempted to see pt for Occupational Therapy treatment. Pt refused to participate stating I'm way too tired...I don't think a therapy session is going to make a difference whenever I go home. Pt was educated on the importance of continued mobility and strengthening to maintain/increase safety and independence at home. Pt verbally agrees, however, continues to refuse. RN was made aware of pt's refusal. Will continue per POC duration/frequency tomorrow.
[2022-07-09 10:27] LABS: ANCA Screen Negative (Negative)
--- NOTE | 2022-07-09 11:23 | PM.DS ---
DS: Admitting Diagnosis Discharge Date 07/09/2022 Admitting Diagnosis ascites DS: Discharge Diagnosis Discharge Diagnosis (1) Cirrhosis: Qualifiers: Ascites presence: with ascites Hepatic cirrhosis type: unspecified hepatic cirrhosis Qualified Code(s): K74.60 - Unspecified cirrhosis of liver; R18.8 - Other ascites Code(s): K74.60 - Unspecified cirrhosis of liver Status: Acute Assessment and Plan: CT of the abdomen/pelvis showed nodular liver border concerning for cirrhosis with large volume ascites.? Seen in consultation by GI. ? underwent paracentesis? on 07/03 which yielded 3200 mL opaque, mustard like fluid.? Neutrophil count and LDH elevated.? Gram stain with no organisms seen and peritoneal fluid cultures negative to date.?Blood cultures negative.? Hepatitis panel negative.? patient will follow up with GI for outpatient hepatology referral.? Underwent EGD 07/05 for assessment of varices, none visualized. (2) Ascites: Code(s): R18.8 - Other ascites Status: Acute Assessment and Plan: 07/09 patient with leakage of serous fluid from site of paracentesis and patient had weight gain, therefore repeat paracentesis ordered. Ultrasound showed trace ascites ad no fluid able to be tapped. Started on spironolactone daily (3) Acute renal failure with oliguria: Code(s): N17.9 - Acute kidney failure, unspecified; R34 - Anuria and oliguria Status: Acute Assessment and Plan: Creatinine elevated up to 2.3.? Baseline 1.2-1.4.? Patient reported oliguria prior to presentation. Seen by Nephrology. Concern for hepatorenal syndrome in the setting of new onset cirrhosis vs ATN. Creatinine improved with IV fluids back to baseline. Repeat BMP in 1 week. (4) Leukocytosis: Qualifiers: Leukocytosis type: unspecified Qualified Code(s): D72.829 - Elevated white blood cell count, unspecified Code(s): D72.829 - Elevated white blood cell count, unspecified Status: Acute Assessment and Plan: Mildly elevated.? Etiology unclear, however no signs/symptoms to indicate underlying infection.? Procalcitonin 0.4.? UA without concerns for infection.? Workup of ascites fluid negative. Overall improved. (5) Lactic acidosis: Code(s): E87.20 - Acidosis, unspecified Status: Resolved Assessment and Plan: Resolved. Possibly due to cirrhosis and alcohol abuse. (6) Normocytic anemia: Code(s): D64.9 - Anemia, unspecified Status: Acute Assessment and Plan: No evidence of active bleeding. ? EGD with no varices, did reveal gastritis and duodenal ulcer however no active bleeding. H&H remained stable.? (7) Gastritis: Code(s): K29.70 - Gastritis, unspecified, without bleeding Status: Acute Assessment and Plan: Gastritis, duodenitis, and duodenal ulcer noted on EGD performed on 07/05. Pantoprazole 40 mg b.i.d.?Avoid NSAIDs. Will need repeat EGD in 8 weeks to assess for healing of duodenal ulcer (8) Hypertension: Code(s): I10 - Essential (primary) hypertension Status: Acute Assessment and Plan: Blood pressure markedly elevated on presentation improved with resuming the patient's home p.o. antihypertensives.? Patient reports noncompliance to medications.?Educated on importance of taking medications consistently. Refills provided for home antihypertensives. (9) Alcohol abuse: Code(s): F10.10 - Alcohol abuse, uncomplicated Status: Chronic Assessment and Plan: Patient reports drinking 7 beers every 2-3 days, however suspect significantly higher intake than reported.? Patient reports he quit drinking 1 month ago when he ?lost the taste for it.? No signs of alcohol withdrawal. Continue thiamine and folic acid.? Patient is motivated to continue to abstain from alcohol (10) AAA (abdominal aortic aneurysm): Code(s): I71.40 - Abdominal aortic aneurysm, without ru
[2022-07-09 11:28] LABS: Chloride Rand Ur <20 mmol/L (32-290); Creatinine Random Urine 135 mg/dL (20-320)
[2022-07-09 13:36] LABS: Amylase Peritoneal Fluid 15 U/L
[2022-07-13 03:43] LABS: Cryoglobulin, QL Negative (Negative)
[2022-07-16 19:44] LABS: Creatinine, Random Urine 127 mg/dL (20-320); Total Protein/Creatinine Ratio 457 mg/g creat (25-148)
== END 2022-07-09 12:42 | disposition home health service (06) | DRG 433 ==
LOC: ANHED 23:25 → ANH2MED 07-03 02:02
PROVIDERS: Internal Medicine Gastroenterology; Internal Medicine Nephrology; Physician Assistant; Admitting Provider Internal Medicine; Emergency Provider Emergency Medicine; PCP Internal Medicine; Visit Provider Physician Assistant
PROC: 0DJ08ZZ Inspection of Upper Intestinal Tract, Via Natural or Artificial Opening Endoscopic (ICD-10-PCS; CPT 43235; principal; 2022-07-05 14:45)
DX: K74.60 Unspecified cirrhosis of liver (principal); E87.20 Acidosis, unspecified; N17.9 Acute kidney failure, unspecified; R18.8 Other ascites; G93.40 Encephalopathy, unspecified; I25.10 Atherosclerotic heart disease of native coronary artery without angina pectoris; I10 Essential (primary) hypertension; I71.40 Abdominal aortic aneurysm, without rupture, unspecified; D64.9 Anemia, unspecified; N18.31 Chronic kidney disease, stage 3a; K26.9 Duodenal ulcer, unspecified as acute or chronic, without hemorrhage or perforation; K29.80 Duodenitis without bleeding; K21.9 Gastro-esophageal reflux disease without esophagitis; K29.70 Gastritis, unspecified, without bleeding; J44.9 Chronic obstructive pulmonary disease, unspecified; R34 Anuria and oliguria; E80.6 Other disorders of bilirubin metabolism; F10.10 Alcohol abuse, uncomplicated; F17.210 Nicotine dependence, cigarettes, uncomplicated; Z20.822 Contact with and (suspected) exposure to COVID-19; Z79.82 Long term (current) use of aspirin; Z91.199 Patient's noncompliance with other medical treatment and regimen due to unspecified reason
CPT/HCPCS: 36415; 49083; 71045; 74176; 76705; 76775; 80053; 80074; 81001; 81050; 82040; 82042; 82140; 82150; 82248; 82436; 82550; 82570; 82595; 82945; 83520; 83605; 83615; 83690; 83874; 83880; 83883; 84145; 84155; 84156; 84157; 84165; 84166; 84300; 84540; 85025; 85027; 85610; 85730; 85999; 86036; 86038; 86160; 86225; 86334; 86335; 87040; 87070; 87075; 87081; 87205; 87636; 88108; 88305; 89051; 93005; 96361; 96365; 96375; 97110; 97161; 97165; 97530; 99285; A9270; G0378; J0360; J2704; J7030; J7120; P9047

== ENCOUNTER 2023-04-19 16:09 | Inpatient (IN) | payer MEDICARE, MEDICAID, SELFPAY ==
[2023-04-19] VITALS (32 sets, daily range): BP systolic 159–195; BP diastolic 105–129; PULSE 72–106; RESP 15–23; TEMP 36.3–37; O2SAT 93–100; BMI 25.5
--- NOTE | ~2023-04-19 | US_ITS ---
US renal BI 04/20/2023 10:52 Procedure: Realtime transabdominal ultrasound of the kidneys and bladder. Indication: Acute renal insufficiency Comparison: 04/20/2023 Findings: There is ascites. Renal echotexture is increased with decreased corticomedullary differenti ation, consistent with chronic renal disease. The right kidney measures 9.1 cm and left kidney measur es 10 cm. There is a right renal cyst measuring 1.8 cm. Luna catheter present in the bladder. Impression: 1: Increased renal cortical echotexture consistent with chronic renal disease. Right renal cyst measu res 1.8 cm. Reviewed, dictated and finalized at location A. Impression: 1: Increased renal cortical echotexture consistent with chronic renal disease. Right renal cyst measures 1.8 cm.
--- NOTE | ~2023-04-19 | XR_ITS ---
XR chest 1V portable 04/20/2023 05:15 Indication: Shortness of breath Procedure: AP portable chest Comparison: Comparison to multiple prior studies sequentially, with oldest reviewed study dated 11/15. Findings: Status post median sternotomy for CABG. Cardiomegaly. There is pulmonary edema. Small left pleural effusion. Left lower lobe airspace consolidation, most l ikely atelectasis. Impression: 1: Cardiomegaly with pulmonary edema. 2: Retrocardiac consolidation, most likely atelectasis. 2: Small left pleural effusion. Reviewed, dictated and finalized at location A. Impression: 1: Cardiomegaly with pulmonary edema. 2: Retrocardiac consolidation, most likely atelectasis. 2: Small left pleural effusion.
--- NOTE | ~2023-04-19 | CT_ITS ---
EXAMINATION: CT abdomen pelvis wo con DATE: 04/19/2023 17:57 INDICATION: abdominal distention TECHNIQUE: Computed tomography (CT) of the abdomen and pelvis was performed without intravenous contr ast. Automated exposure control and iterative reconstruction technique were employed. The dose-length product was 638.67 mGy-cm. COMPARISON: 07/02/2022. FINDINGS: Lower thorax: Sternotomy wires. Cardiomegaly. Cardiac valve replacement. Emphysematous change. Bibasi lar subsegmental atelectasis/consolidation. Moderate left and small right pleural fluid collections. Liver: Nodular border. Biliary/Gallbladder: Gallbladder is normal. No bile duct dilation. Pancreas: No mass or duct dilation. Spleen: Normal. Adrenals:No mass. Kidneys: No suspicious mass, obstructing stone, or hydronephrosis. Simple right midpole cyst. GI tract: No small or large bowel dilation. Normal appendix. Mesentery/Peritoneum: Large volume ascites. No mass or free air free air. Retroperitoneum: No mass. Atherosclerotic abdominal aortic and/or arterial calcifications. 4.2 cm fus iform abdominal aortic aneurysm Pelvis: Pelvic organs are within normal limits. Soft Tissues: Body wall edema. Small uncomplicated fat-containing left inguinal hernia. Bones: No acute osseous finding. Partially visualized right femoral ash. IMPRESSION: Cirrhosis, with large volume ascites, moderate left and mild right pleural effusions, and body wall e gregory. 4.2 cm infrarenal abdominal aortic aneurysm. Reviewed, dictated and finalized at location K. IMPRESSION: Cirrhosis, with large volume ascites, moderate left and mild right pleural effu sions, and body wall edema. 4.2 cm infrarenal abdominal aortic aneurysm.
--- NOTE | ~2023-04-19 | US_ITS ---
EXAMINATION: US paracentesis abd w/image DATE: 04/20/2023 10:47 CDT INDICATION: Therapeutic treatment of ascites TECHNIQUE: The procedure for an ultrasound-guided paracentesis was discussed with the patient. Risks and benefits were detailed, including risks of bleeding, infection, and pain. The patient verbalize d understanding and agreed to proceed following written consent. A time and out was performed to verify patient's name, date of , and type of procedure. The lef t lower quadrant of the abdomen was prepped and draped in usual manner. 1% lidocaine was used for lo isabel anesthesia. A catheter was inserted into the left lower quadrant under ultrasound guidance into the ascitic fluid. The fluid was removed with vacuum assistance. All needles were removed. The patient tolerated the procedure without immediate complication.] FINDINGS: Limited images of the abdomen demonstrates a large amount of ascites. Approximately 2300 c c of dark yellowish liquid was removed. IMPRESSION: 1. Successful ultrasound-guided paracentesis, with removal of approximately 2300 cc of fluid. Reviewed, dictated and finalized at location A. IMPRESSION: 1. Successful ultrasound-guided paracentesis, with removal of approximately 23 00 cc of fluid.
--- NOTE | 2023-04-19 16:27 | ED.GENADULT ---
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 Patient states that he was hospitalized at the beginning of this year and was discharged with several medications for his liver including spironolactone. He states he was unable to follow-up with his primary care doctor or any specialists and ran out of these medications about 6 months ago. Over the last 1 month he has had persistently worsening abdominal distention and lower extremity swelling. He states he has had difficulty lying flat due to the abdominal distention as well as some shortness of breath. He does note that he has had some dark stools, these have been present for the last month and a half. He has had persistent nausea, no vomiting. No bright red blood per rectum. He does note that he quit drinking alcohol about a year ago but was a very heavy drinker since he was a teenager. No fever or chills. Related Data Allergies Allergy/AdvReac Type Severity Reaction Status Date / Time No Known Allergies Allergy Verified 04/19/23 16:11 Review of Systems Review of Systems: All systems reviewed & are unremarkable except as noted in HPI and below PMFSH Past Medical History Medical History Alcohol abuse CAD (coronary artery disease) Chronic obstructive pulmonary disease History of fracture Including lower extremity and multiple toes. Hypertension Tobacco dependence Surgical History Surgical History History of coronary artery bypass graft History of toe surgery Family History Family History Father Hypertension Mother Hypertension Social History Social History Social History: The patient lives alone in [place]. He is single. Reports he is disabled, though unsure of any chronic conditions resulting in disability. He has 1 daughter, Andi, and he nominates her to be his surrogate decision maker. He wishes to be a full code.l Smoking packs per day: 1.5 Smoking cigarettes per day: 30.0 Years smoked: 48 Smoking pack-years: 72.00 Smoking status: Former smoker Tobacco type: cigarettes Second hand tobacco smoke exposure: Yes Alcohol intake: former Drinks per week: 20 Last use: Patient denies any illicit drug use including IV drugs Lack of Transportation: No Lack of Food: Never True Current Housing: I Have Housing Concerned About Future Housing: No Difficulty Paying Gas/Electric Bills: No Difficulty Paying for Meds: No Currently Unemployed: No Education: Trade/Vocational Certificate Difficulty w/ Childcare or Family Care: No Living arrangements: alone Gender identity (if verbalized by the patient): Male Spiritual care concerns: No Exam Narrative: GENERAL: Well-appearing, well-nourished, and in no acute distress. HEAD: Normocephalic, atraumatic. EYES: PERRLA and EOMI. Scleral icterus present ENT: Nares clear. Mucous membranes moist. NECK: Supple. CHEST: Clear to auscultation. No respiratory distress. HEART: Tachycardic. Normal peripheral pulses. ABDOMEN: Protuberant, positive fluid wave, nontender. EXTREMITIES: Normal range of motion. 4+ pitting edema extending to the thigh. SKIN: Warm, dry, no rash. Jaundice noticed over the face, pallor noticed over the bilateral lower extremities. NEURO: No focal deficits. Alert and oriented x3. PSYCH: Normal mood and affect. Course Course Emergency Course: Chart review performed. Patient is here for abdominal distention. Discharge summary on 07/03/22 states history of ascites, hepatic cirrhosis. Un
[2023-04-19 16:36] LABS: Basophils Absolute Auto 0.1 K/mm3 (0.0-0.1); Basophils Percent Auto 0.3 % (0.2-1.2); Eosinophils Absolute Auto 0.1 K/mm3 (0-0.3); Eosinophils Percent Auto 0.3 % (0-4.4); Hematocrit 31.1 % (42.0-52.0); Hemoglobin 8.4 g/dL (14.0-18.0); Immature Granulocyte Percent A 0.7 % (0-0.5); Immature Platelet Fraction Pct 1.9 % (0.9-11.2); Lymphocytes Absolute Auto 1.08 K/mm3 (0.9-3.2); Lymphocytes Percent Auto 7.1 % (18.3-44.2); Mean Corpuscular Volume 92.6 fl (80-100); Monocytes Absolute Auto 1.5 K/mm3 (0.1-0.6); Monocytes Percent Auto 9.7 % (2.6-8.5); Neutrophils Absolute Auto 12.4 K/mm3 (1.3-6.7); Neutrophils Percent Auto 81.9 % (45.5-73.1); Platelet Count Result 374 k/mm3 (150-375); Red Blood Count 3.36 M/mm3 (4.6-6.20); Red Cell Distribution Width 29.9 % (11.5-14.5); White Blood Count 15.2 K/mm3 (4.5-10.0)
[2023-04-19 16:43] LABS: Ammonia < 9 umol/L (9-30)
[2023-04-19 16:45] LABS: INR 1.4; Prothrombin Time 18.5 Seconds (11.1-14.7)
[2023-04-19 16:46] LABS: Alanine Aminotransferase 213 U/L (6-50); Albumin Level 4.3 g/dL (3.5-5.1); Alkaline Phosphatase 169 U/L (38-126); Anion Gap 13 mmol/L (8-16); Aspartate Amino Transferase 123 U/L (17-59); Bilirubin,Total 9.4 mg/dL (0.2-1.3); Blood Urea Nitrogen 39 mg/dL (9-20); Calcium 9.2 mg/dL (8.4-10.2); Carbon Dioxide 17 mmol/L (22-30); Chloride 108 mmol/L (98-107); Estimated CRCL calculation 33 ml/min; Estimated Glomerular Filt Rate 32; Glucose 107 mg/dL (65-110); Lipase 55 U/L (23-300); Partial Thromboplastin Time 26.3 SECONDS (22.3-36.8); Potassium 4.2 mmol/L (3.4-5.0); Sodium 138 mmol/L (137-145)
[2023-04-19 16:54] LABS: NT Pro B Type Natriuretic Pept > 30000 pg/mL (19.9-100)
[2023-04-19 17:05] LABS: Platelet Estimate Adequate (Adequate)
[2023-04-19 17:06] LABS: Anisocytosis 3+ (NORMAL); Basophilic Stippling 1+ (NORMAL); Hypochromasia 1+ (NORMAL); Poikilocytosis 2+ (NORMAL)
[2023-04-19 17:07] LABS: Schistocytes None Seen (NORMAL)
[2023-04-19 17:08] LABS: Helmet Cells 2+ (NORMAL)
[2023-04-19] MEDS: PANTOPRAZOLE SODIUM IV 40 MG VIAL 80 MG IV PUSH (17:25)
[2023-04-19 18:51] LABS: Appearance Urine Cloudy (Clear); Bacteria Urine None Seen /hpf; Bilirubin Urine Negative (Negative); Blood Urine 2+ (Negative); Color Urine Dark Yellow (Yellow); Glucose Urine UA Negative (Negative); Ketones Urine Negative (Negative); Leukocyte Esterase Ur Trace LEU/UL (Negative); Nitrate Urine Negative (Negative); Non Pathogenic Casts 0-2; Protein Urine 2+ mg/dL (Negative); Specific Grav Ur 1.014 (1.001-1.035); Squamous Epithelial Cell Urine None seen /hpf (Few); WBC Urine 0-5 /hpf; pH Urine 5.5 (5.0-9.0)
[2023-04-19 18:55] LABS: Need Manual Microscopic Reviewed
[2023-04-19 18:57] LABS: Add Urine Microscopic? YES
[2023-04-19] MEDS: amLODIPine BESYLATE 5 MG TABLET 10 MG PO (19:06)
[2023-04-19] MEDS: LABETALOL HCL INJ 100 MG/20 ML VIAL 10 MG IV PUSH (19:56)
--- NOTE | 2023-04-19 20:08 | PM.IMHP ---
H&P: HPI History of Present Illness Date/Time: 04/19/23 20:08 Chief Complaint: Abdominal distention. Narrative: This is a 62 yo male with PMHx significant for Hepatic Cirrhosis, ETOH dependence, Tobacco dependence, CAD, COPD, HTN. Patient presented to ED due to abdominal distention worsening now for several weeks, has not been able to leave the house much, has been laying in the couch most of the day, feels unsteady on his gait, poor per oral intake due to early satiety,due to worsening swelling, patient denies drinking alcohol lately states that has been sober for over a year, still smokes 2-3 cigarettes daily. Patient denies hematemesis, coffee ground emesis, melena, no n/v, no fevers, rigors or chills. Preliminary work up was significant for CBC showed a Hgb 0f 8 Htc 31, WBC 15,000, a CMP showed AST/ALT/ALK 123/213/169 phos Cl 108, Cr 2.1, BNP 30,000 EXAMINATION: CT abdomen pelvis wo con DATE: 04/19/2023 17:57 INDICATION: abdominal distention TECHNIQUE: Computed tomography (CT) of the abdomen and pelvis was performed without intravenous contrast. Automated exposure control and iterative reconstruction technique were employed. The dose-length product was 638.67 mGy-cm. COMPARISON: 07/02/2022. FINDINGS: Lower thorax: Sternotomy wires. Cardiomegaly. Cardiac valve replacement. Emphysematous change. Bibasilar subsegmental atelectasis/consolidation. Moderate left and small right pleural fluid collections. Liver: Nodular border.? Biliary/Gallbladder: Gallbladder is normal. No bile duct dilation. Pancreas: No mass or duct dilation. Spleen: Normal. Adrenals:No mass. Kidneys: No suspicious mass, obstructing stone, or hydronephrosis. Simple right midpole cyst. GI tract: No small or large bowel dilation. Normal appendix. Mesentery/Peritoneum: Large volume ascites. No mass or free air free air. Retroperitoneum: No mass. Atherosclerotic abdominal aortic and/or arterial calcifications. 4.2 cm fusiform abdominal aortic aneurysm Pelvis: Pelvic organs are within normal limits. Soft Tissues: Body wall edema. Small uncomplicated fat-containing left inguinal hernia. Bones:? No acute osseous finding. Partially visualized right femoral ash. IMPRESSION: Cirrhosis, with large volume ascites, moderate left and mild right pleural effusions, and body wall edema. 4.2 cm infrarenal abdominal aortic aneurysm. [facility] Past Medical History Medical History Alcohol abuse CAD (coronary artery disease) Chronic obstructive pulmonary disease History of fracture Including lower extremity and multiple toes. Hypertension Tobacco dependence Surgical History Surgical History History of coronary artery bypass graft History of toe surgery Family History Family History Father Hypertension Mother Hypertension Social History Social History Social History: The patient lives alone in [place]. He is single. Reports he is disabled, though unsure of any chronic conditions resulting in disability. He has 1 daughter, Andi, and he nominates her to be his surrogate decision maker. He wishes to be a full code.l Smoking packs per day: 1 Smoking cigarettes per day: 20.0 Years smoked: 20 Smoking pack-years: 20.00 Smoking status: Current every day smoker Tobacco type: cigarettes Second hand tobacco smoke exposure: No Alcohol intake: former Drinks per week: 20 Substance use: current Substance use type: marijuana Last use: Patient denies any illicit drug use including IV drugs Lack of Transportation: No Lack of Food: Never True Current Housing: I Have Housing Concerned About Future Housing: No Difficulty Paying Gas/Electric Bills: No Difficulty Paying for Meds: No Currently Unemployed: No Education: Hig
--- NOTE | 2023-04-19 21:42 | PC.NURSE ---
Discussed ongoing HTN issues with Dr. Bey. Dr. Bey decided this patient would best be served in IMU. Order changed in computer.
--- NOTE | 2023-04-19 22:34 | ADMGEN ---
This patient, Osvaldo Marshall, was admitted to IMU Room 213-01 @2230 Patient/family oriented to hospital policies and general routines including ID bracelet, bed and alarms, visiting hours, pain management, procedures, bathroom and other care routines, personal items, smoking policy, room service/diet, and visiting hours. Information on how to activate the Rapid Response Team has been discussed. Patient/Family are encouraged to report perceived risks to care and to ask questions if they do not understand what they are told or what they should do.
[2023-04-20] VITALS (12 sets, daily range): BP systolic 159–188; BP diastolic 87–100; PULSE 73–91; RESP 16–18; TEMP 36.4–36.6; O2SAT 96–100
[2023-04-20] MEDS: ALBUMIN HUMAN 25% 12.5 GM/50ML 50 ML IVPB ×5 (00:42→23:38)
[2023-04-20 00:53] LABS: Albumin Level 3.4 g/dL (3.5-5.1)
[2023-04-20] MEDS: FUROSEMIDE INJ 40 MG/4 ML VIAL IV PUSH ×2 (02:33→11:46)
[2023-04-20 02:54] LABS: Iron 26 ug/dL (49-181)
[2023-04-20 03:05] LABS: Transferrin 203 mg/dL (206-381)
[2023-04-20 03:38] LABS: Percent Iron Saturation 8 % (20-50)
--- NOTE | 2023-04-20 11:03 | WPDGICN ---
Assessment and Plan Assessment and plan (1) Abdominal ascites: Qualifiers: Ascites type: due to alcoholic cirrhosis Qualified Code(s): K70.31 - Alcoholic cirrhosis of liver with ascites Code(s): R18.8 - Other ascites Status: Acute Assessment and Plan: Patient with recurrent abdominal ascites. Patient was admitted with this in June of 2022. Now with recurrent ascites. He also has anasarca. Imaging studies reflect that he has cirrhosis. Most likely on the basis of his history of alcohol abuse. Considering he had rather severe congestive heart failure in 2020 requiring mitral valve repair and now has elevated BNP it may be prudent to evaluate get cardiac evaluation for status of his previous congestive heart failure. In the interim will continue diuretics. Aldactone and Lasix will be started. Sodium restriction is encouraged, and daily weights. Will monitor electrolytes. (2) Decompensated hepatic cirrhosis: Code(s): K72.90 - Hepatic failure, unspecified without coma; K74.60 - Unspecified cirrhosis of liver Status: Acute Assessment and Plan: Patient with cirrhosis of the liver that may be secondary to alcohol use. I cannot exclude congested liver such as cardiac cirrhosis given his initial history of congestive heart failure secondary to mitral regurgitation in 2019. Cardiology consultation will be obtained. (3) Elevated brain natriuretic peptide (BNP) level: Code(s): R79.89 - Other specified abnormal findings of blood chemistry Status: Acute (4) Anasarca: Code(s): R60.1 - Generalized edema Status: Acute (5) Mitral insufficiency: Qualifiers: Cardiac valve disease etiology: etiology unspecified Qualified Code(s): I34.0 - Nonrheumatic mitral (valve) insufficiency Code(s): I34.0 - Nonrheumatic mitral (valve) insufficiency Status: Acute Assessment and Plan: Patient has a history of mitral valve repair in 2020 for severe mitral insufficiency and congestive heart failure at that time. GI Consult Note Consult date/time: 04/20/23 11:03 Reason for consult: Ascites HPI: Osvaldo Marshall is a 62 year old male presents to the emergency room with elevated abdominal distention. Patient has a history of congestive heart failure in 2019. Workup at that time revealed severe mitral regurgitation. Patient ultimately underwent mitral valve repair. Patient was seen in the hospital with ascites in June of 2022. It was felt this was related to alcohol intake. Patient gives a history of alcohol intake since he was in his teens. Patient reports that he discontinued alcohol a year and a half prior to current time. Which was before his admission in June. Patient ultimately was placed on diuretics with Aldactone and continued this for several months until his medication . Patient began to notice increasing abdominal girth and for this reason presented to the emergency room last evening. Patient was noted to have markedly elevated LFTs. Patient also had significant abdominal distention consistent with ascites. Patient has not been drinking for more than a year. He does note associated pedal edema. Laboratory testing also showed the patient had elevated BNP. patient seen this morning after abdominal paracentesis. He feels much easier breathing at present. Patient apparently has not followed up with hepatology as was originally suggested and no indication for recent follow-up with cardiology. Review of Systems Review of Systems: Review of systems noncontributory. [facility] Past Medical History Medical History Alcohol abuse CAD (coronary artery disease) Chronic obstructive pulmonary disease History of fracture Including lower extremity and multiple toes. Hypertension Tobacco dependence Surgical History Surgical History (Reviewed 07/03/22 @ 16:31 by Krunal
--- NOTE | 2023-04-20 11:05 | PM.CNNEP ---
Assessment and Plan Assessment and plan (1) BRANT (acute kidney injury): Code(s): N17.9 - Acute kidney failure, unspecified Status: Acute Assessment and Plan: etiology? suspect due to decompensated liver failure HOWEVER, cannot deny the possibility of kidney disease progression... the possibility of hepatorenal syndrome exists...given favorable response to diuretic therapy, this seems less likely extensive evaluation done on last hospitalization (June 2022) and currently: renal ultrasound unremarkable urine eosinophils negative urine electrolytes prerenal - a manifestation of liver physiology given clear evidence of volume overload on admission CPK low negative serological testing low complements - though to be secondary to liver disease moderate proteinuria (~ 960mg) follow trend of repeat labs and UOP (2) Stage 3a chronic kidney disease: Code(s): N18.31 - Chronic kidney disease, stage 3a Status: Chronic Assessment and Plan: baseline creatinine runs ~ 1.2 - 1.4mg/dl creatinine down to 1.4mg/dl on June 2022 discharge presumably due to hypertension and vascular disease (3) Abdominal ascites: Qualifiers: Ascites type: due to alcoholic cirrhosis Qualified Code(s): K70.31 - Alcoholic cirrhosis of liver with ascites Code(s): R18.8 - Other ascites Status: Acute Assessment and Plan: presumably due to #4 and medication non-compliance resumed on diuretic therapy s/p paracentesis today (04/20/23) low salt diet, daily weights, follow I/Os (4) Cirrhosis: Qualifiers: Ascites presence: with ascites Hepatic cirrhosis type: unspecified hepatic cirrhosis Qualified Code(s): K74.60 - Unspecified cirrhosis of liver; R18.8 - Other ascites Code(s): K74.60 - Unspecified cirrhosis of liver Status: Acute Assessment and Plan: as noted by admission imaging/testing on last hospitalization (Jun 2022) GI recommendations noted diagnostic/therapeutic paracentesis earlier today not sure if any benefit to IV albumin currently (BP already elevated and serum albumin not terrible) continue IV diuretic therapy follow LFTs (5) Hypertension: Code(s): I10 - Essential (primary) hypertension Status: Acute Assessment and Plan: a bit high at this time resume home medications follow trend of hemodynamics I will continue to follow the patient with you while he remains hospitalized and make further recommendations as needed. Thank you for allowing me to participate in the care of this patient. History of Present Illness Reason for Consult Consult date: 04/20/23 Reason for consult: acute renal failure (on chronic kidney disease) Chief Complaint Chief complaint: Liver failure, ascites History of Present Illness Narrative: The patient is a 62-year-old male with a past medical history as outlined below who presented to [facility] Emergency room with complaints of worsening abdominal distention and increasing lower extremity swelling. The patient was recently hospitalized here earlier this year with the same issues which were felt to be related to his underlying liver cirrhosis thought to be secondary to alcohol abuse. During that hospital stay, he was instituted on medical therapy including diuretics with the use of Lasix and spironolactone and his overall clinical symptoms improved by the time of discharge. However, since that time, he has not followed up with his primary care physician or any specialists with regard to this issue. He apparently ran out of his medications about 6 months ago and over the last month, he has noticed worsening abdominal distention and lower extremity edema. He reports that he has difficulty laying flat due to the abdominal distension which causes/worsens his shortness of breath. He also reports on and off nausea but no vomiting and denies any black tarry stoo
--- NOTE | 2023-04-20 11:05 | P.CONNP_ITS ---
Assessment and Plan Assessment and plan (1) BRANT (acute kidney injury): Code(s): N17.9 - Acute kidney failure, unspecified Status: Acute Assessment and Plan: * etiology? * suspect due to decompensated liver failure * HOWEVER, cannot deny the possibility of kidney disease progression... * the possibility of hepatorenal syndrome exists...given favorable response to diuretic therapy, this seems less likely * extensive evaluation done on last hospitalization (June 2022) and currently: * renal ultrasound unremarkable * urine eosinophils negative * urine electrolytes prerenal - a manifestation of liver physiology given clear evidence of volume overload on admission * CPK low * negative serological testing * low complements - though to be secondary to liver disease * moderate proteinuria (~ 960mg) * follow trend of repeat labs and UOP (2) Stage 3a chronic kidney disease: Code(s): N18.31 - Chronic kidney disease, stage 3a Status: Chronic Assessment and Plan: * baseline creatinine runs ~ 1.2 - 1.4mg/dl * creatinine down to 1.4mg/dl on June 2022 discharge * presumably due to hypertension and vascular disease (3) Abdominal ascites: Qualifiers: Ascites type: due to alcoholic cirrhosis Qualified Code(s): K70.31 - Alcoholic cirrhosis of liver with ascites Code(s): R18.8 - Other ascites Status: Acute Assessment and Plan: * presumably due to #4 and medication non-compliance * resumed on diuretic therapy * s/p paracentesis today (04/20/23) * low salt diet, daily weights, follow I/Os (4) Cirrhosis: Qualifiers: Ascites presence: with ascites Hepatic cirrhosis type: unspecified hepatic cirrhosis Qualified Code(s): K74.60 - Unspecified cirrhosis of liver; R18.8 - Other ascites Code(s): K74.60 - Unspecified cirrhosis of liver Status: Acute Assessment and Plan: * as noted by admission imaging/testing on last hospitalization (Jun 2022) * GI recommendations noted * diagnostic/therapeutic paracentesis earlier today * not sure if any benefit to IV albumin currently (BP already elevated and serum albumin not terrible) * continue IV diuretic therapy * follow LFTs (5) Hypertension: Code(s): I10 - Essential (primary) hypertension Status: Acute Assessment and Plan: * a bit high at this time * resume home medications * follow trend of hemodynamics I will continue to follow the patient with you while he remains hospitalized and make further recommendations as needed. Thank you for allowing me to participate in the care of this patient. History of Present Illness Reason for Consult Consult date: 04/20/23 Reason for consult: acute renal failure (on chronic kidney disease) Chief Complaint Chief complaint: Liver failure, ascites History of Present Illness Narrative: The patient is a 62-year-old male with a past medical history as outlined below who presented to [facility] Emergency room with complaints of worsening abdominal distention and increasing lower extremity swelling. The patient was recently hospitalized here earlier this year with the same issues which were felt to be related to his underlying liver cirrhosis thought to be secondary to alcohol abuse. During that hospital stay, he was instituted on medical therapy including diuretics with the use of Lasix and spironolactone and his overall clinical symptoms improved by the time of discharge. However, since that time, he has not followed up with his primary ca
[2023-04-20 11:24] LABS: Alanine Aminotransferase 151 U/L (6-50); Albumin Level 3.7 g/dL (3.5-5.1); Alkaline Phosphatase 135 U/L (38-126); Anion Gap 9 mmol/L (8-16); Aspartate Amino Transferase 64 U/L (17-59); Bilirubin,Total 6.7 mg/dL (0.2-1.3); Blood Urea Nitrogen 35 mg/dL (9-20); Calcium 8.5 mg/dL (8.4-10.2); Carbon Dioxide 23 mmol/L (22-30); Chloride 105 mmol/L (98-107); Estimated CRCL calculation 34 ml/min; Estimated Glomerular Filt Rate 34; Glucose 88 mg/dL (65-110); Sodium 137 mmol/L (137-145)
--- NOTE | 2023-04-20 11:54 | PM.IMPN ---
Progress Note: A&P Assessment and Plan (1) Abdominal ascites: Qualifiers: Ascites type: due to alcoholic cirrhosis Qualified Code(s): K70.31 - Alcoholic cirrhosis of liver with ascites Code(s): R18.8 - Other ascites Status: Acute Assessment and Plan: Admit to IMU US guided paracentesis in am Peritoneal fluid for analysis Albumin infusion Diuresing Monitor I/O's (2) Elevated bilirubin: Code(s): R17 - Unspecified jaundice Status: Acute Assessment and Plan: Likely hepatocellular damage (3) BRANT (acute kidney injury): Code(s): N17.9 - Acute kidney failure, unspecified Status: Acute Assessment and Plan: Likely secondary to hepatorrenal syndrome Renal US in am (4) Decompensated hepatic cirrhosis: Code(s): K72.90 - Hepatic failure, unspecified without coma; K74.60 - Unspecified cirrhosis of liver Status: Acute Assessment and Plan: Needs to be re started on home meds (5) Anasarca: Code(s): R60.1 - Generalized edema Status: Acute Assessment and Plan: Placed on diuresis and fluid restriction. (6) Elevated brain natriuretic peptide (BNP) level: Code(s): R79.89 - Other specified abnormal findings of blood chemistry Status: Acute Assessment and Plan: ECHO in am (7) Alcohol abuse: Code(s): F10.10 - Alcohol abuse, uncomplicated Status: Chronic Assessment and Plan: sober for over a year (8) Tobacco dependence: Code(s): F17.200 - Nicotine dependence, unspecified, uncomplicated Status: Chronic Assessment and Plan: nicotine patch as needed down to 2-3 cigarettes daily Subjective Date/time seen: 04/20/23 11:54 Interval history: no complaints sp paracentesis Exam Narrative: Physical exam reveals patient to be alert. Vital signs stable. HEENT exam reveals mild scleral icterus. Lungs reveal a few rhonchi. Heart without murmur. Abdomen exam reveals modest distention. Bowel sounds are present. No obvious organomegaly. Extremities reveal bilateral pedal edema to above the knees. Objective Data Vital Signs Vital Signs: Vital Signs - 24 hr 04/19/23 16:17 04/19/23 18:10 04/19/23 18:58 Temperature 98.6 F Pulse Rate 106 H 93 92 Respiratory Rate 22 H 22 H 20 Blood Pressure 195/123 H 193/124 H 188/123 H Pulse Oximetry 93 99 96 Oxygen Delivery Room Air 04/19/23 16:16 04/19/23 16:30 04/19/23 16:31 Temperature Pulse Rate 97 98 Respiratory Rate 19 16 23 H Blood Pressure 190/129 H Pulse Oximetry 94 Oxygen Delivery 04/19/23 16:45 04/19/23 16:46 04/19/23 17:00 Temperature Pulse Rate 98 98 95 Respiratory Rate 21 H 20 22 H Blood Pressure 186/127 H Pulse Oximetry 98 100 100 Oxygen Delivery 04/19/23 17:01 04/19/23 17:36 04/19/23 17:37 Temperature Pulse Rate 95 93 92 Respiratory Rate 21 H 19 20 Blood Pressure 181/125 H 186/125 H Pulse Oximetry 98 Oxygen Delivery 04/19/23 18:09 04/19/23 18:10 04/19/23 19:06 Temperature Pulse Rate 94 93 91 Respiratory Rate 22 H 23 H 21 H Blood Pressure 193/124 H Pulse Oximetry 95 98 Oxygen Delivery 04/19/23 19:18 04/19/23 19:30 04/19/23 19:31 Temperature Pulse Rate 94 91 91 Respiratory Rate 18 16 16 Blood Pressure 187/128 H Pulse Oximetry 96 94 95 Oxygen Delivery 04/19/23 19:48 04/19/23 19:59 04/19/23 20:00 Temperature Pulse Rate 90 78 76 Respiratory Rate 19 18 17 Blood Pressure 175/113 H Pulse Oximetry 95 96 94 Oxygen Delivery 04/19/23 20:01 04/19/23 20:11 04/19/23 20:15 Temperature Pulse Rate 72 75 76 Respiratory Rate 18 18 18 Blood Pressure 176/107 H 159/109 H Pulse Oximetry 93 94 95 Oxygen Delivery 04/19/23 20:21 04/19/23 20:30 04/19/23 20:31 Temperature Pulse Rate 76 76 76 Respiratory Rate 17 17 15 Blood Pressure 159/108 H 169/110 H Pulse Oximetry 96 94 97 Oxygen Delivery 1
[2023-04-20] MEDS: hydrALAZINE HCL 50 MG TABLET PO ×2 (12:57→17:25)
[2023-04-20 13:18] LABS: Creatinine Urine 17.8 mg/dL; Total Protein Urine Random 17 mg/dL; Ur Ttl Prot Creatinine Ratio 0.96 mg/mg (0-0.20); Urea Random Urine 167 MG/DL
[2023-04-20 13:19] LABS: Sodium Urine Random 114 meq/L
[2023-04-20 13:23] LABS: Eosinophil Urine None Seen % (None Seen); Urine Eos QC 2nd Tech Confirmed
--- NOTE | 2023-04-20 16:00 | ADMGEN ---
This patient, Osvaldo Marshall, was admitted to 3 [facility] Surg Room 331-01 @ 1600. Patient/family oriented to hospital policies and general routines including ID bracelet, bed and alarms, visiting hours, pain management, procedures, bathroom and other care routines, personal items, smoking policy, room service/diet, and visiting hours. Information on how to activate the Rapid Response Team has been discussed. Patient/Family are encouraged to report perceived risks to care and to ask questions if they do not understand what they are told or what they should do.
--- NOTE | 2023-04-20 16:00 | PC.NURSE ---
This patient, Osvaldo Marshall, was transferred to [331-1 ] on 04/20/23 at 1600. Personal belongings sent with patient. Report given to [ Alesha ORR]. Appropriate documentation sent with patient.
[2023-04-20] MEDS: SPIRONOLACTONE 50 MG TABLET PO (17:25)
[2023-04-20] MEDS: PANTOPRAZOLE 40 MG TABLET PO (20:33)
[2023-04-20] MEDS: METOPROLOL TARTRATE 50 MG TAB PO (20:33)
[2023-04-21] VITALS (11 sets, daily range): BP systolic 120–171; BP diastolic 75–96; PULSE 64–96; RESP 14–18; TEMP 36.4–37.1; O2SAT 96–100
--- NOTE | 2023-04-21 | ECHO_ITS ---
Patient Info Name: Osvaldo Marshall Age: 62 years : 1960 Gender: Male Ht: 69 in Wt: 173 lbs BSA: 1.96 m2 HR: 62 bpm BP: 161 / 80 mmHg Heart Rhythm: Sinus Rhythm Technical Quality: Fair Exam Date: 04/21/2023 11:13 AM Exam Location: [facility] Pulmonary Exam Room: 213 Patient Status: Inpatient Admit Date: 04/19/2023 Staff Ordering Physician: Andreea Bey MD Engine Installer: Fani Cope RDCS Attending Provider: Andreea Bey MD Referring Physician: Maida RAMON; Exam Type: CA echo doppler color flow Study Info Indications - LOWER ETREMITY EDEMA Complete two-dimensional, color flow and Doppler transthoracic echocardiogram is performed. Summary 1. Complete two-dimensional, color flow and Doppler transthoracic echocardiogram is performed. 2. Mild left ventricular hypertrophy with preserved systolic function. 3. Mild left atrial enlargement. 4. Status post mitral valve repair/annuloplasty, trivial residual MR. 5. Sclerotic but not stenotic aortic valve. 6. Mild tricuspid regurgitation. 7. Mild RV enlargement. Left Ventricle Left ventricular chamber dimension is normal. Left ventricular systolic function is normal, estimated at 50-55%. There is moderate concentric increased left ventricular wall thickness. The left ventricular diastolic function is grade II diastolic dysfunction. Right Ventricle Right ventricular chamber dimension is mildly enlarged. Left Atria Left atrial chamber dimension is mildly enlarged. Right Atria Right atrial chamber dimension is mildly enlarged. Aortic Valve The aortic valve is trileaflet. There is mild aortic valve sclerosis. Pulmonic Valve The pulmonic valve is normal. Mitral Valve The annuloplasty ring prosthetic mitral valve leaflefts are Empty. There is trace regurgitation of the annuloplasty ring prosthetic mitral valve. Tricuspid Valve The tricuspid valve leaflets are normal. There is mild to moderate tricuspid valve regurgitation. Pericardium/Pleural The pericardium appears normal. Aorta The aortic root size at the sinus of Valsalva is normal. Left Ventricular Outflow Tract Name Value Normal LVOT 2D LVOT Diameter 2.1 cm LVOT Doppler LVOT Peak Gradient 5 mmHg LVOT Mean Gradient 3 mmHg LVOT VTI 18 cm LVOT VTI/AV VTI Ratio 0.7 LVOT Stroke Volume 65 ml LVOT CO 17.0 l/min LVOT CI 8.6 l/min/m2 Pulmonic Valve Name Value Normal RVOT Doppler RVOT Peak Gradient 1 mmHg PV Doppler PV Peak Gradient 2 mmHg Mitral Valve Name Value Normal ------
[2023-04-21] MEDS: ALBUMIN HUMAN 25% 12.5 GM/50ML 50 ML IVPB ×4 (05:31→23:31)
[2023-04-21 06:27] LABS: Basophils Percent Auto 0.1 % (0.2-1.2); Eosinophils Absolute Auto 0.1 K/mm3 (0-0.3); Eosinophils Percent Auto 1.3 % (0-4.4); Immature Granulocyte Absolute 0.02 K/mm3 (0.00-0.031); Immature Granulocyte Percent A 0.2 % (0-0.5); Lymphocytes Absolute Auto 1.04 K/mm3 (0.9-3.2); Lymphocytes Percent Auto 10.1 % (18.3-44.2); Mean Corpuscular HGB Conc 28.8 g/dl (32-36); Mean Corpuscular Hemoglobin 26.3 pg (26-34); Mean Corpuscular Volume 91.6 fl (80-100); Mean Platelet Volume 8.2 fl (7.4-10.4); Monocytes Absolute Auto 1.1 K/mm3 (0.1-0.6); Monocytes Percent Auto 10.5 % (2.6-8.5); Neutrophils Percent Auto 77.8 % (45.5-73.1); Platelet Count Result 215 k/mm3 (150-375); Red Blood Count 2.62 M/mm3 (4.6-6.20); Red Cell Distribution Width 27.4 % (11.5-14.5); White Blood Count 10.3 K/mm3 (4.5-10.0)
[2023-04-21 06:37] LABS: INR 1.5; Prothrombin Time 18.7 Seconds (11.1-14.7)
[2023-04-21 06:38] LABS: Alanine Aminotransferase 100 U/L (6-50); Albumin Level 3.8 g/dL (3.5-5.1); Alkaline Phosphatase 97 U/L (38-126); Anion Gap 9 mmol/L (8-16); Aspartate Amino Transferase 39 U/L (17-59); Blood Urea Nitrogen 35 mg/dL (9-20); Calcium 8.2 mg/dL (8.4-10.2); Carbon Dioxide 25 mmol/L (22-30); Chloride 105 mmol/L (98-107); Creatine Kinase 47 U/L (55-170); Estimated CRCL calculation 34 ml/min; Estimated Glomerular Filt Rate 34; Glucose 121 mg/dL (65-110); Phosphorus 4.2 mg/dL (2.5-4.5); Potassium 2.9 mmol/L (3.4-5.0); Sodium 139 mmol/L (137-145)
[2023-04-21 07:02] LABS: Bilirubin Indirect 4.2 mg/dL (0-1.1)
[2023-04-21 07:25] LABS: Hemoglobin 6.9 g/dL (14.0-18.0)
[2023-04-21 07:26] LABS: Anisocytosis 2+ (NORMAL); Hypochromasia 1+ (NORMAL); Macrocytosis 1+ (NORMAL); Platelet Estimate Adequate (Adequate)
[2023-04-21 07:27] LABS: Acanthocytes 1+ (NORMAL); Helmet Cells 1+ (NORMAL)
[2023-04-21 07:28] LABS: Schistocytes 1+ (NORMAL)
[2023-04-21] MEDS: FUROSEMIDE 20 MG TABLET PO (08:58)
[2023-04-21] MEDS: SPIRONOLACTONE 50 MG TABLET PO ×2 (08:58→17:25)
[2023-04-21] MEDS: hydrALAZINE HCL 50 MG TABLET PO ×3 (08:58→17:25)
[2023-04-21] MEDS: amLODIPine BESYLATE 5 MG TABLET 10 MG PO (08:58)
[2023-04-21] MEDS: PANTOPRAZOLE 40 MG TABLET PO ×2 (08:59→20:57)
[2023-04-21] MEDS: METOPROLOL TARTRATE 50 MG TAB PO ×2 (08:59→20:57)
[2023-04-21] MEDS: CALCIUM CARBONATE (OSCAL) 500 MG TABLET PO (08:59)
[2023-04-21] MEDS: FOLIC ACID 1 MG TABLET PO (08:59)
[2023-04-21] MEDS: THIAMINE HCL 100 MG TABLET PO (08:59)
[2023-04-21] MEDS: ASPIRIN 81 MG ENTERIC TABLET PO (08:59)
--- NOTE | 2023-04-21 10:41 | P.PNNP_ITS ---
Progress Note: A&P Assessment and Plan (1) BRANT (acute kidney injury): Code(s): N17.9 - Acute kidney failure, unspecified Status: Acute Assessment and Plan: * relatively stable creatinine * suspect due to decompensated liver failure * HOWEVER, cannot deny the possibility of kidney disease progression... * the possibility of hepatorenal syndrome exists...given favorable response to diuretic therapy, this seems less likely * extensive evaluation done on last hospitalization (June 2022) and currently: * renal ultrasound unremarkable * urine eosinophils negative * urine electrolytes prerenal - a manifestation of liver physiology given clear evidence of volume overload on admission * CPK low * negative serological testing * low complements - though to be secondary to liver disease * moderate proteinuria (~ 960mg) * follow trend of repeat labs and UOP (2) Stage 3a chronic kidney disease: Code(s): N18.31 - Chronic kidney disease, stage 3a Status: Chronic Assessment and Plan: * baseline creatinine runs ~ 1.2 - 1.4mg/dl * creatinine down to 1.4mg/dl on June 2022 discharge * presumably due to hypertension and vascular disease * possible new baseline(?) (3) Abdominal ascites: Qualifiers: Ascites type: due to alcoholic cirrhosis Qualified Code(s): K70.31 - Alcoholic cirrhosis of liver with ascites Code(s): R18.8 - Other ascites Status: Acute Assessment and Plan: * presumably due to #4 and medication non-compliance * resumed on diuretic therapy * s/p paracentesis (on 04/20/23) * low salt diet, daily weights, follow I/Os (4) Cirrhosis: Qualifiers: Ascites presence: with ascites Hepatic cirrhosis type: unspecified hepatic cirrhosis Qualified Code(s): K74.60 - Unspecified cirrhosis of liver; R18.8 - Other ascites Code(s): K74.60 - Unspecified cirrhosis of liver Status: Acute Assessment and Plan: * as noted by admission imaging/testing on last hospitalization (Jun 2022) * GI recommendations noted * diagnostic/therapeutic paracentesis earlier today * not sure if any benefit to IV albumin currently (BP already elevated and serum albumin not terrible) * continue diuretic therapy (lasix and spironolactone) * follow LFTs (5) Anemia: Code(s): D64.9 - Anemia, unspecified Status: Acute Assessment and Plan: * drop in H/H noted * PRBC transfusion per protocol * related to CKD versus liver disease versus both? * follow trend of H/H (6) Hypertension: Code(s): I10 - Essential (primary) hypertension Status: Acute Assessment and Plan: * doing better * resume home medications * follow trend of hemodynamics Will continue to follow. Subjective Date/time seen: 04/21/23 10:41 Interval history: Follow-up for acute kidney injury/acute renal failure on chronic kidney disease. Seems to be doing doing better in general -- less abdominal distension since paracentesis and some improvement in lower extremity edema with diuretic therapy; low H/H by AM labs so PRBC transfusion planned. Exam Narrative: General: chronically ill-appearing male in NAD Heart: normal S1 and S2; no rub Lungs: decreased at bases with a few bibasilar crackles Abdomen: soft, mild distension, positive bowel sounds Extremities: no cyanosis or clubbing; 2+ edema Skin: jaundice noted Objective Data Vital Signs Vital Signs:
--- NOTE | 2023-04-21 10:41 | PM.PNNEP ---
Progress Note: A&P Assessment and Plan (1) BRANT (acute kidney injury): Code(s): N17.9 - Acute kidney failure, unspecified Status: Acute Assessment and Plan: relatively stable creatinine suspect due to decompensated liver failure HOWEVER, cannot deny the possibility of kidney disease progression... the possibility of hepatorenal syndrome exists...given favorable response to diuretic therapy, this seems less likely extensive evaluation done on last hospitalization (June 2022) and currently: renal ultrasound unremarkable urine eosinophils negative urine electrolytes prerenal - a manifestation of liver physiology given clear evidence of volume overload on admission CPK low negative serological testing low complements - though to be secondary to liver disease moderate proteinuria (~ 960mg) follow trend of repeat labs and UOP (2) Stage 3a chronic kidney disease: Code(s): N18.31 - Chronic kidney disease, stage 3a Status: Chronic Assessment and Plan: baseline creatinine runs ~ 1.2 - 1.4mg/dl creatinine down to 1.4mg/dl on June 2022 discharge presumably due to hypertension and vascular disease possible new baseline(?) (3) Abdominal ascites: Qualifiers: Ascites type: due to alcoholic cirrhosis Qualified Code(s): K70.31 - Alcoholic cirrhosis of liver with ascites Code(s): R18.8 - Other ascites Status: Acute Assessment and Plan: presumably due to #4 and medication non-compliance resumed on diuretic therapy s/p paracentesis (on 04/20/23) low salt diet, daily weights, follow I/Os (4) Cirrhosis: Qualifiers: Ascites presence: with ascites Hepatic cirrhosis type: unspecified hepatic cirrhosis Qualified Code(s): K74.60 - Unspecified cirrhosis of liver; R18.8 - Other ascites Code(s): K74.60 - Unspecified cirrhosis of liver Status: Acute Assessment and Plan: as noted by admission imaging/testing on last hospitalization (Jun 2022) GI recommendations noted diagnostic/therapeutic paracentesis earlier today not sure if any benefit to IV albumin currently (BP already elevated and serum albumin not terrible) continue diuretic therapy (lasix and spironolactone) follow LFTs (5) Anemia: Code(s): D64.9 - Anemia, unspecified Status: Acute Assessment and Plan: drop in H/H noted PRBC transfusion per protocol related to CKD versus liver disease versus both? follow trend of H/H (6) Hypertension: Code(s): I10 - Essential (primary) hypertension Status: Acute Assessment and Plan: doing better resume home medications follow trend of hemodynamics Will continue to follow. Subjective Date/time seen: 04/21/23 10:41 Interval history: Follow-up for acute kidney injury/acute renal failure on chronic kidney disease. Seems to be doing doing better in general -- less abdominal distension since paracentesis and some improvement in lower extremity edema with diuretic therapy; low H/H by AM labs so PRBC transfusion planned. Exam Narrative: General: chronically ill-appearing male in NAD Heart: normal S1 and S2; no rub Lungs: decreased at bases with a few bibasilar crackles Abdomen: soft, mild distension, positive bowel sounds Extremities: no cyanosis or clubbing; 2+ edema Skin: jaundice noted Objective Data Vital Signs Vital Signs: Vital Signs Temp Pulse Resp BP Pulse Ox O2 Del Method 04/21/23 08:59 90 04/21/23 06:00 98.8 F 93 16 161/80 H 100 04/21/23 00:00 98 F 91 18 171/96 H 96 04/20/23 20:33 91 04/20/23 16:00 Room Air 04/20/23 17:46 97.5 F L 83 16 159/87 H 97 04/20/23 12:00 84 04/20/23 12:00 98 F 81 18 172/100 H 100 Intake/Output Intake/Output: Intake & Output 04/18/23 04/19/23 04/20/23 04/21/23 23:59 23:59 23:59 23:59 Intake Total 50 1396 726 Output Total 76
--- NOTE | 2023-04-21 10:57 | PM.IMPN ---
Progress Note: A&P Assessment and Plan (1) Abdominal ascites: Qualifiers: Ascites type: due to alcoholic cirrhosis Qualified Code(s): K70.31 - Alcoholic cirrhosis of liver with ascites Code(s): R18.8 - Other ascites Status: Acute Assessment and Plan: Status post paracentesis. Continue diuresis. Likely discharge tomorrow (2) Elevated bilirubin: Code(s): R17 - Unspecified jaundice Status: Acute Assessment and Plan: Likely hepatocellular damage (3) BRANT (acute kidney injury): Code(s): N17.9 - Acute kidney failure, unspecified Status: Acute Assessment and Plan: Likely secondary to hepatorrenal syndrome Renal US in am (4) Decompensated hepatic cirrhosis: Code(s): K72.90 - Hepatic failure, unspecified without coma; K74.60 - Unspecified cirrhosis of liver Status: Acute Assessment and Plan: Needs to be re started on home meds (5) Anasarca: Code(s): R60.1 - Generalized edema Status: Acute Assessment and Plan: Placed on diuresis and fluid restriction. (6) Elevated brain natriuretic peptide (BNP) level: Code(s): R79.89 - Other specified abnormal findings of blood chemistry Status: Acute Assessment and Plan: ECHO in am (7) Alcohol abuse: Code(s): F10.10 - Alcohol abuse, uncomplicated Status: Chronic Assessment and Plan: sober for over a year (8) Tobacco dependence: Code(s): F17.200 - Nicotine dependence, unspecified, uncomplicated Status: Chronic Assessment and Plan: nicotine patch as needed down to 2-3 cigarettes daily Subjective Date/time seen: 04/21/23 10:57 Interval history: Ascites is much improved. No new complaints Exam Narrative: Physical exam reveals patient to be alert. Vital signs stable. HEENT exam reveals mild scleral icterus. Lungs reveal a few rhonchi. Heart without murmur. Abdomen exam reveals modest distention. Bowel sounds are present. No obvious organomegaly. Extremities reveal bilateral pedal edema to above the knees. Objective Data Vital Signs Vital Signs: Vital Signs - 24 hr 04/20/23 12:00 04/20/23 12:00 04/20/23 17:46 Temperature 98 F 97.5 F L Pulse Rate 81 84 83 Respiratory Rate 18 16 Blood Pressure 172/100 H 159/87 H Pulse Oximetry 100 97 Oxygen Delivery 04/20/23 16:00 04/20/23 20:33 04/21/23 00:00 Temperature 98 F Pulse Rate 91 91 Respiratory Rate 18 Blood Pressure 171/96 H Pulse Oximetry 96 Oxygen Delivery Room Air 04/21/23 06:00 04/21/23 08:59 Temperature 98.8 F Pulse Rate 93 90 Respiratory Rate 16 Blood Pressure 161/80 H Pulse Oximetry 100 Oxygen Delivery Intake/Output Intake/Output: Intake & Output 04/18/23 04/19/23 04/20/23 04/21/23 23:59 23:59 23:59 23:59 Intake Total 50 1396 726 Output Total 7638 2940 Balance 84 -9397 -591 Meds/Results Medications: Active Medications Generic Name Dose Route Start Last Admin Trade Name Freq PRN Reason Stop Dose Admin Amlodipine Besylate 10 mg 04/21/23 09:00 04/21/23 08:58 Amlodipine Besylate 5 Mg Tablet PO 10 mg DAILY HUGH Administration Aspirin 81 mg 04/21/23 09:00 04/21/23 08:59 Aspirin 81 Mg Enteric Tablet PO 81 mg QAM HUGH Administration Calcium Carbonate 500 mg 04/21/23 09:00 04/21/23 08:59 Calcium Carbonate (Oscal) 500 Mg Tablet PO 500 mg DAILY HUGH Administration Folic Acid 1 mg 04/21/23 09:00 04/21/23 08:59 Folic Acid 1 Mg Tablet PO 1 mg DAILY HUGH Administration Furosemide 20 mg 04/21/23 09:00 04/21/23 08:58 Furosemide 20 Mg Tablet PO 20 mg DAILY HUGH Administration Hydralazine HCl 50 mg 04/20/23 13:00 04/21/23 08:58 Hydralazine Hcl 50 Mg Tablet PO 50 mg TID HUGH Administration Albumin Human 50 mls @ 50 mls/hr 04/20/23 00:00 04/21/23 06:31 Albutein IVPB Infused Q6HR HUGH Infusion Sodium Chloride 250 m
--- NOTE | 2023-04-21 12:50 | PM.CNCAR ---
Assessment and Plan Assessment and plan (1) Mitral insufficiency: Qualifiers: Cardiac valve disease etiology: etiology unspecified Qualified Code(s): I34.0 - Nonrheumatic mitral (valve) insufficiency Code(s): I34.0 - Nonrheumatic mitral (valve) insufficiency Status: Acute Plan this is a 62-year-old man with cardiac history significant for mitral valve regurgitation with disruption of his P2 segment of the posterior leaflet several years ago this was repaired with effective mitral valve surgery. he has been noncompliant with follow-up in the office it has been several years since I have seen this gentleman. On examination he still has some residual mitral regurgitation which is not uncommon following this type of mitral valve surgery. An echocardiogram needs to be done to I this. It is most likely that his ascites and edema is related to his alcoholic liver disease since he really is not having any symptoms of left-sided heart failure. I will review the echocardiogram after takes place and leave further appropriate recommendations at this time he of course needs to be restarted on diuretics since he had a much better volume status when he was taking his medication and was compliant with it. He says that he has been abstinent of alcohol for about a year to year and a half. Kin Regan MD [facility] History of Present Illness History of Present Illness Consult date/time: 04/21/23 12:50 Reason For Visit: Liver failure, ascites Narrative: This is a 62-year-old man I am seeing him this morning at the request of the hospitalist because he has a history of mitral valve disease and is in the hospital with increasing problematic ascites and lower extremity edema he also has a history of alcoholism and apparent history of alcoholic liver disease. This is a gentleman that I saw in consultation several years ago at this hospital with significant shortness of breath. He was found to have severe mitral regurgitation due to a partially flail posterior leaflet. He had some disruption of the P2 segment and some flail chordal elements. His evaluation showed that he moderate secondary pulmonary hypertension because of this and he did not have any coronary disease. He was referred to thoracic surgery he was treated at [facility] with a triangular resection of the P2 segment mitral valve annular ring. He did very well following this I saw him several months after surgery in the office for a follow-up appointment, recommended seeing him in about 3 month intervals but never saw him again since then. He unfortunately is a history of alcoholism and he continued to drink heavily for a while following surgery. He has been admitted here couple of times with abdominal ascites lower extremity edema that has been attributed liver disease. Because of his history of mitral valve disease and previous mitral valve repair we have been asked to see him again in consultation. He has telemetry that was in recorded in the hospital it demonstrates him to be in sinus rhythm. He does not have any complaints of shortness of breath chest pain orthopnea or PND. He underwent a paracentesis during this hospitalization he says he feels better following that. Previous admission for /ascites was in June of this year he was discharged with diuretics and spironolactone. It is not compliant with the medication and was not taking his medication for a number of months Prior to this admission. Review of Systems Constitutional: Constitutional: Reports lethargy Eyes: Eyes: Reports no additional eye complaints ENT: Reports system reviewed and no additional complaints, except as documented Cardiovascular: Cardiovascular: Reports no additional cardiovascular complaints Respiratory: Respiratory: Reports dyspnea on exertion Gastrointestinal: Gastrointestinal: Reports as per HPI and Reports bloating Genitourinary: Genitourinary: Reports no additional ma
[2023-04-21] MEDS: TUBING, BLOOD PLUM PUMP TUBING 1 EACH XX (14:05)
[2023-04-21] MEDS: SODIUM CHLORIDE 0.9% IV 250 ML 30 ML IV CONT (14:05)
--- NOTE | 2023-04-21 14:23 | WPDGIPROGNO ---
Progress Note: A&P Assessment and Plan (1) Decompensated hepatic cirrhosis: Code(s): K72.90 - Hepatic failure, unspecified without coma; K74.60 - Unspecified cirrhosis of liver Status: Acute Assessment and Plan: Patient with alcoholic liver disease. Appears to have underlying cirrhosis. Now with increasing ascites likely secondary to uncompensated therapy. Increase the diuretics will help both his ascites and his history of congestive heart failure. (2) Abdominal ascites: Qualifiers: Ascites type: due to alcoholic cirrhosis Qualified Code(s): K70.31 - Alcoholic cirrhosis of liver with ascites Code(s): R18.8 - Other ascites Status: Acute Assessment and Plan: Patient now on low-salt diet. Diuretic is implemented. He will need monitoring of electrolytes, daily weights. Continue monitoring after discharge with primary care service and intermittent follow-up in the GI office anticipated. Patient likely would benefit from follow-up at hepatology service in [place]. When previously seen at our hospital in June it was anticipated he would eventually be followed up with hepatology in [facility] of the [facility] in [place]. (3) Elevated brain natriuretic peptide (BNP) level: Code(s): R79.89 - Other specified abnormal findings of blood chemistry Status: Acute Assessment and Plan: Elevated BNP likely related to his cirrhosis. Appreciate cardiology evaluation with his known history of mitral valve repair and history of significant congestive heart failure. (4) Mitral insufficiency: Qualifiers: Cardiac valve disease etiology: etiology unspecified Qualified Code(s): I34.0 - Nonrheumatic mitral (valve) insufficiency Code(s): I34.0 - Nonrheumatic mitral (valve) insufficiency Status: Acute Subjective Date/time seen: 04/21/23 14:23 Interval history: Patient alert more comfortable today. Denies any obvious blood loss. Hemoglobin declined to bed overnight. Patient tolerating low-salt diet at present. Abdominal girth less after paracentesis. Patient feels more comfortable. Review of Systems Review of Systems: Review of systems noncontributory. Exam Narrative: Physical exam reveals patient to be alert. Vital signs stable. HEENT exam is unremarkable. Patient anicteric. Lungs are clear. Heart without murmur. Abdomen bowel sounds present soft nontender mild distention noted. Objective Data Vital Signs Vital Signs: Vital Signs - 24 hr 04/20/23 17:46 04/20/23 16:00 04/20/23 20:33 Temperature 97.5 F L Pulse Rate 83 91 Respiratory Rate 16 Blood Pressure 159/87 H Pulse Oximetry 97 Oxygen Delivery Room Air 04/21/23 00:00 04/21/23 06:00 04/21/23 08:59 Temperature 98 F 98.8 F Pulse Rate 91 93 90 Respiratory Rate 18 16 Blood Pressure 171/96 H 161/80 H Pulse Oximetry 96 100 Oxygen Delivery 04/21/23 08:00 04/21/23 14:05 Temperature 97.5 F L Pulse Rate 80 Respiratory Rate 14 Blood Pressure 120/81 Pulse Oximetry 96 Oxygen Delivery Room Air Intake/Output Intake/Output: Intake & Output 04/18/23 04/19/23 04/20/23 04/21/23 23:59 23:59 23:59 23:59 Intake Total 50 1396 776 Output Total 7638 1150 Balance 50 -6229 -374 Meds/Results Medications: Active Medications Generic Name Dose Route Start Last Admin Trade Name Freq PRN Reason Stop Dose Admin Amlodipine Besylate 10 mg 04/21/23 09:00 04/21/23 08:58 Amlodipine Besylate 5 Mg Tablet PO 10 mg DAILY HUGH Administration Aspirin 81 mg 04/21/23 09:00 04/21/23 08:59 Aspirin 81 Mg Enteric Tablet PO 81 mg QAM HUGH Administration Calcium Carbonate 500 mg 04/21/23 09:00 04/21/23 08:59 Calcium Carbonate (Oscal) 500 Mg Tablet PO 500 mg DAILY HUGH Administration Folic Acid 1 mg 04/21/23 09:00 04/21/23 08:59 Folic Acid 1 Mg Tablet PO 1 mg DAILY HUGH Administration Furosemide 20
[2023-04-21 18:54] LABS: Hematocrit 26.7 % (42.0-52.0); Hemoglobin 7.6 g/dL (14.0-18.0); Mean Corpuscular HGB Conc 28.5 g/dl (32-36); Mean Corpuscular Hemoglobin 26.1 pg (26-34); Mean Corpuscular Volume 91.8 fl (80-100); Mean Platelet Volume 8.9 fl (7.4-10.4); Platelet Count Result 220 k/mm3 (150-375); Red Blood Count 2.91 M/mm3 (4.6-6.20); Red Cell Distribution Width 25.5 % (11.5-14.5); White Blood Count 10.1 K/mm3 (4.5-10.0)
[2023-04-22] MEDS: ALBUMIN HUMAN 25% 12.5 GM/50ML 50 ML IVPB (05:16)
[2023-04-22 06:00] VITALS: BP 140/86; PULSE 69; RESP 20; TEMP 35.7; O2SAT 96
[2023-04-22 06:58] LABS: Basophils Percent Auto 0.2 % (0.2-1.2); Eosinophils Absolute Auto 0.2 K/mm3 (0-0.3); Eosinophils Percent Auto 1.9 % (0-4.4); Hemoglobin 7.8 g/dL (14.0-18.0); Immature Granulocyte Absolute 0.04 K/mm3 (0.00-0.031); Immature Granulocyte Percent A 0.4 % (0-0.5); Mean Corpuscular HGB Conc 28.9 g/dl (32-36); Mean Corpuscular Hemoglobin 26.2 pg (26-34); Mean Corpuscular Volume 90.6 fl (80-100); Mean Platelet Volume 9.6 fl (7.4-10.4); Monocytes Absolute Auto 1.2 K/mm3 (0.1-0.6); Monocytes Percent Auto 11.7 % (2.6-8.5); Neutrophils Absolute Auto 7.4 K/mm3 (1.3-6.7); Neutrophils Percent Auto 73.8 % (45.5-73.1); Platelet Count Result 243 k/mm3 (150-375); Red Blood Count 2.98 M/mm3 (4.6-6.20); Red Cell Distribution Width 25.2 % (11.5-14.5)
[2023-04-22 07:06] LABS: Alanine Aminotransferase 73 U/L (6-50); Albumin Level 3.8 g/dL (3.5-5.1); Alkaline Phosphatase 86 U/L (38-126); Anion Gap 8 mmol/L (8-16); Aspartate Amino Transferase 26 U/L (17-59); Bilirubin,Total 3.5 mg/dL (0.2-1.3); Blood Urea Nitrogen 41 mg/dL (9-20); Carbon Dioxide 26 mmol/L (22-30); Chloride 105 mmol/L (98-107); Estimated CRCL calculation 33 ml/min; Estimated Glomerular Filt Rate 32; Glucose 95 mg/dL (65-110); Phosphorus 4.3 mg/dL (2.5-4.5); Potassium 3.4 mmol/L (3.4-5.0); Sodium 139 mmol/L (137-145)
[2023-04-22 08:04] LABS: Hypochromasia 1+ (NORMAL); Platelet Estimate Adequate (Adequate)
[2023-04-22 08:05] LABS: Anisocytosis 2+ (NORMAL)
[2023-04-22 08:06] LABS: Macrocytosis 1+ (NORMAL)
[2023-04-22 08:08] VITALS: PULSE 76
[2023-04-22 08:08] LABS: Schistocytes 2+ (NORMAL)
[2023-04-22] MEDS: amLODIPine BESYLATE 5 MG TABLET 10 MG PO (08:08)
[2023-04-22] MEDS: hydrALAZINE HCL 50 MG TABLET PO (08:08)
[2023-04-22] MEDS: THIAMINE HCL 100 MG TABLET PO (08:08)
[2023-04-22] MEDS: FUROSEMIDE 20 MG TABLET PO (08:08)
[2023-04-22] MEDS: METOPROLOL TARTRATE 50 MG TAB PO (08:08)
[2023-04-22] MEDS: ASPIRIN 81 MG ENTERIC TABLET PO (08:08)
[2023-04-22] MEDS: CALCIUM CARBONATE (OSCAL) 500 MG TABLET PO (08:08)
[2023-04-22] MEDS: PANTOPRAZOLE 40 MG TABLET PO (08:08)
[2023-04-22] MEDS: SPIRONOLACTONE 50 MG TABLET PO (08:08)
[2023-04-22] MEDS: FOLIC ACID 1 MG TABLET PO (08:08)
[2023-04-22 08:10] LABS: Helmet Cells 1+ (NORMAL)
[2023-04-22] MEDS: DICYCLOMINE HCL 10 MG CAPSULE 20 MG PO (09:47)
--- NOTE | 2023-04-22 10:48 | PM.PNNEP ---
Progress Note: A&P Assessment and Plan (1) BRANT (acute kidney injury): Code(s): N17.9 - Acute kidney failure, unspecified Status: Acute Assessment and Plan: relatively stable creatinine suspect due to decompensated liver failure HOWEVER, cannot deny the possibility of kidney disease progression... the possibility of hepatorenal syndrome exists...given favorable response to diuretic therapy, this seems less likely extensive evaluation done on last hospitalization (June 2022) and currently: renal ultrasound unremarkable urine eosinophils negative urine electrolytes prerenal - a manifestation of liver physiology given clear evidence of volume overload on admission CPK low negative serological testing low complements - though to be secondary to liver disease moderate proteinuria (~ 960mg) follow trend of repeat labs and UOP (2) Stage 3a chronic kidney disease: Code(s): N18.31 - Chronic kidney disease, stage 3a Status: Chronic Assessment and Plan: baseline creatinine runs ~ 1.2 - 1.4mg/dl creatinine down to 1.4mg/dl on June 2022 discharge presumably due to hypertension and vascular disease possible new baseline(?) (3) Abdominal ascites: Qualifiers: Ascites type: due to alcoholic cirrhosis Qualified Code(s): K70.31 - Alcoholic cirrhosis of liver with ascites Code(s): R18.8 - Other ascites Status: Acute Assessment and Plan: presumably due to #4 and medication non-compliance resumed on diuretic therapy s/p paracentesis (on 04/20/23) low salt diet, daily weights, follow I/Os (4) Cirrhosis: Qualifiers: Ascites presence: with ascites Hepatic cirrhosis type: unspecified hepatic cirrhosis Qualified Code(s): K74.60 - Unspecified cirrhosis of liver; R18.8 - Other ascites Code(s): K74.60 - Unspecified cirrhosis of liver Status: Acute Assessment and Plan: as noted by admission imaging/testing on last hospitalization (Jun 2022) GI recommendations noted diagnostic/therapeutic paracentesis earlier today not sure if any benefit to IV albumin currently (BP already elevated and serum albumin not terrible) continue diuretic therapy (lasix and spironolactone) follow LFTs (5) Anemia: Code(s): D64.9 - Anemia, unspecified Status: Acute Assessment and Plan: drop in H/H noted PRBC transfusion per protocol related to CKD versus liver disease versus both? follow trend of H/H (6) Hypertension: Code(s): I10 - Essential (primary) hypertension Status: Acute Assessment and Plan: doing better resume home medications follow trend of hemodynamics Will continue to follow. Subjective Date/time seen: 04/22/23 10:48 Interval history: Follow-up for acute kidney injury/acute renal failure on chronic kidney disease. Overall, he seems to be doing reasonably well; swelling/edema as well as abdominal distension appear to be slowly improving; renal function/creatinine remains stable in spite of ongoing diuresis; no other issues/events overnight or earlier this morning. Exam Narrative: General: chronically ill-appearing male in NAD Heart: normal S1 and S2; no rub Lungs: decreased at bases with a few bibasilar crackles Abdomen: soft, mild distension, positive bowel sounds Extremities: no cyanosis or clubbing; 1 - 2+ edema Skin: jaundice present Objective Data Vital Signs Vital Signs: Vital Signs Temp Pulse Resp BP Pulse Ox O2 Del Method 04/22/23 08:00 Room Air 04/22/23 08:08 76 04/22/23 06:00 96.3 F L 69 20 140/86 96 04/21/23 22:00 97.7 F 68 18 135/75 97 04/21/23 20:00 Room Air 04/21/23 20:57 72 04/21/23 17:17 97.8 F 80 16 125/79 96 04/21/23 16:24 97.5 F L 96 14 125/80 97 04/21/23 15:24 97.7 F 80 16 120/80 97 04/21/23 14:00 97.5 F L 64 14 120/84 96 04/21/23 14:
--- NOTE | 2023-04-22 10:48 | P.PNNP_ITS ---
Progress Note: A&P Assessment and Plan (1) BRANT (acute kidney injury): Code(s): N17.9 - Acute kidney failure, unspecified Status: Acute Assessment and Plan: * relatively stable creatinine * suspect due to decompensated liver failure * HOWEVER, cannot deny the possibility of kidney disease progression... * the possibility of hepatorenal syndrome exists...given favorable response to diuretic therapy, this seems less likely * extensive evaluation done on last hospitalization (June 2022) and currently: * renal ultrasound unremarkable * urine eosinophils negative * urine electrolytes prerenal - a manifestation of liver physiology given clear evidence of volume overload on admission * CPK low * negative serological testing * low complements - though to be secondary to liver disease * moderate proteinuria (~ 960mg) * follow trend of repeat labs and UOP (2) Stage 3a chronic kidney disease: Code(s): N18.31 - Chronic kidney disease, stage 3a Status: Chronic Assessment and Plan: * baseline creatinine runs ~ 1.2 - 1.4mg/dl * creatinine down to 1.4mg/dl on June 2022 discharge * presumably due to hypertension and vascular disease * possible new baseline(?) (3) Abdominal ascites: Qualifiers: Ascites type: due to alcoholic cirrhosis Qualified Code(s): K70.31 - Alcoholic cirrhosis of liver with ascites Code(s): R18.8 - Other ascites Status: Acute Assessment and Plan: * presumably due to #4 and medication non-compliance * resumed on diuretic therapy * s/p paracentesis (on 04/20/23) * low salt diet, daily weights, follow I/Os (4) Cirrhosis: Qualifiers: Ascites presence: with ascites Hepatic cirrhosis type: unspecified hepatic cirrhosis Qualified Code(s): K74.60 - Unspecified cirrhosis of liver; R18.8 - Other ascites Code(s): K74.60 - Unspecified cirrhosis of liver Status: Acute Assessment and Plan: * as noted by admission imaging/testing on last hospitalization (Jun 2022) * GI recommendations noted * diagnostic/therapeutic paracentesis earlier today * not sure if any benefit to IV albumin currently (BP already elevated and serum albumin not terrible) * continue diuretic therapy (lasix and spironolactone) * follow LFTs (5) Anemia: Code(s): D64.9 - Anemia, unspecified Status: Acute Assessment and Plan: * drop in H/H noted * PRBC transfusion per protocol * related to CKD versus liver disease versus both? * follow trend of H/H (6) Hypertension: Code(s): I10 - Essential (primary) hypertension Status: Acute Assessment and Plan: * doing better * resume home medications * follow trend of hemodynamics Will continue to follow. Subjective Date/time seen: 04/22/23 10:48 Interval history: Follow-up for acute kidney injury/acute renal failure on chronic kidney disease. Overall, he seems to be doing reasonably well; swelling/edema as well as abdominal distension appear to be slowly improving; renal function/creatinine remains stable in spite of ongoing diuresis; no other issues/events overnight or earlier this morning. Exam Narrative: General: chronically ill-appearing male in NAD Heart: normal S1 and S2; no rub Lungs: decreased at bases with a few bibasilar crackles Abdomen: soft, mild distension, positive bowel sounds Extremities: no cyanosis or clubbing; 1 - 2+ edema Skin: jaundice present Object
--- NOTE | 2023-04-22 13:07 | PM.DS ---
DS: Admitting Diagnosis Discharge Date April 22, 2023 Admitting Diagnosis Ascites DS: Discharge Diagnosis Discharge Diagnosis (1) Abdominal ascites: Qualifiers: Ascites type: due to alcoholic cirrhosis Qualified Code(s): K70.31 - Alcoholic cirrhosis of liver with ascites Code(s): R18.8 - Other ascites Status: Acute Assessment and Plan: Status post paracentesis. Continue diuresis. Likely discharge tomorrow (2) Elevated bilirubin: Code(s): R17 - Unspecified jaundice Status: Acute Assessment and Plan: Likely hepatocellular damage (3) BRANT (acute kidney injury): Code(s): N17.9 - Acute kidney failure, unspecified Status: Acute Assessment and Plan: Likely secondary to hepatorrenal syndrome Renal US in am (4) Decompensated hepatic cirrhosis: Code(s): K72.90 - Hepatic failure, unspecified without coma; K74.60 - Unspecified cirrhosis of liver Status: Acute Assessment and Plan: Needs to be re started on home meds (5) Anasarca: Code(s): R60.1 - Generalized edema Status: Acute Assessment and Plan: Placed on diuresis and fluid restriction. (6) Elevated brain natriuretic peptide (BNP) level: Code(s): R79.89 - Other specified abnormal findings of blood chemistry Status: Acute Assessment and Plan: ECHO in am (7) Alcohol abuse: Code(s): F10.10 - Alcohol abuse, uncomplicated Status: Chronic Assessment and Plan: sober for over a year (8) Tobacco dependence: Code(s): F17.200 - Nicotine dependence, unspecified, uncomplicated Status: Chronic Assessment and Plan: nicotine patch as needed down to 2-3 cigarettes daily DS: Summary Hospital Course Hospital Course: 62-year-old male came in ascites underwent therapeutic paracentesis. Workup was negative. Diuretics increased prior to discharge. Will need to follow up with GI in [place] and also here. Otherwise he needs follow-up with primary care physician. Time Spent with Patient Time attestation: Total time spent providing and/or coordinating discharge services: Exam Narrative: Physical exam reveals patient to be alert. Vital signs stable. HEENT exam reveals mild scleral icterus. Lungs reveal a few rhonchi. Heart without murmur. Abdomen exam reveals modest distention. Bowel sounds are present. No obvious organomegaly. Extremities reveal bilateral pedal edema to above the knees. DS: Data Data Completed and Pending Labs on day of discharge: Labs from last 24 hours 04/22/23 04/21/23 04/19/23 06:38 18:40 16:27 WBC 10.0 10.1 H RBC 2.98 L 2.91 L Hgb 7.8 L 7.6 L Hct 27.0 L 26.7 L MCV 90.6 91.8 MCH 26.2 26.1 MCHC 28.9 L 28.5 L RDW 25.2 H 25.5 H Plt Count 243 220 MPV 9.6 8.9 Immature Gran % (Auto) 0.4 Neut % (Auto) 73.8 H Lymph % (Auto) 12.0 L [place] % (Auto) 11.7 H Eos % (Auto) 1.9 Baso % (Auto) 0.2 Lymph # (Auto) 1.20 [place] # (Auto) 1.2 H Eos # (Auto) 0.2 Baso # (Auto) 0.0 Abs Immat Gran (auto) 0.04 H Absolute Neuts (auto) 7.4 H Absolute Nucleated RBC 0.0 Nucleated RBC % 0.0 Platelet Estimate Adequate Hypochromasia 1+ Anisocytosis 2+ Macrocytosis 1+ Helmet Cells 1+ Schistocytes 2+ Sodium 139 Potassium 3.4 Chloride 105 Carbon Dioxide 26 Anion Gap 8 BUN 41 H Creatinine 2.10 H Estim Creat Clear Calc 33 Estimated GFR 32 L Glucose 95 Calcium 8.0 L Phosphorus 4.3 Total Bilirubin 3.5 H AST 26 ALT 73 H Alkaline Phosphatase 86 Total Protein 6.0 L Albumin 3.8 Blood Type A Positive Antibody Screen Negative Crossmatch See Detail Preliminary micro results at discharge 04/19/23 17:23 Blood Culture - Preliminary Blood 04/19/23 17:26 Blood Culture - Preliminary Blood Discharge Plan Discharge Attending phys
== END 2023-04-22 13:50 | disposition home or self-care (01) | DRG 432 ==
LOC: ANHED 20:09 → ANHIMU 22:20 → ANH2MED 04-21 06:22 → ANH3MEDSUR 04-21 06:22 → ANHIMU 04-21 06:22
PROVIDERS: Emergency Medicine; Internal Medicine Gastroenterology; Internal Medicine Nephrology; Physician Assistant; Admitting Provider Internal Medicine; Emergency Provider Student in an Organized Health Care Education/Training Program; PCP Internal Medicine; Visit Provider Chiropractor
DX: K70.31 Alcoholic cirrhosis of liver with ascites (principal); K76.7 Hepatorenal syndrome; N17.9 Acute kidney failure, unspecified; I13.0 Hypertensive heart and chronic kidney disease with heart failure and stage 1 through stage 4 chronic kidney disease, or unspecified chronic kidney disease; K70.40 Alcoholic hepatic failure without coma; F10.10 Alcohol abuse, uncomplicated; I34.0 Nonrheumatic mitral (valve) insufficiency; I12.9 Hypertensive chronic kidney disease with stage 1 through stage 4 chronic kidney disease, or unspecified chronic kidney disease; D63.1 Anemia in chronic kidney disease; N18.31 Chronic kidney disease, stage 3a; I25.10 Atherosclerotic heart disease of native coronary artery without angina pectoris; J44.9 Chronic obstructive pulmonary disease, unspecified; F17.210 Nicotine dependence, cigarettes, uncomplicated; Z95.1 Presence of aortocoronary bypass graft; Z79.82 Long term (current) use of aspirin; Z91.199 Patient's noncompliance with other medical treatment and regimen due to unspecified reason; Z91.148 Patient's other noncompliance with medication regimen for other reason
CPT/HCPCS: 36415; 36430; 49083; 71045; 74176; 76775; 80053; 81001; 81050; 82040; 82140; 82248; 82550; 82570; 83540; 83550; 83690; 83880; 84100; 84156; 84300; 84443; 84466; 84540; 85025; 85027; 85055; 85610; 85730; 85999; 86850; 86900; 86901; 86923; 87040; 93306; 96365; 96375; 99285; A9270; C9113; J0696; J1940; J7050; P9016; P9047

== ENCOUNTER 2023-06-04 19:30 | Inpatient (IN) | payer MEDICARE, MEDICAID, SELFPAY ==
--- NOTE | ~2023-06-04 | US_ITS ---
EXAMINATION: US paracentesis abd w/image DATE: 06/06/2023 10:56 INDICATION: Ascites. TECHNIQUE: The procedure and its risks and benefits were discussed with the patient. Potential risks discussed included bleeding and infection. The skin was prepped and draped in sterile fashion. 1% lid ocaine was used for local anesthesia. Under ultrasound guidance, a 5 Fr catheter with trochar was adv anced into the ascites in the left lower quadrant. Fluid was aspirated into vacuum bottles. The aravind ter was removed, and a dressing was applied. There were no immediate complications. FINDINGS: Ultrasound images demonstrate ascites and the catheter within the fluid. IMPRESSION: 1. Successful ultrasound-guided paracentesis yielding 5000 mL of dark brownish-yellow fluid. Reviewed, dictated and finalized at location A. STAGING SPECIALIST IMPRESSION: 1. Successful ultrasound-guided paracentesis yielding 5000 mL of dark brownish -yellow fluid.
--- NOTE | ~2023-06-04 | XR_ITS ---
Portable chest x-ray Comparison: 04/20/2023 Clinical History: Cough Findings: Small left pleural effusion present, with left basilar airspace disease. Right lung clear. Cardiomediastinal silhouette is stable. Bones and soft tissues are unremarkable. Impression: Small left pleural effusion with left basilar atelectasis versus pneumonia. Correlate clinically. Reviewed, dictated and finalized at [facility]. L RULE INSPECTOR Impression: Small left pleural effusion with left basilar atelectasis versus pneumonia. Cor relate clinically.
--- NOTE | ~2023-06-04 | US_ITS ---
EXAMINATION: US abdomen complete DATE: 06/05/2023 16:23 INDICATION: Abdominal pain. Ascites. TECHNIQUE: Multiple grayscale and Doppler ultrasound images of the abdomen were obtained. COMPARISON: Abdomen ultrasound 07/08/2022, CT abdomen and pelvis 07/02/2022 FINDINGS: The visualized portions of the head, body, and tail of the pancreas are normal. The liver d emonstrates heterogeneous echogenicity and surface nodularity, consistent with cirrhosis. There is an tegrade flow in main portal vein. The gallbladder is contracted. No gallstones or sonographic Nguyễn sign. The common duct is normal and measures 4 mm. The inferior vena cava is normal. The abdominal ao rta is obscured by bowel gas. The kidneys are normal in size. There is increased renal parenchymal ec hogenicity. No hydronephrosis. The spleen is normal in size. There is a moderate volume of ascites. T here is a left pleural effusion. IMPRESSION: 1. Cirrhosis of the liver. 2. Moderate volume of ascites. 3. Left pleural effusion. 4. Increased renal parenchymal echogenicity, consistent with nonspecific nephropathy. Reviewed, dictated and finalized at location E. DENTIAL FIELD MANAGER IMPRESSION: 1. Cirrhosis of the liver. 2. Moderate volume of ascites. 3. Left pleural effusion. 4. Increased renal parenchymal echogenicity, consistent with nonspecific nephro dennis.
[2023-06-04 19:47] VITALS: BP 196/133; PULSE 102; RESP 20; TEMP 37.2; O2SAT 94
[2023-06-04 21:04] VITALS: BP 180/132; PULSE 99; RESP 16; O2SAT 95
[2023-06-04 21:08] VITALS: PULSE 99
[2023-06-04 22:47] LABS: Basophils Absolute Auto 0.1 K/mm3 (0.0-0.1); Basophils Percent Auto 0.5 % (0.2-1.2); Eosinophils Absolute Auto 0.1 K/mm3 (0-0.3); Eosinophils Percent Auto 0.8 % (0-4.4); Hematocrit 30.6 % (42.0-52.0); Hemoglobin 8.9 g/dL (14.0-18.0); Immature Granulocyte Absolute 0.07 K/mm3 (0.00-0.031); Immature Granulocyte Percent A 0.5 % (0-0.5); Immature Platelet Fraction Pct 1.6 % (0.9-11.2); Lymphocytes Absolute Auto 1.25 K/mm3 (0.9-3.2); Lymphocytes Percent Auto 9.7 % (18.3-44.2); Mean Corpuscular HGB Conc 29.1 g/dl (32-36); Mean Corpuscular Hemoglobin 28.8 pg (26-34); Mean Platelet Volume 9.6 fl (7.4-10.4); Monocytes Absolute Auto 1.4 K/mm3 (0.1-0.6); Monocytes Percent Auto 10.5 % (2.6-8.5); Platelet Count Result 303 k/mm3 (150-375); Red Blood Count 3.09 M/mm3 (4.6-6.20); Red Cell Distribution Width 28.1 % (11.5-14.5); White Blood Count 12.8 K/mm3 (4.5-10.0)
[2023-06-04 23:07] LABS: Alanine Aminotransferase 24 U/L (6-50); Albumin Level 4.1 g/dL (3.5-5.1); Alkaline Phosphatase 93 U/L (38-126); Anion Gap 8 mmol/L (8-16); Aspartate Amino Transferase 69 U/L (17-59); Bilirubin,Total 7.8 mg/dL (0.2-1.3); Blood Urea Nitrogen 41 mg/dL (9-20); Calcium 9.6 mg/dL (8.4-10.2); Carbon Dioxide 23 mmol/L (22-30); Chloride 105 mmol/L (98-107); Estimated CRCL calculation 28 ml/min; Estimated Glomerular Filt Rate 27; Glucose 92 mg/dL (65-110); Lipase 79 U/L (23-300); Potassium 4.9 mmol/L (3.4-5.0); Sodium 136 mmol/L (137-145)
[2023-06-04 23:12] LABS: Anisocytosis 2+ (NORMAL); Poikilocytosis 2+ (NORMAL); Schistocytes 2+ (NORMAL)
[2023-06-04 23:13] LABS: Platelet Estimate Adequate (Adequate)
[2023-06-05] VITALS (18 sets, daily range): BP systolic 115–173; BP diastolic 83–124; PULSE 54–102; RESP 13–21; TEMP 36.3–36.6; O2SAT 95–100
[2023-06-05 00:13] LABS: Add Urine Microscopic? YES; Appearance Urine Cloudy (Clear); Bacteria Urine None Seen /hpf; Bilirubin Urine 1+ (Negative); Blood Urine 2+ (Negative); Color Urine Dark Yellow (Yellow); Glucose Urine UA Negative (Negative); Granular Casts Urine Present /lpf; Hyaline Casts Urine Present /lpf; Ketones Urine Negative (Negative); Leukocyte Esterase Ur Negative LEU/UL (Negative); Nitrate Urine Negative (Negative); Protein Urine 2+ mg/dL (Negative); RBC Urine 21-50 /hpf (0-2); Specific Grav Ur 1.015 (1.001-1.035); Squamous Epithelial Cell Urine None seen /hpf (Few); WBC Urine 0-5 /hpf; pH Urine 5.5 (5.0-9.0)
--- NOTE | 2023-06-05 01:16 | ED.GENADULT ---
HPI - General Adult General Chief complaint: Unspecified Stated complaint: weakness Time Seen by Provider: 06/04/23 22:56 History of Present Illness HPI narrative: Patient 63-year-old male With a history of cirrhosis, hypertension, CKD presenting with generalized weakness and abdominal swelling. Patient states that he was here a couple of months ago and had to have his abdomen drained. States that unfortunately it has started to swell again in the last couple of weeks. States that it is becoming more tight and is now causing lower back pain. States that he has not been able to eat or drink much due to his discomfort. States that he has also been struggling to urinate and defecate. Reports a slightly productive cough. No chest pain. No fevers. No dysuria. No vomiting but reports persistent nausea. Related Data Home Medications Medication Instructions Recorded Confirmed amlodipine 10 mg tablet 10 mg PO DAILY 06/05/23 06/05/23 calcium carbonate 500 mg-vitamin See Rx Instructions .Route .COMPLEX 06/05/23 06/05/23 D3 5 mcg (200 unit) tablet (Oysco 500/D) furosemide 20 mg tablet 20 mg BID 06/05/23 06/05/23 hydralazine 50 mg tablet 50 mg PO TID 06/05/23 06/05/23 metoprolol tartrate 50 mg tablet 50 mg PO BID 06/05/23 06/05/23 pantoprazole 40 mg tablet,delayed 40 mg PO DAILY 06/05/23 06/05/23 release spironolactone 50 mg tablet 50 mg PO BID 06/05/23 06/05/23 Allergies Allergy/AdvReac Type Severity Reaction Status Date / Time No Known Allergies Allergy Verified 06/09/23 13:29 Review of Systems Review of Systems: All systems reviewed & are unremarkable except as noted in HPI and below [facility] Past Medical History Medical History (Updated 06/15/23 @ 12:35 by Kinsey Mas MD) Alcohol abuse Alcohol abuse CAD (coronary artery disease) Chronic obstructive pulmonary disease Chronic obstructive pulmonary disease History of fracture Including lower extremity and multiple toes. History of fracture Including lower extremity and multiple toes. Hypertension Hypertension Nicotine dependence, cigarettes, with other nicotine-induced disorders Tobacco dependence Tobacco dependence Surgical History Surgical History (Updated 06/09/23 @ 13:29 by Mignon Wild) History of coronary artery bypass graft History of toe surgery History of toe surgery Family History Family History (System 06/09/23 @ 13:29 by Mignon Wild) Father Hypertension Father Throat cancer of throat cancer in her early 60s. He was a heavy smoker. Mother Acute myocardial infarction of [place] in early 60s. Father Hypertension Mother Hypertension Social History Social History (System 06/09/23 @ 13:29 by Mignon Wild) Social History: The patient lives alone in [place]. He is single. He smoked between 1 and 2 packs of cigarettes per day and has since the age of 17. He drinks heavily, several times per week, consuming up to 1/2 of a 5th in addition to 6 beers. No drug use. He has 1 daughter, Andi, and he nominates her to be his surrogate decision maker. He wishes to be a full code. does uses marijuana sometimes used cocaine when he was young in high school Smoking packs per day: 0.25 Smoking cigarettes per day: 5.0 Years smoked: 20 Smoking pack-years: 5.00 Smoking status: Current every day smoker Second hand tobacco smoke exposure: No Alcohol intake: former Drinks per week: 20 Substance use: current Substance use type: marijuana Last use: 2 weeks ago Lack of Transportation: No Lack of Food: Never True Current Housing: I Have Housing Concerned About Future Housing: No Difficulty Paying Gas/Electric Bills: YES Difficulty Paying for Meds: No Currently Unemployed: No Education: Trade/Vocational Certificate Difficulty w/ Childcare or Family Care: No Living arrangements: alone Gender identity (if verbalized by the patient): Male Spiritual care
--- NOTE | 2023-06-05 01:40 | ECG_ITS ---
Measurements Intervals [place] Rate: 101 P: 50 [place]: 236 QRS: 5 QRSD: 122 T: 224 QT: 380 QTc: 493 Interpretive Statements SINUS TACHYCARDIA WITH FIRST DEGREE AV BLOCK LEFT ATRIAL ENLARGEMENT [-0.15mV P WAVE IN V1/V2] POSSIBLE ANTERIOR MYOCARDIAL INFARCTION , PROBABLY OLD [30 ms Q WAVE IN V3/V4, OR R < 0.2 mV IN V4] MODERATE T-WAVE ABNORMALITY, CONSIDER INFERIOR ISCHEMIA [-0.1+ mV T WAVE IN II/aVF] COMPARED TO ECG 11/16/2019 13:07:52 FIRST DEGREE AV BLOCK NOW PRESENT Electronically Signed On 06-05-2023 9:20:53 TILE LAYER DRAINAGE by Isha Lopes M.D.
[2023-06-05] MEDS: SODIUM CHLORIDE 0.9% IV 1,000 ML 999 ML IV CONT (01:58)
[2023-06-05] MEDS: ONDANSETRON INJ 4 MG/2 ML VIAL IV PUSH (01:58)
[2023-06-05] MEDS: HYDROmorphone HCL INJ (*CRX) 1 MG/ML SYR 0.5 MG IV PUSH (01:58)
[2023-06-05] MEDS: METOPROLOL TARTRATE 50 MG TAB PO ×2 (01:59→09:19)
[2023-06-05 02:03] LABS: INR 1.3; Prothrombin Time 17.2 Seconds (11.1-14.7)
[2023-06-05 02:05] LABS: Partial Thromboplastin Time 34.8 SECONDS (22.3-36.8)
[2023-06-05] MEDS: hydrALAZINE HCL 50 MG TABLET PO ×4 (02:18→16:24)
[2023-06-05] MEDS: FUROSEMIDE 20 MG TABLET PO (02:18)
[2023-06-05] MEDS: SPIRONOLACTONE 50 MG TABLET PO (02:18)
[2023-06-05 02:25] LABS: Troponin I 0.035 ng/mL (0.000-0.034)
[2023-06-05 02:35] LABS: Influenza A QL RT-PCR Negative (Negative); Influenza B QL RT-PCR Negative (Negative); RSV RNA, RT-PCR Negative (Negative); SARS-CoV-2 RNA PCR Negative (Negative)
[2023-06-05 03:55] LABS: Troponin I 0.036 ng/mL (0.000-0.034)
[2023-06-05 07:22] LABS: Troponin I 0.033 ng/mL (0.000-0.034)
--- NOTE | 2023-06-05 07:30 | ECG_ITS ---
Measurements Intervals [place] Rate: 59 P: 29 [place]: 254 QRS: -4 QRSD: 122 T: 184 QT: 516 QTc: 512 Interpretive Statements SINUS BRADYCARDIA WITH FIRST DEGREE AV BLOCK POSSIBLE LEFT ATRIAL ENLARGEMENT [-0.1mV P WAVE IN V1/V2] LEFT VENTRICULAR HYPERTROPHY AND ST-T CHANGE [VOLTAGE CRITERIA PLUS ST/T ABNORMALITY] POOR R-WAVE PROGRESSION, CANNOT RULE OUT OLD ANTERIOR NV NONSPECIFIC ST AND T-WAVE CHANGES COMPARED TO ECG 06/05/2023 02:07:48 SINUS BRADYCARDIA NOW PRESENT Electronically Signed On 06-05-2023 18:54:02 COVER STITCH MACHINE OPERATOR by Joyce Santos M.D.
[2023-06-05] MEDS: FUROSEMIDE INJ 40 MG/4 ML VIAL IV PUSH (09:17)
[2023-06-05] MEDS: PANTOPRAZOLE 40 MG TABLET PO ×2 (09:18→20:19)
[2023-06-05] MEDS: amLODIPine BESYLATE 5 MG TABLET 10 MG PO (09:18)
[2023-06-05 09:20] LABS: Basophils Absolute Auto 0.1 K/mm3 (0.0-0.1); Basophils Percent Auto 0.5 % (0.2-1.2); Eosinophils Absolute Auto 0.1 K/mm3 (0-0.3); Eosinophils Percent Auto 0.5 % (0-4.4); Hematocrit 29.1 % (42.0-52.0); Hemoglobin 8.5 g/dL (14.0-18.0); Immature Granulocyte Absolute 0.05 K/mm3 (0.00-0.031); Immature Granulocyte Percent A 0.4 % (0-0.5); Lymphocytes Absolute Auto 0.89 K/mm3 (0.9-3.2); Lymphocytes Percent Auto 7.6 % (18.3-44.2); Mean Corpuscular HGB Conc 29.2 g/dl (32-36); Mean Corpuscular Hemoglobin 28.8 pg (26-34); Mean Corpuscular Volume 98.6 fl (80-100); Mean Platelet Volume 8.8 fl (7.4-10.4); Monocytes Absolute Auto 1.1 K/mm3 (0.1-0.6); Monocytes Percent Auto 8.9 % (2.6-8.5); Neutrophils Absolute Auto 9.7 K/mm3 (1.3-6.7); Neutrophils Percent Auto 82.1 % (45.5-73.1); Platelet Count Result 292 k/mm3 (150-375); Red Blood Count 2.95 M/mm3 (4.6-6.20); Red Cell Distribution Width 29.2 % (11.5-14.5); White Blood Count 11.8 K/mm3 (4.5-10.0)
[2023-06-05 09:32] LABS: INR 1.4; Prothrombin Time 17.3 Seconds (11.1-14.7)
[2023-06-05 09:34] LABS: Partial Thromboplastin Time 34.6 SECONDS (22.3-36.8)
[2023-06-05 09:40] LABS: Ammonia < 9 umol/L (9-30)
[2023-06-05 09:44] LABS: Alanine Aminotransferase 22 U/L (6-50); Albumin Level 3.5 g/dL (3.5-5.1); Alkaline Phosphatase 68 U/L (38-126); Anion Gap 9 mmol/L (8-16); Aspartate Amino Transferase 43 U/L (17-59); Bilirubin,Total 5.6 mg/dL (0.2-1.3); Blood Urea Nitrogen 39 mg/dL (9-20); Calcium 8.4 mg/dL (8.4-10.2); Carbon Dioxide 23 mmol/L (22-30); Chloride 104 mmol/L (98-107); Estimated CRCL calculation 27 ml/min; Estimated Glomerular Filt Rate 26; Glucose 102 mg/dL (65-110); Magnesium 1.8 mg/dL (1.6-2.3); Phosphorus 5.7 mg/dL (2.5-4.5); Potassium 4.9 mmol/L (3.4-5.0); Sodium 136 mmol/L (137-145)
[2023-06-05 09:55] LABS: Platelet Estimate Adequate (Adequate); Schistocytes 1+ (NORMAL)
[2023-06-05 09:56] LABS: Anisocytosis 1+ (NORMAL); Burr Cells 2+ (NORMAL); Poikilocytosis 1+ (NORMAL)
[2023-06-05] MEDS: DOXYCYCLINE 100 MG/NS 100 ML 100 MG/100 ML BAG IVPB ×2 (10:18→20:19)
[2023-06-05 10:29] LABS: Procalcitonin 0.2 ng/mL
--- NOTE | 2023-06-05 13:40 | PC.NURSE ---
ATTEMPTED TO CALL REPORT TO 3RD MED/SURG AND THERE ARE NO NURSES AVAILABLE TO TAKE REPORT. THE PRIMARY RN IS TO CALL ME BACK FREDRICK
--- NOTE | 2023-06-05 15:25 | PM.IMHP ---
H&P: HPI History of Present Illness Date/Time: 06/05/23 15:25 Chief Complaint: Distended abdomen Constipation Narrative: 63-year-old male with past medical history of COPD, alcohol abuse in the past, likely liver cirrhosis presented to the ER with distended abdomen. According to him he had a paracentesis done almost 1 and half months ago. He is not very sure about his diagnosis but he thinks it is related to his liver. Denies any fever chills. Complains of constipation, last bowel movement unknown. Review of Systems Review of Systems: All systems reviewed & are unremarkable except as noted in HPI and below [facility] Past Medical History Medical History (Updated 06/05/23 @ 15:30 by Farheen Calvillo MD) Alcohol abuse Chronic obstructive pulmonary disease History of fracture Including lower extremity and multiple toes. Hypertension Tobacco dependence Surgical History Surgical History History of toe surgery Family History Family History Father Hypertension Father Throat cancer of throat cancer in her early 60s. He was a heavy smoker. Mother Acute myocardial infarction of [place] in early 60s. Social History Social History Social History: The patient lives alone in [place]. He is single. He smoked between 1 and 2 packs of cigarettes per day and has since the age of 17. He drinks heavily, several times per week, consuming up to 1/2 of a 5th in addition to 6 beers. No drug use. He has 1 daughter, Andi, and he nominates her to be his surrogate decision maker. He wishes to be a full code. does uses marijuana sometimes used cocaine when he was young in high school Spiritual care concerns: No Meds Home Medications and Allergies Home Medications Medication Instructions Recorded Confirmed Type amlodipine 10 mg tablet 10 mg PO DAILY 06/05/23 06/05/23 History calcium carbonate 500 mg-vitamin See Rx Instructions .Route .COMPLEX 06/05/23 06/05/23 History D3 5 mcg (200 unit) tablet (Oysco 500/D) furosemide 20 mg tablet 20 mg BID 06/05/23 06/05/23 History hydralazine 50 mg tablet 50 mg PO TID 06/05/23 06/05/23 History metoprolol tartrate 50 mg tablet 50 mg PO BID 06/05/23 06/05/23 History pantoprazole 40 mg tablet,delayed 40 mg PO DAILY 06/05/23 06/05/23 History release spironolactone 50 mg tablet 50 mg PO BID 06/05/23 06/05/23 History Allergies Allergy/AdvReac Type Severity Reaction Status Date / Time No Known Allergies Allergy Unverified 11/16/19 15:01 Vital Signs Vital Signs - 24 hr 06/04/23 19:47 06/04/23 21:04 06/04/23 21:08 Temperature 98.9 F Pulse Rate 102 H 99 99 Respiratory Rate 20 16 Blood Pressure 196/133 H 180/132 H Pulse Oximetry 94 95 Oxygen Delivery Room Air Oxygen Flow Rate 06/05/23 01:59 06/05/23 00:15 06/05/23 02:37 Temperature Pulse Rate 100 98 102 H Respiratory Rate 15 15 Blood Pressure 173/124 H 164/108 H Pulse Oximetry 97 98 Oxygen Delivery Oxygen Flow Rate 06/05/23 02:37 06/05/23 04:49 06/05/23 07:15 Temperature Pulse Rate 88 60 Respiratory Rate 16 19 Blood Pressure 115/96 H 129/84 Pulse Oximetry 98 99 96 Oxygen Delivery Nasal Cannula Oxygen Flow Rate 2 06/05/23 08:33 06/05/23 09:19 06/05/23 09:20 Temperature Pulse Rate 60 63 63 Respiratory Rate 21 H 15 Blood Pressure 148/93 H 142/97 H Pulse Oximetry 100 100 Oxygen Delivery Oxygen Flow Rate 06/05/23 10:19 06/05/23 10:56 06/05/23 11:30 Temperature Pulse Rate 61 58 L 56 L Respiratory Rate 14 13 13 Blood Pressure 147/94 H 128/90 125/84 Pulse Oximetry 100 98 98 Oxygen Delivery Oxygen Flow Rate 06/05/23 11:45 06/05/23 12:36 06/05/23 12:56 Temperature Pulse Rate 54 L 56 L 56 L Respiratory Rate 18 15 16 Blood Pressure 125/84 144/88 H
--- NOTE | 2023-06-05 15:40 | ADMGEN ---
This patient, Osvaldo Marshall, was admitted to [facility] Surg Room 314-01. Patient/family oriented to hospital policies and general routines including ID bracelet, bed and alarms, visiting hours, pain management, procedures, bathroom and other care routines, personal items, smoking policy, room service/diet, and visiting hours. Information on how to activate the Rapid Response Team has been discussed. Patient/Family are encouraged to report perceived risks to care and to ask questions if they do not understand what they are told or what they should do.
[2023-06-05] MEDS: LACTULOSE 20 GM/30 ML UDC PO (16:24)
[2023-06-05] MEDS: metroNIDAZOLE 500 MG/ISO 100ML 500 MG/100 ML BAG 100 MG IVPB ×2 (16:24→21:21)
[2023-06-06] VITALS (10 sets, daily range): BP systolic 125–163; BP diastolic 72–80; PULSE 63–80; RESP 13–18; TEMP 36.4–36.6; O2SAT 94–100
[2023-06-06] MEDS: metroNIDAZOLE 500 MG/ISO 100ML 500 MG/100 ML BAG 100 MG IVPB ×3 (05:56→22:00)
[2023-06-06 06:43] LABS: Basophils Percent Auto 0.3 % (0.2-1.2); Eosinophils Absolute Auto 0.1 K/mm3 (0-0.3); Eosinophils Percent Auto 1.2 % (0-4.4); Hemoglobin 7.9 g/dL (14.0-18.0); Immature Granulocyte Absolute 0.04 K/mm3 (0.00-0.031); Immature Granulocyte Percent A 0.4 % (0-0.5); Lymphocytes Absolute Auto 0.93 K/mm3 (0.9-3.2); Lymphocytes Percent Auto 9.9 % (18.3-44.2); Mean Corpuscular HGB Conc 29.3 g/dl (32-36); Mean Corpuscular Hemoglobin 28.9 pg (26-34); Mean Corpuscular Volume 98.9 fl (80-100); Mean Platelet Volume 8.8 fl (7.4-10.4); Monocytes Percent Auto 10.9 % (2.6-8.5); Neutrophils Absolute Auto 7.2 K/mm3 (1.3-6.7); Neutrophils Percent Auto 77.3 % (45.5-73.1); Platelet Count Result 243 k/mm3 (150-375); Red Blood Count 2.73 M/mm3 (4.6-6.20); Red Cell Distribution Width 27.2 % (11.5-14.5); White Blood Count 9.4 K/mm3 (4.5-10.0)
[2023-06-06 06:53] LABS: INR 1.4; Prothrombin Time 17.4 Seconds (11.1-14.7)
[2023-06-06 06:54] LABS: Partial Thromboplastin Time 37.9 SECONDS (22.3-36.8)
[2023-06-06 06:55] LABS: Ammonia < 9 umol/L (9-30)
[2023-06-06 06:55] LABS: Alanine Aminotransferase 18 U/L (6-50); Albumin Level 3.3 g/dL (3.5-5.1); Alkaline Phosphatase 70 U/L (38-126); Anion Gap 8 mmol/L (8-16); Aspartate Amino Transferase 28 U/L (17-59); Bilirubin,Total 3.7 mg/dL (0.2-1.3); Blood Urea Nitrogen 40 mg/dL (9-20); Calcium 8.3 mg/dL (8.4-10.2); Carbon Dioxide 20 mmol/L (22-30); Chloride 108 mmol/L (98-107); Estimated CRCL calculation 27 ml/min; Estimated Glomerular Filt Rate 26; Glucose 89 mg/dL (65-110); Magnesium 1.8 mg/dL (1.6-2.3); Potassium 4.1 mmol/L (3.4-5.0); Sodium 136 mmol/L (137-145)
[2023-06-06 07:47] LABS: Platelet Estimate Adequate (Adequate)
[2023-06-06 07:48] LABS: Macrocytosis 1+ (NORMAL); Poikilocytosis 2+ (NORMAL); Schistocytes 2+ (NORMAL)
[2023-06-06] MEDS: amLODIPine BESYLATE 5 MG TABLET 10 MG PO (11:25)
[2023-06-06] MEDS: PANTOPRAZOLE 40 MG TABLET PO ×2 (11:25→20:22)
[2023-06-06] MEDS: hydrALAZINE HCL 50 MG TABLET PO ×3 (11:25→16:15)
[2023-06-06] MEDS: DOXYCYCLINE 100 MG/NS 100 ML 100 MG/100 ML BAG IVPB ×2 (11:25→20:22)
--- NOTE | 2023-06-06 11:30 | P.CONNP_ITS ---
Assessment and Plan Assessment and plan (1) BRANT (acute kidney injury): Code(s): N17.9 - Acute kidney failure, unspecified Status: Acute Assessment and Plan: * is this BRANT/ARF or is this just progression of his baseline CKD??? * HRS is a possibility as well * extensive evaluation done on previous hospitalizations: * unremarkable renal ultrasound * renal ultrasound unremarkable * urine eosinophils negative * urine electrolytes prerenal - a manifestation of liver physiology given clear evidence of volume overload on admission * CPK low * negative serological testing * low complements - thought to be secondary to liver disease * moderate proteinuria (~ 960mg) * follow trend of repeat labs and UOP (2) Stage 3b chronic kidney disease: Code(s): N18.32 - Chronic kidney disease, stage 3b Status: Chronic Assessment and Plan: * creatinine was 2.0 - 2.1mg/dl about a month ago (March 2023) * presumably due to hypertension and vascular disease in conjunction with liver disease/liver physiology (decreased effective circulating volume leading to ch ronic prerenal azotemia worsened by the need for chronic diuretic therapy) (3) Cirrhosis: Code(s): K74.60 - Unspecified cirrhosis of liver Status: Chronic Assessment and Plan: * present since at least Jun 2022 * therapeutic paracentesis earlier today * continue diuretic therapy * ? follow LFTs (4) Ascites: Code(s): R18.8 - Other ascites Status: Chronic Assessment and Plan: * presumably due to #3 and possible medication non-compliance * on diuretic therapy * s/p large volume paracentesis (on 06/06/23) * low salt diet, daily weights, follow I/Os (5) Anemia: Code(s): D64.9 - Anemia, unspecified Status: Chronic Assessment and Plan: * likely related to CKD and liver disease * follow trend of H/H * PRBC transfusion per protocol (6) Alcohol abuse: Code(s): F10.10 - Alcohol abuse, uncomplicated Status: Chronic Assessment and Plan: * known history * watch for withdrawal I will continue follow the patient with you while he she remains hospitalized to make further recommendations as needed. Thank you for allowing me to participate in the care of this patient. History of Present Illness Reason for Consult Consult date: 06/06/23 Reason for consult: acute renal failure (on chronic kidney disease versus progression of CKD) Chief Complaint Chief complaint: Ascites, BRANT History of Present Illness Narrative: THIS PATIENT HAS ANOTHER CHART IN [facility] -- The patient is a 63-year-old male with a past medical history as outlined below who presented to [facility] Emergency room with complaints of worsening abdominal distention and generalized weakness. The patient was recently hospitalized here in June 2022 as well as March 2023 with the same issues which were felt to be related to his underlying liver cirrhosis from his history of alcohol abuse.? During those hospital stays, he was instituted on medical therapy including therapeutic paracentesis and diuretics with the use of Lasix and spironolactone and his overall clinical symptoms improved by the time of discharge.? However, I am unclear how well he has been with follow-up with his physicians regarding his chronic medical issues. He states that he has started to swell again in his abdomen in the last couple of weeks. His abdomen has become more tight and is now causing lo
--- NOTE | 2023-06-06 11:30 | PM.CNNEP ---
Assessment and Plan Assessment and plan (1) BRANT (acute kidney injury): Code(s): N17.9 - Acute kidney failure, unspecified Status: Acute Assessment and Plan: is this BRANT/ARF or is this just progression of his baseline CKD??? HRS is a possibility as well extensive evaluation done on previous hospitalizations: unremarkable renal ultrasound renal ultrasound unremarkable urine eosinophils negative urine electrolytes prerenal - a manifestation of liver physiology given clear evidence of volume overload on admission CPK low negative serological testing low complements - thought to be secondary to liver disease moderate proteinuria (~ 960mg) follow trend of repeat labs and UOP (2) Stage 3b chronic kidney disease: Code(s): N18.32 - Chronic kidney disease, stage 3b Status: Chronic Assessment and Plan: creatinine was 2.0 - 2.1mg/dl about a month ago (March 2023) presumably due to hypertension and vascular disease in conjunction with liver disease/liver physiology (decreased effective circulating volume leading to chronic prerenal azotemia worsened by the need for chronic diuretic therapy) (3) Cirrhosis: Code(s): K74.60 - Unspecified cirrhosis of liver Status: Chronic Assessment and Plan: present since at least Jun 2022 therapeutic paracentesis earlier today continue diuretic therapy ? follow LFTs (4) Ascites: Code(s): R18.8 - Other ascites Status: Chronic Assessment and Plan: presumably due to #3 and possible medication non-compliance on diuretic therapy s/p large volume paracentesis (on 06/06/23) low salt diet, daily weights, follow I/Os (5) Anemia: Code(s): D64.9 - Anemia, unspecified Status: Chronic Assessment and Plan: likely related to CKD and liver disease follow trend of H/H PRBC transfusion per protocol (6) Alcohol abuse: Code(s): F10.10 - Alcohol abuse, uncomplicated Status: Chronic Assessment and Plan: known history watch for withdrawal I will continue follow the patient with you while he she remains hospitalized to make further recommendations as needed. Thank you for allowing me to participate in the care of this patient. History of Present Illness Reason for Consult Consult date: 06/06/23 Reason for consult: acute renal failure (on chronic kidney disease versus progression of CKD) Chief Complaint Chief complaint: Ascites, BRANT History of Present Illness Narrative: THIS PATIENT HAS ANOTHER CHART IN [facility] -- The patient is a 63-year-old male with a past medical history as outlined below who presented to [facility] Emergency room with complaints of worsening abdominal distention and generalized weakness. The patient was recently hospitalized here in June 2022 as well as March 2023 with the same issues which were felt to be related to his underlying liver cirrhosis from his history of alcohol abuse.? During those hospital stays, he was instituted on medical therapy including therapeutic paracentesis and diuretics with the use of Lasix and spironolactone and his overall clinical symptoms improved by the time of discharge.? However, I am unclear how well he has been with follow-up with his physicians regarding his chronic medical issues. He states that he has started to swell again in his abdomen in the last couple of weeks. His abdomen has become more tight and is now causing lower back pain.? He reports that he has not been able to eat or drink much due to his discomfort. He denies any fevers, chills, or vomiting does relate persistent nausea. Given the persistence of the symptoms, he presented to the ER for further assessment. Workup and evaluation emergency room demonstrated the patient be hemodynamically stable but with clear evidence of abdominal distention was was felt to be secondary to ascites.? Routine blood
[2023-06-06] MEDS: FUROSEMIDE INJ 40 MG/4 ML VIAL IV PUSH ×2 (11:32→16:15)
[2023-06-06] MEDS: LACTULOSE 20 GM/30 ML UDC PO (11:32)
--- NOTE | 2023-06-06 11:55 | PM.IMPN ---
Progress Note: A&P Assessment and Plan (1) Ascites: Code(s): R18.8 - Other ascites Status: Acute (2) Alcohol abuse: Code(s): F10.10 - Alcohol abuse, uncomplicated Status: Chronic (3) Elevated liver function tests: Code(s): R79.89 - Other specified abnormal findings of blood chemistry Status: Acute Plan 63-year-old male with past medical history of COPD, alcohol abuse in the past, likely liver cirrhosis presented to the ER with distended abdomen. 1. Ascites secondary to liver cirrhosis: Await paracentesis today Continue with ceftriaxone, Flagyl Continue with PPI GI consult Continue with IV Lasix Continue with lactulose Trend LFTs, has elevated bilirubin 2.?? BRANT versus CKD: Kidney function remains the same Monitor kidney function Avoid nephrotoxins Recheck BMP in a.m. Will get Renal consult 3. Left lower lobe pneumonia with pleural effusion: Effusion in setting of liver cirrhosis Continue with ceftriaxone and doxycycline for possible left lower lobe pneumonia Respiratory status is stable, do not think the need of thoracentesis at this point we 4. Hypertension: Continue with Norvasc, hydralazine Also on Lasix Aldactone has been held, will defer to Renal if he can start the Aldactone resume beta-tammy 5. Constipation:? Continue with lactulose 6. Code status: Full 7. DVT prophylaxis:? Can restart heparin subQ 8. Disposition:? Pending improvement Time Spent With Patient Time with patient: 15 - 25 minutes Subjective Date/time seen: 06/06/23 11:55 Interval history: Await paracentesis today Review of Systems Review of Systems: All systems reviewed & are unremarkable except as noted in HPI and below Exam Const: General: no acute distress HENMT: Mouth: Yes dry mucous membranes Eyes: Other: Scleral icterus present Neck: Neck: supple Resp: Effort & Inspection: normal respiratory effort Auscultation: clear to auscultation bilaterally Cardio: Rate: bradycardic Rhythm: regular rhythm GI: Inspection: distended Auscultation: normal bowel sounds Other: Firm Skin: General skin exam: normal color Extrem: General: edema Psych: Mental Status: mental status grossly normal Objective Data Vital Signs Vital Signs: Vital Signs - 24 hr 06/05/23 12:36 06/05/23 12:56 06/05/23 14:36 Temperature 97.3 F L Pulse Rate 56 L 56 L 57 L Respiratory Rate 15 16 16 Blood Pressure 144/88 H 137/93 H 145/83 H Pulse Oximetry 98 96 98 Oxygen Delivery Oxygen Flow Rate 06/05/23 16:00 06/05/23 21:31 06/05/23 20:00 Temperature 97.9 F Pulse Rate 58 L 60 Respiratory Rate 14 Blood Pressure 138/86 Pulse Oximetry 95 95 Oxygen Delivery Nasal Cannula Oxygen Flow Rate 2 06/05/23 20:00 06/06/23 00:00 06/06/23 06:00 Temperature 97.5 F L Pulse Rate 61 63 67 Respiratory Rate 13 Blood Pressure 163/80 H Pulse Oximetry 100 Oxygen Delivery Oxygen Flow Rate 06/06/23 04:00 Temperature Pulse Rate 67 Respiratory Rate Blood Pressure Pulse Oximetry Oxygen Delivery Oxygen Flow Rate Intake/Output Intake/Output: Intake & Output 06/03/23 06/04/23 06/05/23 06/06/23 23:59 23:59 23:59 23:59 Intake Total 2450 500 Output Total 350 5000 Balance 2100 -4500 Meds/Results Medications: Active Medications Generic Name Dose Route Start Last Admin Trade Name Sergio PRN Reason Stop Dose Admin Amlodipine Besylate 10 mg 06/05/23 09:00 06/06/23 11:25 Amlodipine Besylate 5 Mg Tablet PO 10 mg DAILY HUGH Administration Calcium Carbonate 500 mg 06/05/23 09:00 06/06/23 11:25 Calcium/Vitamin D 500 Mg Tablet BY MOUTH 500 mg DAILY HUGH Administration Furosemide 40 mg 06/06/23 09:00 06/06/23 11:32 Furosemide Inj 40 Mg/4 Ml Vial IV PUSH 40 mg BID HUGH Administration Hydralazine HCl 50 mg 06/05/23 09:00 06/06/23 11:25 Hydralazine Hcl 50 Mg Tablet PO 50 mg TID HUGH Admin
[2023-06-06 12:07] LABS: Appearance Peritoneal Fluid Cloudy (Clear); Source Peritoneal Fluid Peritoneal Fluid
[2023-06-06 12:08] LABS: Lymphocytes Peritoneal Fluid 56 %; Neutrophils Peritoneal Fluid 37 % (0-25)
[2023-06-06 12:09] LABS: Color Peritoneal Fluid Yellow (Colorless); Monocytes Peritoneal Fluid 7 %
[2023-06-06] MEDS: METOPROLOL TARTRATE 50 MG TAB PO (16:15)
--- NOTE | 2023-06-06 16:57 | WPDGICN ---
Assessment and Plan Assessment and plan (1) Cirrhosis: Code(s): K74.60 - Unspecified cirrhosis of liver Status: Acute Assessment and Plan: he has established diagnosis of cirrhosis but he does not appear that he has been under any but his care regularly. The etiology is most likely alcohol because of his history of heavy alcohol abuse. (2) Ascites: Code(s): R18.8 - Other ascites Status: Acute Assessment and Plan: He went up for paracentesis today and had 5 L of fluid removed (3) Alcohol abuse: Code(s): F10.10 - Alcohol abuse, uncomplicated Status: Chronic Assessment and Plan: abuses alcohol chronically. Admits to drinking several times a week quite heavily with up to 1/2 of a 5th of alcohol as well as 6 or more beers. (4) Tobacco dependence: Code(s): F17.200 - Nicotine dependence, unspecified, uncomplicated Status: Chronic Assessment and Plan: 1-2 packs a day since the age of 17 (5) Jaundice: Code(s): R17 - Unspecified jaundice Status: Acute Assessment and Plan: Damion is 7.8. but only slightly elevated AST. (6) Acute kidney injury superimposed on chronic kidney disease: Code(s): N17.9 - Acute kidney failure, unspecified; N18.9 - Chronic kidney disease, unspecified Status: Acute Assessment and Plan: BUN is 40 and creatinine 2.5. Also phosphorus is elevated. This suggests that he has chronic kidney disease blood this may be mostly acute or acute on top of chronic disease. He does not know. Hepatorenal syndrome is a possibility Plan Paracentesis has been done. Need to watch for alcohol withdrawal syndrome. Continue to monitor liver enzymes. GI Consult Note Consult date/time: 06/06/23 16:57 HPI: Osvaldo Marshall is a 63 year old male who has a history of cirrhosis and presented to the emergency room 2 days ago with a history of severe abdominal distension. He had had a paracentesis somewhere else apparently a couple of months ago. He states that he is too uncomfortable to eat or drink much. He has a history of chronic tobacco and alcohol abuse. Today he went down to Radiology and had paracentesis with removal of 5 L of fluid. He is feeling better now. And he wishes to eat. Review of Systems Review of Systems: All systems reviewed & are unremarkable except as noted in HPI and below PMFSH Past Medical History Medical History (Updated 06/06/23 @ 17:16 by Etienne Lopez MD) Alcohol abuse Chronic obstructive pulmonary disease History of fracture Including lower extremity and multiple toes. Hypertension Tobacco dependence Surgical History Surgical History History of toe surgery Family History Family History Father Hypertension Father Throat cancer of throat cancer in her early 60s. He was a heavy smoker. Mother Acute myocardial infarction of [place] in early 60s. Social History Social History Social History: The patient lives alone in [place]. He is single. He smoked between 1 and 2 packs of cigarettes per day and has since the age of 17. He drinks heavily, several times per week, consuming up to 1/2 of a 5th in addition to 6 beers. No drug use. He has 1 daughter, Andi, and he nominates her to be his surrogate decision maker. He wishes to be a full code. does uses marijuana sometimes used cocaine when he was young in high school Smoking packs per day: 0.25 Smoking cigarettes per day: 5.0 Smoking status: Current every day smoker Alcohol intake: former Substance use: current Substance use type: marijuana Last use: 2 weeks ago Lack of Transportation: No Lack of Food: Never True Current Housing: I Have Housing Concerned About Future Housing: No Difficulty [place]
[2023-06-06] MEDS: HEPARIN SODIUM 5,000 UNITS/ML VIAL 5000 UNITS SUB-Q (20:22)
[2023-06-07] VITALS (12 sets, daily range): BP systolic 114–137; BP diastolic 53–77; PULSE 62–91; RESP 13–16; TEMP 37–37.2; O2SAT 52–97
[2023-06-07] MEDS: metroNIDAZOLE 500 MG/ISO 100ML 500 MG/100 ML BAG 100 MG IVPB ×3 (05:44→21:48)
[2023-06-07 06:45] LABS: Basophils Percent Auto 0.3 % (0.2-1.2); Eosinophils Absolute Auto 0.1 K/mm3 (0-0.3); Eosinophils Percent Auto 1.2 % (0-4.4); Hematocrit 27.1 % (42.0-52.0); Hemoglobin 7.8 g/dL (14.0-18.0); Immature Granulocyte Absolute 0.04 K/mm3 (0.00-0.031); Immature Granulocyte Percent A 0.4 % (0-0.5); Lymphocytes Percent Auto 8.5 % (18.3-44.2); Mean Corpuscular HGB Conc 28.8 g/dl (32-36); Mean Corpuscular Hemoglobin 28.5 pg (26-34); Mean Corpuscular Volume 98.9 fl (80-100); Mean Platelet Volume 8.5 fl (7.4-10.4); Neutrophils Absolute Auto 7.4 K/mm3 (1.3-6.7); Neutrophils Percent Auto 78.6 % (45.5-73.1); Platelet Count Result 235 k/mm3 (150-375); Red Blood Count 2.74 M/mm3 (4.6-6.20); Red Cell Distribution Width 26.7 % (11.5-14.5); White Blood Count 9.4 K/mm3 (4.5-10.0)
[2023-06-07 06:56] LABS: Alanine Aminotransferase 17 U/L (6-50); Albumin Level 3.1 g/dL (3.5-5.1); Alkaline Phosphatase 61 U/L (38-126); Anion Gap 10 mmol/L (8-16); Aspartate Amino Transferase 21 U/L (17-59); Bilirubin,Total 2.1 mg/dL (0.2-1.3); Blood Urea Nitrogen 40 mg/dL (9-20); Calcium 7.7 mg/dL (8.4-10.2); Carbon Dioxide 20 mmol/L (22-30); Chloride 107 mmol/L (98-107); Estimated CRCL calculation 27 ml/min; Estimated Glomerular Filt Rate 26; Glucose 119 mg/dL (65-110); Magnesium 1.6 mg/dL (1.6-2.3); Potassium 3.7 mmol/L (3.4-5.0); Sodium 137 mmol/L (137-145)
[2023-06-07] MEDS: amLODIPine BESYLATE 5 MG TABLET 10 MG PO (08:41)
[2023-06-07] MEDS: hydrALAZINE HCL 50 MG TABLET PO ×3 (08:42→17:32)
[2023-06-07] MEDS: FUROSEMIDE INJ 40 MG/4 ML VIAL IV PUSH ×2 (08:42→17:32)
[2023-06-07] MEDS: METOPROLOL TARTRATE 50 MG TAB PO ×2 (08:43→17:32)
[2023-06-07] MEDS: PANTOPRAZOLE 40 MG TABLET PO ×2 (08:44→21:47)
--- NOTE | 2023-06-07 10:00 | WPDGIPROGNO ---
Progress Note: A&P Assessment and Plan (1) Cirrhosis: Code(s): K74.60 - Unspecified cirrhosis of liver Status: Chronic Assessment and Plan: he has established diagnosis of cirrhosis but he does not appear that he has been under any but his care regularly. The etiology is most likely alcohol because of his history of heavy alcohol abuse. he has not ever recall being told he had hepatitis. If his history is correct, he has never seen a professor of theology. (2) Ascites: Code(s): R18.8 - Other ascites Status: Chronic Assessment and Plan: He went up for paracentesis today and had 5 L of fluid removed He knows that he had this done about a month ago. He thought it was here but I see no record at this institution of him having paracentesis. He in fact thinks that this is his 3rd paracentesis. Although his admission meds include spironolactone and Lasix in the appropriate ratio of 100-40, he could not tell me for certain if he was taking them and I seriously doubt that he was. (3) Alcohol abuse: Code(s): F10.10 - Alcohol abuse, uncomplicated Status: Chronic Assessment and Plan: abuses alcohol chronically. Admits to drinking several times a week quite heavily with up to 1/2 of a 5th of alcohol as well as 6 or more beers. (4) Tobacco dependence: Code(s): F17.200 - Nicotine dependence, unspecified, uncomplicated Status: Chronic Assessment and Plan: 1-2 packs a day since the age of 17 (5) Jaundice: Code(s): R17 - Unspecified jaundice Status: Acute Assessment and Plan: Damion is 7.8. but only slightly elevated AST. (6) Acute kidney injury superimposed on chronic kidney disease: Code(s): N17.9 - Acute kidney failure, unspecified; N18.9 - Chronic kidney disease, unspecified Status: Acute Assessment and Plan: BUN is 40 and creatinine 2.5. Also phosphorus is elevated. This suggests that he has chronic kidney disease blood this may be mostly acute or acute on top of chronic disease. He does not know. Hepatorenal syndrome is a possibility Creatinine is unchanged at 2.5. I would consider Nephrology consultation. Plan Paracentesis has been done. Need to watch for alcohol withdrawal syndrome. Continue to monitor liver enzymes. He seems less lucid today. Not tremulous however. Surprisingly ammonia level is normal. Subjective Date/time seen: 06/07/23 10:00 this after patient has no complaints today. It is difficult to get history from him. I tried to get clarification as to whether he has a professor of theology. He does not think he does. He in fact does not think that he has a primary care physician. I told that he apparently is on diuretics according to his medication list and he could not be certain about that either. He is enjoying his breakfast and has no complaints today. Exam Const: General: cooperative and tired appearing Orientation/consciousness: patient oriented x3 HENMT: Head: normal to inspection Ears: hearing grossly normal bilaterally Mouth: Yes Normal oral and palatal mucosa present Eyes: General: appearance normal, both eyes and all related structures Neck: Neck: normal visual inspection Chest: Chest palpation & inspection: normal inspection of the chest Resp: Effort & Inspection: normal respiratory effort Auscultation: clear to auscultation bilaterally Cardio: Rate: regular rate Rhythm: regular rhythm GI: Inspection: distended GI Palp: No abdominal tenderness, Yes Soft to palpation, No Guarding due to palpation present (GI) and Yes Ascites present Auscultation: normal bowel sounds Skin: General skin exam: normal color and jaundice Neuro: General: patient oriented x3 Speech: normal speech Objective Data Vital Signs Vital Signs: Vital Signs - 24 hr 06/06/23 14:00 06/06/23 12:00 06/06/23 16:00 Temperature 36.5 C Pulse Rate 78 69 80 Respiratory Rate 18 Blood Pr
[2023-06-07] MEDS: DOXYCYCLINE 100 MG/NS 100 ML 100 MG/100 ML BAG IVPB ×2 (11:19→21:47)
--- NOTE | 2023-06-07 14:43 | PM.IMPN ---
Progress Note: A&P Assessment and Plan (1) Cirrhosis: Code(s): K74.60 - Unspecified cirrhosis of liver Status: Chronic Assessment and Plan: discontinue lactulose per patient request on 06/07/2023 start rifaximin/03/22 (2) Ascites: Code(s): R18.8 - Other ascites Status: Chronic Assessment and Plan: Paracentesis performed 06/06 and final results pending Discontinue metronidazole if culture negative (3) Pneumonia: Qualifiers: Pneumonia type: due to unspecified organism Laterality: left Lung location: lower lobe of lung Qualified Code(s): J18.9 - Pneumonia, unspecified organism Code(s): J18.9 - Pneumonia, unspecified organism Status: Acute Assessment and Plan: LLL Continue ceftriaxone and doxycycline (4) Alcohol abuse: Code(s): F10.10 - Alcohol abuse, uncomplicated Status: Chronic Assessment and Plan: abstaining (5) Renal insufficiency: Code(s): N28.9 - Disorder of kidney and ureter, unspecified Status: Acute Assessment and Plan: 06/07 creatinine 2.5, stable (6) Anemia: Code(s): D64.9 - Anemia, unspecified Status: Chronic Assessment and Plan: 06/07 Hgb 7/8, stable Subjective Date/time seen: 06/07/23 14:43 Interval history: Had 4-5 loose stools after 1 dose of lactulose. Refuses to take any more. Denied chest pain or shortness of breath or abnormal no swelling in feet legs. No difficulty urinating. No blood in stool. Review of Systems Review of Systems: All systems reviewed & are unremarkable except as noted in HPI and below Exam Narrative: HEENT: PERRL, sclerae nonicteric, pharyngeal mucosa pink and intact NECK: No JVD CHEST: Clear to auscultation. Normal effort. HEART: NL S1/S2, regular, no murmur ABDOMEN: BS+, protuberant but soft, nontender, no mass, no bruits EXTREMITIES: trace pitting edema of distal legs NEUROLOGIC: CN intact and symmetric to inspection. MUSCULOSKELETAL: Tone and strength symmetric. PSYCH: Alert. Oriented to person, place, and time. Objective Data Vital Signs Vital Signs: Vital Signs - 24 hr 06/06/23 16:00 06/06/23 20:50 06/06/23 22:40 Temperature 97.8 F Pulse Rate 80 69 Respiratory Rate 16 Blood Pressure 125/72 Pulse Oximetry 95 96 Oxygen Delivery Room Air 06/06/23 20:00 06/06/23 20:00 06/07/23 00:00 Temperature Pulse Rate 73 67 Respiratory Rate Blood Pressure Pulse Oximetry Oxygen Delivery Room Air 06/07/23 04:00 06/07/23 04:37 06/07/23 08:39 Temperature 98.6 F Pulse Rate 66 65 65 Respiratory Rate 16 Blood Pressure 114/66 137/76 Pulse Oximetry 95 Oxygen Delivery 06/07/23 08:43 06/07/23 08:36 06/07/23 08:00 Temperature Pulse Rate 65 64 Respiratory Rate Blood Pressure Pulse Oximetry Oxygen Delivery Room Air 06/07/23 12:00 Temperature Pulse Rate 62 Respiratory Rate Blood Pressure Pulse Oximetry Oxygen Delivery Intake/Output Intake/Output: Intake & Output 06/04/23 06/05/23 06/06/23 06/07/23 23:59 23:59 23:59 23:59 Intake Total 2450 2233 950 Output Total 350 5350 850 Balance 2100 -3117 100 Meds/Results Medications: Active Medications Generic Name Dose Route Start Last Admin Trade Name Freq PRN Reason Stop Dose Admin Amlodipine Besylate 10 mg 06/05/23 09:00 06/07/23 08:41 Amlodipine Besylate 5 Mg Tablet PO 10 mg DAILY HUGH Administration Calcium Carbonate 500 mg 06/05/23 09:00 06/07/23 08:42 Calcium/Vitamin D 500 Mg Tablet BY MOUTH 500 mg DAILY HUGH Administration Furosemide 40 mg 06/06/23 09:00 06/07/23 08:42 Furosemide Inj 40 Mg/4 Ml Vial IV PUSH 40 mg BID HUGH Administration Heparin Sodium (Porcine) 5,000 units 06/06/23 21:00 06/07/23 08:51 Heparin Sodium 5,000 Units/Ml Vial SUB-Q Not Given Q12HR [facility] Hydralazine HCl 50 mg 06/05/23 09:00 06/07/23 13:30 Hydr
--- NOTE | 2023-06-07 15:28 | P.PNNP_ITS ---
Progress Note: A&P Assessment and Plan (1) BRANT (acute kidney injury): Code(s): N17.9 - Acute kidney failure, unspecified Status: Acute Assessment and Plan: * is this BRANT/ARF or is this just progression of his baseline CKD? * extensive evaluation done on previous hospitalizations: * unremarkable renal ultrasound * renal ultrasound unremarkable * urine eosinophils negative * urine electrolytes prerenal - a manifestation of liver physiology given clear evidence of volume overload on admission * CPK low * negative serological testing * low complements - thought to be secondary to liver disease * moderate proteinuria (~ 960mg) * intake/ output unclear because of him not collecting his urine, overall numbers are negative because of the paracentesis. * Creatinine is stable (2) Stage 3b chronic kidney disease: Code(s): N18.32 - Chronic kidney disease, stage 3b Status: Chronic Assessment and Plan: * creatinine was 2.0 - 2.1mg/dl about a month ago (March 2023) * presumably due to hypertension and vascular disease in conjunction with liver disease/liver physiology (decreased effective circulating volume leading to chronic prerenal azotemia worsened by the need for chronic diuretic therapy) (3) Cirrhosis: Code(s): K74.60 - Unspecified cirrhosis of liver Status: Chronic Assessment and Plan: * present since at least Jun 2022 * therapeutic paracentesis earlier today * continue diuretic therapy * ? follow LFTs * GI following the patient (4) Ascites: Code(s): R18.8 - Other ascites Status: Chronic Assessment and Plan: * presumably due to #3 and possible medication non-compliance * on diuretic therapy * s/p large volume paracentesis (on 06/06/23) of a 5L * low salt diet, daily weights, follow I/Os (5) Anemia: Code(s): D64.9 - Anemia, unspecified Status: Chronic Assessment and Plan: * likely related to CKD and liver disease * hemoglobin 7.8 * PRBC transfusion per protocol (6) Alcohol abuse: Code(s): F10.10 - Alcohol abuse, uncomplicated Status: Chronic Assessment and Plan: * known history * watch for withdrawal Subjective Date/time seen: 06/07/23 15:28 Interval history: Patient feels okay. he does not want any more lactulose. Review of Systems Cardiovascular: Cardiovascular: Reports no additional cardiovascular complaints Respiratory: Respiratory: Reports no additional respiratory complaints Gastrointestinal: Gastrointestinal: Reports no additional gastrointestinal complaints Genitourinary: Genitourinary: Reports no additional male genitourinary complaints Exam Narrative: WDWN in NAD skin no rash head ncat lungs clear cor reg no rub abd BS+ nontender and soft but somewhat distended ext 1+ bilateral edema. Objective Data Vital Signs Vital Signs: Vital Signs - 24 hr 06/06/23 16:00 06/06/23 20:50 06/06/23 22:40 Temperature 97.8 F Pulse Rate 80 69 Respiratory Rate 16 Blood Pressure 125/72 Pulse Oximetry 95 96 Oxygen Delivery Room Air 06/06/23 20:00 06/06/23 20:00 06/07/23 00:00 Temperature Pulse Rate 73 67 Respiratory Rate Blood Pressu
--- NOTE | 2023-06-07 15:28 | PM.PNNEP ---
Progress Note: A&P Assessment and Plan (1) BRANT (acute kidney injury): Code(s): N17.9 - Acute kidney failure, unspecified Status: Acute Assessment and Plan: is this BRANT/ARF or is this just progression of his baseline CKD? extensive evaluation done on previous hospitalizations: unremarkable renal ultrasound renal ultrasound unremarkable urine eosinophils negative urine electrolytes prerenal - a manifestation of liver physiology given clear evidence of volume overload on admission CPK low negative serological testing low complements - thought to be secondary to liver disease moderate proteinuria (~ 960mg) intake/ output unclear because of him not collecting his urine, overall numbers are negative because of the paracentesis. Creatinine is stable (2) Stage 3b chronic kidney disease: Code(s): N18.32 - Chronic kidney disease, stage 3b Status: Chronic Assessment and Plan: creatinine was 2.0 - 2.1mg/dl about a month ago (March 2023) presumably due to hypertension and vascular disease in conjunction with liver disease/liver physiology (decreased effective circulating volume leading to chronic prerenal azotemia worsened by the need for chronic diuretic therapy) (3) Cirrhosis: Code(s): K74.60 - Unspecified cirrhosis of liver Status: Chronic Assessment and Plan: present since at least Jun 2022 therapeutic paracentesis earlier today continue diuretic therapy ? follow LFTs GI following the patient (4) Ascites: Code(s): R18.8 - Other ascites Status: Chronic Assessment and Plan: presumably due to #3 and possible medication non-compliance on diuretic therapy s/p large volume paracentesis (on 06/06/23) of a 5L low salt diet, daily weights, follow I/Os (5) Anemia: Code(s): D64.9 - Anemia, unspecified Status: Chronic Assessment and Plan: likely related to CKD and liver disease hemoglobin 7.8 PRBC transfusion per protocol (6) Alcohol abuse: Code(s): F10.10 - Alcohol abuse, uncomplicated Status: Chronic Assessment and Plan: known history watch for withdrawal Subjective Date/time seen: 06/07/23 15:28 Interval history: Patient feels okay. he does not want any more lactulose. Review of Systems Cardiovascular: Cardiovascular: Reports no additional cardiovascular complaints Respiratory: Respiratory: Reports no additional respiratory complaints Gastrointestinal: Gastrointestinal: Reports no additional gastrointestinal complaints Genitourinary: Genitourinary: Reports no additional male genitourinary complaints Exam Narrative: WDWN in NAD skin no rash head ncat lungs clear cor reg no rub abd BS+ nontender and soft but somewhat distended ext 1+ bilateral edema. Objective Data Vital Signs Vital Signs: Vital Signs - 24 hr 06/06/23 16:00 06/06/23 20:50 06/06/23 22:40 Temperature 97.8 F Pulse Rate 80 69 Respiratory Rate 16 Blood Pressure 125/72 Pulse Oximetry 95 96 Oxygen Delivery Room Air 06/06/23 20:00 06/06/23 20:00 06/07/23 00:00 Temperature Pulse Rate 73 67 Respiratory Rate Blood Pressure Pulse Oximetry Oxygen Delivery Room Air 06/07/23 04:00 06/07/23 04:37 06/07/23 08:39 Temperature 98.6 F Pulse Rate 66 65 65 Respiratory Rate 16 Blood Pressure 114/66 137/76 Pulse Oximetry 95 Oxygen Delivery 06/07/23 08:43 06/07/23 08:36 06/07/23 08:00 Temperature Pulse Rate 65 64 Respiratory Rate Blood Pressure Pulse Oximetry Oxygen Delivery Room Air 06/07/23 12:00 06/07/23 14:00 Temperature 98.8 F Pulse Rate 62 65 Respiratory Rate 16 Blood Pressure 130/77 Pulse Oximetry 97 Oxygen Delivery Intake/Output Intake/Output: Intake & Output 06/04/23 06/05/23 06/06/23 06/07/23 23:59 23:59 23:59 23:59 Intake Total 3350 2233 950 Output Total 350 5350
[2023-06-07] MEDS: HEPARIN SODIUM 5,000 UNITS/ML VIAL 5000 UNITS SUB-Q (21:46)
[2023-06-07] MEDS: rifAXIMin 550 MG TABLET PO (21:47)
[2023-06-08] VITALS (11 sets, daily range): BP systolic 127–145; BP diastolic 67–87; PULSE 62–74; RESP 14–18; TEMP 36.7–36.9; O2SAT 94–100
[2023-06-08 02:56] LABS: IFOB Positive Control Positive; Immunochemical Fecal Occult Bl Negative (N)
[2023-06-08] MEDS: metroNIDAZOLE 500 MG/ISO 100ML 500 MG/100 ML BAG 100 MG IVPB ×3 (05:39→21:32)
[2023-06-08 07:35] LABS: Basophils Percent Auto 0.5 % (0.2-1.2); Eosinophils Absolute Auto 0.1 K/mm3 (0-0.3); Eosinophils Percent Auto 1.7 % (0-4.4); Hemoglobin 7.5 g/dL (14.0-18.0); Immature Granulocyte Absolute 0.03 K/mm3 (0.00-0.031); Immature Granulocyte Percent A 0.4 % (0-0.5); Lymphocytes Absolute Auto 0.89 K/mm3 (0.9-3.2); Lymphocytes Percent Auto 11.6 % (18.3-44.2); Mean Corpuscular HGB Conc 28.8 g/dl (32-36); Mean Platelet Volume 8.8 fl (7.4-10.4); Monocytes Absolute Auto 0.9 K/mm3 (0.1-0.6); Monocytes Percent Auto 11.9 % (2.6-8.5); Neutrophils Absolute Auto 5.6 K/mm3 (1.3-6.7); Neutrophils Percent Auto 73.9 % (45.5-73.1); Platelet Count Result 228 k/mm3 (150-375); Red Blood Count 2.68 M/mm3 (4.6-6.20); Red Cell Distribution Width 26.1 % (11.5-14.5); White Blood Count 7.6 K/mm3 (4.5-10.0)
[2023-06-08 07:44] LABS: Alanine Aminotransferase 15 U/L (6-50); Alkaline Phosphatase 63 U/L (38-126); Anion Gap 5 mmol/L (8-16); Aspartate Amino Transferase 20 U/L (17-59); Bilirubin,Total 1.6 mg/dL (0.2-1.3); Blood Urea Nitrogen 38 mg/dL (9-20); Calcium 7.4 mg/dL (8.4-10.2); Carbon Dioxide 23 mmol/L (22-30); Chloride 107 mmol/L (98-107); Estimated CRCL calculation 30 ml/min; Estimated Glomerular Filt Rate 29; Glucose 83 mg/dL (65-110); Magnesium 1.4 mg/dL (1.6-2.3); Phosphorus 4.7 mg/dL (2.5-4.5); Potassium 3.1 mmol/L (3.4-5.0); Sodium 135 mmol/L (137-145)
[2023-06-08] MEDS: amLODIPine BESYLATE 5 MG TABLET 10 MG PO (09:24)
[2023-06-08] MEDS: FUROSEMIDE INJ 40 MG/4 ML VIAL IV PUSH ×2 (09:25→17:54)
[2023-06-08] MEDS: hydrALAZINE HCL 50 MG TABLET PO ×3 (09:27→17:52)
[2023-06-08] MEDS: METOPROLOL TARTRATE 50 MG TAB PO ×2 (09:27→17:52)
[2023-06-08] MEDS: HEPARIN SODIUM 5,000 UNITS/ML VIAL 5000 UNITS SUB-Q ×2 (09:27→20:29)
[2023-06-08] MEDS: rifAXIMin 550 MG TABLET PO ×2 (09:28→20:30)
[2023-06-08] MEDS: SPIRONOLACTONE 50 MG TABLET 100 MG PO (09:28)
[2023-06-08] MEDS: PANTOPRAZOLE 40 MG TABLET PO ×2 (09:29→20:30)
[2023-06-08] MEDS: DOXYCYCLINE 100 MG/NS 100 ML 100 MG/100 ML BAG IVPB ×2 (10:58→20:26)
--- NOTE | 2023-06-08 13:11 | P.PNNP_ITS ---
Progress Note: A&P Assessment and Plan (1) BRANT (acute kidney injury): Code(s): N17.9 - Acute kidney failure, unspecified Status: Acute Assessment and Plan: * is this BRANT/ARF or is this just progression of his baseline CKD? * extensive evaluation done on previous hospitalizations: * unremarkable renal ultrasound * renal ultrasound unremarkable * urine eosinophils negative * urine electrolytes prerenal - a manifestation of liver physiology given clear evidence of volume overload on admission * CPK low * negative serological testing * low complements - thought to be secondary to liver disease * moderate proteinuria (~ 960mg) * urine output is better. * Creatinine is down a hair. (2) Stage 3b chronic kidney disease: Code(s): N18.32 - Chronic kidney disease, stage 3b Status: Chronic Assessment and Plan: * creatinine was 2.0 - 2.1mg/dl about a month ago (March 2023) * presumably due to hypertension and vascular disease in conjunction with liver disease/liver physiology (decreased effective circulating volume leading to chronic prerenal azotemia worsened by the need for chronic diuretic therapy) (3) Cirrhosis: Code(s): K74.60 - Unspecified cirrhosis of liver Status: Chronic Assessment and Plan: * present since at least Jun 2022 * therapeutic paracentesis earlier today * continue diuretic therapy * ? bilirubin is down, ast/alt are now normal * GI following the patient (4) Ascites: Code(s): R18.8 - Other ascites Status: Chronic Assessment and Plan: * presumably due to #3 and possible medication non-compliance * on lasix 40 bid. * s/p large volume paracentesis (on 06/06/23) of 5L * low salt diet, daily weights, follow I/Os (5) Anemia: Code(s): D64.9 - Anemia, unspecified Status: Chronic Assessment and Plan: * likely related to CKD and liver disease * hemoglobin 7.5. this is about the same. * hopefully hb will rise some as creatinine improves (6) Alcohol abuse: Code(s): F10.10 - Alcohol abuse, uncomplicated Status: Chronic Assessment and Plan: * known history * watching for withdrawal Subjective Date/time seen: 06/08/23 13:11 Interval history: alert. Exam Narrative: WDWN in NAD skin no rash head ncat lungs clear cor reg no rub abd BS+ nontender and soft but somewhat distended ext 1+ bilateral edema. Objective Data Vital Signs Vital Signs: Vital Signs - 24 hr 06/07/23 14:00 06/07/23 16:00 06/07/23 17:32 Temperature 98.8 F Pulse Rate 65 67 73 Respiratory Rate 16 Blood Pressure 130/77 Pulse Oximetry 97 Oxygen Delivery 06/07/23 21:47 06/07/23 20:00 06/08/23 00:00 Temperature 99.0 F Pulse Rate 91 67 71 Respiratory Rate 13 Blood Pressure 116/53 L Pulse Oximetry 52 L Oxygen Delivery 06/07/23 20:00 06/08/23 05:39 06/08/23 04:00 Temperature 98.5 F Pulse Rate 71 62 63 Respiratory Rate 13 14 Blood Pressure 145/87 H Pulse Oximetry 52 L 98 Oxygen Delivery Room Air 06/08/23 09:27 Temperature Pulse Rate 74 Respiratory Rate
--- NOTE | 2023-06-08 13:11 | PM.PNNEP ---
Progress Note: A&P Assessment and Plan (1) BRANT (acute kidney injury): Code(s): N17.9 - Acute kidney failure, unspecified Status: Acute Assessment and Plan: is this BRANT/ARF or is this just progression of his baseline CKD? extensive evaluation done on previous hospitalizations: unremarkable renal ultrasound renal ultrasound unremarkable urine eosinophils negative urine electrolytes prerenal - a manifestation of liver physiology given clear evidence of volume overload on admission CPK low negative serological testing low complements - thought to be secondary to liver disease moderate proteinuria (~ 960mg) urine output is better. Creatinine is down a hair. (2) Stage 3b chronic kidney disease: Code(s): N18.32 - Chronic kidney disease, stage 3b Status: Chronic Assessment and Plan: creatinine was 2.0 - 2.1mg/dl about a month ago (March 2023) presumably due to hypertension and vascular disease in conjunction with liver disease/liver physiology (decreased effective circulating volume leading to chronic prerenal azotemia worsened by the need for chronic diuretic therapy) (3) Cirrhosis: Code(s): K74.60 - Unspecified cirrhosis of liver Status: Chronic Assessment and Plan: present since at least Jun 2022 therapeutic paracentesis earlier today continue diuretic therapy ? bilirubin is down, ast/alt are now normal GI following the patient (4) Ascites: Code(s): R18.8 - Other ascites Status: Chronic Assessment and Plan: presumably due to #3 and possible medication non-compliance on lasix 40 bid. s/p large volume paracentesis (on 06/06/23) of 5L low salt diet, daily weights, follow I/Os (5) Anemia: Code(s): D64.9 - Anemia, unspecified Status: Chronic Assessment and Plan: likely related to CKD and liver disease hemoglobin 7.5. this is about the same. hopefully hb will rise some as creatinine improves (6) Alcohol abuse: Code(s): F10.10 - Alcohol abuse, uncomplicated Status: Chronic Assessment and Plan: known history watching for withdrawal Subjective Date/time seen: 06/08/23 13:11 Interval history: alert. Exam Narrative: WDWN in NAD skin no rash head ncat lungs clear cor reg no rub abd BS+ nontender and soft but somewhat distended ext 1+ bilateral edema. Objective Data Vital Signs Vital Signs: Vital Signs - 24 hr 06/07/23 14:00 06/07/23 16:00 06/07/23 17:32 Temperature 98.8 F Pulse Rate 65 67 73 Respiratory Rate 16 Blood Pressure 130/77 Pulse Oximetry 97 Oxygen Delivery 06/07/23 21:47 06/07/23 20:00 06/08/23 00:00 Temperature 99.0 F Pulse Rate 91 67 71 Respiratory Rate 13 Blood Pressure 116/53 L Pulse Oximetry 52 L Oxygen Delivery 06/07/23 20:00 06/08/23 05:39 06/08/23 04:00 Temperature 98.5 F Pulse Rate 71 62 63 Respiratory Rate 13 14 Blood Pressure 145/87 H Pulse Oximetry 52 L 98 Oxygen Delivery Room Air 06/08/23 09:27 Temperature Pulse Rate 74 Respiratory Rate Blood Pressure Pulse Oximetry Oxygen Delivery Intake/Output Intake/Output: Intake & Output 06/05/23 06/06/23 06/07/23 06/08/23 23:59 23:59 23:59 23:59 Intake Total 2450 2233 2550 2180 Output Total 350 5350 1250 1200 Balance 2100 -3117 1300 980 Meds/Results Medications: Active Medications Generic Name Dose Route Start Last Admin Trade Name Freq PRN Reason Stop Dose Admin Amlodipine Besylate 10 mg 06/05/23 09:00 06/08/23 09:24 Amlodipine Besylate 5 Mg Tablet PO 10 mg DAILY HUGH Administration Calcium Carbonate 500 mg 06/05/23 09:00 06/08/23 09:25 Calcium/Vitamin D 500 Mg Tablet BY MOUTH 500 mg DAILY HUGH Administration Furosemide 40 mg 06/06/23 09:00 06/08/23 09:25 Furosemide Inj 40 Mg/4 Ml Vial IV PUSH 40 mg BID HUGH Administration Heparin Sodium (Porcine)
--- NOTE | 2023-06-08 13:26 | PM.IMPN ---
Progress Note: A&P Assessment and Plan (1) Cirrhosis: Code(s): K74.60 - Unspecified cirrhosis of liver Status: Chronic Assessment and Plan: discontinue lactulose per patient request on 06/07/2023 start rifaximin/03/22 gi on board absence of alcohol adviced (2) Ascites: Code(s): R18.8 - Other ascites Status: Chronic Assessment and Plan: Paracentesis performed 06/06 and final results pending Discontinue metronidazole if culture negative follow ascitic culture and blood culture (3) Pneumonia: Qualifiers: Pneumonia type: due to unspecified organism Laterality: left Lung location: lower lobe of lung Qualified Code(s): J18.9 - Pneumonia, unspecified organism Code(s): J18.9 - Pneumonia, unspecified organism Status: Acute Assessment and Plan: LLL Continue ceftriaxone and doxycycline day 3 (4) Alcohol abuse: Code(s): F10.10 - Alcohol abuse, uncomplicated Status: Chronic Assessment and Plan: CIWA protocol pt appears stable (5) Renal insufficiency: Code(s): N28.9 - Disorder of kidney and ureter, unspecified Status: Acute Assessment and Plan: creat is 2.3 nephrology on board pt producing good urine continue to watch kidney function (6) Anemia: Code(s): D64.9 - Anemia, unspecified Status: Chronic Assessment and Plan: hb is 7.5 will order venofer for patient watch hb aisha Subjective Date/time seen: 06/08/23 13:26 Interval history: 63-year-old male with past medical history of hypertension, ascites, liver cirrhosis presented with worsening/distended abdomen. Pt had paracentesis with 5 liters removed Pt seen by nephrology and GI creat is 2.3 hb is 7.5 Review of Systems Review of Systems: no specific compliants All systems reviewed & are unremarkable except as noted in HPI and below Exam Narrative: HEENT: PERRL, sclerae nonicteric, pharyngeal mucosa pink and intact NECK: No JVD CHEST: Clear to auscultation. Normal effort. HEART: NL S1/S2, regular, no murmur ABDOMEN: BS+, protuberant but soft, nontender, no mass, no bruits EXTREMITIES: trace pitting edema of distal legs NEUROLOGIC: CN intact and symmetric to inspection. MUSCULOSKELETAL: Tone and strength symmetric. PSYCH: Alert. Oriented to person, place, and time. Objective Data Vital Signs Vital Signs: Vital Signs - 24 hr 06/07/23 14:00 06/07/23 16:00 06/07/23 17:32 Temperature 37.1 C Pulse Rate 65 67 73 Respiratory Rate 16 Blood Pressure 130/77 Pulse Oximetry 97 Oxygen Delivery 06/07/23 21:47 06/07/23 20:00 06/08/23 00:00 Temperature 37.2 C Pulse Rate 91 67 71 Respiratory Rate 13 Blood Pressure 116/53 L Pulse Oximetry 52 L Oxygen Delivery 06/07/23 20:00 06/08/23 05:39 06/08/23 04:00 Temperature 36.9 C Pulse Rate 71 62 63 Respiratory Rate 13 14 Blood Pressure 145/87 H Pulse Oximetry 52 L 98 Oxygen Delivery Room Air 06/08/23 09:27 Temperature Pulse Rate 74 Respiratory Rate Blood Pressure Pulse Oximetry Oxygen Delivery Intake/Output Intake/Output: Intake & Output 06/05/23 06/06/23 06/07/23 06/08/23 23:59 23:59 23:59 23:59 Intake Total 2450 2233 2550 2180 Output Total 350 5350 1250 1200 Balance 2100 -3117 1300 980 Meds/Results Medications: Active Medications Generic Name Dose Route Start Last Admin Trade Name Issaq PRN Reason Stop Dose Admin Amlodipine Besylate 10 mg 06/05/23 09:00 06/08/23 09:24 Amlodipine Besylate 5 Mg Tablet PO 10 mg DAILY HUGH Administration Calcium Carbonate 500 mg 06/05/23 09:00 06/08/23 09:25 Calcium/Vitamin D 500 Mg Tablet BY MOUTH 500 mg DAILY HUGH Administration Furosemide 40 mg 06/06/23 09:00 06/08/23 09:25 Furosemide Inj 40 Mg/4 Ml Vial IV PUSH 40 mg BID HUGH Administration Heparin Sodium (Porcine) 5,000 units 06/06/23 21:00
[2023-06-08] MEDS: IRON SUCROSE COMPLEX 300 MG in SODIUM CHLORIDE 0.9% IV 250 ML 176.67 MG IVPB (15:23)
--- NOTE | 2023-06-08 18:10 | PC.NURSE ---
Patient requesting to speak with doctor prior to signing consent. Dr. Lopez notified.
[2023-06-09] VITALS: PULSE 68
[2023-06-09 04:00] VITALS: PULSE 67
[2023-06-09 05:19] VITALS: BP 142/79; PULSE 67; RESP 17; TEMP 37.2; O2SAT 98
[2023-06-09] MEDS: metroNIDAZOLE 500 MG/ISO 100ML 500 MG/100 ML BAG 100 MG IVPB (05:30)
[2023-06-09 06:30] LABS: Basophils Percent Auto 0.6 % (0.2-1.2); Eosinophils Absolute Auto 0.1 K/mm3 (0-0.3); Eosinophils Percent Auto 1.4 % (0-4.4); Hematocrit 27.3 % (42.0-52.0); Hemoglobin 8.1 g/dL (14.0-18.0); Immature Granulocyte Absolute 0.03 K/mm3 (0.00-0.031); Immature Granulocyte Percent A 0.4 % (0-0.5); Lymphocytes Percent Auto 9.7 % (18.3-44.2); Mean Corpuscular HGB Conc 29.7 g/dl (32-36); Mean Corpuscular Hemoglobin 28.8 pg (26-34); Mean Corpuscular Volume 97.2 fl (80-100); Mean Platelet Volume 8.6 fl (7.4-10.4); Monocytes Percent Auto 13.9 % (2.6-8.5); Neutrophils Absolute Auto 5.3 K/mm3 (1.3-6.7); Platelet Count Result 226 k/mm3 (150-375); Red Blood Count 2.81 M/mm3 (4.6-6.20); Red Cell Distribution Width 24.8 % (11.5-14.5); White Blood Count 7.2 K/mm3 (4.5-10.0)
[2023-06-09 06:47] LABS: Albumin Level 3.1 g/dL (3.5-5.1); Anion Gap 9 mmol/L (8-16); Blood Urea Nitrogen 39 mg/dL (9-20); Calcium 7.4 mg/dL (8.4-10.2); Carbon Dioxide 24 mmol/L (22-30); Chloride 104 mmol/L (98-107); Estimated CRCL calculation 28 ml/min; Estimated Glomerular Filt Rate 27; Glucose 87 mg/dL (65-110); Phosphorus 3.9 mg/dL (2.5-4.5); Potassium 3.4 mmol/L (3.4-5.0); Sodium 137 mmol/L (137-145)
[2023-06-09 07:45] LABS: Platelet Estimate Adequate (Adequate); Poikilocytosis 1+ (NORMAL)
[2023-06-09 07:49] LABS: Schistocytes 2+ (NORMAL)
[2023-06-09 07:51] LABS: Anisocytosis 1+ (NORMAL)
[2023-06-09 08:00] VITALS: PULSE 68
[2023-06-09 08:28] VITALS: PULSE 67
[2023-06-09] MEDS: PANTOPRAZOLE 40 MG TABLET PO (08:28)
[2023-06-09] MEDS: METOPROLOL TARTRATE 50 MG TAB PO (08:28)
[2023-06-09] MEDS: amLODIPine BESYLATE 5 MG TABLET 10 MG PO (08:28)
[2023-06-09] MEDS: FUROSEMIDE INJ 40 MG/4 ML VIAL IV PUSH (08:28)
[2023-06-09] MEDS: SPIRONOLACTONE 50 MG TABLET 100 MG PO (08:29)
[2023-06-09] MEDS: rifAXIMin 550 MG TABLET PO (08:29)
[2023-06-09] MEDS: hydrALAZINE HCL 50 MG TABLET PO (08:29)
[2023-06-09] MEDS: HEPARIN SODIUM 5,000 UNITS/ML VIAL 5000 UNITS SUB-Q (08:29)
[2023-06-09] MEDS: DOXYCYCLINE 100 MG/NS 100 ML 100 MG/100 ML BAG IVPB (08:29)
--- NOTE | 2023-06-09 13:22 | PC.NURSE ---
pt threatening to leave AMA this am because he is not happy about being NPO for EGD at 1430. Pt states he wants to leave and schedule appointment for EGD outpatient. Pt was explained the risks of leaving AMA. pt states he will schedule EGD outpatient. MD was called to speak to pt about the pt wanting to leave AMA. MD came and talked to pt and explained the risks of leaving AMA. told pt that he was already here so lets gets the test done today. pt still declined procedure. Pt signed AMA paper and IV was taken out. Pt was then wheeled down to lobby by PCT where he was waiting for a taxi.
--- NOTE | 2023-06-09 15:20 | PM.DS ---
DS: Admitting Diagnosis Discharge Date 06/09/23 Admitting Diagnosis Ascites BRANT on CKD DS: Discharge Diagnosis Discharge Diagnosis (1) Personal history of noncompliance with medical treatment and regimen: Code(s): Z91.199 - Patient's noncompliance with other medical treatment and regimen due to unspecified reason Status: Acute (2) Left against medical advice: Code(s): Z53.29 - Procedure and treatment not carried out because of patient's decision for other reasons Status: Acute (3) Tobacco abuse counseling: Code(s): Z71.6 - Tobacco abuse counseling Status: Acute (4) Nicotine dependence, cigarettes, with other nicotine-induced disorders: Code(s): F17.218 - Nicotine dependence, cigarettes, with other nicotine-induced disorders Status: Acute (5) Acute exacerbation of CHF (congestive heart failure): Qualifiers: Heart failure type: unspecified Qualified Code(s): I50.9 - Heart failure, unspecified Code(s): I50.9 - Heart failure, unspecified Status: Acute (6) Renal insufficiency: Code(s): N28.9 - Disorder of kidney and ureter, unspecified Status: Acute (7) Elevated liver function tests: Code(s): R79.89 - Other specified abnormal findings of blood chemistry Status: Acute (8) Tobacco dependence: Code(s): F17.200 - Nicotine dependence, unspecified, uncomplicated Status: Chronic (9) Hypertension: Code(s): I10 - Essential (primary) hypertension Status: Acute (10) Alcohol abuse: Code(s): F10.10 - Alcohol abuse, uncomplicated Status: Chronic (11) Suspected sleep apnea: Code(s): R29.818 - Other symptoms and signs involving the nervous system Status: Acute (12) Liver mass: Code(s): R16.0 - Hepatomegaly, not elsewhere classified Status: Acute (13) Cirrhosis: Qualifiers: Ascites presence: with ascites Hepatic cirrhosis type: unspecified hepatic cirrhosis Qualified Code(s): K74.60 - Unspecified cirrhosis of liver; R18.8 - Other ascites Code(s): K74.60 - Unspecified cirrhosis of liver Status: Acute (14) Hyperbilirubinemia: Code(s): E80.6 - Other disorders of bilirubin metabolism Status: Acute (15) Non compliance w medication regimen: Code(s): Z91.148 - Patient's other noncompliance with medication regimen for other reason Status: Acute (16) Hepatorenal syndrome: Code(s): K76.7 - Hepatorenal syndrome Status: Acute (17) Anemia: Code(s): D64.9 - Anemia, unspecified Status: Acute (18) Cirrhosis: Code(s): K74.60 - Unspecified cirrhosis of liver Status: Chronic (19) Liver mass: Code(s): R16.0 - Hepatomegaly, not elsewhere classified Status: Acute (20) Tobacco dependence: Code(s): F17.200 - Nicotine dependence, unspecified, uncomplicated Status: Chronic DS: Summary Hospital Course Reason for hospitalization: Ascites BRANT on CKD Chronic medical issues Hospital Course: H&P: HPI History of Present Illness Date/Time: 06/05/23? 15:25 Chief Complaint: Distended abdomen Constipation Narrative: 63-year-old male with past medical history of COPD, alcohol abuse in the past, likely liver cirrhosis presented to the ER with distended abdomen.? According to him he had a paracentesis done almost 1 and half months ago.? He is not very sure about his diagnosis but he thinks it is related to his liver. Denies any fever chills.? Complains of constipation, last bowel movement unknown. HOSPITAL COURSE ... 06/05/2023 - 06/08/2023: (1) Cirrhosis: ?Code(s): K74.60 - Unspecified cirrhosis of liver ?Status:?Chronic ?Assessment and Plan: ?discontinue lactulose per patient request on 06/07/2023 ?start rifaximin/03/22 gi on board absence of alcohol adviced(2) Ascites: ?Code(s): R18.8 - Other ascites ?Status:?Chronic ?Assessm
[2023-06-10 15:13] LABS: Albumin Peritoneal Fluid 2.2 g/dL
== END 2023-06-09 11:45 | disposition left against medical advice (07) | DRG 432 ==
LOC: ANHED 22:56 → ANH3MEDSUR 06-05 03:51
PROVIDERS: Internal Medicine; Internal Medicine Nephrology; Admitting Provider Internal Medicine; Emergency Provider Emergency Medicine; PCP Internal Medicine; Visit Provider Family Medicine
DX: K70.31 Alcoholic cirrhosis of liver with ascites (principal); J18.9 Pneumonia, unspecified organism; K76.7 Hepatorenal syndrome; N17.9 Acute kidney failure, unspecified; I13.0 Hypertensive heart and chronic kidney disease with heart failure and stage 1 through stage 4 chronic kidney disease, or unspecified chronic kidney disease; J44.0 Chronic obstructive pulmonary disease with (acute) lower respiratory infection; I50.9 Heart failure, unspecified; N18.32 Chronic kidney disease, stage 3b; I25.10 Atherosclerotic heart disease of native coronary artery without angina pectoris; K59.00 Constipation, unspecified; F10.10 Alcohol abuse, uncomplicated; F17.210 Nicotine dependence, cigarettes, uncomplicated; F12.90 Cannabis use, unspecified, uncomplicated; Z20.822 Contact with and (suspected) exposure to COVID-19; Z95.1 Presence of aortocoronary bypass graft; Z91.148 Patient's other noncompliance with medication regimen for other reason; Z91.199 Patient's noncompliance with other medical treatment and regimen due to unspecified reason
CPT/HCPCS: 36415; 49083; 71045; 76700; 80053; 80069; 81001; 82042; 82140; 82274; 83690; 83735; 84100; 84145; 84484; 85025; 85055; 85610; 85730; 87040; 87070; 87075; 87205; 87637; 89051; 93005; 96365; 96367; 96375; 99285; A9270; G0378; J0696; J1170; J1644; J1756; J1836; J1940; J2405; J7030; J7050

== ENCOUNTER 2023-07-26 02:27 | Observation (INO) | payer MEDICARE, MEDICAID, SELFPAY ==
[2023-07-26] VITALS (21 sets, daily range): BP systolic 96–199; BP diastolic 63–122; PULSE 57–111; RESP 14–26; TEMP 36.1–36.8; O2SAT 93–100; BMI 24.3
--- NOTE | ~2023-07-26 | US_ITS ---
EXAMINATION: US paracentesis abd w/image DATE: 07/26/2023 10:26 MACHINIST BENCH INDICATION: Ascites. TECHNIQUE: The procedure for an ultrasound-guided paracentesis was discussed with the patient. Risks and benefits were detailed, including risks of bleeding, infection, and pain. The patient verbalize d understanding and agreed to proceed following written consent. A time and out was performed to verify patient's name, date of , and type of procedure. The lef t lower quadrant of the abdomen was prepped and draped in usual manner. 1% lidocaine was used for lo isabel anesthesia. A catheter was inserted into the left lower quadrant under ultrasound guidance into the ascitic fluid. The fluid was removed with vacuum assistance. All needles were removed. The patient tolerated the procedure without immediate complication.] FINDINGS: Limited images of the abdomen demonstrates a large amount of ascites. Approximately 5000 c c of yellowish liquid was removed. IMPRESSION: 1. Successful ultrasound-guided paracentesis, with removal of approximately 5000 cc of fluid. Reviewed, dictated and finalized at location A. INIST BENCH IMPRESSION: 1. Successful ultrasound-guided paracentesis, with removal of approximately 50 00 cc of fluid.
--- NOTE | ~2023-07-26 | XR_ITS ---
XR chest 2V 07/26/2023 03:23 Indication: Shortness of breath Procedure: AP view of the chest Comparison: 06/05/2023 Findings: Persistent left lower lobe airspace disease. Small left effusion. Status post median sterno wanda for CABG. Cardiomegaly. No pneumothorax. No acute osseous abnormality. Impression: 1: Unchanged left basilar airspace disease which may represent pneumonia and/or atelectasis. 2: Small left pleural effusion unchanged. Reviewed, dictated and finalized at location A. F OF STAFF Impression: 1: Unchanged left basilar airspace disease which may represent pneumonia and/or atelectasis. 2: Small left pleural effusion unchanged.
--- NOTE | 2023-07-26 02:31 | ECG_ITS ---
Measurements Intervals [place] Rate: 115 P: 63 OR: 195 QRS: 34 QRSD: 116 T: 264 QT: 305 QTc: 423 Interpretive Statements SINUS OR ECTOPIC ATRIAL TACHYCARDIA INCOMPLETE LEFT BUNDLE BRANCH BLOCK DELAYED PRECORDIAL R/S TRANSITION ST-T WAVE ABNORMALITY IN INF/LAT LEADS- CONSIDER ISCHEMIA BASELINE ARTIFACT- I ABNORMAL ECG COMPARED TO ECG 06/05/2023 07:36:55 SINUS TACHYCARDIA OR ECTOPIC ATRIAL TACHYCARDIA NOW PRESENT INCOMPLETE LEFT BUNDLE BRANCH BLOCK NOW PRESENT Electronically Signed On 07-26-2023 6:49:27 CANDY PACKER by Kemal Hogan D.O.
[2023-07-26 03:04] LABS: Basophils Absolute Auto 0.1 K/mm3 (0.0-0.1); Basophils Percent Auto 0.7 % (0.2-1.2); Eosinophils Absolute Auto 0.1 K/mm3 (0-0.3); Eosinophils Percent Auto 0.9 % (0-4.4); Hematocrit 29.7 % (42.0-52.0); Hemoglobin 8.9 g/dL (14.0-18.0); Immature Granulocyte Absolute 0.07 K/mm3 (0.00-0.031); Immature Granulocyte Percent A 0.7 % (0-0.5); Lymphocytes Absolute Auto 1.37 K/mm3 (0.9-3.2); Lymphocytes Percent Auto 14.1 % (18.3-44.2); Mean Corpuscular Hemoglobin 31.4 pg (26-34); Mean Corpuscular Volume 104.9 fl (80-100); Mean Platelet Volume 11.7 fl (7.4-10.4); Monocytes Percent Auto 10.4 % (2.6-8.5); Neutrophils Absolute Auto 7.1 K/mm3 (1.3-6.7); Neutrophils Percent Auto 73.2 % (45.5-73.1); Platelet Count Result 500 k/mm3 (150-375); Red Blood Count 2.83 M/mm3 (4.6-6.20); Red Cell Distribution Width 25.8 % (11.5-14.5); White Blood Count 9.7 K/mm3 (4.5-10.0)
[2023-07-26 03:22] LABS: Alanine Aminotransferase 15 U/L (6-50); Albumin Level 3.6 g/dL (3.5-5.1); Alkaline Phosphatase 73 U/L (38-126); Anion Gap 11 mmol/L (8-16); Aspartate Amino Transferase 43 U/L (17-59); Bilirubin,Total 6.8 mg/dL (0.2-1.3); Blood Urea Nitrogen 33 mg/dL (9-20); Calcium 8.4 mg/dL (8.4-10.2); Carbon Dioxide 17 mmol/L (22-30); Chloride 110 mmol/L (98-107); Estimated CRCL calculation 31 ml/min; Estimated Glomerular Filt Rate 30; Glucose 130 mg/dL (65-110); Potassium 4.5 mmol/L (3.4-5.0); Sodium 138 mmol/L (137-145)
[2023-07-26 03:38] LABS: Platelet Estimate Increased (Adequate)
[2023-07-26 03:39] LABS: Anisocytosis 2+ (NORMAL); Schistocytes 2+ (NORMAL)
[2023-07-26 04:10] LABS: INR 1.3; Prothrombin Time 16.8 Seconds (11.1-14.7)
[2023-07-26 04:11] LABS: Partial Thromboplastin Time 36.5 SECONDS (22.3-36.8)
[2023-07-26 04:14] LABS: Ammonia < 9 umol/L (9-30); Lipase 55 U/L (23-300)
[2023-07-26 04:15] LABS: Lactic Acid Reflex 1.7 mmol/L (0.7-2.0)
--- NOTE | 2023-07-26 04:15 | ED.GENADULT ---
HPI - General Adult General Chief complaint: Shortness of Breath/Dyspnea Stated complaint: SOB, retention, Time Seen by Provider: 07/26/23 02:52 History of Present Illness HPI narrative: Patient 63-year-old gentleman who presents emergency department chief complaint of abdominal distension and shortness of breath. Patient reports that he has history of cirrhosis was last tapped approximately 2 months ago. Patient reports that the symptoms are not improved by anything reports that his abdomen has become progressively more swollen. Related Data Home Medications Medication Instructions Recorded Confirmed amlodipine 10 mg tablet 10 mg PO DAILY 06/05/23 06/05/23 calcium carbonate 500 mg-vitamin See Rx Instructions .Route .COMPLEX 06/05/23 06/05/23 D3 5 mcg (200 unit) tablet (Oysco 500/D) furosemide 20 mg tablet 20 mg BID 06/05/23 06/05/23 hydralazine 50 mg tablet 50 mg PO TID 06/05/23 06/05/23 metoprolol tartrate 50 mg tablet 50 mg PO BID 06/05/23 06/05/23 pantoprazole 40 mg tablet,delayed 40 mg PO DAILY 06/05/23 06/05/23 release spironolactone 50 mg tablet 50 mg PO BID 06/05/23 06/05/23 Allergies Allergy/AdvReac Type Severity Reaction Status Date / Time No Known Allergies Allergy Verified 06/09/23 13:29 Review of Systems Review of Systems: A 10 system review of systems was completed on the patient and is negative except for what is stated in the HPI. Nursing and ancillary documentation was reviewed. [facility] Past Medical History Medical History Alcohol abuse Alcohol abuse CAD (coronary artery disease) Chronic obstructive pulmonary disease Chronic obstructive pulmonary disease History of fracture Including lower extremity and multiple toes. History of fracture Including lower extremity and multiple toes. Hypertension Hypertension Nicotine dependence, cigarettes, with other nicotine-induced disorders Tobacco dependence Tobacco dependence Surgical History Surgical History History of coronary artery bypass graft History of toe surgery History of toe surgery Family History Family History Father Hypertension Father Throat cancer of throat cancer in her early 60s. He was a heavy smoker. Mother Acute myocardial infarction of [place] in early 60s. Father Hypertension Mother Hypertension Social History Social History Social History: The patient lives alone in [place]. He is single. Reports he is disabled, though unsure of any chronic conditions resulting in disability. He has 1 daughter, Andi, and he nominates her to be his surrogate decision maker. He wishes to be a full code.l Smoking packs per day: 1 Smoking cigarettes per day: 20.0 Years smoked: 20 Smoking pack-years: 20.00 Smoking status: Current every day smoker Tobacco type: cigarettes Second hand tobacco smoke exposure: No Alcohol intake: former Drinks per week: 20 Substance use: current Substance use type: marijuana Last use: Patient denies any illicit drug use including IV drugs Do You Feel Safe in your Home?: Yes Lack of Transportation: No Lack of Food: Never True Current Housing: I Have Housing Concerned About Future Housing: No Difficulty Paying Gas/Electric Bills: No Difficulty Paying for Meds: No Currently Unemployed: No Education: High School Diploma/GED Difficulty w/ Childcare or Family Care: No Living arrangements: alone Gender identity (if verbalized by the patient): Male Spiritual care concerns: No Exam Narrative: GENERAL: Well-appearing, well-nourished, and in no acute distress. HEAD: Normocephalic, atraumatic. EYES: PERRLA and EOMI. ENT: Nares clear, no rhinorrhea or epistaxis. Muco
--- NOTE | 2023-07-26 05:32 | PM.IMHP ---
H&P: HPI History of Present Illness Date/Time: 07/26/23 05:32 Chief Complaint: Abdominal distension shortness of bread Narrative: Patient has history of liver cirrhosis, he gets intermittent therapeutic paracenteses and last was 2 months ago. He came to the ED to defer to progressively worsening abdominal distention and shortness of breath. He denies fever, chills, but reported lower abdominal pressure. He was worked up in the emergency department, has normal white count, a benign liver enzymes are within normal with elevated bilirubin. Dries no significant electrolyte imbalance and ammonia is within normal. Patient is being admitted to obtain ultrasound guided paracentesis. Review of Systems Review of Systems: All systems reviewed & are unremarkable except as noted in HPI and below PMFSH Past Medical History Medical History Alcohol abuse Alcohol abuse CAD (coronary artery disease) Chronic obstructive pulmonary disease Chronic obstructive pulmonary disease History of fracture Including lower extremity and multiple toes. History of fracture Including lower extremity and multiple toes. Hypertension Hypertension Nicotine dependence, cigarettes, with other nicotine-induced disorders Tobacco dependence Tobacco dependence Surgical History Surgical History History of coronary artery bypass graft History of toe surgery History of toe surgery Family History Family History Father Hypertension Father Throat cancer of throat cancer in her early 60s. He was a heavy smoker. Mother Acute myocardial infarction of [place] in early 60s. Father Hypertension Mother Hypertension Social History Social History Social History: The patient lives alone in [place]. He is single. Reports he is disabled, though unsure of any chronic conditions resulting in disability. He has 1 daughter, Andi, and he nominates her to be his surrogate decision maker. He wishes to be a full code.l Smoking packs per day: 1 Smoking cigarettes per day: 20.0 Years smoked: 20 Smoking pack-years: 20.00 Smoking status: Current every day smoker Tobacco type: cigarettes Second hand tobacco smoke exposure: No Alcohol intake: former Drinks per week: 20 Substance use: current Substance use type: marijuana Last use: Patient denies any illicit drug use including IV drugs Do You Feel Safe in your Home?: Yes Lack of Transportation: No Lack of Food: Never True Current Housing: I Have Housing Concerned About Future Housing: No Difficulty Paying Gas/Electric Bills: No Difficulty Paying for Meds: No Currently Unemployed: No Education: High School Diploma/GED Difficulty w/ Childcare or Family Care: No Living arrangements: alone Gender identity (if verbalized by the patient): Male Spiritual care concerns: No Meds Home Medications and Allergies Home Medications Medication Instructions Recorded Confirmed Type aspirin 81 mg tablet,delayed 81 mg PO QAM #30 tabs 11/19/19 04/19/23 Rx release amlodipine 5 mg tablet (Norvasc) 10 mg PO DAILY #30 tabs 07/09/22 04/19/23 Rx calcium carbonate 500 mg calcium 500 mg PO DAILY #30 tabs 07/09/22 04/19/23 Rx (1,250 mg) tablet (Oyster Shell Calcium 500) folic acid 1 mg tablet 1 mg PO DAILY #30 tabs 07/09/22 04/19/23 Rx hydralazine 10 mg tablet 50 mg PO TID #90 tabs 07/09/22 04/19/23 Rx metoprolol tartrate 50 mg tablet 50 mg PO Q12H #60 tabs 07/09/22 04/19/23 Rx (Lopressor) pantoprazole 40 mg tablet,delayed 40 mg PO Q12HR #60 tabs 07/09/22 04/19/23 Rx release thiamine HCl (vitamin B1) 100 mg 100 mg PO QAM #30 tabs 07/09/22 04/19/23 Rx tablet (Vitamin B-1) furosemide 20 mg tablet 20 mg
[2023-07-26] MEDS: MORPHINE SULFATE (*CRX) 4 MG/ML INJ IV PUSH ×2 (05:34→08:00)
--- NOTE | 2023-07-26 05:36 | PC.NURSE ---
EDP aware of pt's blood pressures, no further orders at this time.
[2023-07-26] MEDS: hydrALAZINE HCL 20 MG/ML VIAL 10 MG IV PUSH ×2 (05:41→06:05)
--- NOTE | 2023-07-26 09:07 | ADMGEN ---
This patient, Osvaldo Marshall, was admitted to [facility] Surg Room 321-01. Patient/family oriented to hospital policies and general routines including ID bracelet, bed and alarms, visiting hours, pain management, procedures, bathroom and other care routines, personal items, smoking policy, room service/diet, and visiting hours. Information on how to activate the Rapid Response Team has been discussed. Patient/Family are encouraged to report perceived risks to care and to ask questions if they do not understand what they are told or what they should do.
[2023-07-26] MEDS: lisinopriL 5 MG TABLET PO (09:27)
[2023-07-26] MEDS: METOPROLOL TARTRATE 50 MG TAB PO ×2 (09:27→20:49)
[2023-07-26] MEDS: amLODIPine BESYLATE 5 MG TABLET 10 MG PO (09:27)
--- NOTE | 2023-07-26 09:31 | PC.NURSE ---
Patient down to ultrasound for paracentesis via wheelchair.
[2023-07-26] MEDS: hydrALAZINE HCL 50 MG TABLET PO (12:17)
[2023-07-26] MEDS: MIDODRINE HCL 2.5 MG TABLET 5 MG PO (14:13)
--- NOTE | 2023-07-26 16:23 | PM.IMPN ---
Progress Note: A&P Assessment and Plan (1) Uncontrolled hypertension: Code(s): I10 - Essential (primary) hypertension Status: Acute (2) Liver cirrhosis: Code(s): K74.60 - Unspecified cirrhosis of liver Status: Acute (3) CKD (chronic kidney disease): Code(s): N18.9 - Chronic kidney disease, unspecified Status: Acute (4) Chronic anemia: Code(s): D64.9 - Anemia, unspecified Status: Acute (5) Abdominal pain: Code(s): R10.9 - Unspecified abdominal pain Status: Acute (6) Tense ascites: Code(s): R18.8 - Other ascites Status: Acute (7) Personal history of noncompliance with medical treatment and regimen: Code(s): Z91.199 - Patient's noncompliance with other medical treatment and regimen due to unspecified reason Status: Acute (8) Nicotine dependence, cigarettes, with other nicotine-induced disorders: Code(s): F17.218 - Nicotine dependence, cigarettes, with other nicotine-induced disorders Status: Acute (9) Tobacco abuse counseling: Code(s): Z71.6 - Tobacco abuse counseling Status: Acute Plan Continue with current medications Patient underwent ultrasound-guided paracenteses earlier today with removal of approximately 5000 cc ascitic fluid and feels much better Resume patient's diet He admits not refilling his meds upon last discharge and not taking blood pressure meds as ordered Patient received aggressive treatment in the ER with IV hydralazine for blood pressure control We resumed patient's blood pressure meds and he became hypotensive as he has not been taking his meds at home Patient given 1 dose of midodrine 5 mg p.o. and his BP is now stable Adjusted BP meds for BP control Encourage ambulation DC planning in a.m. if he remains stable ? Patient seen and examined at bedside during my morning rounds ? Collaborated with patient's nurse at the bedside in detail and addressed all concerns ? Labs, electrolytes, radiology, investigations and test results reviewed ? Consult/Nursing/Ancilliary notes on the chart reviewed and appreciated ? Spoke with patient/family at the bedside and answered all the questions that they had Repeat labs in a.m. Electrolyte replacement as per protocol. Patient will be monitored very closely on the floor. Further recommendations as per the hospital course. Dependence on nicotine from cigarettes: Tobacco abuse counseling: Patient smokes cigarettes on a chronic basis. Strictly advised patient to cut down on or quit smoking. Nicotine patch ordered. ~5 minutes spent on tobacco cessation counseling with the patient. Websites - http://smokefree.gov & http://www.quitnet.com ? Quitlines - 2-824-FSIR-NOW ( ) ? Smokefree Apps - Fon Enedina ? Text Messages - SmokefreeTXT ([place]IT to [id number]) Personal history of noncompliance with medical treatment and regimen: STRICTLY advised patient to be compliant with meds and medical recommendations. Advised patient to get established with a PCP upon discharge, take care of meds, diet and bring patient's life back on track. Time Spent With Patient Time with patient: 25 - 35 minutes Subjective Date/time seen: 07/26/23 16:23 Interval history: Patient seen and evaluated at bedside. He underwent successful ultrasound-guided paracenteses earlier today with removal of approximately 5000 cc of ascitic fluid. He feels better and was having lunch during my rounds. He admits to not picking up his meds from pharmacy upon last discharge. Review of Systems Review of Systems: 14 systems were reviewed with pertinent positives and negatives per HPI. Except as documented in the HPI/progress notes, all other systems were reviewed and are negative. All systems reviewed & are unremarkable except as noted in HPI and below Exam Narrative: PHYSICAL EXAMINATION: Vital signs: Please see the chart General physical exam: Patient having sinan
--- NOTE | 2023-07-27 01:13 | PC.NURSE ---
informed MD Yang of patient leaking paracentesis site, leaking large amounts of yellow clear drainage.
[2023-07-27 05:47] VITALS: BP 114/83; PULSE 50; RESP 13; TEMP 36.3; O2SAT 100
[2023-07-27 06:58] LABS: Basophils Absolute Auto 0.1 K/mm3 (0.0-0.1); Basophils Percent Auto 0.5 % (0.2-1.2); Eosinophils Absolute Auto 0.1 K/mm3 (0-0.3); Eosinophils Percent Auto 1.4 % (0-4.4); Hematocrit 28.6 % (42.0-52.0); Hemoglobin 8.8 g/dL (14.0-18.0); Immature Granulocyte Absolute 0.03 K/mm3 (0.00-0.031); Immature Granulocyte Percent A 0.3 % (0-0.5); Lymphocytes Absolute Auto 1.35 K/mm3 (0.9-3.2); Lymphocytes Percent Auto 14.6 % (18.3-44.2); Mean Corpuscular HGB Conc 30.8 g/dl (32-36); Mean Corpuscular Hemoglobin 31.9 pg (26-34); Mean Corpuscular Volume 103.6 fl (80-100); Mean Platelet Volume 8.9 fl (7.4-10.4); Monocytes Percent Auto 11.3 % (2.6-8.5); Neutrophils Absolute Auto 6.6 K/mm3 (1.3-6.7); Neutrophils Percent Auto 71.9 % (45.5-73.1); Platelet Count Result 349 k/mm3 (150-375); Red Blood Count 2.76 M/mm3 (4.6-6.20); White Blood Count 9.2 K/mm3 (4.5-10.0)
[2023-07-27 07:08] LABS: Alanine Aminotransferase 11 U/L (6-50); Albumin Level 2.9 g/dL (3.5-5.1); Alkaline Phosphatase 65 U/L (38-126); Anion Gap 4 mmol/L (8-16); Aspartate Amino Transferase 22 U/L (17-59); Bilirubin,Total 2.9 mg/dL (0.2-1.3); Blood Urea Nitrogen 33 mg/dL (9-20); Calcium 7.8 mg/dL (8.4-10.2); Carbon Dioxide 22 mmol/L (22-30); Chloride 109 mmol/L (98-107); Estimated CRCL calculation 34 ml/min; Estimated Glomerular Filt Rate 34; Glucose 94 mg/dL (65-110); Magnesium 1.9 mg/dL (1.6-2.3); Phosphorus 4.2 mg/dL (2.5-4.5); Potassium 4.2 mmol/L (3.4-5.0); Sodium 135 mmol/L (137-145)
[2023-07-27 07:26] LABS: Platelet Estimate Adequate (Adequate)
[2023-07-27 07:27] LABS: Anisocytosis 2+ (NORMAL); Schistocytes 2+ (NORMAL)
[2023-07-27] MEDS: amLODIPine BESYLATE 5 MG TABLET 10 MG PO (08:26)
[2023-07-27 08:28] VITALS: PULSE 56
[2023-07-27] MEDS: METOPROLOL TARTRATE 50 MG TAB PO (08:28)
--- NOTE | 2023-07-27 13:00 | PM.DS ---
DS: Admitting Diagnosis Discharge Date 07/27/2023: Admitting Diagnosis Tense ascites Liver cirrhosis Uncontrolled hypertension DS: Discharge Diagnosis Discharge Diagnosis (1) Uncontrolled hypertension: Code(s): I10 - Essential (primary) hypertension Status: Acute (2) Liver cirrhosis: Code(s): K74.60 - Unspecified cirrhosis of liver Status: Acute (3) CKD (chronic kidney disease): Code(s): N18.9 - Chronic kidney disease, unspecified Status: Acute (4) Chronic anemia: Code(s): D64.9 - Anemia, unspecified Status: Acute (5) Tense ascites: Code(s): R18.8 - Other ascites Status: Acute (6) Abdominal pain: Code(s): R10.9 - Unspecified abdominal pain Status: Acute (7) Personal history of noncompliance with medical treatment and regimen: Code(s): Z91.199 - Patient's noncompliance with other medical treatment and regimen due to unspecified reason Status: Acute (8) Nicotine dependence, cigarettes, with other nicotine-induced disorders: Code(s): F17.218 - Nicotine dependence, cigarettes, with other nicotine-induced disorders Status: Acute (9) Tobacco abuse counseling: Code(s): Z71.6 - Tobacco abuse counseling Status: Acute (10) Renal insufficiency: Code(s): N28.9 - Disorder of kidney and ureter, unspecified Status: Acute (11) Elevated liver function tests: Code(s): R79.89 - Other specified abnormal findings of blood chemistry Status: Acute (12) Tobacco dependence: Code(s): F17.200 - Nicotine dependence, unspecified, uncomplicated Status: Chronic (13) Hypertension: Code(s): I10 - Essential (primary) hypertension Status: Acute (14) Alcohol abuse: Code(s): F10.10 - Alcohol abuse, uncomplicated Status: Chronic (15) Mitral insufficiency: Qualifiers: Cardiac valve disease etiology: etiology unspecified Qualified Code(s): I34.0 - Nonrheumatic mitral (valve) insufficiency Code(s): I34.0 - Nonrheumatic mitral (valve) insufficiency Status: Acute (16) Ascites: Code(s): R18.8 - Other ascites Status: Acute DS: Summary Hospital Course Reason for hospitalization: Abdominal distension Shortness of breath Recurrent ascites Hospital Course: H&P: HPI History of Present Illness Date/Time: 07/26/23? 05:32 Chief Complaint: Abdominal distension shortness of bread Narrative: Patient has history of liver cirrhosis, he gets intermittent therapeutic paracenteses and last was 2 months ago.? He came to the ED to defer to progressively worsening abdominal distention and shortness of breath.? He denies fever, chills, but reported lower abdominal pressure.? He was worked up in the emergency department, has normal white count, a benign liver enzymes are within normal with elevated bilirubin.? Dries no significant electrolyte imbalance and ammonia is within normal.? Patient is being admitted to obtain ultrasound guided paracentesis. 07/26/2023: Continue with current medications Patient underwent ultrasound-guided paracenteses earlier today with removal of approximately 5000 cc ascitic fluid and feels much better Resume patient's diet He admits not refilling his meds upon last discharge and not taking blood pressure meds as ordered Patient received aggressive treatment in the ER with IV hydralazine for blood pressure control We resumed patient's blood pressure meds and he became hypotensive as he has not been taking his meds at home Patient given 1 dose of midodrine 5 mg p.o. and his BP is now stable Adjusted BP meds for BP control Encourage ambulation DC planning in a.m. if he remains stable 07/27/2023: Patient remains stable overnight. His blood pressure is under control on medications. He wants to go home. I advised him, again, to make sure to go to the pharmacy and refill his blood pressure meds. Patient counseled keara
[2023-07-27 14:18] LABS: Folic Acid 6.1 ng/mL (2.76->20)
== END 2023-07-27 16:45 | disposition home or self-care (01) ==
LOC: ANHED 05:35 → ANH3MEDSUR 07:49
PROVIDERS: Admitting Provider Student in an Organized Health Care Education/Training Program; Emergency Provider Emergency Medicine; PCP Internal Medicine; Visit Provider Family Medicine
DX: R18.8 Other ascites (principal); R10.9 Unspecified abdominal pain; K74.60 Unspecified cirrhosis of liver; I10 Essential (primary) hypertension; E80.6 Other disorders of bilirubin metabolism; J90 Pleural effusion, not elsewhere classified; I12.9 Hypertensive chronic kidney disease with stage 1 through stage 4 chronic kidney disease, or unspecified chronic kidney disease; N18.9 Chronic kidney disease, unspecified; D63.1 Anemia in chronic kidney disease; I34.0 Nonrheumatic mitral (valve) insufficiency; Z91.199 Patient's noncompliance with other medical treatment and regimen due to unspecified reason; I25.10 Atherosclerotic heart disease of native coronary artery without angina pectoris; Z95.1 Presence of aortocoronary bypass graft; R94.31 Abnormal electrocardiogram [ECG] [EKG]; J44.9 Chronic obstructive pulmonary disease, unspecified; F10.10 Alcohol abuse, uncomplicated; F17.218 Nicotine dependence, cigarettes, with other nicotine-induced disorders; Z79.82 Long term (current) use of aspirin; Z79.899 Other long term (current) drug therapy; Z82.49 Family history of ischemic heart disease and other diseases of the circulatory system
CPT/HCPCS: 36415; 49083; 71046; 80053; 82140; 82607; 82746; 83605; 83690; 83735; 84100; 85025; 85610; 85730; 93005; 96374; 96375; 96376; 99285; A9270; G0378; J0360; J2270